=== PATIENT | female | born 1955 | race Caucasian/White ===

== ENCOUNTER 2016-10-27 16:02 | Outpatient (CLI) | payer MEDICAID | END 2016-10-27 16:03 | disposition home or self-care (01) | DX: R71.8 Other abnormality of red blood cells (principal) ==

== ENCOUNTER 2016-12-20 15:17 | Outpatient (CLI) | payer MEDICAID ==
[2016-12-20 19:13] LABS: BILIRUBIN,TOTAL 0.2 mg/dL (0.2-1.0); BUN - BLOOD UREA NITROGEN 21 mg/dL (6-20); CALCIUM 9.9 mg/dL (8.5-10.3); CARBON DIOXIDE - CO2 29 mmol/L (21-32); CHLORIDE 104 mmol/L (101-111); CREATININE 0.5 mg/dL (0.4-1.0); GFR - MDRD 126 (>89); GLUCOSE 105 mg/dL (70-100); POTASSIUM 3.6 mmol/L (3.5-5.0); SODIUM 141 mmol/L (135-145); TOTAL PROTEIN 4.8 g/dL (6.7-8.2)
[2016-12-20 19:24] LABS: BASOPHILS % (AUTO) 0.6 %; EOSINOPHILS # (AUTO) 0.2 10^3/uL (0.0-0.7); EOSINOPHILS % (AUTO) 4.2 %; HCT - HEMATOCRIT 40.8 % (37.0-47.0); HGB - HEMOGLOBIN 13.2 g/dL (12.0-16.0); LYMPHOCYTES # (AUTO) 1.4 10^3/uL (1.5-3.5); LYMPHOCYTES % (AUTO) 24.4 %; MEAN CORPUSCULAR HEMOGLOBIN 34.9 pg (27.0-31.0); MEAN CORPUSCULAR HGB CONC 32.2 g/dL (32.0-36.0); MEAN CORPUSCULAR VOLUME 108.2 fL (81.0-99.0); MEAN PLATELET VOLUME 8.9 fL (7.9-10.8); MONOCYTES # (AUTO) 0.6 10^3/uL (0.0-1.0); MONOCYTES % (AUTO) 10.7 %; NEUTROPHILS # (AUTO) 3.4 10^3/uL (1.5-6.6); NEUTROPHILS % (AUTO) 60.1 %; RED BLOOD COUNT 3.77 10^6/uL (4.20-5.40); RED CELL DISTRIBUTION WIDTH 13.3 % (12.0-15.0); UNCORRECTED WHITE BLOOD COUNT 5.7 x10^3/uL; WHITE BLOOD COUNT 5.7 x10^3/uL (4.8-10.8)
== END 2016-12-20 15:18 | disposition home or self-care (01) ==
LOC: LAB.F 15:17
PROVIDERS: ATTEND Specialist/Technologist Athletic Trainer
DX: M12.9 Arthropathy, unspecified (principal); M79.1 Myalgia; M15.0 Primary generalized (osteo)arthritis; Z78.9 Other specified health status; M54.2 Cervicalgia
CPT/HCPCS: 36415; 80053; 85025; 85651; 86140

== ENCOUNTER 2017-04-12 15:15 | Outpatient (CLI) | payer MEDICAID | END 2017-04-12 15:16 | disposition home or self-care (01) | LOC: LAB.R 15:15 | PROVIDERS: ATTEND Nurse Practitioner Family | DX: L03.90 Cellulitis, unspecified (principal) | CPT/HCPCS: 87070; 87205 ==

== ENCOUNTER 2017-07-06 11:12 | Outpatient (CLI) | payer MEDICAID | END 2017-07-06 11:13 | disposition EMS.NT | LOC: EMS 11:12 | PROVIDERS: ATTEND Surgery | DX: R06.00 Dyspnea, unspecified (principal) ==

== ENCOUNTER 2017-07-08 14:25 | Outpatient (CLI) | payer MEDICAID ==
--- NOTE | 2017-07-08 15:59 | XRAY Report ---
DATE OF SERVICE: 07/08/2017 THREE VIEW LEFT FOOT: 07/08/2017 CLINICAL INDICATION: Painful bunion. FINDINGS: AP, lateral, oblique views of the left foot demonstrate osteoarthritic changes in the first and second metatarsophalangeal joints, with hallux valgus. There is no evidence of fracture. No radiopaque foreign body was seen in the soft tissues. IMPRESSION: MODERATE OSTEOARTHRITIS, WITH HALLUX VALGUS. TD: 07/08/2017 16:58
== END 2017-07-08 14:26 | disposition home or self-care (01) ==
LOC: DI 14:25
PROVIDERS: ATTEND Podiatrist
DX: M19.072 Primary osteoarthritis, left ankle and foot (principal); M20.12 Hallux valgus (acquired), left foot; M21.612 Bunion of left foot

== ENCOUNTER 2017-08-24 08:00 | Outpatient (CLI) | payer MEDICAID ==
[2017-08-24 17:46] LABS: BASOPHILS % (AUTO) 0.6 %; EOSINOPHILS # (AUTO) 0.3 10^3/uL (0.0-0.7); EOSINOPHILS % (AUTO) 3.8 %; HGB - HEMOGLOBIN 12.4 g/dL (12.0-16.0); LYMPHOCYTES # (AUTO) 1.6 10^3/uL (1.5-3.5); MEAN CORPUSCULAR HEMOGLOBIN 35.5 pg (27.0-31.0); MEAN CORPUSCULAR HGB CONC 32.4 g/dL (32.0-36.0); MEAN CORPUSCULAR VOLUME 109.6 fL (81.0-99.0); MEAN PLATELET VOLUME 7.7 fL (7.9-10.8); MONOCYTES # (AUTO) 0.4 10^3/uL (0.0-1.0); MONOCYTES % (AUTO) 5.3 %; NEUTROPHILS % (AUTO) 71.3 %; PLT - PLATELET COUNT 348 10^3/uL (130-450); RED BLOOD COUNT 3.47 10^6/uL (4.20-5.40); RED CELL DISTRIBUTION WIDTH 15.3 % (12.0-15.0); WHITE BLOOD COUNT 8.4 x10^3/uL (4.8-10.8)
[2017-08-24 18:18] LABS: ALBUMIN 3.9 g/dL (3.2-5.5); ALBUMIN/GLOBULIN RATIO 1.6 (1.0-2.2); ALKALINE PHOSPHATASE 61 IU/L (42-121); ALT ALANINE AMINOTRANSFERASE 36 IU/L (10-60); AST ASPARTATE AMINOTRANSFERASE 32 IU/L (10-42); BILIRUBIN,TOTAL 0.4 mg/dL (0.2-1.0); BUN - BLOOD UREA NITROGEN 31 mg/dL (6-20); CALCIUM 9.3 mg/dL (8.5-10.3); CARBON DIOXIDE - CO2 29 mmol/L (21-32); CHLORIDE 103 mmol/L (101-111); CREATININE 0.9 mg/dL (0.4-1.0); GFR - MDRD 64 (>89); GLUCOSE 98 mg/dL (70-100); SODIUM 139 mmol/L (135-145); TOTAL PROTEIN 6.4 g/dL (6.7-8.2)
[2017-08-24 18:19] LABS: CRP - C-REACTIVE PROTEIN < 1.0 mg/dL (0-1.0)
== END 2017-08-24 08:01 | disposition home or self-care (01) ==
LOC: LAB.F 08:00
PROVIDERS: ATTEND Specialist/Technologist Athletic Trainer
DX: M12.9 Arthropathy, unspecified (principal); M79.1 Myalgia; Z78.9 Other specified health status
CPT/HCPCS: 36415; 80053; 85025; 85651; 86140

== ENCOUNTER 2017-08-30 11:20 | Outpatient (CLI) | payer MEDICAID | END 2017-08-30 11:21 | disposition home or self-care (01) | LOC: LAB.R 11:20 | PROVIDERS: ATTEND Nurse Practitioner Family | DX: L02.93 Carbuncle, unspecified (principal); Z86.14 Personal history of Methicillin resistant Staphylococcus aureus infection | CPT/HCPCS: 87070; 87205 ==

== ENCOUNTER 2017-09-29 13:02 | Emergency (ER) | payer MEDICAID ==
[2017-09-29] MEDS ORDERED: IOPAMIDOL-300 100 ML VIAL IVP ONE ×2 (13:03→18:04)
[2017-09-29 14:09] LABS: BASOPHILS % (AUTO) 0.3 %; EOSINOPHILS # (AUTO) 0.3 10^3/uL (0.0-0.7); EOSINOPHILS % (AUTO) 2.5 %; HGB - HEMOGLOBIN 13.3 g/dL (12.0-16.0); LYMPHOCYTES # (AUTO) 1.4 10^3/uL (1.5-3.5); LYMPHOCYTES % (AUTO) 12.4 %; MEAN CORPUSCULAR HEMOGLOBIN 35.8 pg (27.0-31.0); MEAN CORPUSCULAR VOLUME 108.2 fL (81.0-99.0); MONOCYTES # (AUTO) 0.7 10^3/uL (0.0-1.0); MONOCYTES % (AUTO) 5.7 %; NEUTROPHILS # (AUTO) 9.2 10^3/uL (1.5-6.6); NEUTROPHILS % (AUTO) 79.1 %; PLT - PLATELET COUNT 351 10^3/uL (130-450); RED BLOOD COUNT 3.73 10^6/uL (4.20-5.40); RED CELL DISTRIBUTION WIDTH 13.5 % (12.0-15.0); WHITE BLOOD COUNT 11.6 x10^3/uL (4.8-10.8)
[2017-09-29 14:24] LABS: ALBUMIN 4.3 g/dL (3.2-5.5); ALBUMIN/GLOBULIN RATIO 1.5 (1.0-2.2); BILIRUBIN,TOTAL 0.4 mg/dL (0.2-1.0); CALCIUM 10.3 mg/dL (8.5-10.3); CREATININE 1.2 mg/dL (0.4-1.0); TOTAL PROTEIN 7.1 g/dL (6.7-8.2)
[2017-09-29 15:32] LABS: BILIRUBIN,URINE NEGATIVE (NEGATIVE); GLUCOSE, URINE (UA) NEGATIVE (NEGATIVE); KETONES,URINE (UA) NEGATIVE (NEGATIVE); LEUKOCYTE ESTERASE, URINE NEGATIVE (NEGATIVE); NITRITE,URINE NEGATIVE (NEGATIVE); OCCULT BLOOD,URINE NEGATIVE (NEGATIVE); PH,URINE 5.5 PH (5.0-7.5); PROTEIN,URINE NEGATIVE (NEGATIVE); UROBILINOGEN,URINE 0.2 (NORMAL) E.U./dL (NORMAL)
[2017-09-29 15:33] LABS: CLARITY,URINE CLEAR (CLEAR)
[2017-09-29] MEDS ORDERED: SODIUM CHLORIDE 0.9% 1,000 ML IV ONE (15:46)
[2017-09-29] MEDS ORDERED: ONDANSETRON 4 MG/2 ML VIAL IVP STA (15:47)
[2017-09-29] MEDS ORDERED: HYDROmorphone 1 MG/ML CARPUJECT IVP STA (15:47)
--- NOTE | 2017-09-29 15:48 | ED Physician Documentation ---
PD HPI ABD PAIN - Stated complaint Stated Complaint: ABD PX/BLOATING - Chief complaint Chief Complaint: Abd Pain - History obtained from History obtained from: Patient - History of Present Illness Timing - onset: Other (She had what sounds like ruptured diverticulitis about 7 years ago with an ex lap and an ostomy that was later reversed. She has been having on and off increasing abdominal pains with bloating for the last few days and several episodes of vomiting. She has had some loose small stools that smell bad but are not dark or tarry. No fever.) Review of Systems Constitutional: denies: Fever, Chills Cardiac: denies: Chest pain / pressure, Palpitations Respiratory: denies: Dyspnea, Cough GI: reports: Abdominal Pain, Nausea, Vomiting, Diarrhea. denies: Constipation, Hematemesis, Bloody / black stool Musculoskeletal: reports: Back pain PD PAST MEDICAL HISTORY - Past Medical History Past Medical History: Yes Cardiovascular: None Respiratory: COPD Neuro: Peripheral neuropathy Endocrine/Autoimmune: None GI: Colon polyps, Diverticulitis HEENT: None Psych: None Musculoskeletal: Osteoarthritis, Fibromyalgia, Rheumatoid arthritis - Past Surgical History Past Surgical History: Yes General: Bowel surgery, Colonoscopy - Present Medications Home Medications: Ambulatory Orders Medication Instructions Recorded Confirmed Albuterol 2.5 mg INH Q4H PRN #30 neb 04/12/16 11/19/16 Sulfasalazine [Sulfazine] 2 tab PO BID 04/12/16 11/19/16 Cyclobenzaprine [Flexeril] 10 mg PO TID PRN 11/19/16 11/19/16 Flunisolide [Aerospan] 2 puffs INH BID 11/19/16 11/19/16 Gabapentin 300 mg PO Q8H PRN 11/19/16 11/19/16 Methotrexate 8 tab PO ONCE 11/19/16 11/19/16 Metoclopramide [Reglan] 10 mg PO Q6H PRN #20 tablet 09/29/17 Omeprazole [PriLOSEC] 20 mg PO DAILY #14 capsule 09/29/17 - Allergies Allergies/Adverse Reactions: Allergies Allergy/AdvReac Type Severity Reaction Status Date / Time piperacillin Allergy Unknown Verified 09/29/17 13:40 - Social History Does the pt smoke?: Yes Smoking Status: Current every day smoker PD ED PE NORMAL - Vitals Vital signs reviewed: Yes - General General: Alert and oriented X 3, No acute distress - HEENT HEENT: PERRL, EOMI - Neck Neck: Supple, no meningeal sign, No bony TTP - Cardiac Cardiac: RRR, No murmur - Respiratory Respiratory: No respiratory distress, Clear bilaterally - Abdomen Abdomen: Other (Abdomen is soft with multiple surgical scars, somewhat bloated and tympanitic with absent bowel tones. No focal tenderness but she does have mild diffuse tenderness without surgical signs.) - Back Back: No CVA TTP, No spinal TTP - Derm Derm: Normal color, Warm and dry - Extremities Extremities: No edema, No calf tenderness / cord - Neuro Neuro: Alert and oriented X 3, Normal speech - Psych Psych: Normal mood, Normal affect Results - Vitals Vitals: Vital Signs - 24 hr 09/29/17 09/29/17 13:35 18:27 Temperature 36.7 C 37.4 C Heart Rate 107 H 103 H Respiratory 18 16 Rate Blood Pressure 122/61 140/74 H O2 Saturation 99 94 Oxygen O2 Source Room air - Labs Labs: Laboratory Tests 09/29/17 09/29/17 09/29/17 14:00 14:04 14:04 WBC 11.6 H RBC 3.73 L Hgb 13.3 Hct 40.3 MCV 108.2 H MCH 35.8 H MCHC 33.0 RDW 13.5 Plt Count 351 MPV 7.0 L Neut # 9.2 H Lymph # 1.4 L [place] # 0.7 Eos # 0.3 Baso # 0.0 Absolute Nucleated RBC 0.00 Nucleated RBC % 0.0 Sodium 134 L Potassium 4.4 Chloride 95 L Carbon Dioxide 30 Anion Gap 9.0 BUN 36 H Creatinine 1.2 H Estimated GFR (MDRD) 46 L Glucose 101 H Calcium 10.3 Total Bilirubin 0.4 AST 28 ALT 25 Alkaline Phosphatase 115 Total Protein 7.1 Albumin 4.3 Globulin 2.8 Albumin/Globulin Ratio 1.5 Lipase 18 L Urine Color YELLOW Urine Clarity CLEAR Urine pH 5.5 Ur Specific [place] 1.025 Urine Protein NEGATIVE Urine Glucose (UA) NEGATIVE Urine Ketones NEGATIVE Urine Occult Blood NEGATIVE Urine Nitrite NEGATIVE Urine Bilirubin NEGATIVE Urine Urobilinogen 0.2 (NORMAL) Ur Leukocyte Esterase NEGATIVE Ur Microscopic Review NOT INDICATED Urine Culture Comments NOT INDICATED - Rads (name of study) CT A/P Radiology: EMP read contemporaneously (Stomach with pyloric wall thickening, I also note a significant stool load.) PD MEDICAL DECISION MAKING - ED course ED course: 61-year-old woman with abdominal pain and vomiting, exam concerning for small bowel obstruction which is not evident on CT but she does have a significant stool load and pyloric wall thickening. Follow-up for upper endoscopy was encouraged but in the meantime we will give her antiemetics and laxative as well as a PPI. Departure - Departure Disposition: 01 Home, Self Care Clinical Impression: Abdominal pain Qualifiers: Abdominal location: generalized Qualified Code(s): R10.84 - Generalized abdominal pain Constipation Qualifiers: Constipation type: other constipation type Qualified Code(s): K59.09 - Other constipation Condition: Good Record reviewed to determine appropriate education?: Yes Instructions: ED Constipation, Abdominal Pain Prescriptions: Metoclopramide [Reglan] 10 mg PO Q6H PRN #20 tablet PRN Reason: Nausea / Vomiting Omeprazole [PriLOSEC] 20 mg PO DAILY #14 capsule Comments: If you do not have a good stool output with the magnesium citrate, buy an over- the-counter laxative and take that as well. Return if worsening or if new symptoms develop. Follow-up with your doctor and discuss referral for upper and lower endoscopy given CT findings and the fact that you are overdue for colonoscopy anyway.
[2017-09-29] MEDS ORDERED: IOPAMIDOL-300 50 ML VIAL ONE (16:02)
[2017-09-29] MEDS ORDERED: IOPAMIDOL-300 100 ML VIAL ONE (16:02)
[2017-09-29] MEDS ORDERED: diphenhydrAMINE INJ 50 MG/ML VIAL IVP STA (16:36)
[2017-09-29] MEDS ORDERED: IOPAMIDOL-300 50 ML VIAL PO ONE (18:04)
[2017-09-29 18:28] VITALS: BP 140/74
--- NOTE | 2017-09-29 18:36 | CT Report ---
EXAM: CT ABDOMEN AND PELVIS EXAM DATE: 09/29/2017 06:02 PM. CLINICAL HISTORY: Diffuse abdomen pain and bloating. Nausea and vomiting. COMPARISONS: None. TECHNIQUE: Routine helical CT imaging was performed through the abdomen and pelvis. IV contrast: 50 M L ISOVUE 300. Enteric contrast: Yes. Reconstructions: Coronal and sagittal. In accordance with CT protocol optimization, one or more of the following dose reduction techniques w ere utilized for this exam: automated exposure control, adjustment of mA and/or KV based on patient s ize, or use of iterative reconstructive technique. FINDINGS: Lung Bases: Unremarkable. Liver: Normal. No masses. Gallbladder/Bile Ducts: Unremarkable. Spleen: Normal. Pancreas: Normal. Adrenal Glands: Normal. Kidneys: Normal. No masses or hydronephrosis. Peritoneal Cavity/Bowel: Distended stomach with pyloric thickening 3.6 cm long and 3.4 cm in diameter . Oral contrast reaches the mid small bowel. Rectosigmoid anastomosis noted. No free fluid, free air or adenopathy. No masses or acute inflammatory process. Appendectomy clips. Pelvic Organs: Normal. The bladder and visualized pelvic organs are within normal limits. Vasculature: No aortic aneurysm. Advanced lower aortic atherosclerotic calcification. Bones: Advanced multilevel degenerative lumbar disk disease. Other: None. IMPRESSION: 1. Distended stomach with pyloric wall thickening. 2. Appendectomy clips and rectosigmoid anastomosis noted. 3. Multilevel degenerative lumbar disk disease. [facility] Referring Provider Line: [phone] SITE ID: [id number]
[2017-09-29] MEDS ORDERED: PANTOPRAZOLE 40 MG TABLET PO STA (18:50)
[2017-09-29] MEDS ORDERED: MAGNESIUM CITRATE 296 ML BOTTLE PO STA (18:50)
== END 2017-09-29 19:17 | disposition home or self-care (01) ==
LOC: ED 13:02
DX: R10.84 Generalized abdominal pain (principal); K59.09 Other constipation; G62.9 Polyneuropathy, unspecified; F17.200 Nicotine dependence, unspecified, uncomplicated
CPT/HCPCS: 36415; 74177; 80053; 81003; 83690; 85025; 96361; 96374; 96375; 99283; 99284; A9270; J1170; J1200; Q9967; 81001; 87086

== ENCOUNTER 2017-10-19 14:59 | Outpatient (CLI) | payer MEDICAID ==
[2017-10-19 17:35] LABS: BASOPHILS % (AUTO) 0.5 %; EOSINOPHILS # (AUTO) 0.2 10^3/uL (0.0-0.7); EOSINOPHILS % (AUTO) 2.7 %; HGB - HEMOGLOBIN 11.8 g/dL (12.0-16.0); LYMPHOCYTES # (AUTO) 1.4 10^3/uL (1.5-3.5); LYMPHOCYTES % (AUTO) 19.7 %; MEAN CORPUSCULAR HEMOGLOBIN 35.7 pg (27.0-31.0); MEAN CORPUSCULAR HGB CONC 32.6 g/dL (32.0-36.0); MEAN CORPUSCULAR VOLUME 109.4 fL (81.0-99.0); MEAN PLATELET VOLUME 7.8 fL (7.9-10.8); MONOCYTES # (AUTO) 0.5 10^3/uL (0.0-1.0); MONOCYTES % (AUTO) 7.4 %; NEUTROPHILS % (AUTO) 69.7 %; PLT - PLATELET COUNT 403 10^3/uL (130-450); RED BLOOD COUNT 3.32 10^6/uL (4.20-5.40); RED CELL DISTRIBUTION WIDTH 13.7 % (12.0-15.0); WHITE BLOOD COUNT 7.1 x10^3/uL (4.8-10.8)
== END 2017-10-19 15:00 | disposition home or self-care (01) ==
LOC: LAB.F 14:59
PROVIDERS: ATTEND Nurse Practitioner Family
DX: G25.81 Restless legs syndrome (principal)
CPT/HCPCS: 36415; 82607; 85025

== ENCOUNTER 2018-04-04 14:16 | Outpatient (CLI) | payer MEDICAID ==
[2018-04-04 17:50] LABS: ALBUMIN 4.2 g/dL (3.2-5.5); ALBUMIN/GLOBULIN RATIO 1.5 (1.0-2.2); BILIRUBIN,TOTAL 0.6 mg/dL (0.2-1.0); CALCIUM 9.8 mg/dL (8.5-10.3); CREATININE 0.9 mg/dL (0.4-1.0)
== END 2018-04-04 14:17 | disposition home or self-care (01) ==
LOC: LAB.F 14:16
PROVIDERS: ATTEND Specialist/Technologist Athletic Trainer
DX: M12.9 Arthropathy, unspecified (principal); E83.52 Hypercalcemia
CPT/HCPCS: 36415; 80053; 81599

== ENCOUNTER 2018-04-19 14:45 | Outpatient (CLI) | payer MEDICAID | END 2018-04-19 14:46 | disposition home or self-care (01) | LOC: LAB.R 14:45 | PROVIDERS: ATTEND Nurse Practitioner Family | DX: L98.492 Non-pressure chronic ulcer of skin of other sites with fat layer exposed (principal) | CPT/HCPCS: 87070; 87077; 87181; 87205 ==

== ENCOUNTER 2018-06-01 09:21 | Outpatient (CLI) | payer MEDICAID | END 2018-06-01 09:22 | disposition home or self-care (01) | LOC: RT 09:21 | PROVIDERS: ATTEND Nurse Practitioner Family | DX: R06.02 Shortness of breath (principal) | CPT/HCPCS: 94060 ==

== ENCOUNTER 2018-06-14 14:16 | Emergency (ER) | payer MEDICAID ==
--- NOTE | 2018-06-14 16:32 | ED Physician Documentation ---
PD HPI BACK INJURY - Stated complaint Stated Complaint: GLF - History obtained from History obtained from: Patient - History of Present Illness Location: Left, Lower Type of injury: Fall (slipped, fell and landed onto her back, with pain in lumbar area, and left arm. Still having pain in lumbar area, and also having couple days of abd distension, and a feeling of mass left lower abd.) Where injury occurred: Home Timing - onset: How many days ago (5) Timing - duration: Days (5) Review of Systems Constitutional: reports: Myalgias. denies: Fever, Chills Nose: denies: Rhinorrhea / runny nose, Congestion Throat: denies: Sore throat Cardiac: denies: Chest pain / pressure, Palpitations Respiratory: denies: Cough GI: reports: Nausea, Constipation. denies: Abdominal Pain, Vomiting : denies: Dysuria, Frequency Skin: denies: Abrasion (s), Laceration (s) Neurologic: reports: Generalized weakness. denies: Focal weakness, Numbness, Altered mental status, Headache PD PAST MEDICAL HISTORY - Past Medical History Cardiovascular: None Respiratory: COPD Endocrine/Autoimmune: None GI: Colon polyps, Diverticulitis HEENT: None Psych: None Musculoskeletal: Osteoarthritis, Fibromyalgia, Rheumatoid arthritis - Past Surgical History Past Surgical History: Yes General: Bowel surgery, Colonoscopy - Present Medications Home Medications: Ambulatory Orders Medication Instructions Recorded Confirmed Cyclobenzaprine [Flexeril] 10 mg PO TID PRN 11/19/16 05/11/18 Methotrexate 12.5 tab PO BID 11/19/16 05/11/18 Acetaminophen [8Hr Arthritis Pain 1 tab PO PRN PRN 05/11/18 05/11/18 Relief] Folic Acid 1 mg PO DAILY 05/11/18 05/11/18 Multivitamin [Multiple Vitamins] 1 tab PO DAILY 05/11/18 05/11/18 Nortriptyline HCl 1 cap PO DAILY 05/11/18 05/11/18 Turmeric Root Extract [Turmeric] 1 cap PO DAILY 05/11/18 05/11/18 Calcitonin [Fortical] 1 sprays ELAINE DAILY #1 bottle 06/14/18 Cephalexin [Keflex] 500 mg PO TID #20 capsule 06/14/18 Docusate Sodium 100 mg PO DAILY #30 capsule 06/14/18 Losartan Potassium 06/14/18 Naproxen 375 mg PO BID #20 tablet 06/14/18 Oxycodone HCl/Acetaminophen 1 - 2 each PO Q6H PRN #20 tablet 06/14/18 [Percocet 5-325 mg Tablet] Tiotropium [place] [Spiriva] 06/14/18 - Allergies Allergies/Adverse Reactions: Allergies Allergy/AdvReac Type Severity Reaction Status Date / Time piperacillin Allergy Rash Verified 06/14/18 14:31 - Social History Does the pt smoke?: Yes Smoking Status: Current every day smoker PD ED PE NORMAL - Vitals Vital signs reviewed: Yes - General General: Alert and oriented X 3, No acute distress, Well developed/nourished - HEENT HEENT: Atraumatic, Pharynx benign - Neck Neck: Supple, no meningeal sign, No bony TTP, No adenopathy - Cardiac Cardiac: RRR, No murmur - Respiratory Respiratory: Clear bilaterally - Abdomen Abdomen: Soft, Non tender - Back Back: No CVA TTP, Other (has some spinal and adjacent muscle tenderness at TL junction. ) - Derm Derm: Normal color, Warm and dry - Extremities Extremities: No deformity, No tenderness to palpate, Normal ROM s pain - Neuro Neuro: Alert and oriented X 3, No motor deficit, Normal speech Results - Vitals Vitals: Vital Signs - 24 hr 06/14/18 06/14/18 14:24 19:45 Temperature 37.2 C 37.0 C Heart Rate 105 H 98 Respiratory 16 16 Rate Blood Pressure 146/73 H 138/78 H O2 Saturation 100 97 Oxygen O2 Source Room air - Labs Labs: Laboratory Tests 06/14/18 06/14/18 06/14/18 17:25 17:29 17:29 WBC 7.0 RBC 3.57 L Hgb 13.5 Hct 40.7 MCV 114.1 H MCH 37.7 H MCHC 33.0 RDW 14.5 Plt Count 351 MPV 6.6 L Neut # (Auto) 4.6 Lymph # (Auto) 1.6 [place] # (Auto) 0.6 Eos # (Auto) 0.1 Baso # (Auto) 0.0 Absolute Nucleated RBC 0.00 Nucleated RBC % 0.1 Manual Slide Review Indicated WBC Morphology NORMAL APPEARANCE Platelet Estimate NORMAL (130-450,000) Platelet Morphology NORMAL APPEARANCE RBC Morph Micro Appear 2+ STOMATOCYTES Sodium 140 Potassium 3.9 Chloride 103 Carbon Dioxide 31 Anion Gap 6.0 BUN 16 Creatinine 0.6 Estimated GFR (MDRD) 102 Glucose 114 H Calcium 9.9 Total Bilirubin 0.4 AST 26 ALT 31 Alkaline Phosphatase 89 Total Protein 7.6 Albumin 4.3 Globulin 3.3 Albumin/Globulin Ratio 1.3 Lipase 27 Urine Color YELLOW Urine Clarity CLOUDY Urine pH 7.0 Ur Specific [place] 1.015 Urine Protein NEGATIVE Urine Glucose (UA) NEGATIVE Urine Ketones NEGATIVE Urine Occult Blood NEGATIVE Urine Nitrite NEGATIVE Urine Bilirubin NEGATIVE Urine Urobilinogen 0.2 (NORMAL) Ur Leukocyte Esterase NEGATIVE Urine RBC 0-5 Urine WBC 0-3 Ur Squamous Epith Cells RARE Squamous Amorphous Sediment Moderate Urine Bacteria Few Ur Microscopic Review INDICATED Urine Culture Comments NOT INDICATED - Rads (name of study) abd CT Radiology: Prelim report reviewed, Discussed with rads (L1 endplate compression fracture, mild. stranding and uneven contrast in kidneys, suggesting kidney infection. no abd mass seen. ), EMP read contemporaneously PD MEDICAL DECISION MAKING - ED course Complexity details: reviewed old records, reviewed results, re-evaluated patient, considered differential, d/w patient ED course: She has L1 compression fracture. There is CT showing some findings consistent with kidney infection. We will treated with some antibiotics for this. There are no abdominal masses to account for the firmness. She may have a slight ileus related to the compression fracture and injury and therefore having some distention which is translating more locally given her prior abdominal surgeries. Departure - Departure Disposition: 01 Home, Self Care Clinical Impression: Lumbar compression fracture Qualifiers: Encounter type: initial encounter Lumbar vertebra fracture level: L1 Fracture type: closed Qualified Code(s): S32.010A - Wedge compression fracture of first lumbar vertebra, initial encounter for closed fracture UTI (urinary tract infection) Qualifiers: Urinary tract infection type: site unspecified Hematuria presence: without hematuria Qualified Code(s): N39.0 - Urinary tract infection, site not specified Abdominal pain Qualifiers: Abdominal location: left lower quadrant Qualified Code(s): R10.32 - Left lower quadrant pain Condition: Stable Record reviewed to determine appropriate education?: Yes Instructions: ED Fx Comp Vertebral Follow-Up: Kimberly Adam ARNP [Primary Care Provider] - Prescriptions: Calcitonin [Fortical] 1 sprays ELAINE DAILY #1 bottle Cephalexin [Keflex] 500 mg PO TID #20 capsule Docusate Sodium 100 mg PO DAILY #30 capsule Naproxen 375 mg PO BID #20 tablet Oxycodone HCl/Acetaminophen [Percocet 5-325 mg Tablet] 1 - 2 each PO Q6H PRN #20 tablet PRN Reason: pain Comments: Activity as feel able. You have a mild compression fracture at the first lumbar vertebrae. This will take about a month to heal up but should be the worst over the first week to week and a half. To improve on it we can use some anti- inflammatories such as naproxen twice daily for several days or so. Can also improve the healing of it faster with the calcitonin hormone nasal spray that given 1 spray daily in alternating nostrils for 4 weeks. Add Tylenol or Percocet if needed for pain. Use a stool softener docusate to ensure easy bowel movements. Some sludging of movement of your intestines may be accounting for the distention feeling you have right now. Follow-up with your primary care if not improving well over the next 5-7 days, call for an appointment. Discharge Date/Time: 06/14/18 19:47
[2018-06-14] MEDS ORDERED: KETOROLAC 15 MG/ML VIAL IVP STA (16:47)
[2018-06-14] MEDS ORDERED: SODIUM CHLORIDE 0.9% 1,000 ML IV ONE (16:47)
[2018-06-14] MEDS ORDERED: IOVERSOL 320 100 ML VIAL IVP ONE ×2 (17:30→18:25)
[2018-06-14 17:36] LABS: BASOPHILS % (AUTO) 0.4 %; EOSINOPHILS # (AUTO) 0.1 10^3/uL (0.0-0.7); EOSINOPHILS % (AUTO) 2.1 %; HGB - HEMOGLOBIN 13.5 g/dL (12.0-16.0); LYMPHOCYTES # (AUTO) 1.6 10^3/uL (1.5-3.5); LYMPHOCYTES % (AUTO) 22.4 %; MEAN CORPUSCULAR HEMOGLOBIN 37.7 pg (27.0-31.0); MEAN CORPUSCULAR VOLUME 114.1 fL (81.0-99.0); MEAN PLATELET VOLUME 6.6 fL (7.9-10.8); MONOCYTES # (AUTO) 0.6 10^3/uL (0.0-1.0); MONOCYTES % (AUTO) 9.2 %; NEUTROPHILS # (AUTO) 4.6 10^3/uL (1.5-6.6); NEUTROPHILS % (AUTO) 65.9 %; PLT - PLATELET COUNT 351 10^3/uL (130-450); RED BLOOD COUNT 3.57 10^6/uL (4.20-5.40); RED CELL DISTRIBUTION WIDTH 14.5 % (12.0-15.0)
[2018-06-14 17:37] LABS: BILIRUBIN,URINE NEGATIVE (NEGATIVE); GLUCOSE, URINE (UA) NEGATIVE (NEGATIVE); KETONES,URINE (UA) NEGATIVE (NEGATIVE); LEUKOCYTE ESTERASE, URINE NEGATIVE (NEGATIVE); NITRITE,URINE NEGATIVE (NEGATIVE); OCCULT BLOOD,URINE NEGATIVE (NEGATIVE); PROTEIN,URINE NEGATIVE (NEGATIVE); UROBILINOGEN,URINE 0.2 (NORMAL) E.U./dL (NORMAL)
[2018-06-14 17:38] LABS: CLARITY,URINE CLOUDY (CLEAR)
[2018-06-14 17:45] LABS: ALBUMIN 4.3 g/dL (3.2-5.5); ALBUMIN/GLOBULIN RATIO 1.3 (1.0-2.2); BILIRUBIN,TOTAL 0.4 mg/dL (0.2-1.0); CALCIUM 9.9 mg/dL (8.5-10.3); CREATININE 0.6 mg/dL (0.4-1.0); TOTAL PROTEIN 7.6 g/dL (6.7-8.2)
[2018-06-14 17:55] LABS: AMORPHOUS SEDIMENT,UR Moderate /LPF; BACTERIA,URINE Few /HPF (None Seen); RBC,URINE 0-5 /HPF (0-5); SQUAMOUS EPITHELIAL CELL,UR RARE Squamous (<= Few)
[2018-06-14 17:58] LABS: PLATELET ESTIMATE, MANUAL NORMAL (130-450,000) (NORMAL); PLATELET MORPHOLOGY NORMAL APPEARANCE (NORMAL)
[2018-06-14] MEDS ORDERED: ACETAMINOPHEN 1,000 MG/100 ML 100 ML IV STA (18:45)
--- NOTE | 2018-06-14 18:47 | CT Report ---
Reason: fall 5 days ago; persistent lumbar and left abd pa Procedure Date: 06/14/2018 Accession Number: [id number] / [id number] Procedure: CT - Abdomen/Pelvis W/ CPT Code: FULL RESULT: EXAM: CT ABDOMEN AND PELVIS EXAM DATE: 06/14/2018 05:56 PM. CLINICAL HISTORY: Fall 5 days ago; persistent lumbar and left abdominal pain. COMPARISONS: Abdomen/pelvis with contrast 09/29/2017 5:42 PM. TECHNIQUE: Routine helical CT imaging was performed through the abdomen and pelvis. IV contrast: 100 ML OPTIRAY 320. Enteric contrast: No. Reconstructions: Coronal and sagittal. In accordance with CT protocol optimization, one or more of the following dose reduction techniques were utilized for this exam: automated exposure control, adjustment of mA and/or KV based on patient size, or use of iterative reconstructive technique. FINDINGS: Lung Bases: Unremarkable. Liver: Normal. No masses. Gallbladder/Bile Ducts: Unremarkable. Spleen: Normal. Pancreas: Normal. Adrenal Glands: Normal. Kidneys: No hydronephrosis. However, new multiple areas of loss of corticomedullary differentiation with decreased enhancement, involving the parenchyma of both kidneys, some of which have slight edema, and minimal perinephric linear stranding. No abscess, focal solid mass lesions. Peritoneal Cavity/Bowel: Normal. No free fluid, free air or adenopathy. No masses or acute inflammatory process. Appendectomy. Pelvic Organs: 2.5 cm calcified fibroid off the uterine fundus. No free fluid nor adnexal mass lesions. No stones in the small caliber urinary bladder. Sutures at the sigmoid rectal anastomosis. Vasculature: No aneurysms or other significant abnormality. Bones: Acute mild wedging involving superior endplate of L1 with 2 mm retropulsed bone fragment. Note significant compromise of the adjacent spinal canal at this level. Mild edema adjacent to the vertebral body without epidural component. Other: None. IMPRESSION: 1. Acute mild wedging L1 with 2 mm retropulsed bone fragment without significant compromise of the central spinal canal. 2. Abnormal appearance to the renal parenchyma bilaterally. Appearance favors pyelonephritis although bilateral renal infarcts also included in the differential. Very rarely, malignant infiltration such as with leukemic or lymphoma can present similarly. [facility] The above findings were discussed with Howard Chapa by Dr. Margie Alexis at 18:46 hrs on 06/14/18.
[2018-06-14] MEDS ORDERED: oxyCODONE/ACET 5/325 Prepack 4 PO STA (19:12)
[2018-06-14] MEDS ORDERED: cephALEXin 250 MG CAPSULE PO STA (19:18)
[2018-06-14 19:46] VITALS: BP 138/78
== END 2018-06-14 19:47 | disposition home or self-care (01) ==
LOC: ED 14:16
DX: S32.010A Wedge compression fracture of first lumbar vertebra, initial encounter for closed fracture (principal); W01.0XXA Fall on same level from slipping, tripping and stumbling without subsequent striking against object, initial encounter; Y92.000 Kitchen of unspecified non-institutional (private) residence as the place of occurrence of the external cause; N39.0 Urinary tract infection, site not specified; R10.32 Left lower quadrant pain; F17.200 Nicotine dependence, unspecified, uncomplicated
CPT/HCPCS: 36415; 74177; 80053; 81001; 81003; 83690; 85025; 87086; 96361; 96365; 96375; 99283

== ENCOUNTER 2018-07-17 12:11 | Outpatient (CLI) | payer MEDICAID ==
[2018-07-17 18:19] LABS: BASOPHILS % (AUTO) 0.3 %; EOSINOPHILS % (AUTO) 0.8 %; HGB - HEMOGLOBIN 14.6 g/dL (12.0-16.0); LYMPHOCYTES # (AUTO) 1.1 10^3/uL (1.5-3.5); LYMPHOCYTES % (AUTO) 17.2 %; MEAN CORPUSCULAR HEMOGLOBIN 37.1 pg (27.0-31.0); MEAN CORPUSCULAR HGB CONC 32.2 g/dL (32.0-36.0); MEAN PLATELET VOLUME 7.9 fL (7.9-10.8); MONOCYTES # (AUTO) 0.6 10^3/uL (0.0-1.0); MONOCYTES % (AUTO) 9.1 %; NEUTROPHILS # (AUTO) 4.5 10^3/uL (1.5-6.6); NEUTROPHILS % (AUTO) 72.6 %; PLT - PLATELET COUNT 421 10^3/uL (130-450); RED BLOOD COUNT 3.95 10^6/uL (4.20-5.40); RED CELL DISTRIBUTION WIDTH 13.8 % (12.0-15.0); WHITE BLOOD COUNT 6.2 x10^3/uL (4.8-10.8)
[2018-07-17 18:30] LABS: THYROID STIMULATING HORMONE 1.11 uIU/mL (0.34-5.60)
[2018-07-17 18:37] LABS: FERRITIN 147.8 ng/mL (11.0-306.8)
[2018-07-17 19:20] LABS: FOLATE > 49.60 ng/mL (5.90 - >24.8)
[2018-07-17 20:58] LABS: % IRON SATURATION 61 % (20-50); IRON 209 ug/dL (28-170); TOTAL IRON BINDING CAPACITY 344 ug/dL (250-450); TRANSFERRIN 246 mg/dL (192-382)
== END 2018-07-17 12:12 | disposition home or self-care (01) ==
LOC: LAB.F 12:11
PROVIDERS: ATTEND Nurse Practitioner Family
DX: R20.0 Anesthesia of skin (principal); D64.9 Anemia, unspecified
CPT/HCPCS: 36415; 82607; 82728; 82746; 83540; 84443; 84466; 85025

== ENCOUNTER 2019-02-05 10:19 | Outpatient (CLI) | payer MEDICAID | END 2019-02-05 10:20 | disposition critical access hospital (66) | LOC: EMS 10:19 | PROVIDERS: ATTEND Surgery | DX: M79.632 Pain in left forearm (principal) | CPT/HCPCS: A0425; A0429 ==

== ENCOUNTER 2019-02-05 10:45 | Emergency (ER) | payer MEDICAID ==
--- NOTE | 2019-02-05 12:13 | ED Physician Documentation ---
History of Present Illness - Stated complaint Stated Complaint: WOUND - Chief complaint Chief Complaint: Wound - History obtained from History obtained from: Patient - Additonal information Additional information: Patient is a 63-year-old female with history of COPD, rheumatoid arthritis, multiple comorbidities presenting with multiple areas of abscess with surrounding cellulitis, most pronounced over her left forearm and lower extremities that have been occurring over the past several weeks without particular inciting incident, trauma, or fall. Patient reports that she has had insurance issues that have precluded her from receiving rheumatoid arthritis medications and she states she is suffering significantly from discomfort and pain at her joints, particularly in her hands. Patient has not been able to see her primary care physician, but has scheduled appointment for next week. Patient reports purulent drainage from the abscess in the left forearm. She denies fever, chills, abdominal pain, productive cough, breathing changes from baseline, urinary changes, stool changes, or vomiting. No other improving or worsening factors noted. Review of Systems Constitutional: denies: Fever, Chills Cardiac: denies: Chest pain / pressure Respiratory: reports: Dyspnea GI: denies: Abdominal Pain, Nausea, Vomiting, Diarrhea : denies: Dysuria Skin: reports: Other (Skin infection and abscess) Musculoskeletal: reports: Extremity pain PD PAST MEDICAL HISTORY - Past Medical History Cardiovascular: None Respiratory: COPD Endocrine/Autoimmune: None GI: Colon polyps, Diverticulitis HEENT: None Psych: None Musculoskeletal: Osteoarthritis, Fibromyalgia, Rheumatoid arthritis Derm: None - Past Surgical History Past Surgical History: Yes General: Bowel surgery, Colonoscopy - Present Medications Home Medications: Ambulatory Orders Medication Instructions Recorded Confirmed Cyclobenzaprine [Flexeril] 10 mg PO TID PRN 11/19/16 07/25/18 Methotrexate 12.5 tab PO BID 11/19/16 07/25/18 Acetaminophen [8Hr Arthritis Pain 1 tab PO PRN PRN 05/11/18 07/25/18 Relief] Folic Acid 1 mg PO DAILY 05/11/18 07/25/18 Multivitamin [Multiple Vitamins] 1 tab PO DAILY 05/11/18 07/25/18 Nortriptyline HCl 1 cap PO DAILY 05/11/18 07/25/18 Turmeric Root Extract [Turmeric] 1 cap PO DAILY 05/11/18 07/25/18 Losartan Potassium 1 tab PO DAILY 06/14/18 07/25/18 Tiotropium [place] [Spiriva] 1 puffs PO DAILY 06/14/18 07/25/18 Clindamycin [Cleocin] 600 mg PO TID 7 Days capsule 02/05/19 - Allergies Allergies/Adverse Reactions: Allergies Allergy/AdvReac Type Severity Reaction Status Date / Time piperacillin Allergy Rash Verified 02/05/19 10:54 - Social History Does the pt smoke?: Yes Smoking Status: Current every day smoker Does the pt drink ETOH?: No Does the pt have substance abuse?: No - Immunizations Immunizations are current?: Yes - POLST Patient has POLST: No PD ED PE NORMAL - Vitals Vital signs reviewed: Yes - General General: Alert and oriented X 3, No acute distress, Well developed/nourished - HEENT HEENT: Atraumatic, Moist mucous membranes - Neck Neck: Supple, no meningeal sign - Cardiac Cardiac: Strong equal pulses - Respiratory Respiratory: No respiratory distress - Abdomen Abdomen: Soft, Non distended - Derm Derm: Other (Scattered areas of intact purulent abscesses, as well as scattered areas of open abscesses that are no longer draining overt anterior lower extremities bilaterally. Appreciable erythema, swelling, purulent drainage d iffusely to left forearm.) - Extremities Extremities: No deformity. No: No tenderness to palpate (Tenderness over areas of infection and throughout hands due to arthritis) - Neuro Neuro: Alert and oriented X 3, No motor deficit, No sensory deficit - Psych Psych: Normal mood, Normal affect Results - Vitals Vitals: Vital Signs - 24 hr 02/05/19 10:49 Temperature 36.3 C L Heart Rate 88 Respiratory 20 Rate Blood Pressure 126/86 H O2 Saturation 98 Oxygen O2 Source Room air - Labs Labs: Laboratory Tests 02/05/19 02/05/19 02/05/19 12:35 12:35 12:49 WBC 8.1 RBC 4.13 L Hgb 14.3 Hct 43.0 MCV 104.1 H MCH 34.6 H MCHC 33.3 RDW 12.9 Plt Count 438 MPV 9.8 Neut # (Auto) 5.8 Lymph # (Auto) 1.4 L [place] # (Auto) 0.8 Eos # (Auto) 0.1 Baso # (Auto) 0.0 Absolute Nucleated RBC 0.00 Nucleated RBC % 0.0 Sodium 130 L Potassium 3.9 Chloride 86 L Carbon Dioxide 31 Anion Gap 13.0 BUN 11 Creatinine 0.3 L Estimated GFR (MDRD) 225 Glucose 129 H Lactic Acid 1.2 Calcium 10.2 Total Bilirubin 0.5 AST 30 ALT 35 Alkaline Phosphatase 87 Total Protein 7.6 Albumin 4.0 Globulin 3.6 Albumin/Globulin Ratio 1.1 Lipase 25 Urine Color Urine Clarity Urine pH Ur Specific [place] Urine Protein Urine Glucose (UA) Urine Ketones Urine Occult Blood Urine Nitrite Urine Bilirubin Urine Urobilinogen Ur Leukocyte Esterase Ur Microscopic Review Urine Culture Comments 02/05/19 14:10 WBC RBC Hgb Hct MCV MCH MCHC RDW Plt Count MPV Neut # (Auto) Lymph # (Auto) [place] # (Auto) Eos # (Auto) Baso # (Auto) Absolute Nucleated RBC Nucleated RBC % Sodium Potassium Chloride Carbon Dioxide Anion Gap BUN Creatinine Estimated GFR (MDRD) Glucose Lactic Acid Calcium Total Bilirubin AST ALT Alkaline Phosphatase Total Protein Albumin Globulin Albumin/Globulin Ratio Lipase Urine Color YELLOW Urine Clarity CLEAR Urine pH 7.0 Ur Specific [place] 1.020 Urine Protein NEGATIVE Urine Glucose (UA) NEGATIVE Urine Ketones NEGATIVE Urine Occult Blood NEGATIVE Urine Nitrite NEGATIVE Urine Bilirubin NEGATIVE Urine Urobilinogen 0.2 (NORMAL) Ur Leukocyte Esterase NEGATIVE Ur Microscopic Review NOT INDICATED Urine Culture Comments NOT INDICATED PD MEDICAL DECISION MAKING - ED course Complexity details: reviewed results, re-evaluated patient, considered differential, d/w patient ED course: Patient is unfortunately suffering from rheumatoid arthritic changes and did provide her pain and nausea medications for such. Do not feel this is related to today's complaint, however, as she is suffering additionally from multiple abscesses worse in the left upper extremity. Abscess is spontaneously draining in this area and wound culture obtained. Patient denies symptoms I would raise high concern for systemic illness or sepsis, but obtain further work-up including wound culture, blood culture, urine culture. No evidence of leukocytosis, elevation of lactic acid or other significant abnormality at this time. Patient received first dose of clindamycin by IV, particularly given her history of MRSA. Feel that she is appropriate to discharge home with close follow-up and oral clindamycin. Also discussed other wound care and strict return precautions. Patient voiced understanding and is comfortable with discharge plan. Departure - Departure Disposition: 01 Home, Self Care Clinical Impression: Abscess Condition: Good Instructions: ED Abscess IandD Follow-Up: Tori Chong ARNP [Primary Care Provider] - Within 3 Days Prescriptions: Clindamycin [Cleocin] 600 mg PO TID 7 Days capsule Comments: Please keep all wounds clean and dry using running water and soap only to clean. Do not submerge or soak. Please take antibiotics as prescribed with second dose this evening and then continuing on as scheduled. Recommend taking antibiotics with small amount of food to avoid upset stomach. Please follow-up closely with your primary care physician in the next 1 to 2 days for reevaluation. Return to ED sooner if experience worsening symptoms, as well as any fever, vomiting, urinary changes or stool changes, or other concerns.
[2019-02-05] MEDS ORDERED: ONDANSETRON 4 MG/2 ML VIAL IVP STA (12:23)
[2019-02-05] MEDS ORDERED: SODIUM CHLORIDE 0.9% 1,000 ML IV ONE (12:23)
[2019-02-05] MEDS ORDERED: HYDROmorphone 1 MG/ML CARPUJECT IVP STA (12:23)
[2019-02-05] MEDS ORDERED: CLINDAMYCIN 600 MG/50 ML 50 ML IV ONE (12:25)
[2019-02-05 12:56] LABS: BASOPHILS % (AUTO) 0.2 %; EOSINOPHILS # (AUTO) 0.1 10^3/uL (0.0-0.7); EOSINOPHILS % (AUTO) 1.5 %; HGB - HEMOGLOBIN 14.3 g/dL (12.0-16.0); LYMPHOCYTES # (AUTO) 1.4 10^3/uL (1.5-3.5); MEAN CORPUSCULAR HEMOGLOBIN 34.6 pg (27.0-31.0); MEAN CORPUSCULAR HGB CONC 33.3 g/dL (32.0-36.0); MEAN CORPUSCULAR VOLUME 104.1 fL (81.0-99.0); MEAN PLATELET VOLUME 9.8 fL (7.9-10.8); MONOCYTES # (AUTO) 0.8 10^3/uL (0.0-1.0); MONOCYTES % (AUTO) 9.6 %; NEUTROPHILS # (AUTO) 5.8 10^3/uL (1.5-6.6); NEUTROPHILS % (AUTO) 71.5 %; PLT - PLATELET COUNT 438 10^3/uL (130-450); RED BLOOD COUNT 4.13 10^6/uL (4.20-5.40); RED CELL DISTRIBUTION WIDTH 12.9 % (12.0-15.0); WHITE BLOOD COUNT 8.1 x10^3/uL (4.8-10.8)
[2019-02-05 13:09] LABS: ALBUMIN/GLOBULIN RATIO 1.1 (1.0-2.2); BILIRUBIN,TOTAL 0.5 mg/dL (0.2-1.0); CALCIUM 10.2 mg/dL (8.5-10.3); CREATININE 0.3 mg/dL (0.4-1.0); TOTAL PROTEIN 7.6 g/dL (6.7-8.2)
[2019-02-05 14:18] LABS: BILIRUBIN,URINE NEGATIVE (NEGATIVE); GLUCOSE, URINE (UA) NEGATIVE (NEGATIVE); KETONES,URINE (UA) NEGATIVE (NEGATIVE); LEUKOCYTE ESTERASE, URINE NEGATIVE (NEGATIVE); NITRITE,URINE NEGATIVE (NEGATIVE); OCCULT BLOOD,URINE NEGATIVE (NEGATIVE); PROTEIN,URINE NEGATIVE (NEGATIVE); UROBILINOGEN,URINE 0.2 (NORMAL) E.U./dL (NORMAL)
[2019-02-05 14:19] LABS: CLARITY,URINE CLEAR (CLEAR)
[2019-02-05 14:55] VITALS: BP 158/88
== END 2019-02-05 15:33 | disposition home or self-care (01) ==
LOC: EDUNIT# → ED 10:45
DX: L02.414 Cutaneous abscess of left upper limb (principal); L02.416 Cutaneous abscess of left lower limb; L02.415 Cutaneous abscess of right lower limb; M06.9 Rheumatoid arthritis, unspecified; F17.200 Nicotine dependence, unspecified, uncomplicated; Z86.14 Personal history of Methicillin resistant Staphylococcus aureus infection
CPT/HCPCS: 36415; 80053; 81003; 83605; 83690; 85025; 87040; 87070; 87075; 87147; 87186; 87205; 96365; 96375; 99284; J1170; 81001; 87086

== ENCOUNTER 2019-05-30 11:36 | Outpatient (CLI) | payer MEDICAID ==
[2019-05-30 17:10] LABS: BASOPHILS % (AUTO) 0.4 %; EOSINOPHILS # (AUTO) 0.2 10^3/uL (0.0-0.7); EOSINOPHILS % (AUTO) 2.5 %; HGB - HEMOGLOBIN 13.6 g/dL (12.0-16.0); LYMPHOCYTES # (AUTO) 1.7 10^3/uL (1.5-3.5); MEAN CORPUSCULAR HEMOGLOBIN 31.4 pg (27.0-31.0); MEAN CORPUSCULAR HGB CONC 29.4 g/dL (32.0-36.0); MEAN CORPUSCULAR VOLUME 106.7 fL (81.0-99.0); MEAN PLATELET VOLUME 10.6 fL (7.9-10.8); MONOCYTES # (AUTO) 0.5 10^3/uL (0.0-1.0); MONOCYTES % (AUTO) 7.3 %; NEUTROPHILS # (AUTO) 4.3 10^3/uL (1.5-6.6); NEUTROPHILS % (AUTO) 64.5 %; PLT - PLATELET COUNT 339 10^3/uL (130-450); RED BLOOD COUNT 4.33 10^6/uL (4.20-5.40); WHITE BLOOD COUNT 6.7 x10^3/uL (4.8-10.8)
[2019-05-30 17:56] LABS: ALBUMIN 4.4 g/dL (3.2-5.5); ALBUMIN/GLOBULIN RATIO 1.5 (1.0-2.2); BILIRUBIN,TOTAL 0.2 mg/dL (0.2-1.0); CREATININE 0.5 mg/dL (0.4-1.0); TOTAL PROTEIN 7.3 g/dL (6.7-8.2)
== END 2019-05-30 11:37 | disposition home or self-care (01) ==
LOC: LAB.S 11:36
PROVIDERS: ATTEND Family Medicine
DX: D64.9 Anemia, unspecified (principal)
CPT/HCPCS: 36415; 80053; 85025

== ENCOUNTER 2019-06-22 22:57 | Outpatient (CLI) | payer MEDICAID | END 2019-06-22 22:58 | disposition EMS.NT | LOC: EMS 22:57 | PROVIDERS: ATTEND Surgery | DX: R53.1 Weakness (principal) ==

== ENCOUNTER 2019-07-12 13:35 | Outpatient (CLI) | payer MEDICAID ==
[2019-07-12 17:11] LABS: BASOPHILS % (AUTO) 0.4 %; EOSINOPHILS # (AUTO) 0.1 10^3/uL (0.0-0.7); HGB - HEMOGLOBIN 14.3 g/dL (12.0-16.0); LYMPHOCYTES # (AUTO) 1.5 10^3/uL (1.5-3.5); LYMPHOCYTES % (AUTO) 20.5 %; MEAN CORPUSCULAR HEMOGLOBIN 31.6 pg (27.0-31.0); MEAN CORPUSCULAR HGB CONC 30.4 g/dL (32.0-36.0); MEAN PLATELET VOLUME 10.3 fL (7.9-10.8); MONOCYTES # (AUTO) 0.7 10^3/uL (0.0-1.0); MONOCYTES % (AUTO) 10.1 %; NEUTROPHILS # (AUTO) 4.8 10^3/uL (1.5-6.6); NEUTROPHILS % (AUTO) 67.7 %; PLT - PLATELET COUNT 367 10^3/uL (130-450); RED BLOOD COUNT 4.52 10^6/uL (4.20-5.40); RED CELL DISTRIBUTION WIDTH 14.2 % (12.0-15.0); WHITE BLOOD COUNT 7.1 x10^3/uL (4.8-10.8)
[2019-07-12 17:33] LABS: ALBUMIN 4.3 g/dL (3.2-5.5); ALBUMIN/GLOBULIN RATIO 1.4 (1.0-2.2); BILIRUBIN,TOTAL 0.7 mg/dL (0.2-1.0); CALCIUM 10.5 mg/dL (8.5-10.3); CREATININE 0.6 mg/dL (0.4-1.0); TOTAL PROTEIN 7.4 g/dL (6.7-8.2)
[2019-07-12 19:19] LABS: FOLATE > 49.60 ng/mL (5.90 - >24.8)
== END 2019-07-12 13:36 | disposition home or self-care (01) ==
LOC: LAB.S 13:35
PROVIDERS: ATTEND Family Medicine
DX: D64.9 Anemia, unspecified (principal)
CPT/HCPCS: 36415; 80053; 82607; 82746; 85025

== ENCOUNTER 2019-07-17 20:59 | Outpatient (CLI) | payer MEDICAID | END 2019-07-17 21:00 | disposition EMS.NT | LOC: EMS 20:59 | PROVIDERS: ATTEND Surgery | DX: Z03.89 Encounter for observation for other suspected diseases and conditions ruled out (principal) ==

== ENCOUNTER 2019-07-20 10:47 | Outpatient (CLI) | payer MEDICAID ==
--- NOTE | 2019-07-20 15:39 | CONSULTATION NOTE ---
Referring Provider Name of Referring Provider:: Dr. Chapa Consult Date: 07/20/19 Chief Complaint - Chief Complaint Chief Complaint: abd pain, N/V History of Present Illness - Admitted From Admitted From:: ER - History Obtained From Records Reviewed: yes History obtained from: friends Exam Limitations: pt is lethargic, somnolent and poor historian - History of Present Illness HPI Comment/Other: 63 yo female with hx alcoholism, COPD, malnutrition, with poor self care, with 3 day hx of generalized abd pain, nausea and vomiting, prompting ER evaluation today. Hx diverticular disease, s/p Aaron procedure and subsequent colostomy closure in [id number], hx chronic use of alcohol and NSAIDs including aspirin and Aleve. No known hx PUD. Recent hospitalization 3 months ago for pyelonephritis and failure to thrive and pt refused NH care at that time. No recent wt loss per friends. Recently started on methotrexate for presumed inflammatory arthritis. Unable to give a hx due to lethargy and severe abd pain. Evaluation in the ER includes RA 02 sat of 88, WBC 3.5 with left shift, elevated H/H, elevated lactate, and CT abd/pelvis showing free air and free fluid c/w perforated hollow viscus of unclear etiology. 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 She smokes about half ppd for 30+ years. She drinks alcohol but did not specify how much and uses marijuana. Has daily caregivers - Substance History Use: Uses substance without health or social issues: Tobacco Abuse: Recurrent use of substance despite neg consequences: Alcohol Tobacco Details: Cigarettes - POLST Patient has POLST: No POLST Status: Full Code Meds/Allgy - Home Medications Home Medications: Ambulatory Orders Medication Instructions Recorded Confirmed Cyclobenzaprine [Flexeril] 10 mg PO TID PRN 11/19/16 03/13/19 Acetaminophen [8Hr Arthritis Pain 650 mg PO Q4H PRN 05/11/18 03/13/19 Relief] Multivitamin [Multiple Vitamins] 1 tab PO DAILY 05/11/18 03/13/19 Turmeric Root Extract [Turmeric] 1 cap PO DAILY 05/11/18 03/13/19 Albuterol Sulf [Ventolin Hfa 1 - 2 puffs INH Q4HR PRN 03/13/19 03/13/19 Inhaler] Meclizine HCl [Motion Sickness 25 mg PO TID PRN 03/13/19 03/13/19 Relief] Pramipexole [Mirapex] 0.25 mg PO QPM 03/13/19 03/13/19 Sertraline [Zoloft] 50 mg PO DAILY 03/13/19 03/13/19 traZODone [Desyrel] 25 mg PO HS 03/13/19 03/13/19 Vitamin [Trinatal Rx 1] 1 tab PO DAILYWM tablet 03/14/19 Sulfamethoxazole/Trimethoprim 1 each PO BID #12 tablet 03/14/19 [Bactrim 400-80 mg Tablet] Thiamine [Vitamin B-1] 100 mg PO DAILY tablet 03/14/19 - Allergies Allergies/Adverse Reactions: Allergies Allergy/AdvReac Type Severity Reaction Status Date / Time piperacillin Allergy Rash Verified 03/12/19 14:25 Review of Systems - Gastrointestinal Gastrointestinal: reports: Abdominal pain, Nausea, Vomiting, Bloating - All Other Systems All Other Systems: reports: Other (unable to obtain due to altered mental status) Exam - Vital Signs Reviewed Vital Signs: Yes - Physical Exam General Appearance: positive: Severe distress, Lethargic Eyes Bilateral: positive: No scleral icterus ENT: positive: Dry mucous membranes Neck: positive: No JVD. negative: Lymphadenopathy (R), Lymphadenopathy (L) Respiratory: positive: Chest non-tender, Breath sounds nml Cardiovascular: positive: Regular rate & rhythm, Tachycardia Peripheral Pulses: positive: 0 Abdomen: positive: Tenderness (diffuse abd tenderness, guarding and rebound), Guarding, Rebound, Abnml bowel sounds (hypoactive), Other (midline surgical scar and colostomy scar in L mid abd). negative: Hepatomegaly, Splenomegaly, Mass Skin: positive: Color nml, No rash, Warm, Dry. negative: Cyanosis Extremities: positive: No pedal edema, Other (dressing on left lower leg). negative: Calf tenderness Neurologic/Psychiatric: positive: Disoriented to person, Disoriented to place, Disoriented to time Conclusion and Plan - Diagnostic Imaging Results Diagnostic Imaging Results: positive: Final report reviewed, Read independently Diagnostic Imaging Results Comments: see HPI - Diagnosis Diagnosis: Acute surgical abdomen in a malnourished woman with evidence of seps is and hx alcoholism and moderately severe COPD. DDX includes perforated ulcer, perforated recurrent diverticulitis, infarcted small bowel. She is at very high risk for septic shock and multiple organ system failure, prolonged ventilatory support and prolonged hospital stay and mortality - Plan Plan: Discussed plan of care with Dr. Serrano and pt's friends. Recommend transfer to higher level of care for definitive treatment. In interim recommend continued resuscitation with IVF and broad spectrum parenteral antibiotics. Thanks,
== END 2019-07-20 10:48 | disposition critical access hospital (66) ==
LOC: EMS 10:47
PROVIDERS: ATTEND Surgery
DX: R10.9 Unspecified abdominal pain (principal); R11.2 Nausea with vomiting, unspecified; R53.1 Weakness
CPT/HCPCS: A0425; A0429; A0999

== ENCOUNTER 2019-07-20 11:11 | Inpatient (IN) | payer MEDICAID ==
[2019-07-20 12:27] LABS: BASOPHILS % (AUTO) 0.6 %; HGB - HEMOGLOBIN 16.8 g/dL (12.0-16.0); MEAN CORPUSCULAR HEMOGLOBIN 32.4 pg (27.0-31.0); MEAN CORPUSCULAR HGB CONC 30.2 g/dL (32.0-36.0); MEAN CORPUSCULAR VOLUME 107.3 fL (81.0-99.0); MEAN PLATELET VOLUME 9.4 fL (7.9-10.8); MONOCYTES % (AUTO) 19.1 %; NEUTROPHILS % (AUTO) 68.7 %; PLT - PLATELET COUNT 352 10^3/uL (130-450); RED BLOOD COUNT 5.19 10^6/uL (4.20-5.40); RED CELL DISTRIBUTION WIDTH 14.3 % (12.0-15.0); WHITE BLOOD COUNT 3.5 x10^3/uL (4.8-10.8)
--- NOTE | 2019-07-20 12:27 | ED Physician Documentation ---
PD HPI NVD - Stated complaint Stated Complaint: WEAKNESS/ ABD PAIN - Chief complaint Chief Complaint: Abd Pain - History obtained from History obtained from: Patient - History of Present Illness Timing - onset: How many weeks ago (1) Timing - duration: Weeks (1) Timing - details: Gradual onset, Still present Associated symptoms: Abdominal pain (with distention), Loss of appetite. No: Dysuria Contributing factors: No: Sick contact, Bad food, Recent antibiotics, Anticoagulated Worsened by: Eating Similar symptoms before: Diagnosis (She had a perforated diverticulitis in 2012. Prior chart [facility] showed an OR case in 2011 for perforated viscus. The patient and her family states she had had a perforation with colostomy around that time and subsequently had a reversed.) Recently seen: Not recently seen Review of Systems Constitutional: reports: Myalgias, Fatigue. denies: Fever, Chills Nose: denies: Rhinorrhea / runny nose, Congestion Throat: denies: Sore throat Cardiac: denies: Chest pain / pressure, Palpitations, Pedal edema Respiratory: reports: Dyspnea, Wheezing. denies: Cough GI: reports: Abdominal Pain, Abdominal Swelling, Nausea, Vomiting. denies: Diarrhea, Hematemesis, Bloody / black stool : denies: Dysuria Neurologic: reports: Generalized weakness. 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 : None HEENT: None Psych: None Musculoskeletal: Osteoarthritis, Fibromyalgia, Rheumatoid arthritis Derm: None - Past Surgical History Past Surgical History: Yes General: Bowel surgery, Colonoscopy - Present Medications Home Medications: Ambulatory Orders Medication Instructions Recorded Confirmed Cyclobenzaprine [Flexeril] 10 mg PO TID PRN 11/19/16 03/13/19 Acetaminophen [8Hr Arthritis Pain 650 mg PO Q4H PRN 05/11/18 03/13/19 Relief] Multivitamin [Multiple Vitamins] 1 tab PO DAILY 05/11/18 03/13/19 Turmeric Root Extract [Turmeric] 1 cap PO DAILY 05/11/18 03/13/19 Albuterol Sulf [Ventolin Hfa 1 - 2 puffs INH Q4HR PRN 03/13/19 03/13/19 Inhaler] Meclizine HCl [Motion Sickness 25 mg PO TID PRN 03/13/19 03/13/19 Relief] Pramipexole [Mirapex] 0.25 mg PO QPM 03/13/19 03/13/19 Sertraline [Zoloft] 50 mg PO DAILY 03/13/19 03/13/19 traZODone [Desyrel] 25 mg PO HS 03/13/19 03/13/19 Vitamin [Trinatal Rx 1] 1 tab PO DAILYWM tablet 03/14/19 Sulfamethoxazole/Trimethoprim 1 each PO BID #12 tablet 03/14/19 [Bactrim 400-80 mg Tablet] Thiamine [Vitamin B-1] 100 mg PO DAILY tablet 03/14/19 - Allergies Allergies/Adverse Reactions: Allergies Allergy/AdvReac Type Severity Reaction Status Date / Time piperacillin Allergy Rash Verified 03/12/19 14:25 - Living Situation Living Situation: reports: With family Living Arrangement: reports: At home - Social History Does the pt smoke?: Yes Smoking Status: Current every day smoker Does the pt drink ETOH?: No Does the pt have substance abuse?: No - Family History Family history: reports: Non contributory - Immunizations Immunizations are current?: Yes - POLST Patient has POLST: No POLST Status: Full Code PD ED PE NORMAL - Vitals Vital signs reviewed: Yes - General General: Alert and oriented X 3, Well developed/nourished, Other (She appears in discomfort. She has pale. Abdomen is distended with diminished bowel sounds and tenderness mostly in the mid to upper abdomen. She is able to answer questions appropriately.) - HEENT HEENT: Pharynx benign. No: Moist mucous membranes - Neck Neck: Supple, no meningeal sign, No adenopathy, No JVD - Cardiac Cardiac: No: RRR (regular but tachycardic, no murmur.) - Respiratory Respiratory: No respiratory distress. No: Clear bilaterally (No coarse sounds. She does have diffuse mild wheezing. No fine crackles are heard. There is no accessory muscle use.) - Abdomen Abdomen: Other (Her abdomen is distended with diminished bowel sounds. She has general tenderness but mostly in the mid to upper abdomen. Prior old scars are noted midline. There is a incisional hernia palpable to the left of midline periumbilical which is soft and reducible. No inguinal hernias are felt.). No: Normal bowel sounds - Female Female : Deferred - Rectal Rectal: Deferred - Back Back: No CVA TTP - Derm Derm: Warm and dry. No: Normal color (pale) - Extremities Extremities: No tenderness to palpate, Normal ROM s pain, No edema, No calf tenderness / cord - Neuro Neuro: Alert and oriented X 3 (Slightly sleepy but had taking a Xanax given to her by her friend about an hour prior to arrival.), No motor deficit, Normal speech Results - Vitals Vitals: Vital Signs - 24 hr 07/20/19 07/20/19 07/20/19 11:14 12:49 13:23 Temperature 36.5 C Heart Rate 114 H 111 H 106 H Respiratory 18 29 H 20 Rate Blood Pressure 175/101 H 157/96 H O2 Saturation 91 L 94 07/20/19 07/20/19 07/20/19 14:00 15:59 16:00 Temperature 36.5 C Heart Rate 108 H 106 H 108 H Respiratory 18 16 23 Rate Blood Pressure 151/103 H 157/73 H O2 Saturation 27 L 96 Oxygen O2 Source Nasal cannula Oxygen Flow Rate 4 - Labs Labs: Laboratory Tests 07/20/19 07/20/19 07/20/19 12:20 12:20 12:20 WBC 3.5 L RBC 5.19 Hgb 16.8 H Hct 55.7 H MCV 107.3 H MCH 32.4 H MCHC 30.2 L RDW 14.3 Plt Count 352 MPV 9.4 Neut # (Auto) Not Reportable Lymph # (Auto) Not Reportable [place] # (Auto) Not Reportable Eos # (Auto) Not Reportable Baso # (Auto) Not Reportable Absolute Nucleated RBC Not Reportable Total Counted 100 Band Neuts % (Manual) 28 H Abnorm Lymph % (Manual) 0 Nucleated RBC % Not Reportable Neutrophils # (Manual) 2.3 Lymphocytes # (Manual) 0.7 L Monocytes # (Manual) 0.4 Eosinophils # (Manual) 0.0 Basophils # (Manual) 0.0 Differential Comment MANUAL DIFFERENTIAL WBC Morphology 1+ TOXIC GRANULATION RBC Morph Micro Appear 2+ MACROCYTOSIS PT 12.4 INR 1.1 Sodium 142 Potassium 3.8 Chloride 92 L Carbon Dioxide 37 H Anion Gap 13.0 BUN 39 H Creatinine 1.0 Estimated GFR (MDRD) 56 L Glucose 122 H Lactic Acid Calcium 10.0 Magnesium Total Bilirubin 0.7 AST 27 ALT 24 Alkaline Phosphatase 99 Total Protein 7.7 Albumin 4.3 Globulin 3.4 Albumin/Globulin Ratio 1.3 Lipase 25 07/20/19 07/20/19 12:20 13:20 WBC RBC Hgb Hct MCV MCH MCHC RDW Plt Count MPV Neut # (Auto) Lymph # (Auto) [place] # (Auto) Eos # (Auto) Baso # (Auto) Absolute Nucleated RBC Total Counted Band Neuts % (Manual) Abnorm Lymph % (Manual) Nucleated RBC % Neutrophils # (Manual) Lymphocytes # (Manual) Monocytes # (Manual) Eosinophils # (Manual) Basophils # (Manual) Differential Comment WBC Morphology RBC Morph Micro Appear PT INR Sodium Potassium Chloride Carbon Dioxide Anion Gap BUN Creatinine Estimated GFR (MDRD) Glucose Lactic Acid 2.5 H Calcium Magnesium 2.3 Total Bilirubin AST ALT Alkaline Phosphatase Total Protein Albumin Globulin Albumin/Globulin Ratio Lipase - Rads (name of study) abd and chest CT Radiology: Prelim report reviewed, Discussed with rads (Perforated viscus with free air and free fluid.), See rad report PD MEDICAL DECISION MAKING - ED course Complexity details: considered differential, d/w patient, d/w diet consultant (Discussed with Dr. Spencer Diggs as well as Dr. Mazariegos (surgery and hospitalist). They came and saw the patient and talked with the patient and the family. The feeling is that she is sicker than appropriate for critical [facility] and needs transferring. Reasoning being she would be not able to be treated within the 96-hour timeframe.) ED course: There was a time delay going to the OR in that the initial impression from the hospitalist and surgeon was the patient would be much longer stay and level of care than appropriate for her critical access hospital. Out of the ER we looked for other facilities to which to transfer the patient. Calls were made to all the hospitals in the [facility] area and none of them had beds available to fit the patient's needs. Most of the facilities had no beds at all and 1 of them did not have ICU beds. Then contacted Dr. Diggs back again to tell him of the findings. He states he will take to the patient to the OR here. There was a case going on in the OR currently and this patient will follow as soon as they are available. The process of this is taken about 3 hours at this point. The patient remains tachycardic but stable blood pressure. She is able to converse and follow commands. Her oxygenation level remains 92 to 95% on 4 L nasal cannula. She is maintained on IV fluids, kept n.p.o., has repeated nebulizer treatments for her COPD. She is subsequently transferred to the ICU pending the OR availability in critical condition but stable vitals. Departure - Departure Disposition: 66 [facility] DC/Xfer Clinical Impression: Perforated abdominal viscus, Moderate COPD (chronic obstructive pulmonary disease) Nausea & vomiting Qualifiers: Vomiting type: unspecified Vomiting Intractability: intractable Qualified Code(s): R11.2 - Nausea with vomiting, unspecified Abdominal pain Qualifiers: Abdominal location: upper abdomen, unspecified Qualified Code(s): R10.10 - Upper abdominal pain, unspecified Condition: Stable Record reviewed to determine appropriate education?: Yes Discharge Date/Time: 07/20/19 17:34
[2019-07-20 12:30] LABS: INR 1.1 (0.8-1.2); PT - PROTHROMBIN TIME 12.4 secs (9.9-12.6)
[2019-07-20 12:35] LABS: ABNORMAL LYMPHS % (MANUAL) 0 %
[2019-07-20 12:41] LABS: ALBUMIN 4.3 g/dL (3.2-5.5); ALBUMIN/GLOBULIN RATIO 1.3 (1.0-2.2); BILIRUBIN,TOTAL 0.7 mg/dL (0.2-1.0); TOTAL PROTEIN 7.7 g/dL (6.7-8.2)
[2019-07-20] MEDS ORDERED: ONDANSETRON 4 MG/2 ML VIAL IVP STA ×2 (12:51→16:54)
[2019-07-20] MEDS ORDERED: SODIUM CHLORIDE 0.9% 1,000 ML IV ONE (12:51)
[2019-07-20] MEDS ORDERED: ACETAMINOPHEN 1,000 MG/100 ML 100 ML IV STA (12:52)
[2019-07-20] MEDS ORDERED: FAMOTIDINE 20 MG/2 ML VIAL IVP STA (12:52)
[2019-07-20] MEDS ORDERED: IPRATROPIUM/ALBUTEROL 3 ML NEB INH STA (12:54)
[2019-07-20 13:00] LABS: BAND NEUTROPHILS % (MANUAL) 28 %; LYMPHOCYTES # (MANUAL) 0.7 10^3/uL (1.5-3.5); LYMPHOCYTES % (MANUAL) 21 %; MONOCYTES # (MANUAL) 0.4 10^3/uL (0.0-1.0)
[2019-07-20 13:07] LABS: DIFFERENTIAL COMMENT MANUAL DIFFERENTIAL; RBC MORPHOLOGY (MULTIPLE) 2+ MACROCYTOSIS (NORMAL)
[2019-07-20] MEDS ORDERED: IOVERSOL 320 100 ML VIAL IVP ONE ×2 (13:08→14:00)
--- NOTE | 2019-07-20 13:17 | XRAY Report ---
Reason: fall with elbow injury Procedure Date: 07/20/2019 Accession Number: [id number] / [id number] Procedure: XR - Elbow 3 View LT CPT Code: Final Report FULL RESULT: EXAM: LEFT ELBOW RADIOGRAPHY EXAM DATE: 07/20/2019 01:07 PM. CLINICAL HISTORY: Left elbow pain. COMPARISON: HAND 3 VIEW BILAT 12/18/2015 3:10 PM. TECHNIQUE: 3 views. FINDINGS: Bones: Bones are osteopenic. No fractures or bone lesions. Joints: Normal. No effusion. No subluxation. Soft Tissues: Soft tissue swelling is seen over the olecranon process. IMPRESSION: 1. No acute osseous abnormality identified. 2. Soft tissue swelling over the olecranon process, suspect hematoma. Bursitis is a secondary consideration. RADIA
--- NOTE | 2019-07-20 14:25 | CT Report ---
Reason: abd pain, distension, and vomiting Procedure Date: 07/20/2019 Accession Number: [id number] / [id number] Procedure: CT - Abdomen/Pelvis W CPT Code: Final Report FULL RESULT: EXAM: CT ABDOMEN AND PELVIS EXAM DATE: 07/20/2019 01:48 PM. CLINICAL HISTORY: Abdominal pain, distention, and vomiting. COMPARISONS: ABDOMEN/PELVIS W/ 03/12/2019 6:33 PM. TECHNIQUE: Routine helical CT imaging was performed through the abdomen and pelvis. IV contrast: OPTI 320 80 mL. Enteric contrast: No. Reconstructions: Coronal and sagittal. In accordance with CT protocol optimization, one or more of the following dose reduction techniques were utilized for this exam: automated exposure control, adjustment of mA and/or KV based on patient size, or use of iterative reconstructive technique. FINDINGS: Lung bases: Distal esophageal wall appears thickened, could represent esophagitis. Mild right base atelectasis suspected. Areas of mild liver surface irregularity noted. Gallbladder: Unremarkable. Bile ducts: Unremarkable. Pancreas: Unremarkable. Spleen: Unremarkable Adrenals: Unremarkable. Irregular contours of both kidneys, could represent small scars, similar to the prior. No hydronephrosis. New moderate amount of free air is seen in the abdomen with the largest amount seen at the anterior lower abdomen and pelvis. New overall moderate amount of ascites in the abdomen and pelvis. Anastomosis at the sigmoid colon and rectum. The sigmoid colon is decompressed. A few sigmoid colon diverticula are noted and sigmoid colonic wall thickening could be present at image #54. Acute sigmoid diverticulitis is possible and there could be perforation from the diverticulitis, but the cause of the free air is not certain. Prominent air fluid level in the stomach. No dilated bowel loops are seen to suggest obstruction. Status post appendectomy suspected. Pylorus appears prominent but not definitely thickened. Free air is seen adjacent to a small bowel loop in the left side of the lower abdomen/upper pelvis, see image #50 and lateral and superior to this, there appears to be an air-fluid level, see image 47. Small bowel perforation is possible. Pelvis: Right-sided calcified uterine fibroid measures 2.8 cm. The bladder is unremarkable. Vasculature: Severe atherosclerotic calcification of the abdominal aorta. Celiac and superior mesenteric arteries appear patent. There continues to be a swirling pattern of the more distal superior mesenteric vein passing posterior to the superior mesenteric artery, similar to the prior. Bones: No acute bone findings. IMPRESSION: 1. Moderate amount of free air/pneumoperitoneum consistent with bowel perforation. Acute sigmoid diverticulitis is possible and there could be a perforation from the diverticulitis, but the cause of the free air is not certain. Small bowel perforation could be present. See findings as above. Correlate with lactic acid to evaluate for small bowel ischemia. 2. New moderate amount of ascites. 3. Distal esophageal wall appears thickened, could represent esophagitis. 4. Otherwise, see above. RADIA The critical result notification system was initiated by Dr. Lakeshia Lopez at 02:10 PM on 07/20/2019. The above critical result findings were discussed with Howard Chapa by Dr. Lakeshia Lopez at 02:12 PM on 07/20/2019.
--- NOTE | 2019-07-20 14:26 | CT Report ---
Reason: dyspnea, COPD, Procedure Date: 07/20/2019 Accession Number: [id number] / [id number] Procedure: CT - CHEST W CPT Code: Final Report FULL RESULT: EXAM: CT CHEST EXAM DATE: 07/20/2019 01:59 PM. CLINICAL HISTORY: Dyspnea, COPD. COMPARISONS: ABDOMEN/PELVIS W/ 07/20/2019 1:48 PM. TECHNIQUE: Routine helical CT imaging was performed through the chest. IV contrast: None. Reconstructions: Coronal and sagittal. In accordance with CT protocol optimization, one or more of the following dose reduction techniques were utilized for this exam: automated exposure control, adjustment of mA and/or KV based on patient size, or use of iterative reconstructive technique. FINDINGS: Lungs/Pleura: Mild apical centrilobular emphysema is noted. Bilateral central bronchial wall thickening is seen with associated mild cylindrical bronchiectasis that could reflect chronic central airways disease such as reactive airways or bronchitis. Subpleural linear basilar opacities likely reflect dependent atelectasis. No other focal airspace consolidation is seen. Indeterminate 5 mm right upper lobe pulmonary nodule is seen (3/89). No other nodules are evident. No pleural effusions, pleural thickening, pleural calcification. No pneumothorax. Mediastinum: Normal heart size. No pericardial effusion. No enlarged mediastinal or hilar lymph nodes. No pulmonary artery filling defects are seen to the level of the segmental pulmonary arteries. Normal caliber thoracic aorta without evidence for dissection. Moderate calcified plaque of the aortic arch.. Bones: Osteopenia. Degenerative changes in the spine. No focal suspicious osseous lesion. Visualized Abdomen: Ascites noted. Pneumoperitoneum seen of unclear etiology. Other: None. IMPRESSION: 1. Mild upper lung predominant centrilobular emphysema with bilateral central bronchial wall thickening likely reflecting chronic bronchitis noted. 2. No focal suspicious airspace consolidation or pleural effusion seen. 3. No mediastinal lymphadenopathy. 4. Indeterminate 5 mm right upper lobe pulmonary nodule. Consider follow-up with repeat noncontrast chest CT in 12 months per Fleischner Society RADS guidelines. 5. Incidental note of upper abdominal pneumoperitoneum. This would be better described and evaluated on accompanying abdominal CT from today. RADIA
[2019-07-20] MEDS ORDERED: cefTRIAXone 1 GM VIAL IVP STA (14:30)
[2019-07-20] MEDS ORDERED: metroNIDAZOLE 500 MG/100 ML 500 MG/100 ML BAG IV ONE (14:31)
[2019-07-20] MEDS ORDERED: LACTATED RINGERS 1,000 ML IV ONE ×2 (14:47→16:54)
[2019-07-20] MEDS ORDERED: ALBUTEROL NEB 2.5 MG/3 ML INH STA ×2 (15:38→16:54)
[2019-07-20] MEDS ORDERED: MORPHINE 2 MG/ML CARPUJECT IVP STA (15:39)
[2019-07-20] MEDS ORDERED: ONDANSETRON 4 MG/2 ML VIAL IVP PRN (16:31)
[2019-07-20] MEDS ORDERED: HYDROmorphone 1 MG/ML CARPUJECT IVP PRN (16:31)
--- NOTE | 2019-07-20 16:49 | HISTORY & PHYSICAL EXAMINATION ---
Chief Complaint - Chief Complaint Chief Complaint: Abdominal pain History of Present Illness - Admitted From Admitted From:: Home - History Obtained From Records Reviewed: Yes History obtained from: Patient, Friends, ER Physician, EMR Exam Limitations: Patient is lethargic and in significant discomfort - History of Present Illness HPI Comment/Other: This is a 63-year-old female with a past medical history significant for COPD, alcohol abuse, rheumatoid arthritis, prior Nehal procedure for perforated diverticulitis Who presents today complaining of worsening abdominal pain along with nausea and vomiting. Most of the history is obtained from the patient's friends as patient is lethargic and discomfort. Her friend stated they saw her this past Tuesday and she was complaining of some vague abdominal pain and abd ominal distention. She was able to eat but her appetite was poor. They did not see the patient yesterday but today she was cleaning complaining of worsening abdominal pain along with nausea and vomiting. Patient denies chest pain but does complain of shortness of breath. She states her breathing is most impaired when she has abdominal pain. She still smokes about 10 cigarettes a day and is in smoking for more than 30 years. She does not wear oxygen at baseline. Her friend state that she has not been drinking alcohol since January but she had prior history of heavy alcohol use. They report no weight loss that she is actually gained a few pounds. She has been taking Aleve on a daily basis for her rheumatoid arthritis. She is also on methotrexate for that. She does not take aspirin. In the emergency department, she is on be afebrile with temperature of 3 6.5 degrees. She was tachycardic with a heart rate of 114. Hypertensive systolic blood pressure of 175. She was tachypneic in the low 20s. She was hypoxic on room air saturating 81%. She was placed on 2 L of oxygen and is now saturating 98%. Labs revealed a white count of 3.5 with 28% bands. Her hemoglobin is also elevated at 16.8. Her BUN and creatinine were also elevated compared to her baseline at 39 and 1 respectively. Her lactic acid is also evaded at 2.5. Her LFTs were normal. A CT of the abdomen and pelvis was concerning for perforated viscus with free air. General surgery has been consulted and initially recommended transfer to higher level of care as she is at risk for septic shock and multiorgan failure as well as prolonged ventilatory support given her COPD. Unfortunately there are no facilities in the nearby area with available beds and therefore she would be taken to the OR here and transferred to the ICU postoperatively. I did discuss goals of care with the patient and she would like to be a full code. 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 She smokes about half ppd for 30+ years. She previously drank alcohol on a daily basis but has not been drinking since January 2019. - POLST Patient has POLST: No POLST Status: Full Code Meds/Allgy - Home Medications Home Medications: Ambulatory Orders Medication Instructions Recorded Confirmed Cyclobenzaprine [Flexeril] 10 mg PO TID PRN 11/19/16 03/13/19 Acetaminophen [8Hr Arthritis Pain 650 mg PO Q4H PRN 05/11/18 03/13/19 Relief] Multivitamin [Multiple Vitamins] 1 tab PO DAILY 05/11/18 03/13/19 Turmeric Root Extract [Turmeric] 1 cap PO DAILY 05/11/18 03/13/19 Albuterol Sulf [Ventolin Hfa 1 - 2 puffs INH Q4HR PRN 03/13/19 03/13/19 Inhaler] Meclizine HCl [Motion Sickness 25 mg PO TID PRN 03/13/19 03/13/19 Relief] Pramipexole [Mirapex] 0.25 mg PO QPM 03/13/19 03/13/19 Sertraline [Zoloft] 50 mg PO DAILY 03/13/19 03/13/19 traZODone [Desyrel] 25 mg PO HS 03/13/19 03/13/19 Vitamin [Trinatal Rx 1] 1 tab PO DAILYWM tablet 03/14/19 Sulfamethoxazole/Trimethoprim 1 each PO BID #12 tablet 03/14/19 [Bactrim 400-80 mg Tablet] Thiamine [Vitamin B-1] 100 mg PO DAILY tablet 03/14/19 - Allergies Allergies/Adverse Reactions: Allergies Allergy/AdvReac Type Severity Reaction Status Date / Time piperacillin Allergy Rash Verified 03/12/19 14:25 Review of Systems - Constitutional Constitutional: reports: Fatigue, Weakness, Poor appetite. denies: Fever, Chills, Weight loss - Cardiovascular Cariovascular: reports: Exertional dyspnea, Decr. exercise tolerance. denies: Chest pain - Respiratory Respiratory: reports: SOB at rest, SOB with exertion - Gastrointestinal Gastrointestinal: reports: Abdominal pain, Abdominal distention, Nausea, Vomiting - Neurological Neurological: reports: General weakness - All Other Systems All Other Systems: reports: Other (Review of systems is limited given her critical condition.) Prior Level of Functionality: She was ambulating on her own prior to this admission. Exam - Vital Signs Reviewed Vital Signs: Yes Vital Signs: Vital Signs x48h Temp Pulse Resp BP Pulse Ox 07/20/19 16:00 108 H 23 157/73 H 96 07/20/19 15:59 106 H 16 07/20/19 14:00 108 H 18 151/103 H 27 L 07/20/19 13:23 106 H 20 07/20/19 12:49 111 H 29 H 157/96 H 94 07/20/19 11:14 36.5 C 114 H 18 175/101 H 91 L - Physical Exam General Appearance: positive: Alert, Moderate distress, Lethargic Eyes Bilateral: positive: Normal inspection, Conjunctivae nml ENT: positive: ENT inspection nml Neck: positive: Nml inspection Respiratory: positive: Other (She is tachypneic with diminished breath sounds. No wheezing.) Cardiovascular: positive: No murmur, Tachycardia. negative: Bradycardia, Systolic murmur, Diastolic murmur Abdomen: positive: Tenderness (She is diffusely tender throughout her abdomen that is most pronounced in the epigastric region. She does have guarding and rebound tenderness. There is a prior midline incision scar noted.), Guarding, Rebound, Abnml bowel sounds (Hypoactive). negative: No distention Skin: positive: Warm, Dry Extremities: positive: No pedal edema, Other (She does have a dressing in place over the left tibia.) Neurologic/Psychiatric: positive: Other (No focal motor deficits.). negative: Disoriented to person, Disoriented to place Sepsis Event Note (H) - Evaluation Current Stage of Sepsis: Severe sepsis Possible source of Sepsis: positive: GI tract/intra-abdominal - Sepsis Criteria Sepsis Criteria: Recorded Heart Rate greater than 90 bpm, Recorded Respiratory Rate greater than 20, WBC count greater than 10% bands, Metabolic: lactate > 2 mmol/L Conclusion/Plan - Problem List (1) Perforated abdominal viscus Conclusion/Plan: She had a perforated viscus although the location is not obvious based off of imaging. Concern is for gastric perforation given her NSAID use although she has prior history of severe diverticulitis with perforation in the past. She is septic and has an elevated lactic acid. We will keep her n.p.o. and start her on cefepime and Flagyl IV. Continue with aggressive IV hydration. Dilaudid IV as needed for pain control. Zofran IV for nausea. Trend lactic acid. Should be going to the OR as soon as possible with general surgery. She will likely need to remain on the ventilator postoperatively. (2) Severe sepsis Conclusion/Plan: Se has severe sepsis secondary to the perforated viscus. She is tachycardic, leukopenic with elevated bands, and elevated lactic acid. Fortunately she is not hypotensive. We will start her on cefepime and Flagyl IV to cover for gram negatives and anaerobes. We will obtain blood cultures although she has already received a dose of IV antibiotics in the emergency department. Continue with aggressive IV hydration. (3) Acute kidney injury Conclusion/Plan: Likely has prerenal acute kidney injury as she appears dehydrated on exam. Her BUN is elevated and her creatinine is at 1. Her baseline creatinine is 0.6. We will continue with IV hydration and monitor her renal function. (4) COPD (chronic obstructive pulmonary disease) Conclusion/Plan: History of at least moderate to severe COPD based off of her prior pulmonary function testing back in 2011. She continues to smoke half a pack a day. She is only on albuterol as needed at home. Fortunately she is not on oxygen. She does not appear to be in acute exacerbation at this moment. Her ARISCAT score is 50 which puts her at high risk for postop pulmonary complications which may include respiratory failure, pneumonia, atelectasis and prolonged ventilator support. She will need to remain intubated postoperatively and we will start her on albuterol every 4 hours. (5) Severe protein-calorie malnutrition Conclusion/Plan: She is malnourished and has severe protein calorie malnutrition. She is currently n.p.o. and will need be n.p.o. postoperatively. She may potentially require TPN depending on the extent of surgery and her recovery. We will place nutrition consult. (6) Tobacco abuse Conclusion/Plan: She has a [id number] smoking history and continues to smoke a half a pack a day. This will unfortunately likely delay with her wound healing. (7) Rheumatoid arthritis Conclusion/Plan: She is a history of rheumatoid arthritis for which she takes methotrexate. We will put this on hold given her critical condition and n.p.o. status. (8) History of alcoholism Conclusion/Plan: She has a history of alcohol abuse but has not been consuming alcohol since January. We will start her on daily thiamine. She is unlikely to go through alcohol withdrawal but we will monitor her for this. - Lab Results Lab results reviewed: Yes Fish Bones: 07/20/19 12:20 07/20/19 12:20 - Diagnostic Imaging Results Diagnostic Imaging Results: positive: Final report reviewed - EKG Results EKG Interpreted Independently: Yes EKG Comparison: Changed from prior EKG EKG Findings: Her EKG reveals sinus tachycardia and LVH. No ST segment chnages to suggest ischemia. Core Measures - Anticipated LOS I expect patient to be DC'd or transferred within 96 hours.: Yes - Issues Hospital Issues and Management Plan: 83-year-old female with perforated viscus and acute surgical abdomen. She be going to the OR and transferred to the intensive care unit postoperatively. Will likely require ventilator support and IV antibiotics. - DVT/VTE - Prophylaxis VTE/DVT Device ordered at admit?: Yes VTE/DVT Prophylaxis med ordered at admit?: Yes
[2019-07-20] MEDS ORDERED: PANTOPRAZOLE 40 MG VIAL IVP SCH (17:00)
[2019-07-20] MEDS ORDERED: LACTATED RINGERS 1,000 ML IV SCH (17:00)
[2019-07-20] MEDS ORDERED: BUPIVACAINE 0.5% PF 30 ML VIAL ONE (17:35)
--- NOTE | 2019-07-20 17:37 | ANESTHESIA ---
Pre-Anesthesia VS, & Labs - Diagnosis Abdominal pain, suspected ruptured bowel - Procedure Exploratory laparotomy Vital Signs: Temp Pulse Resp BP Pulse Ox 36.5 C 108 H 23 157/73 H 96 07/20/19 16:00 07/20/19 16:00 07/20/19 16:00 07/20/19 16:00 07/20/19 16:00 Height 5 ft 4 in Weight (kg) 43.091 kg Body Mass Index 16.2 - NPO >8 hours - Is Patient ?: No - Lab Results Current Lab Results: Laboratory Tests 07/20/19 13:20: Lactic Acid 2.5 H 07/20/19 12:20: Magnesium 2.3 07/20/19 12:20: Sodium 142, Potassium 3.8, Chloride 92 L, Carbon Dioxide 37 H, Anion Gap 13.0, BUN 39 H, Creatinine 1.0, Estimated GFR (MDRD) 56 L, Glucose 122 H, Calcium 10.0, Total Bilirubin 0.7, AST 27, ALT 24, Alkaline Phosphatase 99, Total Protein 7.7, Albumin 4.3, Globulin 3.4, Albumin/Globulin Ratio 1.3, Lipase 25 07/20/19 12:20: PT 12.4, INR 1.1 07/20/19 12:20: WBC 3.5 L, RBC 5.19, Hgb 16.8 H, Hct 55.7 H, MCV 107.3 H, MCH 32.4 H, MCHC 30.2 L, RDW 14.3, Plt Count 352, MPV 9.4, Neut # (Auto) Not Rep ortable, Lymph # (Auto) Not Reportable, [place] # (Auto) Not Reportable, Eos # (Auto) Not Reportable, Baso # (Auto) Not Reportable, Absolute Nucleated RBC Not Reportable, Total Counted 100, Band Neuts % (Manual) 28 H, Abnorm Lymph % (Manual) 0, Nucleated RBC % Not Reportable, Neutrophils # (Manual) 2.3, Lymphocytes # (Manual) 0.7 L, Monocytes # (Manual) 0.4, Eosinophils # (Manual) 0.0, Basophils # (Manual) 0.0, Differential Comment MANUAL DIFFERENTIAL, WBC Morphology 1+ TOXIC GRANULATION, RBC Morph Micro Appear 2+ MACROCYTOSIS Lab results reviewed: Yes Fish Bones: 07/20/19 12:20 07/20/19 12:20 Home Medications and Allergies Active Medications Albuterol () 2.5 mg INH RTQ4H [facility] Heparin Sodium (Porcine) () 5,000 unit SUBQ BID [facility] Hydromorphone HCl (Dilaudid Inj Carp) 1 mg IVP Q2HR PRN PRN Reason: Pain 8 to 10 Lactated Ringer's (Lr) 1,000 mls @ 100 mls/hr IV .Q10H [facility] Metronidazole (Flagyl 500 Mg/100 Ml) 500 mg in 100 mls @ 100 mls/hr IV Q8H [facility] Cefepime HCl 2 gm/ Sodium (Chloride) 100 mls @ 200 mls/hr IV BID [facility] Lactated Ringer's (Lr) 1,000 mls @ 999 mls/hr IV ONCE ONE Stop: 07/20/19 17:54 Last Admin: 07/20/19 17:10 Dose: 999 mls/hr Ondansetron HCl (Zofran Inj) 4 mg IVP Q6HR PRN PRN Reason: Nausea / Vomiting Pantoprazole Sodium (Protonix) 40 mg IVP QDAC [facility] Sodium Chloride (Normal Saline Flush 0.9%) 10 ml IVP 0100,0900,1700 [facility] Sodium Chloride (Normal Saline Flush 0.9%) 10 ml IVP PRN PRN PRN Reason: NEEDED PER PROVIDER ORDERS Cyclobenzaprine [Flexeril] 10 mg PO TID PRN 11/19/16 Acetaminophen [8Hr Arthritis Pain Relief] 650 mg PO Q4H PRN 05/11/18 Multivitamin [Multiple Vitamins] 1 tab PO DAILY 05/11/18 Turmeric Root Extract [Turmeric] 1 cap PO DAILY 05/11/18 Albuterol Sulf [Ventolin Hfa Inhaler] 1 - 2 puffs INH Q4HR PRN 03/13/19 Meclizine HCl [Motion Sickness Relief] 25 mg PO TID PRN 03/13/19 Pramipexole [Mirapex] 0.25 mg PO QPM 03/13/19 Sertraline [Zoloft] 50 mg PO DAILY 03/13/19 traZODone [Desyrel] 25 mg PO HS 03/13/19 Allergies/Adverse Reactions: Allergies Allergy/AdvReac Type Severity Reaction Status Date / Time piperacillin Allergy Rash Verified 03/12/19 14:25 Anes History & Medical History - Anesthetic History Anesthesia Complications: reports: Other-see comment (unable to elicit any responses) - Medical History Cardiovascular: reports: None, Congestive heart failure Pulmonary: reports: COPD, Emphysema Gastrointestinal: reports: Colon polyps, Diverticulitis, Other (Multiple abdominal surgeries) Urinary: reports: None Neuro: reports: None Musculoskeletal: reports: Osteoarthritis, Fibromyalgia, Rheumatoid arthritis Endocrine/Autoimmune: reports: None Blood Disorders: reports: None Skin: reports: None Smoking Status: Current every day smoker - Surgical History General: Bowel surgery, Colonoscopy Exam General: Severe distress Dental: WNL Mouth Opening: Greater than 4 Fingerbreadths Neck Mobility: Normal Mallampati classification: II Thyromental Distance: greater than 6 cm Respiratory: Respiratory distress Cardiovascular: Other (tachycardia) Mental/Cognitive Status: Confused, Lethargic Cognitive Status: Other (describe below) (decreases loc) Plan Anesthesia Type: General Consent for Procedure(s) Verified and Reviewed: No Code Status: Attempt Resuscitation ASA classification: 4-Incapacitating disease Is this case an emergency?: Yes
[2019-07-20] MEDS ORDERED: diphenhydrAMINE INJ 50 MG/ML VIAL ONE (18:33)
[2019-07-20] MEDS ORDERED: ALBUTEROL NEB 2.5 MG/3 ML INH SCH (19:00)
[2019-07-20 19:15] LABS: BASOPHILS % (AUTO) 0.4 %; HGB - HEMOGLOBIN 13.1 g/dL (12.0-16.0); LYMPHOCYTES % (AUTO) 12.6 %; MEAN CORPUSCULAR HEMOGLOBIN 32.2 pg (27.0-31.0); MEAN CORPUSCULAR HGB CONC 29.4 g/dL (32.0-36.0); MEAN CORPUSCULAR VOLUME 109.3 fL (81.0-99.0); MEAN PLATELET VOLUME 9.5 fL (7.9-10.8); MONOCYTES % (AUTO) 11.7 %; PLT - PLATELET COUNT 278 10^3/uL (130-450); RED BLOOD COUNT 4.07 10^6/uL (4.20-5.40); RED CELL DISTRIBUTION WIDTH 14.3 % (12.0-15.0); WHITE BLOOD COUNT 2.3 x10^3/uL (4.8-10.8)
[2019-07-20] MEDS: PROPOFOL 1000 MG/100 ML 100 ML IV SCH (19:23)
[2019-07-20] MEDS: SODIUM CHLORIDE FLUSH 0.9% 10 ML SYRINGE IVP SCH (19:24)
--- NOTE | 2019-07-20 19:25 | PROCEDURE REPORT ---
Hospitalist Procedure Note - Procedure Note Procedure Note: CVP line Insertion: After pt had been placed under general anesthesia, pt was placed in trendelenburg position, her anterior neck and chest were prepped with Chloroprep and draped in the usual sterile fashion. A needle and syringe were used to access the left subclavian vein via an infraclavicular approach. A guidewire was then passed into the central venous circulation and the 8 [place] triple lumen CVP catheter was passed over the guidewire into the central venous circulation to a depth of 15 cm. The guidewire was removed, the locking device was secured to the catheter, which was sutured to the skin with 3-0 silk sutures. A biopatch and tegaderm dressing was applied. The catheter was seen to aspirate blood and flush easily. Pt was taken out of trendelenburg position. A f/u portable CXR confirmed catheter tip in the SVC and no apparent complication from line placement. Pt appeared to tolerate the procedure well.
[2019-07-20 19:26] LABS: CALCIUM 8.2 mg/dL (8.5-10.3); MAGNESIUM 1.7 mg/dL (1.7-2.8); PHOSPHORUS 4.7 mg/dL (2.5-4.6)
--- NOTE | 2019-07-20 19:34 | MISCELLANEOUS PROVIDER NOTE ---
Miscellaneous Provider Note - - Note: I was informed by Dr. Chapa in the ER that no hospital in our area was able to take Ms. Dos Santos in transfer, so it was decided to admit the patient and take her to the OR for exploratory laparotomy after informed consent had been obtained from the patient. Pt had received approx 2 liters of crystalloid, cefazolin and metronidazole preop. Pt developed severe hypotension and hypoxemia shortly after induction of general anesthesia in the OR. Evaluation confirmed appropriate ET t ube, NG tube and CVP line positions. Pt was resuscitated with IVF, phenylephrine drip and a brief period of CPR, less than 2 minutes, until ROSC was achieved. It was unclear what caused the event although aspiration, acute GA and anesthetic induced myocardial depression were considered. It was decided to cancel the surgery, transfer the patient to the ICU and continue her resuscitation and treat her underlying condition medically, with plans to reevaluate her in the morning regarding suitability for surgery and/or transfer to a higher level of care. Plan was discussed in detail with the patient's family (son and friend), who are in agreement with this plan. (This was a 90 minute critical care treatment session.)
[2019-07-20 19:46] LABS: PLATELET ESTIMATE, MANUAL NORMAL (130-450,000) (NORMAL); PLATELET MORPHOLOGY NORMAL APPEARANCE (NORMAL); RBC MORPHOLOGY (MULTIPLE) NORMAL APPEARANCE (NORMAL)
[2019-07-20 19:49] LABS: BAND NEUTROPHILS % (MANUAL) 16 %; DIFFERENTIAL COMMENT MANUAL DIFFERENTIAL; LYMPHOCYTES # (MANUAL) 0.5 10^3/uL (1.5-3.5); LYMPHOCYTES % (MANUAL) 21 %; METAMYELOCYTES % (MANUAL) 9 %; MONOCYTES # (MANUAL) 0.4 10^3/uL (0.0-1.0); MYELOCYTES % (MANUAL) 3 %
--- NOTE | 2019-07-20 19:52 | PROCEDURE REPORT ---
Hospitalist Procedure Note - Procedure Note Procedure Note: Patient taken to operating room. I reviewed her history and physical and knew she waas in critical condition and might not survive the surgery but Dr. Diggs couldn't get any other hospital to accept her. Monitors were placed and she was preoxygenated with 100% O2 for 4 minutes. she was given 40 mg propofol and 40 mg rocuronium. It was noticed that the IV had infiltrated on induction so I attempted to induce with 4% sevo. She was unconscious but when I attempted to intubate she started moving and I abandoned the attempt. She was then given 20 mg IV rofc in the hep lock and I attempted using sevo again to get her relaxed enough for intubation. the second attempt was successful, cords were visualized and she was intubated with a 7.0 ETT, 22 cm at the teeth. She immediately vomited coffee ground fluid and I suctioned copious amounts of vomit from her mouth. Her saturations began falling along with her BP. I started a gill drip and also gave vasopressin. She had no peripheral pulses and with the low sats and BP Dr. Diggs started chest c ompressions. After about 20 compressions her sats came up and her systolic BP was 90 so compressions were stopped. Dr. Diggs then emergently prepped her chest and placed a subclavian central line. The case was cancelled and we prepared her to go to ICU. A chest x-ray was done to rule out aspiration and to verify ETT placement and central line placement. Patient was transferred to ICU where she was placed on a ventilator and closely monitored. She was not on any pressors when she reached the ICU.
[2019-07-20] MEDS ORDERED: DEXTROSE 10% 250 ML IV ONE (20:11)
--- NOTE | 2019-07-20 20:11 | XRAY Report ---
Reason: s/p cvp line, NG and ET tube placement Procedure Date: 07/20/2019 Accession Number: [id number] / [id number] Procedure: XR - Chest 1 View X-Ray CPT Code: 42717 Final Report FULL RESULT: EXAM: CHEST RADIOGRAPHY EXAM DATE: 07/20/2019 07:22 PM. CLINICAL HISTORY: CVP line, NG and ET tube placement. COMPARISON: CHEST 1 VIEW 03/13/2019 6:36 AM. TECHNIQUE: 1 view. FINDINGS: Lines/Tubes: ET tube 3 cm from the desi. Left subclavian central line to the upper SVC. NG tube to the mid body of the stomach. Lungs/Pleura: No focal opacities evident. No pleural effusion. No pneumothorax. Mediastinum: Within exam limitations, the cardiomediastinal contour is normal. Other: None. IMPRESSION: Tubes and catheters placed as above. RADIA
--- NOTE | 2019-07-20 20:42 | PROVIDER PROGRESS NOTE ---
Subjective - Prog Note Date Prog Note Date: 07/20/19 - Subjective Subjective: 20:30 call from RN: her glucose is 13 . Started on D5NS instead of NS. 20:36 pressure dropped to 64 systolic. Given 1 liter bolus of D5 and started on levophed. 21:25 pressure is 125 systolic on levophed 11. Intubated. no bowel sounds. belly rigid. family in waiting room. 21:40 Blood gas reflects severe metabolic acidosis, respiratory acidosis, adequate oxygenation. I have increased her respiratory rate based on the blood gas with a pH of 7.24, PCO2 71, PO2 242. I have reduced her FiO2 from 60 to 40%. 07/21/19 02:13 Abdomen is increasingly distended. Rigid. No bowel sounds. Labile blood pressure requiring increasing Levophed. Then a reduction in Levophed depending on her pressures. Pulses intermittently tachycardic. Current Medications - Current Medications Current Medications: Active Medications Albuterol () 2.5 mg INH RTQ4H [facility] Last Admin: 07/20/19 23:24 Dose: 2.5 mg Heparin Sodium (Porcine) () 5,000 unit SUBQ BID SONG Metronidazole (Flagyl 500 Mg/100 Ml) 500 mg in 100 mls @ 100 mls/hr IV Q8H [facility] Last Infusion: 07/21/19 00:27 Dose: Infused Propofol (Diprivan) 100 mls @ 2.585 mls/hr IV .[id number] [facility]; Protocol Last Titration: 07/21/19 01:00 Dose: 25 mcg/kg/min, 6.464 mls/hr Fentanyl 2,500 mcg/ Sodium (Chloride) 250 mls @ 4.31 mls/hr IV .[id number] [facility]; Protocol Last Titration: 07/21/19 01:00 Dose: 1 mcg/kg/hr, 4.31 mls/hr Norepinephrine Bitartrate 8 mg (/ Dextrose) 250 mls @ 15 mls/hr IV .[id number] [facility]; Protocol Last Titration: 07/21/19 01:44 Dose: 11 mcg/min, 20.63 mls/hr Dextrose/Sodium Chloride (D5ns) 1,000 mls @ 125 mls/hr IV .Q8H [facility] Last Infusion: 07/21/19 01:00 Dose: 125 mls/hr Cefepime HCl 2 gm/ Sodium (Chloride) 100 mls @ 200 mls/hr IV BID [facility] Last Infusion: 07/20/19 21:45 Dose: Infused Thiamine HCl 100 mg/ Sodium (Chloride) 51 mls @ 100 mls/hr IV DAILY [facility] Ondansetron HCl (Zofran Inj) 4 mg IVP Q6HR PRN PRN Reason: Nausea / Vomiting Pantoprazole Sodium (Protonix) 40 mg IVP BID [facility] Last Admin: 07/20/19 21:16 Dose: 40 mg Sodium Chloride (Normal Saline Flush 0.9%) 10 ml IVP 0100,0900,1700 [facility] Last Admin: 07/21/19 01:06 Dose: 10 ml Sodium Chloride (Normal Saline Flush 0.9%) 10 ml IVP PRN PRN PRN Reason: NEEDED PER PROVIDER ORDERS Cyclobenzaprine [Flexeril] 10 mg PO TID PRN 11/19/16 Acetaminophen [8Hr Arthritis Pain Relief] 650 mg PO Q4H PRN 05/11/18 Multivitamin [Multiple Vitamins] 1 tab PO DAILY 05/11/18 Turmeric Root Extract [Turmeric] 1 cap PO DAILY 05/11/18 Albuterol Sulf [Ventolin Hfa Inhaler] 1 - 2 puffs INH Q4HR PRN 03/13/19 Meclizine HCl [Motion Sickness Relief] 25 mg PO TID PRN 03/13/19 Pramipexole [Mirapex] 0.25 mg PO QPM 03/13/19 Sertraline [Zoloft] 50 mg PO DAILY 03/13/19 traZODone [Desyrel] 25 mg PO HS 03/13/19 Objective - Vital Signs/Intake & Output Reviewed Vital Signs: Yes Vital Signs: Vital Signs x48h Temp Pulse Pulse Resp BP BP BP 07/20/19 20:00 36.3 C L 84 16 99/64 07/20/19 19:39 87 07/20/19 17:43 36.5 C 108 H 22 93/76 07/20/19 16:00 36.5 C 108 H 23 157/73 H 07/20/19 15:59 106 H 16 07/20/19 14:00 108 H 18 151/103 H 07/20/19 13:23 106 H 20 07/20/19 12:49 111 H 29 H 157/96 H Pulse Ox 07/20/19 20:00 93 07/20/19 19:39 07/20/19 17:43 100 07/20/19 16:00 96 07/20/19 15:59 07/20/19 14:00 27 L 07/20/19 13:23 07/20/19 12:49 94 Intake & Output: Intake & Output 07/17/19 07/18/19 07/19/19 07/20/19 23:59 23:59 23:59 23:59 Intake Total 1202.813 Output Total 300 Balance 902.813 - Objective General Appearance: positive: Other (Intubated, on propofol, fentanyl, Levophe d.) ENT: positive: Other (ET tube in place) Neck: positive: Trachea midline. negative: Carotid bruit Respiratory: positive: No respiratory distress. negative: Wheezes, Rales, Rhonchi Cardiovascular: positive: Regular rate & rhythm, Tachycardia (Intermittent), Systolic murmur. negative: Gallop/S4, Friction rub Abdomen: positive: Other (Distended, firm, no bowel sounds. Over the last 2 hours distention is increasingly apparent) Skin: positive: Dry, Pallor, Other (Cool to touch, mottling of limbs) Extremities: positive: No pedal edema - Lab Results Fish Bones: 07/20/19 19:10 07/20/19 19:10 Other Labs: Lab Results x24hrs 07/20/19 07/20/19 07/20/19 Range/Units 19:10 19:10 19:10 WBC 2.3 L (4.8-10.8) x10^3/uL RBC 4.07 L (4.20-5.40) 10^6/uL Hgb 13.1 (12.0-16.0) g/dL Hct 44.5 (37.0-47.0) % MCV 109.3 H (81.0-99.0) fL MCH 32.2 H (27.0-31.0) pg MCHC 29.4 L (32.0-36.0) g/dL RDW 14.3 (12.0-15.0) % Plt Count 278 (130-450) 10^3/uL MPV 9.5 (7.9-10.8) fL Neut # (Auto) Not Reportable Lymph # (Auto) Not Reportable Forrest # (Auto) Not Reportable Eos # (Auto) Not Reportable Baso # (Auto) Not Reportable Absolute Nucleated RBC Not Reportable Total Counted 100 Band Neuts % (Manual) 16 H (0 - 10) % Abnorm Lymph % (Manual) Not Reportable % Metamyelocytes % 9 H ( - 0) % Myelocytes % 3 H ( - 0) % Nucleated RBC % Not Reportable Neutrophils # (Manual) 1.1 L (1.5-6.6) 10^3/uL Lymphocytes # (Manual) 0.5 L (1.5-3.5) 10^3/uL Monocytes # (Manual) 0.4 (0.0-1.0) 10^3/uL Eosinophils # (Manual) 0.0 (0-0.7) 10^3/uL Basophils # (Manual) Not Reportable (0-0.1) 10^3/uL Differential Comment MANUAL DIFFERENTIAL Manual Slide Review Indicated WBC Morphology (NORMAL) Platelet Estimate NORMAL (130-450,000) (NORMAL) Platelet Morphology NORMAL APPEARANCE (NORMAL) RBC Morph Micro Appear NORMAL APPEARANCE (NORMAL) PT (9.9-12.6) secs INR (0.8-1.2) Sodium 139 (135-145) mmol/L Potassium 3.5 (3.5-5.0) mmol/L Chloride 100 L (101-111) mmol/L Carbon Dioxide 29 (21-32) mmol/L Anion Gap 10.0 (6-13) BUN 37 H (6-20) mg/dL Creatinine 1.0 (0.4-1.0) mg/dL Estimated GFR (MDRD) 56 L (>89) Glucose 99 (70-100) mg/dL Lactic Acid (0.5-2.2) mmol/L Calcium 8.2 L (8.5-10.3) mg/dL Phosphorus 4.7 H (2.5-4.6) mg/dL Magnesium 1.7 (1.7-2.8) mg/dL Total Bilirubin (0.2-1.0) mg/dL AST (10-42) IU/L ALT (10-60) IU/L Alkaline Phosphatase (42-121) IU/L Troponin I High Sens 231.0 H* (2.3-14.8) ng/L Total Protein (6.7-8.2) g/dL Albumin (3.2-5.5) g/dL Globulin (2.1-4.2) g/dL Albumin/Globulin Ratio (1.0-2.2) Lipase (22-51) U/L 07/20/19 07/20/19 07/20/19 Range/Units 19:00 13:20 12:20 WBC (4.8-10.8) x10^3/uL RBC (4.20-5.40) 10^6/uL Hgb (12.0-16.0) g/dL Hct (37.0-47.0) % MCV (81.0-99.0) fL MCH (27.0-31.0) pg MCHC (32.0-36.0) g/dL RDW (12.0-15.0) % Plt Count (130-450) 10^3/uL MPV (7.9-10.8) fL Neut # (Auto) Lymph # (Auto) Forrest # (Auto) Eos # (Auto) Baso # (Auto) Absolute Nucleated RBC Total Counted Band Neuts % (Manual) (0 - 10) % Abnorm Lymph % (Manual) % Metamyelocytes % ( - 0) % Myelocytes % ( - 0) % Nucleated RBC % Neutrophils # (Manual) (1.5-6.6) 10^3/uL Lymphocytes # (Manual) (1.5-3.5) 10^3/uL Monocytes # (Manual) (0.0-1.0) 10^3/uL Eosinophils # (Manual) (0-0.7) 10^3/uL Basophils # (Manual) (0-0.1) 10^3/uL Differential Comment Manual Slide Review WBC Morphology (NORMAL) Platelet Estimate (NORMAL) Platelet Morphology (NORMAL) RBC Morph Micro Appear (NORMAL) PT (9.9-12.6) secs INR (0.8-1.2) Sodium (135-145) mmol/L Potassium (3.5-5.0) mmol/L Chloride (101-111) mmol/L Carbon Dioxide (21-32) mmol/L Anion Gap (6-13) BUN (6-20) mg/dL Creatinine (0.4-1.0) mg/dL Estimated GFR (MDRD) (>89) Glucose (70-100) mg/dL Lactic Acid 4.5 H* 2.5 H (0.5-2.2) mmol/L Calcium (8.5-10.3) mg/dL Phosphorus (2.5-4.6) mg/dL Magnesium 2.3 (1.7-2.8) mg/dL Total Bilirubin (0.2-1.0) mg/dL AST (10-42) IU/L ALT (10-60) IU/L Alkaline Phosphatase (42-121) IU/L Troponin I High Sens (2.3-14.8) ng/L Total Protein (6.7-8.2) g/dL Albumin (3.2-5.5) g/dL Globulin (2.1-4.2) g/dL Albumin/Globulin Ratio (1.0-2.2) Lipase (22-51) U/L 07/20/19 07/20/19 07/20/19 Range/Units 12:20 12:20 12:20 WBC 3.5 L (4.8-10.8) x10^3/uL RBC 5.19 (4.20-5.40) 10^6/uL Hgb 16.8 H (12.0-16.0) g/dL Hct 55.7 H (37.0-47.0) % MCV 107.3 H (81.0-99.0) fL MCH 32.4 H (27.0-31.0) pg MCHC 30.2 L (32.0-36.0) g/dL RDW 14.3 (12.0-15.0) % Plt Count 352 (130-450) 10^3/uL MPV 9.4 (7.9-10.8) fL Neut # (Auto) Not Reportable Lymph # (Auto) Not Reportable Forrest # (Auto) Not Reportable Eos # (Auto) Not Reportable Baso # (Auto) Not Reportable Absolute Nucleated RBC Not Reportable Total Counted 100 Band Neuts % (Manual) 28 H (0 - 10) % Abnorm Lymph % (Manual) 0 % Metamyelocytes % ( - 0) % Myelocytes % ( - 0) % Nucleated RBC % Not Reportable Neutrophils # (Manual) 2.3 (1.5-6.6) 10^3/uL Lymphocytes # (Manual) 0.7 L (1.5-3.5) 10^3/uL Monocytes # (Manual) 0.4 (0.0-1.0) 10^3/uL Eosinophils # (Manual) 0.0 (0-0.7) 10^3/uL Basophils # (Manual) 0.0 (0-0.1) 10^3/uL Differential Comment MANUAL DIFFERENTIAL Manual Slide Review WBC Morphology 1+ TOXIC GRANULATION (NORMAL) Platelet Estimate (NORMAL) Platelet Morphology (NORMAL) RBC Morph Micro Appear 2+ MACROCYTOSIS (NORMAL) PT 12.4 (9.9-12.6) secs INR 1.1 (0.8-1.2) Sodium 142 (135-145) mmol/L Potassium 3.8 (3.5-5.0) mmol/L Chloride 92 L (101-111) mmol/L Carbon Dioxide 37 H (21-32) mmol/L Anion Gap 13.0 (6-13) BUN 39 H (6-20) mg/dL Creatinine 1.0 (0.4-1.0) mg/dL Estimated GFR (MDRD) 56 L (>89) Glucose 122 H (70-100) mg/dL Lactic Acid (0.5-2.2) mmol/L Calcium 10.0 (8.5-10.3) mg/dL Phosphorus (2.5-4.6) mg/dL Magnesium (1.7-2.8) mg/dL Total Bilirubin 0.7 (0.2-1.0) mg/dL AST 27 (10-42) IU/L ALT 24 (10-60) IU/L Alkaline Phosphatase 99 (42-121) IU/L Troponin I High Sens (2.3-14.8) ng/L Total Protein 7.7 (6.7-8.2) g/dL Albumin 4.3 (3.2-5.5) g/dL Globulin 3.4 (2.1-4.2) g/dL Albumin/Globulin Ratio 1.3 (1.0-2.2) Lipase 25 (22-51) U/L ABX Reporting Has patient been on IV antibiotics over the past 48 hours?: Yes Sepsis Event Note (H) - Evaluation Current Stage of Sepsis: Septic shock Possible source of Sepsis: positive: GI tract/intra-abdominal - Sepsis Criteria Sepsis Criteria: Recorded Heart Rate greater than 90 bpm, Recorded Respiratory Rate greater than 20, WBC count greater than 10% bands, SBP less than 90 mmHg, Metabolic: lactate > 2 mmol/L Assessment/Plan - Problem List (1) Septic shock Impression: Due to perforated bowel. Suspect sigmoid rupture. Free air under the diaphragm. Patient has already been resuscitated in the OR. Now in ICU intubated. Over the course of the evening I have provided more than 45 minutes of bedside care for patient who is been steadily and steadily worsening. She now requires pressors. On empiric antibiotic therapy. General surgery to reassess in the morning. It is unclear if they plan on transferring her or if they will take her to the operating room themselves. Family has been individual all night long. At this time we are just providing supportive care trying to keep her alive through the evening.
[2019-07-20] MEDS ORDERED: DEXTROSE 5% 1,000 ML IV SCH (21:00)
[2019-07-20] MEDS ORDERED: CEFEPIME 2 GM in SODIUM CHLORIDE 0.9% MINIBAG 100 ML IV SCH (21:00)
[2019-07-20] MEDS: DEXTROSE 5%-0.9% NACL 1,000 ML IV SCH (21:07)
[2019-07-20] MEDS: CEFEPIME 2 GM in SODIUM CHLORIDE 0.9% MINIBAG 100 ML IV SCH (21:11)
[2019-07-20] MEDS: PANTOPRAZOLE 40 MG VIAL IVP SCH (21:16)
[2019-07-20 21:35] LABS: ABG BASE EXCESS 0.7 mmol/L (-2.0-3.0); ABG HCO3 30.1 mmol/L (22.0-26.0); ABG OXYGEN SATURATION 99 % (94-98); ABG PH 7.24 (7.35-7.45); ABG TCO2 32.2 MMOL/L (21.0-29.0)
[2019-07-20 21:36] LABS: ALLEN TEST POSITIVE
[2019-07-20 21:38] LABS: ABG PCO2 71 mmHg (34-45); ABG PO2 242 mmHg (80-100)
[2019-07-20] MEDS: fentaNYL 2,500 MCG in SODIUM CHLORIDE 0.9% 200 ML IV SCH (21:59)
[2019-07-20] MEDS ORDERED: AZTREONAM 1 GM in SODIUM CHLORIDE 0.9% MINIBAG 100 ML IV SCH (22:00)
[2019-07-20] MEDS: metroNIDAZOLE 500 MG/100 ML 500 MG/100 ML BAG IV SCH (22:36)
[2019-07-21] MEDS: SODIUM CHLORIDE FLUSH 0.9% 10 ML SYRINGE IVP SCH ×3 (01:06→17:10)
[2019-07-21 05:20] LABS: BASOPHILS % (AUTO) 0.8 %; HGB - HEMOGLOBIN 14.1 g/dL (12.0-16.0); LYMPHOCYTES % (AUTO) 17.3 %; MEAN CORPUSCULAR HEMOGLOBIN 31.5 pg (27.0-31.0); MEAN CORPUSCULAR HGB CONC 29.8 g/dL (32.0-36.0); MEAN CORPUSCULAR VOLUME 105.8 fL (81.0-99.0); MEAN PLATELET VOLUME 10.1 fL (7.9-10.8); MONOCYTES % (AUTO) 10.1 %; NEUTROPHILS % (AUTO) 71.4 %; PLT - PLATELET COUNT 310 10^3/uL (130-450); RED BLOOD COUNT 4.47 10^6/uL (4.20-5.40); RED CELL DISTRIBUTION WIDTH 14.3 % (12.0-15.0); WHITE BLOOD COUNT 2.4 x10^3/uL (4.8-10.8)
[2019-07-21 05:31] LABS: ABNORMAL LYMPHS % (MANUAL) 0 %
[2019-07-21 05:34] LABS: ALBUMIN 2.5 g/dL (3.2-5.5); BILIRUBIN,DIRECT 0.2 mg/dL (0.1-0.5); BILIRUBIN,TOTAL 0.5 mg/dL (0.2-1.0); CALCIUM 7.9 mg/dL (8.5-10.3); CREATININE 1.4 mg/dL (0.4-1.0); MAGNESIUM 1.7 mg/dL (1.7-2.8); PHOSPHORUS 3.3 mg/dL (2.5-4.6); TOTAL PROTEIN 4.9 g/dL (6.7-8.2)
[2019-07-21 05:57] LABS: BAND NEUTROPHILS % (MANUAL) 24 %; LYMPHOCYTES # (MANUAL) 0.7 10^3/uL (1.5-3.5); LYMPHOCYTES % (MANUAL) 31 %; METAMYELOCYTES % (MANUAL) 9 %; MONOCYTES # (MANUAL) 0.2 10^3/uL (0.0-1.0); MYELOCYTES % (MANUAL) 9 %; PLATELET ESTIMATE, MANUAL NORMAL (130-450,000) (NORMAL); RBC MORPHOLOGY (MULTIPLE) NORMAL APPEARANCE (NORMAL)
[2019-07-21 05:59] LABS: DIFFERENTIAL COMMENT MANUAL DIFFERENTIAL
[2019-07-21] MEDS: metroNIDAZOLE 500 MG/100 ML 500 MG/100 ML BAG IV SCH ×3 (06:05→22:21)
[2019-07-21] MEDS: DEXTROSE 5%-0.9% NACL 1,000 ML IV SCH ×2 (06:07→16:20)
[2019-07-21] MEDS: PROPOFOL 1000 MG/100 ML 100 ML IV SCH ×3 (06:16→22:33)
[2019-07-21 06:22] LABS: ABG BASE EXCESS -1.5 mmol/L (-2.0-3.0); ABG HCO3 26.2 mmol/L (22.0-26.0); ABG OXYGEN SATURATION 99 % (94-98); ABG PCO2 56 mmHg (34-45); ABG PH 7.29 (7.35-7.45); ABG PO2 129 mmHg (80-100); ABG TCO2 27.9 MMOL/L (21.0-29.0); ALLEN TEST POSITIVE
[2019-07-21] MEDS ORDERED: MAGNESIUM SULFATE 2 GRAM 2 GM/50 ML BAG IV ONE (08:00)
--- NOTE | 2019-07-21 08:58 | PROVIDER PROGRESS NOTE ---
Subjective - Prog Note Date Prog Note Date: 07/21/19 Prog Note Time: 08:55 - Subjective Subjective: Intubated and sedated Objective - Vital Signs/Intake & Output Reviewed Vital Signs: Yes Vital Signs: Vital Signs Temp Pulse Pulse Resp BP BP Pulse Ox 07/21/19 08:00 36.8 C 101 H 18 95/67 100 07/21/19 07:35 106 H 07/21/19 07:00 104 H 18 81/59 L 98 07/21/19 06:00 106 H 18 88/64 L 100 07/21/19 05:52 106 H 07/21/19 05:41 36.5 C 106 H 18 100 07/21/19 05:01 106 H 18 108/66 07/21/19 05:00 107 H 105 H 18 108/66 100 Intake & Output: Intake & Output 07/18/19 07/19/19 07/20/19 07/21/19 23:59 23:59 23:59 23:59 Intake Total 4596.734 1535.852 Output Total 515 226 Balance 4081.734 1309.852 - Objective General Appearance: positive: Other (sedated, appears comfortable) Eyes Bilateral: positive: No scleral icterus ENT: positive: Dry mucous membranes, Other (intubated; mucus membranes dry) Neck: positive: No JVD Respiratory: positive: Chest non-tender, No respiratory distress, Breath sounds nml (anteriorly) Cardiovascular: positive: Regular rate & rhythm, No murmur, No gallop, Tachycardia (HR 100) Abdomen: positive: Tenderness (diffuse, appears to continue to show guarding but eval difficult due to sedation), Guarding, Abnml bowel sounds (hypoactive), Other (moderate distention, unchanged from yesterday) Skin: positive: Cyanosis (acrocyanosis with cool, clammy hands,feet on norepi drip) Extremities: positive: No pedal edema. negative: Calf tenderness Neurologic/Psychiatric: positive: Other (sedated but appears to respond to painful stimuli) - Lab Results Fish Bones: 07/21/19 04:45 07/21/19 04:45 Other Labs: Lab Results x24hrs 07/21/19 07/21/19 07/21/19 Range/Units 07:30 06:15 04:45 WBC (4.8-10.8) x10^3/uL RBC (4.20-5.40) 10^6/uL Hgb (12.0-16.0) g/dL Hct (37.0-47.0) % MCV (81.0-99.0) fL MCH (27.0-31.0) pg MCHC (32.0-36.0) g/dL RDW (12.0-15.0) % Plt Count (130-450) 10^3/uL MPV (7.9-10.8) fL Neut # (Auto) Lymph # (Auto) Stevens # (Auto) Eos # (Auto) Baso # (Auto) Absolute Nucleated RBC Total Counted Band Neuts % (Manual) (0 - 10) % Abnorm Lymph % (Manual) % Metamyelocytes % ( - 0) % Myelocytes % ( - 0) % Nucleated RBC % Neutrophils # (Manual) (1.5-6.6) 10^3/uL Lymphocytes # (Manual) (1.5-3.5) 10^3/uL Monocytes # (Manual) (0.0-1.0) 10^3/uL Eosinophils # (Manual) (0-0.7) 10^3/uL Basophils # (Manual) (0-0.1) 10^3/uL Differential Comment Manual Slide Review WBC Morphology (NORMAL) Platelet Estimate (NORMAL) Platelet Morphology (NORMAL) RBC Morph Micro Appear (NORMAL) PT (9.9-12.6) secs INR (0.8-1.2) Bld Gas Analysis Time 0615 Sample Site LEFT RADIAL ABG pH 7.29 L (7.35-7.45) ABG pCO2 56 H (34-45) mmHg ABG pO2 129 H (80-100) mmHg ABG HCO3 26.2 H (22.0-26.0) mmol/L ABG Total CO2 27.9 (21.0-29.0) MMOL/L ABG O2 Saturation 99 H (94-98) % ABG Base Excess -1.5 (-2.0-3.0) mmol/L William Test POSITIVE Respiration Rate 18 b/min O2 Delivery Device VENTILATOR Vent Mode SIMV FiO2 40.00 Tidal Volume 385 mL PEEP cmH2O Pressure Support Vent 10 cmH2O Sodium (135-145) mmol/L Potassium (3.5-5.0) mmol/L Chloride (101-111) mmol/L Carbon Dioxide (21-32) mmol/L Anion Gap (6-13) BUN (6-20) mg/dL Creatinine (0.4-1.0) mg/dL Estimated GFR (MDRD) (>89) Glucose (70-100) mg/dL Lactic Acid 1.9 (0.5-2.2) mmol/L Calcium (8.5-10.3) mg/dL Phosphorus (2.5-4.6) mg/dL Magnesium (1.7-2.8) mg/dL Total Bilirubin (0.2-1.0) mg/dL Direct Bilirubin (0.1-0.5) mg/dL AST (10-42) IU/L ALT (10-60) IU/L Alkaline Phosphatase (42-121) IU/L Troponin I High Sens 245.9 H* (2.3-14.8) ng/L Total Protein (6.7-8.2) g/dL Albumin (3.2-5.5) g/dL Globulin (2.1-4.2) g/dL Albumin/Globulin Ratio (1.0-2.2) Lipase (22-51) U/L Nasal Screen MRSA (PCR) (NEGATIVE) 07/21/19 07/21/19 07/20/19 Range/Units 04:45 04:45 21:54 WBC 2.4 L (4.8-10.8) x10^3/uL RBC 4.47 (4.20-5.40) 10^6/uL Hgb 14.1 (12.0-16.0) g/dL Hct 47.3 H (37.0-47.0) % MCV 105.8 H (81.0-99.0) fL MCH 31.5 H (27.0-31.0) pg MCHC 29.8 L (32.0-36.0) g/dL RDW 14.3 (12.0-15.0) % Plt Count 310 (130-450) 10^3/uL MPV 10.1 (7.9-10.8) fL Neut # (Auto) Not Reportable Lymph # (Auto) Not Reportable Stevens # (Auto) Not Reportable Eos # (Auto) Not Reportable Baso # (Auto) Not Reportable Absolute Nucleated RBC Not Reportable Total Counted 100 Band Neuts % (Manual) 24 H (0 - 10) % Abnorm Lymph % (Manual) 0 % Metamyelocytes % 9 H ( - 0) % Myelocytes % 9 H ( - 0) % Nucleated RBC % Not Reportable Neutrophils # (Manual) 1.0 L (1.5-6.6) 10^3/uL Lymphocytes # (Manual) 0.7 L (1.5-3.5) 10^3/uL Monocytes # (Manual) 0.2 (0.0-1.0) 10^3/uL Eosinophils # (Manual) 0.0 (0-0.7) 10^3/uL Basophils # (Manual) 0.0 (0-0.1) 10^3/uL Differential Comment MANUAL DIFFERENTIAL Manual Slide Review WBC Morphology (NORMAL) Platelet Estimate NORMAL (130-450,000) (NORMAL) Platelet Morphology (NORMAL) RBC Morph Micro Appear NORMAL APPEARANCE (NORMAL) PT (9.9-12.6) secs INR (0.8-1.2) Bld Gas Analysis Time Sample Site ABG pH (7.35-7.45) ABG pCO2 (34-45) mmHg ABG pO2 (80-100) mmHg ABG HCO3 (22.0-26.0) mmol/L ABG Total CO2 (21.0-29.0) MMOL/L ABG O2 Saturation (94-98) % ABG Base Excess (-2.0-3.0) mmol/L William Test Respiration Rate b/min O2 Delivery Device Vent Mode FiO2 Tidal Volume mL PEEP cmH2O Pressure Support Vent cmH2O Sodium 136 (135-145) mmol/L Potassium 4.2 (3.5-5.0) mmol/L Chloride 100 L (101-111) mmol/L Carbon Dioxide 29 (21-32) mmol/L Anion Gap 7.0 (6-13) BUN 41 H (6-20) mg/dL Creatinine 1.4 H (0.4-1.0) mg/dL Estimated GFR (MDRD) 38 L (>89) Glucose 141 H (70-100) mg/dL Lactic Acid 3.7 H* (0.5-2.2) mmol/L Calcium 7.9 L (8.5-10.3) mg/dL Phosphorus 3.3 (2.5-4.6) mg/dL Magnesium 1.7 (1.7-2.8) mg/dL Total Bilirubin 0.5 (0.2-1.0) mg/dL Direct Bilirubin 0.2 (0.1-0.5) mg/dL AST 19 (10-42) IU/L ALT 17 (10-60) IU/L Alkaline Phosphatase 45 (42-121) IU/L Troponin I High Sens (2.3-14.8) ng/L Total Protein 4.9 L (6.7-8.2) g/dL Albumin 2.5 L (3.2-5.5) g/dL Globulin 2.4 (2.1-4.2) g/dL Albumin/Globulin Ratio (1.0-2.2) Lipase (22-51) U/L Nasal Screen MRSA (PCR) (NEGATIVE) 07/20/19 07/20/19 07/20/19 Range/Units 21:30 19:10 19:10 WBC 2.3 L (4.8-10.8) x10^3/uL RBC 4.07 L (4.20-5.40) 10^6/uL Hgb 13.1 (12.0-16.0) g/dL Hct 44.5 (37.0-47.0) % MCV 109.3 H (81.0-99.0) fL MCH 32.2 H (27.0-31.0) pg MCHC 29.4 L (32.0-36.0) g/dL RDW 14.3 (12.0-15.0) % Plt Count 278 (130-450) 10^3/uL MPV 9.5 (7.9-10.8) fL Neut # (Auto) Not Reportable Lymph # (Auto) Not Reportable Stevens # (Auto) Not Reportable Eos # (Auto) Not Reportable Baso # (Auto) Not Reportable Absolute Nucleated RBC Not Reportable Total Counted 100 Band Neuts % (Manual) 16 H (0 - 10) % Abnorm Lymph % (Manual) Not Reportable % Metamyelocytes % 9 H ( - 0) % Myelocytes % 3 H ( - 0) % Nucleated RBC % Not Reportable Neutrophils # (Manual) 1.1 L (1.5-6.6) 10^3/uL Lymphocytes # (Manual) 0.5 L (1.5-3.5) 10^3/uL Monocytes # (Manual) 0.4 (0.0-1.0) 10^3/uL Eosinophils # (Manual) 0.0 (0-0.7) 10^3/uL Basophils # (Manual) Not Reportable (0-0.1) 10^3/uL Differential Comment MANUAL DIFFERENTIAL Manual Slide Review Indicated WBC Morphology (NORMAL) Platelet Estimate NORMAL (130-450,000) (NORMAL) Platelet Morphology NORMAL APPEARANCE (NORMAL) RBC Morph Micro Appear NORMAL APPEARANCE (NORMAL) PT (9.9-12.6) secs INR (0.8-1.2) Bld Gas Analysis Time 2130 Sample Site RIGHT RADIAL ABG pH 7.24 L (7.35-7.45) ABG pCO2 71 H* (34-45) mmHg ABG pO2 242 H* (80-100) mmHg ABG HCO3 30.1 H (22.0-26.0) mmol/L ABG Total CO2 32.2 H (21.0-29.0) MMOL/L ABG O2 Saturation 99 H (94-98) % ABG Base Excess 0.7 (-2.0-3.0) mmol/L William Test POSITIVE Respiration Rate 16 b/min O2 Delivery Device VENTILATOR Vent Mode SIMV FiO2 60.00 Tidal Volume 385 mL PEEP 5 cmH2O Pressure Support Vent 10 cmH2O Sodium 139 (135-145) mmol/L Potassium 3.5 (3.5-5.0) mmol/L Chloride 100 L (101-111) mmol/L Carbon Dioxide 29 (21-32) mmol/L Anion Gap 10.0 (6-13) BUN 37 H (6-20) mg/dL Creatinine 1.0 (0.4-1.0) mg/dL Estimated GFR (MDRD) 56 L (>89) Glucose 99 (70-100) mg/dL Lactic Acid (0.5-2.2) mmol/L Calcium 8.2 L (8.5-10.3) mg/dL Phosphorus 4.7 H (2.5-4.6) mg/dL Magnesium 1.7 (1.7-2.8) mg/dL Total Bilirubin (0.2-1.0) mg/dL Direct Bilirubin (0.1-0.5) mg/dL AST (10-42) IU/L ALT (10-60) IU/L Alkaline Phosphatase (42-121) IU/L Troponin I High Sens (2.3-14.8) ng/L Total Protein (6.7-8.2) g/dL Albumin (3.2-5.5) g/dL Globulin (2.1-4.2) g/dL Albumin/Globulin Ratio (1.0-2.2) Lipase (22-51) U/L Nasal Screen MRSA (PCR) (NEGATIVE) 07/20/19 07/20/19 07/20/19 Range/Units 19:10 19:00 17:34 WBC (4.8-10.8) x10^3/uL RBC (4.20-5.40) 10^6/uL Hgb (12.0-16.0) g/dL Hct (37.0-47.0) % MCV (81.0-99.0) fL MCH (27.0-31.0) pg MCHC (32.0-36.0) g/dL RDW (12.0-15.0) % Plt Count (130-450) 10^3/uL MPV (7.9-10.8) fL Neut # (Auto) Lymph # (Auto) Stevens # (Auto) Eos # (Auto) Baso # (Auto) Absolute Nucleated RBC Total Counted Band Neuts % (Manual) (0 - 10) % Abnorm Lymph % (Manual) % Metamyelocytes % ( - 0) % Myelocytes % ( - 0) % Nucleated RBC % Neutrophils # (Manual) (1.5-6.6) 10^3/uL Lymphocytes # (Manual) (1.5-3.5) 10^3/uL Monocytes # (Manual) (0.0-1.0) 10^3/uL Eosinophils # (Manual) (0-0.7) 10^3/uL Basophils # (Manual) (0-0.1) 10^3/uL Differential Comment Manual Slide Review WBC Morphology (NORMAL) Platelet Estimate (NORMAL) Platelet Morphology (NORMAL) RBC Morph Micro Appear (NORMAL) PT (9.9-12.6) secs INR (0.8-1.2) Bld Gas Analysis Time Sample Site ABG pH (7.35-7.45) ABG pCO2 (34-45) mmHg ABG pO2 (80-100) mmHg ABG HCO3 (22.0-26.0) mmol/L ABG Total CO2 (21.0-29.0) MMOL/L ABG O2 Saturation (94-98) % ABG Base Excess (-2.0-3.0) mmol/L William Test Respiration Rate b/min O2 Delivery Device Vent Mode FiO2 Tidal Volume mL PEEP cmH2O Pressure Support Vent cmH2O Sodium (135-145) mmol/L Potassium (3.5-5.0) mmol/L Chloride (101-111) mmol/L Carbon Dioxide (21-32) mmol/L Anion Gap (6-13) BUN (6-20) mg/dL Creatinine (0.4-1.0) mg/dL Estimated GFR (MDRD) (>89) Glucose (70-100) mg/dL Lactic Acid 4.5 H* (0.5-2.2) mmol/L Calcium (8.5-10.3) mg/dL Phosphorus (2.5-4.6) mg/dL Magnesium (1.7-2.8) mg/dL Total Bilirubin (0.2-1.0) mg/dL Direct Bilirubin (0.1-0.5) mg/dL AST (10-42) IU/L ALT (10-60) IU/L Alkaline Phosphatase (42-121) IU/L Troponin I High Sens 231.0 H* (2.3-14.8) ng/L Total Protein (6.7-8.2) g/dL Albumin (3.2-5.5) g/dL Globulin (2.1-4.2) g/dL Albumin/Globulin Ratio (1.0-2.2) Lipase (22-51) U/L Nasal Screen MRSA (PCR) NEGATIVE (NEGATIVE) 07/20/19 07/20/19 07/20/19 Range/Units 13:20 12:20 12:20 WBC (4.8-10.8) x10^3/uL RBC (4.20-5.40) 10^6/uL Hgb (12.0-16.0) g/dL Hct (37.0-47.0) % MCV (81.0-99.0) fL MCH (27.0-31.0) pg MCHC (32.0-36.0) g/dL RDW (12.0-15.0) % Plt Count (130-450) 10^3/uL MPV (7.9-10.8) fL Neut # (Auto) Lymph # (Auto) Stevens # (Auto) Eos # (Auto) Baso # (Auto) Absolute Nucleated RBC Total Counted Band Neuts % (Manual) (0 - 10) % Abnorm Lymph % (Manual) % Metamyelocytes % ( - 0) % Myelocytes % ( - 0) % Nucleated RBC % Neutrophils # (Manual) (1.5-6.6) 10^3/uL Lymphocytes # (Manual) (1.5-3.5) 10^3/uL Monocytes # (Manual) (0.0-1.0) 10^3/uL Eosinophils # (Manual) (0-0.7) 10^3/uL Basophils # (Manual) (0-0.1) 10^3/uL Differential Comment Manual Slide Review WBC Morphology (NORMAL) Platelet Estimate (NORMAL) Platelet Morphology (NORMAL) RBC Morph Micro Appear (NORMAL) PT (9.9-12.6) secs INR (0.8-1.2) Bld Gas Analysis Time Sample Site ABG pH (7.35-7.45) ABG pCO2 (34-45) mmHg ABG pO2 (80-100) mmHg ABG HCO3 (22.0-26.0) mmol/L ABG Total CO2 (21.0-29.0) MMOL/L ABG O2 Saturation (94-98) % ABG Base Excess (-2.0-3.0) mmol/L William Test Respiration Rate b/min O2 Delivery Device Vent Mode FiO2 Tidal Volume mL PEEP cmH2O Pressure Support Vent cmH2O Sodium 142 (135-145) mmol/L Potassium 3.8 (3.5-5.0) mmol/L Chloride 92 L (101-111) mmol/L Carbon Dioxide 37 H (21-32) mmol/L Anion Gap 13.0 (6-13) BUN 39 H (6-20) mg/dL Creatinine 1.0 (0.4-1.0) mg/dL Estimated GFR (MDRD) 56 L (>89) Glucose 122 H (70-100) mg/dL Lactic Acid 2.5 H (0.5-2.2) mmol/L Calcium 10.0 (8.5-10.3) mg/dL Phosphorus (2.5-4.6) mg/dL Magnesium 2.3 (1.7-2.8) mg/dL Total Bilirubin 0.7 (0.2-1.0) mg/dL Direct Bilirubin (0.1-0.5) mg/dL AST 27 (10-42) IU/L ALT 24 (10-60) IU/L Alkaline Phosphatase 99 (42-121) IU/L Troponin I High Sens (2.3-14.8) ng/L Total Protein 7.7 (6.7-8.2) g/dL Albumin 4.3 (3.2-5.5) g/dL Globulin 3.4 (2.1-4.2) g/dL Albumin/Globulin Ratio 1.3 (1.0-2.2) Lipase 25 (22-51) U/L Nasal Screen MRSA (PCR) (NEGATIVE) 07/20/19 07/20/19 Range/Units 12:20 12:20 WBC 3.5 L (4.8-10.8) x10^3/uL RBC 5.19 (4.20-5.40) 10^6/uL Hgb 16.8 H (12.0-16.0) g/dL Hct 55.7 H (37.0-47.0) % MCV 107.3 H (81.0-99.0) fL MCH 32.4 H (27.0-31.0) pg MCHC 30.2 L (32.0-36.0) g/dL RDW 14.3 (12.0-15.0) % Plt Count 352 (130-450) 10^3/uL MPV 9.4 (7.9-10.8) fL Neut # (Auto) Not Reportable Lymph # (Auto) Not Reportable Stevens # (Auto) Not Reportable Eos # (Auto) Not Reportable Baso # (Auto) Not Reportable Absolute Nucleated RBC Not Reportable Total Counted 100 Band Neuts % (Manual) 28 H (0 - 10) % Abnorm Lymph % (Manual) 0 % Metamyelocytes % ( - 0) % Myelocytes % ( - 0) % Nucleated RBC % Not Reportable Neutrophils # (Manual) 2.3 (1.5-6.6) 10^3/uL Lymphocytes # (Manual) 0.7 L (1.5-3.5) 10^3/uL Monocytes # (Manual) 0.4 (0.0-1.0) 10^3/uL Eosinophils # (Manual) 0.0 (0-0.7) 10^3/uL Basophils # (Manual) 0.0 (0-0.1) 10^3/uL Differential Comment MANUAL DIFFERENTIAL Manual Slide Review WBC Morphology 1+ TOXIC GRANULATION (NORMAL) Platelet Estimate (NORMAL) Platelet Morphology (NORMAL) RBC Morph Micro Appear 2+ MACROCYTOSIS (NORMAL) PT 12.4 (9.9-12.6) secs INR 1.1 (0.8-1.2) Bld Gas Analysis Time Sample Site ABG pH (7.35-7.45) ABG pCO2 (34-45) mmHg ABG pO2 (80-100) mmHg ABG HCO3 (22.0-26.0) mmol/L ABG Total CO2 (21.0-29.0) MMOL/L ABG O2 Saturation (94-98) % ABG Base Excess (-2.0-3.0) mmol/L William Test Respiration Rate b/min O2 Delivery Device Vent Mode FiO2 Tidal Volume mL PEEP cmH2O Pressure Support Vent cmH2O Sodium (135-145) mmol/L Potassium (3.5-5.0) mmol/L Chloride (101-111) mmol/L Carbon Dioxide (21-32) mmol/L Anion Gap (6-13) BUN (6-20) mg/dL Creatinine (0.4-1.0) mg/dL Estimated GFR (MDRD) (>89) Glucose (70-100) mg/dL Lactic Acid (0.5-2.2) mmol/L Calcium (8.5-10.3) mg/dL Phosphorus (2.5-4.6) mg/dL Magnesium (1.7-2.8) mg/dL Total Bilirubin (0.2-1.0) mg/dL Direct Bilirubin (0.1-0.5) mg/dL AST (10-42) IU/L ALT (10-60) IU/L Alkaline Phosphatase (42-121) IU/L Troponin I High Sens (2.3-14.8) ng/L Total Protein (6.7-8.2) g/dL Albumin (3.2-5.5) g/dL Globulin (2.1-4.2) g/dL Albumin/Globulin Ratio (1.0-2.2) Lipase (22-51) U/L Nasal Screen MRSA (PCR) (NEGATIVE) Sepsis Event Note (H) - Evaluation Current Stage of Sepsis: Septic shock Possible source of Sepsis: positive: GI tract/intra-abdominal - Sepsis Criteria Sepsis Criteria: Recorded Heart Rate greater than 90 bpm, Recorded Respiratory Rate greater than 20, WBC count greater than 10% bands, SBP less than 90 mmHg, Renal: urine output less than 0.5ml/kg/hr for 2 hours or creatinine gr, Metabolic: lactate > 2 mmol/L Assessment/Plan - Problem List (1) Septic shock Impression: due to perforated hollow viscus and peritonitis of unclear etiology; ddx includes perforated ulcer, diverticutis, infarcted bowel, etc. Appears "stable" on NE drip; oliguric but satisfactory pulmonary function at present and lactate improved and now nl. May be developing GERMAINE. Rec: continue present medical management; possible, but unlikely to survive without surgical intervention. If cardiopulmonary reevaluation indicates reasonable likelihood of surviving a laparotomy, and family agrees, then proceed with same. There are still no beds available for transfer to higher level of care at this time. Discussed with Dr. Serrano who agrees with this plan. (2) Perforated abdominal viscus Impression: See septic shock above. etiology unclear. Possible, but unlikely to improve without surgical intervention. Plan: echocardiogram, EKG, CXR this am; if no obvious contraindications, then return to OR for another attempt at laparotomy. Will discuss with family again and obtain consent if they wish to proceed.
[2019-07-21] MEDS ORDERED: THIAMINE INJ 100 MG in SODIUM CHLORIDE 0.9% 50 ML IV SCH (09:00)
[2019-07-21] MEDS: CEFEPIME 2 GM in SODIUM CHLORIDE 0.9% MINIBAG 100 ML IV SCH ×2 (09:06→20:30)
--- NOTE | 2019-07-21 09:07 | XRAY Report ---
Reason: Concern for aspiration. Procedure Date: 07/21/2019 Accession Number: [id number] / [id number] Procedure: XR - Chest 1 View X-Ray CPT Code: 30125 Final Report FULL RESULT: EXAM: CHEST RADIOGRAPHY EXAM DATE: 07/21/2019 08:53 AM. CLINICAL HISTORY: Concern for aspiration. COMPARISON: CHEST 1 VIEW 07/20/2019 6:31 PM ABDOMEN/PELVIS W/ 07/20/2019 1:48 PM. TECHNIQUE: 1 view. FINDINGS: Lungs/Pleura: Unchanged linear basilar pulmonary opacities compared to prior. No new focal consolidation. No evidence of pneumothorax. Mediastinum: Stable heart size and mediastinum. Other: Stable position of endotracheal tube, enteric tube, and left-sided central catheter. Lucency beneath the diaphragm could reflect pneumoperitoneum seen on CT from yesterday. IMPRESSION: 1. Unchanged mild linear basilar pulmonary opacities compared to prior. No new consolidation. 2. Persistent pneumoperitoneum evident. RADIA
[2019-07-21 09:25] LABS: ABG BASE EXCESS 0.6 mmol/L (-2.0-3.0); ABG HCO3 27.6 mmol/L (22.0-26.0); ABG PCO2 54 mmHg (34-45); ABG PH 7.33 (7.35-7.45); ABG PO2 81 mmHg (80-100); ABG TCO2 29.2 MMOL/L (21.0-29.0)
[2019-07-21 09:26] LABS: ABG OXYGEN SATURATION 96 % (94-98)
[2019-07-21] MEDS: THIAMINE INJ 100 MG in SODIUM CHLORIDE 0.9% 50 ML IV SCH (09:33)
[2019-07-21] MEDS: SODIUM CHLORIDE FLUSH 0.9% 10 ML SYRINGE IVP PRN ×2 (09:41→10:05)
[2019-07-21] MEDS: PANTOPRAZOLE 40 MG VIAL IVP SCH ×2 (09:41→20:32)
[2019-07-21] MEDS: HEPARIN 5,000 UNIT/ML VIAL SUBQ SCH ×2 (09:47→20:35)
[2019-07-21] MEDS: CHLORHEXIDINE GLUCONATE 15 ML UDC PO SCH ×2 (09:52→20:33)
[2019-07-21] MEDS ORDERED: LACTATED RINGERS 1,000 ML IV ONE ×3 (10:01→11:07)
--- NOTE | 2019-07-21 10:14 | PROVIDER PROGRESS NOTE ---
Subjective - Prog Note Date Prog Note Date: 07/21/19 - Subjective Subjective: Yesterday she was to go to the OR for exploratory laparotomy but after induction of anesthesia, She became hypotensive and there was concern for aspiration. Froment was felt that she did not have a pulse and CPR was initiated. She had return of spontaneous regulation after less than 2 minutes. She was given phenylephrine with improvement in her blood pressure. The surgery was then canceled and she was transferred to the intensive care unit. Overnight she remained hypotensive and was started on levophed. She remains on cefepime and Flagyl IV. Her urine output remains quite low and her creatinine has increased. Her lactic acid is less than 2 this morning. Current Medications - Current Medications Current Medications: Active Medications Albuterol () 2.5 mg INH RTQ4H [facility] Last Admin: 07/20/19 23:24 Dose: 2.5 mg Chlorhexidine Gluconate (Peridex) 15 ml PO BID [facility] Last Admin: 07/21/19 09:52 Dose: 15 ml Heparin Sodium (Porcine) () 5,000 unit SUBQ BID [facility] Last Admin: 07/21/19 09:47 Dose: 5,000 unit Metronidazole (Flagyl 500 Mg/100 Ml) 500 mg in 100 mls @ 100 mls/hr IV Q8H [facility] Last Infusion: 07/21/19 07:05 Dose: Infused Propofol (Diprivan) 100 mls @ 2.585 mls/hr IV .[id number] [facility]; Protocol Last Titration: 07/21/19 07:51 Dose: 25 mcg/kg/min, 6.464 mls/hr Fentanyl 2,500 mcg/ Sodium (Chloride) 250 mls @ 4.31 mls/hr IV .[id number] [facility]; Protocol Last Titration: 07/21/19 07:52 Dose: 1 mcg/kg/hr, 4.31 mls/hr Norepinephrine Bitartrate 8 mg (/ Dextrose) 250 mls @ 15 mls/hr IV .[id number] [facility]; Protocol Last Admin: 07/21/19 09:19 Dose: 11 mcg/min, 20.63 mls/hr Dextrose/Sodium Chloride (D5ns) 1,000 mls @ 125 mls/hr IV .Q8H [facility] Last Infusion: 07/21/19 07:49 Dose: 125 mls/hr Cefepime HCl 2 gm/ Sodium (Chloride) 100 mls @ 200 mls/hr IV BID [facility] Last Infusion: 07/21/19 09:36 Dose: Infused Thiamine HCl 100 mg/ Sodium (Chloride) 51 mls @ 100 mls/hr IV DAILY [facility] Last Infusion: 07/21/19 10:05 Dose: Infused Lactated Ringer's (Lr) 1,000 mls @ 999 mls/hr IV ONCE ONE Stop: 07/21/19 11:01 Ondansetron HCl (Zofran Inj) 4 mg IVP Q6HR PRN PRN Reason: Nausea / Vomiting Pantoprazole Sodium (Protonix) 40 mg IVP BID [facility] Last Admin: 07/21/19 09:41 Dose: 40 mg Sodium Chloride (Normal Saline Flush 0.9%) 10 ml IVP 0100,0900,1700 [facility] Last Admin: 07/21/19 09:33 Dose: 10 ml Sodium Chloride (Normal Saline Flush 0.9%) 10 ml IVP PRN PRN PRN Reason: NEEDED PER PROVIDER ORDERS Last Admin: 07/21/19 10:05 Dose: 10 ml Cyclobenzaprine [Flexeril] 10 mg PO TID PRN 11/19/16 Acetaminophen [8Hr Arthritis Pain Relief] 650 mg PO Q4H PRN 05/11/18 Multivitamin [Multiple Vitamins] 1 tab PO DAILY 05/11/18 Turmeric Root Extract [Turmeric] 1 cap PO DAILY 05/11/18 Albuterol Sulf [Ventolin Hfa Inhaler] 1 - 2 puffs INH Q4HR PRN 03/13/19 Meclizine HCl [Motion Sickness Relief] 25 mg PO TID PRN 03/13/19 Pramipexole [Mirapex] 0.25 mg PO QPM 03/13/19 Sertraline [Zoloft] 50 mg PO DAILY 03/13/19 traZODone [Desyrel] 25 mg PO HS 03/13/19 Objective - Vital Signs/Intake & Output Reviewed Vital Signs: Yes Vital Signs: Vital Signs x48h Temp Pulse Pulse Resp BP BP Pulse Ox 07/21/19 10:00 36.7 C 95 20 85/66 L 100 07/21/19 09:50 96 07/21/19 09:00 89 20 75/59 L 100 07/21/19 08:00 36.8 C 101 H 18 95/67 100 07/21/19 07:35 106 H 07/21/19 07:00 104 H 18 81/59 L 98 07/21/19 06:00 106 H 18 88/64 L 100 07/21/19 05:52 106 H 07/21/19 05:41 36.5 C 106 H 18 100 07/21/19 05:01 106 H 18 108/66 07/21/19 05:00 107 H 105 H 18 108/66 100 07/21/19 04:55 106 H 18 07/21/19 04:51 106 H 18 135/84 H 07/21/19 04:50 106 H 18 07/21/19 04:45 106 H 18 07/21/19 04:41 107 H 18 90/61 07/21/19 04:40 108 H 18 07/21/19 04:35 107 H 18 07/21/19 04:31 107 H 18 07/21/19 04:30 108 H 18 92/63 07/21/19 04:29 106 H 18 07/21/19 04:25 107 H 18 07/21/19 04:21 106 H 18 07/21/19 04:20 106 H 18 87/63 L 07/21/19 04:19 106 H 18 07/21/19 04:15 105 H 18 07/21/19 04:11 106 H 18 07/21/19 04:10 106 H 18 91/62 07/21/19 04:09 105 H 18 07/21/19 04:05 106 H 18 07/21/19 04:01 106 H 18 07/21/19 04:00 37.4 C 106 H 104 H 18 97/64 97/64 100 07/21/19 03:59 106 H 18 07/21/19 03:55 106 H 18 07/21/19 03:51 106 H 18 07/21/19 03:50 105 H 18 120/71 07/21/19 03:49 106 H 18 07/21/19 03:45 107 H 18 07/21/19 03:41 109 H 18 07/21/19 03:40 106 H 18 120/76 07/21/19 03:39 105 H 18 07/21/19 03:36 106 H 18 07/21/19 03:35 106 H 18 138/76 H 07/21/19 03:34 107 H 18 07/21/19 03:31 108 H 18 07/21/19 03:30 108 H 16 128/73 07/21/19 03:29 104 H 18 07/21/19 03:26 104 H 18 07/21/19 03:25 103 H 18 103/69 07/21/19 03:24 103 H 18 07/21/19 03:21 101 H 18 07/21/19 03:20 101 H 18 96/66 07/21/19 03:19 101 H 18 07/21/19 03:16 99 18 07/21/19 03:15 101 H 18 84/64 L 07/21/19 03:14 101 H 18 07/21/19 03:11 99 18 07/21/19 03:10 100 18 85/64 L 07/21/19 03:09 101 H 18 07/21/19 03:00 100 18 87/63 L 100 Intake & Output: Intake & Output 07/18/19 07/19/19 07/20/19 07/21/19 23:59 23:59 23:59 23:59 Intake Total 4596.734 1717.109 Output Total 515 232 Balance 4081.734 1485.109 - Objective General Appearance: positive: Other (She is sedated. She does grimace when palpating her abdomen.) Eyes Bilateral: positive: Conjunctivae nml, Other (Pupils constricted.) ENT: positive: Other (ET tube in place. There is also an NG tube in place to suction.) Respiratory: positive: Breath sounds nml, Other (Her breath sounds are clear to auscultation bilaterally.). negative: Wheezes, Rales Cardiovascular: positive: Regular rate & rhythm, No murmur. negative: Tachycardia, Bradycardia, Systolic murmur, Diastolic murmur Abdomen: positive: Tenderness (She does grimace when palpated.), Guarding, Abnml bowel sounds (Hypoactive bowel sounds.). negative: Non-tender, No distention (Her abdomen is distended.) Skin: positive: No rash, Other (Her extremities are cool to touch. There is decreased capillary refill.) Extremities: positive: No pedal edema Neurologic/Psychiatric: positive: Other (She is sedated.) - Lab Results Fish Bones: 07/21/19 04:45 07/21/19 04:45 Other Labs: Lab Results x24hrs 07/21/19 07/21/19 07/21/19 Range/Units 08:30 07:30 06:15 WBC (4.8-10.8) x10^3/uL RBC (4.20-5.40) 10^6/uL Hgb (12.0-16.0) g/dL Hct (37.0-47.0) % MCV (81.0-99.0) fL MCH (27.0-31.0) pg MCHC (32.0-36.0) g/dL RDW (12.0-15.0) % Plt Count (130-450) 10^3/uL MPV (7.9-10.8) fL Neut # (Auto) Lymph # (Auto) Pike # (Auto) Eos # (Auto) Baso # (Auto) Absolute Nucleated RBC Total Counted Band Neuts % (Manual) (0 - 10) % Abnorm Lymph % (Manual) % Metamyelocytes % ( - 0) % Myelocytes % ( - 0) % Nucleated RBC % Neutrophils # (Manual) (1.5-6.6) 10^3/uL Lymphocytes # (Manual) (1.5-3.5) 10^3/uL Monocytes # (Manual) (0.0-1.0) 10^3/uL Eosinophils # (Manual) (0-0.7) 10^3/uL Basophils # (Manual) (0-0.1) 10^3/uL Differential Comment Manual Slide Review WBC Morphology (NORMAL) Platelet Estimate (NORMAL) Platelet Morphology (NORMAL) RBC Morph Micro Appear (NORMAL) PT (9.9-12.6) secs INR (0.8-1.2) Bld Gas Analysis Time 0830 0615 Sample Site RIGHT FEMORAL LEFT RADIAL ABG pH 7.33 L 7.29 L (7.35-7.45) ABG pCO2 54 H 56 H (34-45) mmHg ABG pO2 81 129 H (80-100) mmHg ABG HCO3 27.6 H 26.2 H (22.0-26.0) mmol/L ABG Total CO2 29.2 H 27.9 (21.0-29.0) MMOL/L ABG O2 Saturation 96 99 H (94-98) % ABG Base Excess 0.6 -1.5 (-2.0-3.0) mmol/L William Test POSITIVE POSITIVE Respiration Rate 18 18 b/min O2 Delivery Device VENTILATOR VENTILATOR Vent Mode SIMV SIMV FiO2 28.00 40.00 Tidal Volume 450 385 mL PEEP 5 cmH2O Pressure Support Vent 14 10 cmH2O Sodium (135-145) mmol/L Potassium (3.5-5.0) mmol/L Chloride (101-111) mmol/L Carbon Dioxide (21-32) mmol/L Anion Gap (6-13) BUN (6-20) mg/dL Creatinine (0.4-1.0) mg/dL Estimated GFR (MDRD) (>89) Glucose (70-100) mg/dL Lactic Acid 1.9 (0.5-2.2) mmol/L Calcium (8.5-10.3) mg/dL Phosphorus (2.5-4.6) mg/dL Magnesium (1.7-2.8) mg/dL Total Bilirubin (0.2-1.0) mg/dL Direct Bilirubin (0.1-0.5) mg/dL AST (10-42) IU/L ALT (10-60) IU/L Alkaline Phosphatase (42-121) IU/L Troponin I High Sens (2.3-14.8) ng/L Total Protein (6.7-8.2) g/dL Albumin (3.2-5.5) g/dL Globulin (2.1-4.2) g/dL Albumin/Globulin Ratio (1.0-2.2) Lipase (22-51) U/L Nasal Screen MRSA (PCR) (NEGATIVE) 07/21/19 07/21/19 07/21/19 Range/Units 04:45 04:45 04:45 WBC 2.4 L (4.8-10.8) x10^3/uL RBC 4.47 (4.20-5.40) 10^6/uL Hgb 14.1 (12.0-16.0) g/dL Hct 47.3 H (37.0-47.0) % MCV 105.8 H (81.0-99.0) fL MCH 31.5 H (27.0-31.0) pg MCHC 29.8 L (32.0-36.0) g/dL RDW 14.3 (12.0-15.0) % Plt Count 310 (130-450) 10^3/uL MPV 10.1 (7.9-10.8) fL Neut # (Auto) Not Reportable Lymph # (Auto) Not Reportable Pike # (Auto) Not Reportable Eos # (Auto) Not Reportable Baso # (Auto) Not Reportable Absolute Nucleated RBC Not Reportable Total Counted 100 Band Neuts % (Manual) 24 H (0 - 10) % Abnorm Lymph % (Manual) 0 % Metamyelocytes % 9 H ( - 0) % Myelocytes % 9 H ( - 0) % Nucleated RBC % Not Reportable Neutrophils # (Manual) 1.0 L (1.5-6.6) 10^3/uL Lymphocytes # (Manual) 0.7 L (1.5-3.5) 10^3/uL Monocytes # (Manual) 0.2 (0.0-1.0) 10^3/uL Eosinophils # (Manual) 0.0 (0-0.7) 10^3/uL Basophils # (Manual) 0.0 (0-0.1) 10^3/uL Differential Comment MANUAL DIFFERENTIAL Manual Slide Review WBC Morphology (NORMAL) Platelet Estimate NORMAL (130-450,000) (NORMAL) Platelet Morphology (NORMAL) RBC Morph Micro Appear NORMAL APPEARANCE (NORMAL) PT (9.9-12.6) secs INR (0.8-1.2) Bld Gas Analysis Time Sample Site ABG pH (7.35-7.45) ABG pCO2 (34-45) mmHg ABG pO2 (80-100) mmHg ABG HCO3 (22.0-26.0) mmol/L ABG Total CO2 (21.0-29.0) MMOL/L ABG O2 Saturation (94-98) % ABG Base Excess (-2.0-3.0) mmol/L William Test Respiration Rate b/min O2 Delivery Device Vent Mode FiO2 Tidal Volume mL PEEP cmH2O Pressure Support Vent cmH2O Sodium 136 (135-145) mmol/L Potassium 4.2 (3.5-5.0) mmol/L Chloride 100 L (101-111) mmol/L Carbon Dioxide 29 (21-32) mmol/L Anion Gap 7.0 (6-13) BUN 41 H (6-20) mg/dL Creatinine 1.4 H (0.4-1.0) mg/dL Estimated GFR (MDRD) 38 L (>89) Glucose 141 H (70-100) mg/dL Lactic Acid (0.5-2.2) mmol/L Calcium 7.9 L (8.5-10.3) mg/dL Phosphorus 3.3 (2.5-4.6) mg/dL Magnesium 1.7 (1.7-2.8) mg/dL Total Bilirubin 0.5 (0.2-1.0) mg/dL Direct Bilirubin 0.2 (0.1-0.5) mg/dL AST 19 (10-42) IU/L ALT 17 (10-60) IU/L Alkaline Phosphatase 45 (42-121) IU/L Troponin I High Sens 245.9 H* (2.3-14.8) ng/L Total Protein 4.9 L (6.7-8.2) g/dL Albumin 2.5 L (3.2-5.5) g/dL Globulin 2.4 (2.1-4.2) g/dL Albumin/Globulin Ratio (1.0-2.2) Lipase (22-51) U/L Nasal Screen MRSA (PCR) (NEGATIVE) 07/20/19 07/20/19 07/20/19 Range/Units 21:54 21:30 19:10 WBC (4.8-10.8) x10^3/uL RBC (4.20-5.40) 10^6/uL Hgb (12.0-16.0) g/dL Hct (37.0-47.0) % MCV (81.0-99.0) fL MCH (27.0-31.0) pg MCHC (32.0-36.0) g/dL RDW (12.0-15.0) % Plt Count (130-450) 10^3/uL MPV (7.9-10.8) fL Neut # (Auto) Lymph # (Auto) Pike # (Auto) Eos # (Auto) Baso # (Auto) Absolute Nucleated RBC Total Counted Band Neuts % (Manual) (0 - 10) % Abnorm Lymph % (Manual) % Metamyelocytes % ( - 0) % Myelocytes % ( - 0) % Nucleated RBC % Neutrophils # (Manual) (1.5-6.6) 10^3/uL Lymphocytes # (Manual) (1.5-3.5) 10^3/uL Monocytes # (Manual) (0.0-1.0) 10^3/uL Eosinophils # (Manual) (0-0.7) 10^3/uL Basophils # (Manual) (0-0.1) 10^3/uL Differential Comment Manual Slide Review WBC Morphology (NORMAL) Platelet Estimate (NORMAL) Platelet Morphology (NORMAL) RBC Morph Micro Appear (NORMAL) PT (9.9-12.6) secs INR (0.8-1.2) Bld Gas Analysis Time 2130 Sample Site RIGHT RADIAL ABG pH 7.24 L (7.35-7.45) ABG pCO2 71 H* (34-45) mmHg ABG pO2 242 H* (80-100) mmHg ABG HCO3 30.1 H (22.0-26.0) mmol/L ABG Total CO2 32.2 H (21.0-29.0) MMOL/L ABG O2 Saturation 99 H (94-98) % ABG Base Excess 0.7 (-2.0-3.0) mmol/L William Test POSITIVE Respiration Rate 16 b/min O2 Delivery Device VENTILATOR Vent Mode SIMV FiO2 60.00 Tidal Volume 385 mL PEEP 5 cmH2O Pressure Support Vent 10 cmH2O Sodium 139 (135-145) mmol/L Potassium 3.5 (3.5-5.0) mmol/L Chloride 100 L (101-111) mmol/L Carbon Dioxide 29 (21-32) mmol/L Anion Gap 10.0 (6-13) BUN 37 H (6-20) mg/dL Creatinine 1.0 (0.4-1.0) mg/dL Estimated GFR (MDRD) 56 L (>89) Glucose 99 (70-100) mg/dL Lactic Acid 3.7 H* (0.5-2.2) mmol/L Calcium 8.2 L (8.5-10.3) mg/dL Phosphorus 4.7 H (2.5-4.6) mg/dL Magnesium 1.7 (1.7-2.8) mg/dL Total Bilirubin (0.2-1.0) mg/dL Direct Bilirubin (0.1-0.5) mg/dL AST (10-42) IU/L ALT (10-60) IU/L Alkaline Phosphatase (42-121) IU/L Troponin I High Sens (2.3-14.8) ng/L Total Protein (6.7-8.2) g/dL Albumin (3.2-5.5) g/dL Globulin (2.1-4.2) g/dL Albumin/Globulin Ratio (1.0-2.2) Lipase (22-51) U/L Nasal Screen MRSA (PCR) (NEGATIVE) 07/20/19 07/20/19 07/20/19 Range/Units 19:10 19:10 19:00 WBC 2.3 L (4.8-10.8) x10^3/uL RBC 4.07 L (4.20-5.40) 10^6/uL Hgb 13.1 (12.0-16.0) g/dL Hct 44.5 (37.0-47.0) % MCV 109.3 H (81.0-99.0) fL MCH 32.2 H (27.0-31.0) pg MCHC 29.4 L (32.0-36.0) g/dL RDW 14.3 (12.0-15.0) % Plt Count 278 (130-450) 10^3/uL MPV 9.5 (7.9-10.8) fL Neut # (Auto) Not Reportable Lymph # (Auto) Not Reportable Pike # (Auto) Not Reportable Eos # (Auto) Not Reportable Baso # (Auto) Not Reportable Absolute Nucleated RBC Not Reportable Total Counted 100 Band Neuts % (Manual) 16 H (0 - 10) % Abnorm Lymph % (Manual) Not Reportable % Metamyelocytes % 9 H ( - 0) % Myelocytes % 3 H ( - 0) % Nucleated RBC % Not Reportable Neutrophils # (Manual) 1.1 L (1.5-6.6) 10^3/uL Lymphocytes # (Manual) 0.5 L (1.5-3.5) 10^3/uL Monocytes # (Manual) 0.4 (0.0-1.0) 10^3/uL Eosinophils # (Manual) 0.0 (0-0.7) 10^3/uL Basophils # (Manual) Not Reportable (0-0.1) 10^3/uL Differential Comment MANUAL DIFFERENTIAL Manual Slide Review Indicated WBC Morphology (NORMAL) Platelet Estimate NORMAL (130-450,000) (NORMAL) Platelet Morphology NORMAL APPEARANCE (NORMAL) RBC Morph Micro Appear NORMAL APPEARANCE (NORMAL) PT (9.9-12.6) secs INR (0.8-1.2) Bld Gas Analysis Time Sample Site ABG pH (7.35-7.45) ABG pCO2 (34-45) mmHg ABG pO2 (80-100) mmHg ABG HCO3 (22.0-26.0) mmol/L ABG Total CO2 (21.0-29.0) MMOL/L ABG O2 Saturation (94-98) % ABG Base Excess (-2.0-3.0) mmol/L William Test Respiration Rate b/min O2 Delivery Device Vent Mode FiO2 Tidal Volume mL PEEP cmH2O Pressure Support Vent cmH2O Sodium (135-145) mmol/L Potassium (3.5-5.0) mmol/L Chloride (101-111) mmol/L Carbon Dioxide (21-32) mmol/L Anion Gap (6-13) BUN (6-20) mg/dL Creatinine (0.4-1.0) mg/dL Estimated GFR (MDRD) (>89) Glucose (70-100) mg/dL Lactic Acid 4.5 H* (0.5-2.2) mmol/L Calcium (8.5-10.3) mg/dL Phosphorus (2.5-4.6) mg/dL Magnesium (1.7-2.8) mg/dL Total Bilirubin (0.2-1.0) mg/dL Direct Bilirubin (0.1-0.5) mg/dL AST (10-42) IU/L ALT (10-60) IU/L Alkaline Phosphatase (42-121) IU/L Troponin I High Sens 231.0 H* (2.3-14.8) ng/L Total Protein (6.7-8.2) g/dL Albumin (3.2-5.5) g/dL Globulin (2.1-4.2) g/dL Albumin/Globulin Ratio (1.0-2.2) Lipase (22-51) U/L Nasal Screen MRSA (PCR) (NEGATIVE) 07/20/19 07/20/19 07/20/19 Range/Units 17:34 13:20 12:20 WBC (4.8-10.8) x10^3/uL RBC (4.20-5.40) 10^6/uL Hgb (12.0-16.0) g/dL Hct (37.0-47.0) % MCV (81.0-99.0) fL MCH (27.0-31.0) pg MCHC (32.0-36.0) g/dL RDW (12.0-15.0) % Plt Count (130-450) 10^3/uL MPV (7.9-10.8) fL Neut # (Auto) Lymph # (Auto) Pike # (Auto) Eos # (Auto) Baso # (Auto) Absolute Nucleated RBC Total Counted Band Neuts % (Manual) (0 - 10) % Abnorm Lymph % (Manual) % Metamyelocytes % ( - 0) % Myelocytes % ( - 0) % Nucleated RBC % Neutrophils # (Manual) (1.5-6.6) 10^3/uL Lymphocytes # (Manual) (1.5-3.5) 10^3/uL Monocytes # (Manual) (0.0-1.0) 10^3/uL Eosinophils # (Manual) (0-0.7) 10^3/uL Basophils # (Manual) (0-0.1) 10^3/uL Differential Comment Manual Slide Review WBC Morphology (NORMAL) Platelet Estimate (NORMAL) Platelet Morphology (NORMAL) RBC Morph Micro Appear (NORMAL) PT (9.9-12.6) secs INR (0.8-1.2) Bld Gas Analysis Time Sample Site ABG pH (7.35-7.45) ABG pCO2 (34-45) mmHg ABG pO2 (80-100) mmHg ABG HCO3 (22.0-26.0) mmol/L ABG Total CO2 (21.0-29.0) MMOL/L ABG O2 Saturation (94-98) % ABG Base Excess (-2.0-3.0) mmol/L William Test Respiration Rate b/min O2 Delivery Device Vent Mode FiO2 Tidal Volume mL PEEP cmH2O Pressure Support Vent cmH2O Sodium (135-145) mmol/L Potassium (3.5-5.0) mmol/L Chloride (101-111) mmol/L Carbon Dioxide (21-32) mmol/L Anion Gap (6-13) BUN (6-20) mg/dL Creatinine (0.4-1.0) mg/dL Estimated GFR (MDRD) (>89) Glucose (70-100) mg/dL Lactic Acid 2.5 H (0.5-2.2) mmol/L Calcium (8.5-10.3) mg/dL Phosphorus (2.5-4.6) mg/dL Magnesium 2.3 (1.7-2.8) mg/dL Total Bilirubin (0.2-1.0) mg/dL Direct Bilirubin (0.1-0.5) mg/dL AST (10-42) IU/L ALT (10-60) IU/L Alkaline Phosphatase (42-121) IU/L Troponin I High Sens (2.3-14.8) ng/L Total Protein (6.7-8.2) g/dL Albumin (3.2-5.5) g/dL Globulin (2.1-4.2) g/dL Albumin/Globulin Ratio (1.0-2.2) Lipase (22-51) U/L Nasal Screen MRSA (PCR) NEGATIVE (NEGATIVE) 07/20/19 07/20/19 07/20/19 Range/Units 12:20 12:20 12:20 WBC 3.5 L (4.8-10.8) x10^3/uL RBC 5.19 (4.20-5.40) 10^6/uL Hgb 16.8 H (12.0-16.0) g/dL Hct 55.7 H (37.0-47.0) % MCV 107.3 H (81.0-99.0) fL MCH 32.4 H (27.0-31.0) pg MCHC 30.2 L (32.0-36.0) g/dL RDW 14.3 (12.0-15.0) % Plt Count 352 (130-450) 10^3/uL MPV 9.4 (7.9-10.8) fL Neut # (Auto) Not Reportable Lymph # (Auto) Not Reportable Pike # (Auto) Not Reportable Eos # (Auto) Not Reportable Baso # (Auto) Not Reportable Absolute Nucleated RBC Not Reportable Total Counted 100 Band Neuts % (Manual) 28 H (0 - 10) % Abnorm Lymph % (Manual) 0 % Metamyelocytes % ( - 0) % Myelocytes % ( - 0) % Nucleated RBC % Not Reportable Neutrophils # (Manual) 2.3 (1.5-6.6) 10^3/uL Lymphocytes # (Manual) 0.7 L (1.5-3.5) 10^3/uL Monocytes # (Manual) 0.4 (0.0-1.0) 10^3/uL Eosinophils # (Manual) 0.0 (0-0.7) 10^3/uL Basophils # (Manual) 0.0 (0-0.1) 10^3/uL Differential Comment MANUAL DIFFERENTIAL Manual Slide Review WBC Morphology 1+ TOXIC GRANULATION (NORMAL) Platelet Estimate (NORMAL) Platelet Morphology (NORMAL) RBC Morph Micro Appear 2+ MACROCYTOSIS (NORMAL) PT 12.4 (9.9-12.6) secs INR 1.1 (0.8-1.2) Bld Gas Analysis Time Sample Site ABG pH (7.35-7.45) ABG pCO2 (34-45) mmHg ABG pO2 (80-100) mmHg ABG HCO3 (22.0-26.0) mmol/L ABG Total CO2 (21.0-29.0) MMOL/L ABG O2 Saturation (94-98) % ABG Base Excess (-2.0-3.0) mmol/L William Test Respiration Rate b/min O2 Delivery Device Vent Mode FiO2 Tidal Volume mL PEEP cmH2O Pressure Support Vent cmH2O Sodium 142 (135-145) mmol/L Potassium 3.8 (3.5-5.0) mmol/L Chloride 92 L (101-111) mmol/L Carbon Dioxide 37 H (21-32) mmol/L Anion Gap 13.0 (6-13) BUN 39 H (6-20) mg/dL Creatinine 1.0 (0.4-1.0) mg/dL Estimated GFR (MDRD) 56 L (>89) Glucose 122 H (70-100) mg/dL Lactic Acid (0.5-2.2) mmol/L Calcium 10.0 (8.5-10.3) mg/dL Phosphorus (2.5-4.6) mg/dL Magnesium (1.7-2.8) mg/dL Total Bilirubin 0.7 (0.2-1.0) mg/dL Direct Bilirubin (0.1-0.5) mg/dL AST 27 (10-42) IU/L ALT 24 (10-60) IU/L Alkaline Phosphatase 99 (42-121) IU/L Troponin I High Sens (2.3-14.8) ng/L Total Protein 7.7 (6.7-8.2) g/dL Albumin 4.3 (3.2-5.5) g/dL Globulin 3.4 (2.1-4.2) g/dL Albumin/Globulin Ratio 1.3 (1.0-2.2) Lipase 25 (22-51) U/L Nasal Screen MRSA (PCR) (NEGATIVE) ABX Reporting Has patient been on IV antibiotics over the past 48 hours?: Yes Sepsis Event Note (H) - Evaluation Current Stage of Sepsis: Septic shock Possible source of Sepsis: positive: GI tract/intra-abdominal - Sepsis Criteria Sepsis Criteria: Recorded Heart Rate greater than 90 bpm, Recorded Respiratory Rate greater than 20, WBC count greater than 10% bands, WBC count greater than 12,000 or less than 4000, SBP drop more than 40mHg, SBP less than 90 mmHg, Renal: urine output less than 0.5ml/kg/hr for 2 hours or creatinine gr, Metabolic: lactate > 2 mmol/L Assessment/Plan - Problem List (1) Septic shock Impression: She has septic shock secondary to perforated viscus. She is hypotensive requiring pressor support with norepinephrine. She is leukopenic with elevated bands. Her lactic acid was elevated. We will continue with cefepime and Flagyl IV. Continue with aggressive IV hydration. We will follow-up her blood cultures and trend her white count. (2) Perforated abdominal viscus Impression: Etiology of the perforated viscus is not clear but suspect may be gastric in nature given her NSAID use although this could also be a perforated diverticula given her prior history of a perforated diverticula. She was unfortunately both to undergo an expiratory laparotomy yesterday given her brief cardiac arrest. I called a few hospitals again this morning to try and transfer the patient but unfortunately there are no beds available at any facility. I did speak with Dr. Diggs of general surgery who is aware. Although she is relatively stable at the moment, she is likely to deteriorate without surgical intervention. We will obtain an echocardiogram this morning to assess her fluid status and LV function. We will also check an EKG and chest x-ray given her concern for aspiration yesterday. Based off of these findings, surgery will discuss with the family if they would wish to continue to proceed with intervention. If family is agreeable to intervention, I feel it is reasonable to take her to the OR given she will likely deteriorate without intervention. In the meantime, we will continue supportive care including IV antibiotics and IV hydration. Maintain NPO status. (3) Acute kidney injury Impression: She has an anuric acute kidney injury secondary to the sepsis and hypotension. She likely has ATN. We will continue with IV hydration and monitor her renal function and urine output. If her renal function continues to decline and she has indications for renal replacement therapy, she will need to be transferred to a higher level of care. (4) Demand ischemia Impression: Her troponins are elevated in the 200s but are relatively flat. This is likely demand ischemia given the sepsis and hypotension. Her EKG does not reveal any acute ischemia. Will obtain echocardiogram to evaluate her LV function. Continue to monitor on telemetry and trend troponins until they decline. (5) Metabolic acidosis Impression: This is secondary to her sepsis and acute kidney injury. Her lactic acid was initially elevated but it is now within normal limits. We will continue with IV hydration. We will continue to check frequent ABGs. If her metabolic acidosis continues to decline, she may need a bicarbonate infusion although at the moment, this is not warranted. (6) COPD (chronic obstructive pulmonary disease) Impression: She has history of moderate to severe COPD and is at risk for postop complications including pneumonia, atelectasis, and prolonged ventilatory support. She is currently not in exacerbation. We will keep her on the ventilator with her current ventilator settings. Continue albuterol every 4 hours. (7) Severe protein-calorie malnutrition Impression: She remains n.p.o. given her perforated viscus. She will likely require TPN postoperatively. Nutrition has been consulted. (8) Tobacco abuse Impression: She is been smoking half pack a day for over 30 years. Will delay with wound healing if she undergoes intervention. (9) Rheumatoid arthritis Impression: Continue to hold methotrexate given her critical condition. (10) History of alcoholism Impression: Reportedly has not been working since January. We will continue her on daily thiamine.
--- NOTE | 2019-07-21 10:36 | PROVIDER PROGRESS NOTE ---
Subjective - Prog Note Date Prog Note Date: 07/21/19 - Subjective Subjective: Yesterday she was to go to the OR for exploratory laparotomy but after induction of anesthesia, She became hypotensive and there was concern for aspiration. Froment was felt that she did not have a pulse and CPR was initiated. She had return of spontaneous regulation after less than 2 minutes. She was given phenylephrine with improvement in her blood pressure. The surgery was then canceled and she was transferred to the intensive care unit. Overnight she remained hypotensive and was started on levophed. She remains on cefepime and Flagyl IV. Her urine output remains quite low and her creatinine has increased. Her lactic acid is less than 2 this morning. Current Medications - Current Medications Current Medications: Active Medications Albuterol () 2.5 mg INH RTQ4H [facility] Last Admin: 07/20/19 23:24 Dose: 2.5 mg Chlorhexidine Gluconate (Peridex) 15 ml PO BID SONG Last Admin: 07/21/19 09:52 Dose: 15 ml Heparin Sodium (Porcine) () 5,000 unit SUBQ BID SONG Last Admin: 07/21/19 09:47 Dose: 5,000 unit Metronidazole (Flagyl 500 Mg/100 Ml) 500 mg in 100 mls @ 100 mls/hr IV Q8H [facility] Last Infusion: 07/21/19 07:05 Dose: Infused Propofol (Diprivan) 100 mls @ 2.585 mls/hr IV .[id number] [facility]; Protocol Last Titration: 07/21/19 07:51 Dose: 25 mcg/kg/min, 6.464 mls/hr Fentanyl 2,500 mcg/ Sodium (Chloride) 250 mls @ 4.31 mls/hr IV .[id number] [facility]; Protocol Last Titration: 07/21/19 07:52 Dose: 1 mcg/kg/hr, 4.31 mls/hr Norepinephrine Bitartrate 8 mg (/ Dextrose) 250 mls @ 15 mls/hr IV .[id number] [facility]; Protocol Last Admin: 07/21/19 09:19 Dose: 11 mcg/min, 20.63 mls/hr Dextrose/Sodium Chloride (D5ns) 1,000 mls @ 125 mls/hr IV .Q8H [facility] Last Infusion: 07/21/19 07:49 Dose: 125 mls/hr Cefepime HCl 2 gm/ Sodium (Chloride) 100 mls @ 200 mls/hr IV BID [facility] Last Infusion: 07/21/19 09:36 Dose: Infused Thiamine HCl 100 mg/ Sodium (Chloride) 51 mls @ 100 mls/hr IV DAILY [facility] Last Infusion: 07/21/19 10:05 Dose: Infused Lactated Ringer's (Lr) 1,000 mls @ 999 mls/hr IV ONCE ONE Stop: 07/21/19 11:01 Ondansetron HCl (Zofran Inj) 4 mg IVP Q6HR PRN PRN Reason: Nausea / Vomiting Pantoprazole Sodium (Protonix) 40 mg IVP BID [facility] Last Admin: 07/21/19 09:41 Dose: 40 mg Sodium Chloride (Normal Saline Flush 0.9%) 10 ml IVP 0100,0900,1700 [facility] Last Admin: 07/21/19 09:33 Dose: 10 ml Sodium Chloride (Normal Saline Flush 0.9%) 10 ml IVP PRN PRN PRN Reason: NEEDED PER PROVIDER ORDERS Last Admin: 07/21/19 10:05 Dose: 10 ml Cyclobenzaprine [Flexeril] 10 mg PO TID PRN 11/19/16 Acetaminophen [8Hr Arthritis Pain Relief] 650 mg PO Q4H PRN 05/11/18 Multivitamin [Multiple Vitamins] 1 tab PO DAILY 05/11/18 Turmeric Root Extract [Turmeric] 1 cap PO DAILY 05/11/18 Albuterol Sulf [Ventolin Hfa Inhaler] 1 - 2 puffs INH Q4HR PRN 03/13/19 Meclizine HCl [Motion Sickness Relief] 25 mg PO TID PRN 03/13/19 Pramipexole [Mirapex] 0.25 mg PO QPM 03/13/19 Sertraline [Zoloft] 50 mg PO DAILY 03/13/19 traZODone [Desyrel] 25 mg PO HS 03/13/19 Objective - Vital Signs/Intake & Output Reviewed Vital Signs: Yes Vital Signs: Vital Signs Temp Pulse Pulse Resp BP Pulse Ox 07/21/19 10:00 36.7 C 95 20 85/66 L 100 07/21/19 09:50 96 07/21/19 09:00 89 20 75/59 L 100 07/21/19 08:00 36.8 C 101 H 18 95/67 100 07/21/19 07:35 106 H 07/21/19 07:00 104 H 18 81/59 L 98 Intake & Output: Intake & Output 07/18/19 07/19/19 07/20/19 07/21/19 23:59 23:59 23:59 23:59 Intake Total 4596.734 1717.109 Output Total 515 232 Balance 4081.734 1485.109 - Objective General Appearance: positive: Other (She is sedated. She does grimace when palpating her abdomen.) Eyes Bilateral: positive: Conjunctivae nml, Other (Pupils constricted.) ENT: positive: Other (ET tube in place. There is also an NG tube in place to suction.) Respiratory: positive: Breath sounds nml, Other (Lungs are clear to auscultation bilaterally.). negative: Wheezes, Rales Cardiovascular: positive: Regular rate & rhythm, No murmur. negative: Tachycardia, Bradycardia, Systolic murmur, Diastolic murmur Abdomen: positive: Tenderness (She does grimace when palpated.), Guarding, Abnml bowel sounds (Hypoactive bowel sounds.). negative: Non-tender, No distention (Her abdomen is distended.) Skin: positive: No rash, Dry, Other (Extremities are cool to touch with decreased capillary refill.) Neurologic/Psychiatric: positive: Other (She is sedated.) - Lab Results Fish Bones: 07/21/19 04:45 07/21/19 13:40 Other Labs: Lab Results x24hrs 07/21/19 07/21/19 07/21/19 Range/Units 08:30 07:30 06:15 WBC (4.8-10.8) x10^3/uL RBC (4.20-5.40) 10^6/uL Hgb (12.0-16.0) g/dL Hct (37.0-47.0) % MCV (81.0-99.0) fL MCH (27.0-31.0) pg MCHC (32.0-36.0) g/dL RDW (12.0-15.0) % Plt Count (130-450) 10^3/uL MPV (7.9-10.8) fL Neut # (Auto) Lymph # (Auto) [place] # (Auto) Eos # (Auto) Baso # (Auto) Absolute Nucleated RBC Total Counted Band Neuts % (Manual) (0 - 10) % Abnorm Lymph % (Manual) % Metamyelocytes % ( - 0) % Myelocytes % ( - 0) % Nucleated RBC % Neutrophils # (Manual) (1.5-6.6) 10^3/uL Lymphocytes # (Manual) (1.5-3.5) 10^3/uL Monocytes # (Manual) (0.0-1.0) 10^3/uL Eosinophils # (Manual) (0-0.7) 10^3/uL Basophils # (Manual) (0-0.1) 10^3/uL Differential Comment Manual Slide Review WBC Morphology (NORMAL) Platelet Estimate (NORMAL) Platelet Morphology (NORMAL) RBC Morph Micro Appear (NORMAL) PT (9.9-12.6) secs INR (0.8-1.2) Bld Gas Analysis Time 0830 0615 Sample Site RIGHT FEMORAL LEFT RADIAL ABG pH 7.33 L 7.29 L (7.35-7.45) ABG pCO2 54 H 56 H (34-45) mmHg ABG pO2 81 129 H (80-100) mmHg ABG HCO3 27.6 H 26.2 H (22.0-26.0) mmol/L ABG Total CO2 29.2 H 27.9 (21.0-29.0) MMOL/L ABG O2 Saturation 96 99 H (94-98) % ABG Base Excess 0.6 -1.5 (-2.0-3.0) mmol/L William Test POSITIVE POSITIVE Respiration Rate 18 18 b/min O2 Delivery Device VENTILATOR VENTILATOR Vent Mode SIMV SIMV FiO2 28.00 40.00 Tidal Volume 450 385 mL PEEP 5 cmH2O Pressure Support Vent 14 10 cmH2O Sodium (135-145) mmol/L Potassium (3.5-5.0) mmol/L Chloride (101-111) mmol/L Carbon Dioxide (21-32) mmol/L Anion Gap (6-13) BUN (6-20) mg/dL Creatinine (0.4-1.0) mg/dL Estimated GFR (MDRD) (>89) Glucose (70-100) mg/dL Lactic Acid 1.9 (0.5-2.2) mmol/L Calcium (8.5-10.3) mg/dL Phosphorus (2.5-4.6) mg/dL Magnesium (1.7-2.8) mg/dL Total Bilirubin (0.2-1.0) mg/dL Direct Bilirubin (0.1-0.5) mg/dL AST (10-42) IU/L ALT (10-60) IU/L Alkaline Phosphatase (42-121) IU/L Troponin I High Sens (2.3-14.8) ng/L Total Protein (6.7-8.2) g/dL Albumin (3.2-5.5) g/dL Globulin (2.1-4.2) g/dL Albumin/Globulin Ratio (1.0-2.2) Lipase (22-51) U/L Nasal Screen MRSA (PCR) (NEGATIVE) 07/21/19 07/21/19 07/21/19 Range/Units 04:45 04:45 04:45 WBC 2.4 L (4.8-10.8) x10^3/uL RBC 4.47 (4.20-5.40) 10^6/uL Hgb 14.1 (12.0-16.0) g/dL Hct 47.3 H (37.0-47.0) % MCV 105.8 H (81.0-99.0) fL MCH 31.5 H (27.0-31.0) pg MCHC 29.8 L (32.0-36.0) g/dL RDW 14.3 (12.0-15.0) % Plt Count 310 (130-450) 10^3/uL MPV 10.1 (7.9-10.8) fL Neut # (Auto) Not Reportable Lymph # (Auto) Not Reportable [place] # (Auto) Not Reportable Eos # (Auto) Not Reportable Baso # (Auto) Not Reportable Absolute Nucleated RBC Not Reportable Total Counted 100 Band Neuts % (Manual) 24 H (0 - 10) % Abnorm Lymph % (Manual) 0 % Metamyelocytes % 9 H ( - 0) % Myelocytes % 9 H ( - 0) % Nucleated RBC % Not Reportable Neutrophils # (Manual) 1.0 L (1.5-6.6) 10^3/uL Lymphocytes # (Manual) 0.7 L (1.5-3.5) 10^3/uL Monocytes # (Manual) 0.2 (0.0-1.0) 10^3/uL Eosinophils # (Manual) 0.0 (0-0.7) 10^3/uL Basophils # (Manual) 0.0 (0-0.1) 10^3/uL Differential Comment MANUAL DIFFERENTIAL Manual Slide Review WBC Morphology (NORMAL) Platelet Estimate NORMAL (130-450,000) (NORMAL) Platelet Morphology (NORMAL) RBC Morph Micro Appear NORMAL APPEARANCE (NORMAL) PT (9.9-12.6) secs INR (0.8-1.2) Bld Gas Analysis Time Sample Site ABG pH (7.35-7.45) ABG pCO2 (34-45) mmHg ABG pO2 (80-100) mmHg ABG HCO3 (22.0-26.0) mmol/L ABG Total CO2 (21.0-29.0) MMOL/L ABG O2 Saturation (94-98) % ABG Base Excess (-2.0-3.0) mmol/L William Test Respiration Rate b/min O2 Delivery Device Vent Mode FiO2 Tidal Volume mL PEEP cmH2O Pressure Support Vent cmH2O Sodium 136 (135-145) mmol/L Potassium 4.2 (3.5-5.0) mmol/L Chloride 100 L (101-111) mmol/L Carbon Dioxide 29 (21-32) mmol/L Anion Gap 7.0 (6-13) BUN 41 H (6-20) mg/dL Creatinine 1.4 H (0.4-1.0) mg/dL Estimated GFR (MDRD) 38 L (>89) Glucose 141 H (70-100) mg/dL Lactic Acid (0.5-2.2) mmol/L Calcium 7.9 L (8.5-10.3) mg/dL Phosphorus 3.3 (2.5-4.6) mg/dL Magnesium 1.7 (1.7-2.8) mg/dL Total Bilirubin 0.5 (0.2-1.0) mg/dL Direct Bilirubin 0.2 (0.1-0.5) mg/dL AST 19 (10-42) IU/L ALT 17 (10-60) IU/L Alkaline Phosphatase 45 (42-121) IU/L Troponin I High Sens 245.9 H* (2.3-14.8) ng/L Total Protein 4.9 L (6.7-8.2) g/dL Albumin 2.5 L (3.2-5.5) g/dL Globulin 2.4 (2.1-4.2) g/dL Albumin/Globulin Ratio (1.0-2.2) Lipase (22-51) U/L Nasal Screen MRSA (PCR) (NEGATIVE) 07/20/19 07/20/19 07/20/19 Range/Units 21:54 21:30 19:10 WBC (4.8-10.8) x10^3/uL RBC (4.20-5.40) 10^6/uL Hgb (12.0-16.0) g/dL Hct (37.0-47.0) % MCV (81.0-99.0) fL MCH (27.0-31.0) pg MCHC (32.0-36.0) g/dL RDW (12.0-15.0) % Plt Count (130-450) 10^3/uL MPV (7.9-10.8) fL Neut # (Auto) Lymph # (Auto) [place] # (Auto) Eos # (Auto) Baso # (Auto) Absolute Nucleated RBC Total Counted Band Neuts % (Manual) (0 - 10) % Abnorm Lymph % (Manual) % Metamyelocytes % ( - 0) % Myelocytes % ( - 0) % Nucleated RBC % Neutrophils # (Manual) (1.5-6.6) 10^3/uL Lymphocytes # (Manual) (1.5-3.5) 10^3/uL Monocytes # (Manual) (0.0-1.0) 10^3/uL Eosinophils # (Manual) (0-0.7) 10^3/uL Basophils # (Manual) (0-0.1) 10^3/uL Differential Comment Manual Slide Review WBC Morphology (NORMAL) Platelet Estimate (NORMAL) Platelet Morphology (NORMAL) RBC Morph Micro Appear (NORMAL) PT (9.9-12.6) secs INR (0.8-1.2) Bld Gas Analysis Time 2130 Sample Site RIGHT RADIAL ABG pH 7.24 L (7.35-7.45) ABG pCO2 71 H* (34-45) mmHg ABG pO2 242 H* (80-100) mmHg ABG HCO3 30.1 H (22.0-26.0) mmol/L ABG Total CO2 32.2 H (21.0-29.0) MMOL/L ABG O2 Saturation 99 H (94-98) % ABG Base Excess 0.7 (-2.0-3.0) mmol/L William Test POSITIVE Respiration Rate 16 b/min O2 Delivery Device VENTILATOR Vent Mode SIMV FiO2 60.00 Tidal Volume 385 mL PEEP 5 cmH2O Pressure Support Vent 10 cmH2O Sodium 139 (135-145) mmol/L Potassium 3.5 (3.5-5.0) mmol/L Chloride 100 L (101-111) mmol/L Carbon Dioxide 29 (21-32) mmol/L Anion Gap 10.0 (6-13) BUN 37 H (6-20) mg/dL Creatinine 1.0 (0.4-1.0) mg/dL Estimated GFR (MDRD) 56 L (>89) Glucose 99 (70-100) mg/dL Lactic Acid 3.7 H* (0.5-2.2) mmol/L Calcium 8.2 L (8.5-10.3) mg/dL Phosphorus 4.7 H (2.5-4.6) mg/dL Magnesium 1.7 (1.7-2.8) mg/dL Total Bilirubin (0.2-1.0) mg/dL Direct Bilirubin (0.1-0.5) mg/dL AST (10-42) IU/L ALT (10-60) IU/L Alkaline Phosphatase (42-121) IU/L Troponin I High Sens (2.3-14.8) ng/L Total Protein (6.7-8.2) g/dL Albumin (3.2-5.5) g/dL Globulin (2.1-4.2) g/dL Albumin/Globulin Ratio (1.0-2.2) Lipase (22-51) U/L Nasal Screen MRSA (PCR) (NEGATIVE) 07/20/19 07/20/19 07/20/19 Range/Units 19:10 19:10 19:00 WBC 2.3 L (4.8-10.8) x10^3/uL RBC 4.07 L (4.20-5.40) 10^6/uL Hgb 13.1 (12.0-16.0) g/dL Hct 44.5 (37.0-47.0) % MCV 109.3 H (81.0-99.0) fL MCH 32.2 H (27.0-31.0) pg MCHC 29.4 L (32.0-36.0) g/dL RDW 14.3 (12.0-15.0) % Plt Count 278 (130-450) 10^3/uL MPV 9.5 (7.9-10.8) fL Neut # (Auto) Not Reportable Lymph # (Auto) Not Reportable [place] # (Auto) Not Reportable Eos # (Auto) Not Reportable Baso # (Auto) Not Reportable Absolute Nucleated RBC Not Reportable Total Counted 100 Band Neuts % (Manual) 16 H (0 - 10) % Abnorm Lymph % (Manual) Not Reportable % Metamyelocytes % 9 H ( - 0) % Myelocytes % 3 H ( - 0) % Nucleated RBC % Not Reportable Neutrophils # (Manual) 1.1 L (1.5-6.6) 10^3/uL Lymphocytes # (Manual) 0.5 L (1.5-3.5) 10^3/uL Monocytes # (Manual) 0.4 (0.0-1.0) 10^3/uL Eosinophils # (Manual) 0.0 (0-0.7) 10^3/uL Basophils # (Manual) Not Reportable (0-0.1) 10^3/uL Differential Comment MANUAL DIFFERENTIAL Manual Slide Review Indicated WBC Morphology (NORMAL) Platelet Estimate NORMAL (130-450,000) (NORMAL) Platelet Morphology NORMAL APPEARANCE (NORMAL) RBC Morph Micro Appear NORMAL APPEARANCE (NORMAL) PT (9.9-12.6) secs INR (0.8-1.2) Bld Gas Analysis Time Sample Site ABG pH (7.35-7.45) ABG pCO2 (34-45) mmHg ABG pO2 (80-100) mmHg ABG HCO3 (22.0-26.0) mmol/L ABG Total CO2 (21.0-29.0) MMOL/L ABG O2 Saturation (94-98) % ABG Base Excess (-2.0-3.0) mmol/L William Test Respiration Rate b/min O2 Delivery Device Vent Mode FiO2 Tidal Volume mL PEEP cmH2O Pressure Support Vent cmH2O Sodium (135-145) mmol/L Potassium (3.5-5.0) mmol/L Chloride (101-111) mmol/L Carbon Dioxide (21-32) mmol/L Anion Gap (6-13) BUN (6-20) mg/dL Creatinine (0.4-1.0) mg/dL Estimated GFR (MDRD) (>89) Glucose (70-100) mg/dL Lactic Acid 4.5 H* (0.5-2.2) mmol/L Calcium (8.5-10.3) mg/dL Phosphorus (2.5-4.6) mg/dL Magnesium (1.7-2.8) mg/dL Total Bilirubin (0.2-1.0) mg/dL Direct Bilirubin (0.1-0.5) mg/dL AST (10-42) IU/L ALT (10-60) IU/L Alkaline Phosphatase (42-121) IU/L Troponin I High Sens 231.0 H* (2.3-14.8) ng/L Total Protein (6.7-8.2) g/dL Albumin (3.2-5.5) g/dL Globulin (2.1-4.2) g/dL Albumin/Globulin Ratio (1.0-2.2) Lipase (22-51) U/L Nasal Screen MRSA (PCR) (NEGATIVE) 07/20/19 07/20/19 07/20/19 Range/Units 17:34 13:20 12:20 WBC (4.8-10.8) x10^3/uL RBC (4.20-5.40) 10^6/uL Hgb (12.0-16.0) g/dL Hct (37.0-47.0) % MCV (81.0-99.0) fL MCH (27.0-31.0) pg MCHC (32.0-36.0) g/dL RDW (12.0-15.0) % Plt Count (130-450) 10^3/uL MPV (7.9-10.8) fL Neut # (Auto) Lymph # (Auto) [place] # (Auto) Eos # (Auto) Baso # (Auto) Absolute Nucleated RBC Total Counted Band Neuts % (Manual) (0 - 10) % Abnorm Lymph % (Manual) % Metamyelocytes % ( - 0) % Myelocytes % ( - 0) % Nucleated RBC % Neutrophils # (Manual) (1.5-6.6) 10^3/uL Lymphocytes # (Manual) (1.5-3.5) 10^3/uL Monocytes # (Manual) (0.0-1.0) 10^3/uL Eosinophils # (Manual) (0-0.7) 10^3/uL Basophils # (Manual) (0-0.1) 10^3/uL Differential Comment Manual Slide Review WBC Morphology (NORMAL) Platelet Estimate (NORMAL) Platelet Morphology (NORMAL) RBC Morph Micro Appear (NORMAL) PT (9.9-12.6) secs INR (0.8-1.2) Bld Gas Analysis Time Sample Site ABG pH (7.35-7.45) ABG pCO2 (34-45) mmHg ABG pO2 (80-100) mmHg ABG HCO3 (22.0-26.0) mmol/L ABG Total CO2 (21.0-29.0) MMOL/L ABG O2 Saturation (94-98) % ABG Base Excess (-2.0-3.0) mmol/L William Test Respiration Rate b/min O2 Delivery Device Vent Mode FiO2 Tidal Volume mL PEEP cmH2O Pressure Support Vent cmH2O Sodium (135-145) mmol/L Potassium (3.5-5.0) mmol/L Chloride (101-111) mmol/L Carbon Dioxide (21-32) mmol/L Anion Gap (6-13) BUN (6-20) mg/dL Creatinine (0.4-1.0) mg/dL Estimated GFR (MDRD) (>89) Glucose (70-100) mg/dL Lactic Acid 2.5 H (0.5-2.2) mmol/L Calcium (8.5-10.3) mg/dL Phosphorus (2.5-4.6) mg/dL Magnesium 2.3 (1.7-2.8) mg/dL Total Bilirubin (0.2-1.0) mg/dL Direct Bilirubin (0.1-0.5) mg/dL AST (10-42) IU/L ALT (10-60) IU/L Alkaline Phosphatase (42-121) IU/L Troponin I High Sens (2.3-14.8) ng/L Total Protein (6.7-8.2) g/dL Albumin (3.2-5.5) g/dL Globulin (2.1-4.2) g/dL Albumin/Globulin Ratio (1.0-2.2) Lipase (22-51) U/L Nasal Screen MRSA (PCR) NEGATIVE (NEGATIVE) 07/20/19 07/20/19 07/20/19 Range/Units 12:20 12:20 12:20 WBC 3.5 L (4.8-10.8) x10^3/uL RBC 5.19 (4.20-5.40) 10^6/uL Hgb 16.8 H (12.0-16.0) g/dL Hct 55.7 H (37.0-47.0) % MCV 107.3 H (81.0-99.0) fL MCH 32.4 H (27.0-31.0) pg MCHC 30.2 L (32.0-36.0) g/dL RDW 14.3 (12.0-15.0) % Plt Count 352 (130-450) 10^3/uL MPV 9.4 (7.9-10.8) fL Neut # (Auto) Not Reportable Lymph # (Auto) Not Reportable [place] # (Auto) Not Reportable Eos # (Auto) Not Reportable Baso # (Auto) Not Reportable Absolute Nucleated RBC Not Reportable Total Counted 100 Band Neuts % (Manual) 28 H (0 - 10) % Abnorm Lymph % (Manual) 0 % Metamyelocytes % ( - 0) % Myelocytes % ( - 0) % Nucleated RBC % Not Reportable Neutrophils # (Manual) 2.3 (1.5-6.6) 10^3/uL Lymphocytes # (Manual) 0.7 L (1.5-3.5) 10^3/uL Monocytes # (Manual) 0.4 (0.0-1.0) 10^3/uL Eosinophils # (Manual) 0.0 (0-0.7) 10^3/uL Basophils # (Manual) 0.0 (0-0.1) 10^3/uL Differential Comment MANUAL DIFFERENTIAL Manual Slide Review WBC Morphology 1+ TOXIC GRANULATION (NORMAL) Platelet Estimate (NORMAL) Platelet Morphology (NORMAL) RBC Morph Micro Appear 2+ MACROCYTOSIS (NORMAL) PT 12.4 (9.9-12.6) secs INR 1.1 (0.8-1.2) Bld Gas Analysis Time Sample Site ABG pH (7.35-7.45) ABG pCO2 (34-45) mmHg ABG pO2 (80-100) mmHg ABG HCO3 (22.0-26.0) mmol/L ABG Total CO2 (21.0-29.0) MMOL/L ABG O2 Saturation (94-98) % ABG Base Excess (-2.0-3.0) mmol/L William Test Respiration Rate b/min O2 Delivery Device Vent Mode FiO2 Tidal Volume mL PEEP cmH2O Pressure Support Vent cmH2O Sodium 142 (135-145) mmol/L Potassium 3.8 (3.5-5.0) mmol/L Chloride 92 L (101-111) mmol/L Carbon Dioxide 37 H (21-32) mmol/L Anion Gap 13.0 (6-13) BUN 39 H (6-20) mg/dL Creatinine 1.0 (0.4-1.0) mg/dL Estimated GFR (MDRD) 56 L (>89) Glucose 122 H (70-100) mg/dL Lactic Acid (0.5-2.2) mmol/L Calcium 10.0 (8.5-10.3) mg/dL Phosphorus (2.5-4.6) mg/dL Magnesium (1.7-2.8) mg/dL Total Bilirubin 0.7 (0.2-1.0) mg/dL Direct Bilirubin (0.1-0.5) mg/dL AST 27 (10-42) IU/L ALT 24 (10-60) IU/L Alkaline Phosphatase 99 (42-121) IU/L Troponin I High Sens (2.3-14.8) ng/L Total Protein 7.7 (6.7-8.2) g/dL Albumin 4.3 (3.2-5.5) g/dL Globulin 3.4 (2.1-4.2) g/dL Albumin/Globulin Ratio 1.3 (1.0-2.2) Lipase 25 (22-51) U/L Nasal Screen MRSA (PCR) (NEGATIVE) Sepsis Event Note (H) - Evaluation Current Stage of Sepsis: Septic shock Possible source of Sepsis: positive: GI tract/intra-abdominal - Sepsis Criteria Sepsis Criteria: Recorded Heart Rate greater than 90 bpm, Recorded Respiratory Rate greater than 20, WBC count greater than 10% bands, WBC count greater than 12,000 or less than 4000, SBP drop more than 40mHg, SBP less than 90 mmHg, R enal: urine output less than 0.5ml/kg/hr for 2 hours or creatinine gr, Metabolic: lactate > 2 mmol/L Assessment/Plan - Problem List (1) Septic shock Impression: She has septic shock secondary to perforated viscus. She is hypotensive requiring pressor support with norepinephrine. She is leukopenic with elevated bands. Her lactic acid was elevated. We will continue with cefepime and Flagyl IV. Continue with aggressive IV hydration. We will follow-up her blood cultures and trend her white count. (2) Perforated abdominal viscus Impression: Etiology of the perforated viscus is not clear but suspect may be gastric in nature given her NSAID use although this could also be a perforated diverticula given her prior history of a perforated diverticula. She was unfortunately both to undergo an expiratory laparotomy yesterday given her brief cardiac arrest. I called a few hospitals again this morning to try and transfer the patient but unfortunately there are no beds available at any facility. I did speak with Dr. Diggs of general surgery who is aware. Although she is relatively stable at the moment, she is likely to deteriorate without surgical intervention. We will obtain an echocardiogram this morning to assess her fluid status and LV function. We will also check an EKG and chest x-ray given her concern for aspiration yesterday. Based off of these findings, surgery will discuss with the family if they would wish to continue to proceed with intervention. If family is agreeable to intervention, I feel it is reasonable to take her to the OR given she will likely deteriorate without intervention. In the meantime, we will continue supportive care including IV antibiotics and IV hydration. Maintain NPO status. (3) Acute kidney injury Impression: She has an anuric acute kidney injury secondary to the sepsis and hypotension. She likely has ATN. We will continue with IV hydration and monitor her renal function and urine output. If her renal function continues to decline and she has indications for renal replacement therapy, she will need to be transferred to a higher level of care. (4) Demand ischemia Impression: Her troponins are elevated in the 200s but are relatively flat. This is likely demand ischemia given the sepsis and hypotension. Her EKG does not reveal any acute ischemia. Will obtain echocardiogram to evaluate her LV function. Continue to monitor on telemetry and trend troponins until they decline. (5) Metabolic acidosis Impression: This is secondary to her sepsis and acute kidney injury. Her lactic acid was initially elevated but it is now within normal limits. We will continue with IV hydration. We will continue to check frequent ABGs. If her metabolic acidosis continues to decline, she may need a bicarbonate infusion although at the moment, this is not warranted. (6) COPD (chronic obstructive pulmonary disease) Impression: She has history of moderate to severe COPD and is at risk for postop complications including pneumonia, atelectasis, and prolonged ventilatory support. She is currently not in exacerbation. We will keep her on the v entilator with her current ventilator settings. Continue albuterol every 4 hours. (7) Severe protein-calorie malnutrition Impression: She remains n.p.o. given her perforated viscus. She will likely require TPN postoperatively. Nutrition has been consulted. (8) Tobacco abuse Impression: She is been smoking half pack a day for over 30 years. Will delay with wound healing if she undergoes intervention. (9) Rheumatoid arthritis Impression: Continue to hold methotrexate given her critical condition. (10) History of alcoholism Impression: Reportedly has not been drinking since January of 2019. We will continue her on daily thiamine.
[2019-07-21] MEDS: VASOPRESSIN 20 UNIT in DEXTROSE 5% 99 ML IV ONE ×2 (11:21→14:12)
[2019-07-21] MEDS: HYDROCORTISONE SUCCINATE 100 MG/2 ML VIAL IVP SCH ×2 (11:34→21:24)
[2019-07-21] MEDS ORDERED: EPINEPHrine 4 MG in DEXTROSE 5% 246 ML IV ONE (12:00)
[2019-07-21] MEDS: DEXTROSE 5% 1,000 ML IV SCH ×2 (13:36→20:57)
--- NOTE | 2019-07-21 13:42 | PHARMACY PROGRESS NOTE ---
- Best Possible Medication History Admit Date and Time: 07/20/19 1631 Processed by: Pharmacy Medication History completed: Yes Patient Interview: Pt unable to participate Secondary Source(s): Physician records, Pharmacy records, Insurance records As the person ultimately responsible for medication therapy, providers are able to order a medication from an existing home medication list in [facility] via the "Reconcile Routine" prior to Confirmation of that medication by support worker. Such practice is discouraged except when the physician, in their clinical judgment, deems that a medical need exists for a medication without regard to previous use.
[2019-07-21 13:55] LABS: CALCIUM 7.9 mg/dL (8.5-10.3); CREATININE 1.8 mg/dL (0.4-1.0)
[2019-07-21 14:08] LABS: MAGNESIUM 2.1 mg/dL (1.7-2.8)
[2019-07-21] MEDS: SODIUM CHLORIDE 0.9% 500 ML IV PRN (18:34)
--- NOTE | 2019-07-21 18:52 | ADVANCE CARE PLANNING NOTE ---
Advance Care Planning - Planning Encounter Date: 07/21/19 Time: 11:30 Purpose: To clarify goals of care. Parties in Attendance: The patient's son, Mark was in attendance. The patient is intubated and unable to participate in the conversation. Decisional Capacity of the Patient: She is unable to make her own medical decision at this moment. - Diagnosis for Encounter (1) Septic shock Summary: She has septic shock secondary to perforated viscus and is requiring pressor support with norepinephrine. (2) Perforated abdominal viscus Summary: She had a possible cardiac arrest prior to surgical intervention yesterday. Surgical intervention was aborted given her high risk. Currently medically managing with IV antibiotics. (3) Acute kidney injury Summary: She has an anuric acute kidney injury with minimal urine output. - Encounter Subjective/Patient's Story: Rhianna has 3 children including Mark who is present at bedside today. She has one other son and one other daughter. She currently lives at home alone. 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 They check on her on a frequent basis and are currently visiting her here in the hospital. Rhianna unfortunately has been a smoker for most of her life and smokes 10 cigarettes a day. This has caused her to have COPD for she takes albuterol as needed. She also has a history of very heavy alcohol use which has caused her to be malnourished. She has not been drinking since January per her friends and family. They state that she has really declined from a physical standpoint over the last few years. She has become p rogressively weaker and requires a caregiver on a daily basis. Friends and family states she did relatively well after a partial colectomy back in 2011 for perforated diverticulitis. She ultimately had the colostomy reversed. They report she is not nearly in the same condition at this moment as she was back then due to her continued smoking and malnourishment. Objective/Medical Story: Rhianna is admitted for septic shock secondary to perforated viscus. The initial plan was to transfer the patient to a higher level of care given she would be high risk to undergo a procedure at this facility. Unfortunately there were no facilities nearby with available beds. The plan was to take her to the OR yesterday for an expiratory laparotomy but after induction with anesthesia, she became hypotensive and may have had a brief cardiac arrest. CPR was initiated although it was for less than 2 minutes and she had return of spontaneous circulation. The surgery was aborted as she is felt to be too high of a risk to undergo intervention and the plan is to continue with medical management including IV antibiotics and pressor support as needed. Today, Rhianna remains on mechanical ventilation and is requiring pressor support with norepinephrine. She appears pale and mottled with cool extremities to touch. Her abdomen remains distended. She is also oliguric with worsening renal function. Goals of Care: Prior to intubation for the planned intervention yesterday, Rhianna had stated she wanted to be a full code and to be resuscitated. I discussed with her friends at bedside and her son, Mark, regarding her current condition. She is critically ill and is requiring ventilator support and norepinephrine. There was a period time her blood pressure dropped to the 30s systolic and her heart rate dipped into the 50s and 60s. Her norepinephrine was increased from 10 mcg to 20 mcg. Fortunately her blood pressure responded well to this. I had spoken earlier with general surgery regarding potential intervention. General surgery felt they could take her to the operating room today if she was relatively stable for an exploratory laparotomy. I did discuss this with her son, Mark, and informed him that she has a higher mortality given her septic shock whether we proceed with surgery or not. Mark was concerned she may not be able to tolerate the surgery given her current condition at home that this was a valid concern to have. Mark was concerned that he might make a decision that might not give his mother the best chance to survive. He did speak with his sister who is in [place] and planning to fly in tomorrow along with her other brother. Mark told me that his sister was leaning more towards not proceeding with surgery but he was not as certain. I did tell Mark that my concern for his mother is that if she were to have a cardiac arrest, she would be quite difficult to resuscitate as she is already on vasopressors and on medical options would be quite limited. The concern is also for anoxic brain injury depending on how long we do CPR for. Mark stated that he does care for the quality of life for his mother he does not want her to suffer but at the same time he wants us to do what we can to make sure his siblings can visit. Plan: After extended discussion with Mark at bedside and after he spoke with his sister, he decided to keep his mother as a FULL CODE at this moment. He would like to keep her alive until at least tomorrow so that his sister and brother can see her. He has discussed with the sister and they like to hold off on surgery at the moment. We did agree that if she were to have a cardiac arrest, we would attempt CPR for 20 minutes and discuss with him further if we should continue if we are not able to have return of spontaneous circulation. He is aware that prolonged CPR would give his mother a very poor prognosis even if he were to have return of spontaneous circulation and he is also understanding that we may not even be able to resuscitate her if she were to code. Code Status: Attempt Resuscitation Time spent on advance care plannin
[2019-07-22] MEDS: DEXTROSE 5%-0.9% NACL 1,000 ML IV SCH ×2 (01:27→10:54)
[2019-07-22] MEDS: SODIUM CHLORIDE FLUSH 0.9% 10 ML SYRINGE IVP SCH ×3 (01:29→15:08)
[2019-07-22 05:06] LABS: BASOPHILS % (AUTO) 1.1 %; EOSINOPHILS % (AUTO) 3.1 %; HGB - HEMOGLOBIN 11.5 g/dL (12.0-16.0); LYMPHOCYTES % (AUTO) 8.5 %; MEAN CORPUSCULAR HEMOGLOBIN 31.9 pg (27.0-31.0); MEAN CORPUSCULAR HGB CONC 31.7 g/dL (32.0-36.0); MEAN CORPUSCULAR VOLUME 100.8 fL (81.0-99.0); MEAN PLATELET VOLUME 10.1 fL (7.9-10.8); MONOCYTES % (AUTO) 4.9 %; NEUTROPHILS % (AUTO) 81.6 %; PLT - PLATELET COUNT 243 10^3/uL (130-450); RED CELL DISTRIBUTION WIDTH 14.6 % (12.0-15.0); WHITE BLOOD COUNT 6.4 x10^3/uL (4.8-10.8)
[2019-07-22 05:10] LABS: ABNORMAL LYMPHS % (MANUAL) 0 %
[2019-07-22] MEDS: fentaNYL 2,500 MCG in SODIUM CHLORIDE 0.9% 200 ML IV SCH (05:19)
[2019-07-22 05:21] LABS: ALBUMIN 1.9 g/dL (3.2-5.5); BILIRUBIN,DIRECT 0.1 mg/dL (0.1-0.5); BILIRUBIN,TOTAL 0.6 mg/dL (0.2-1.0); CREATININE 2.1 mg/dL (0.4-1.0); PHOSPHORUS 2.9 mg/dL (2.5-4.6); TOTAL PROTEIN 4.6 g/dL (6.7-8.2)
[2019-07-22] MEDS: PROPOFOL 1000 MG/100 ML 100 ML IV SCH ×4 (05:25→22:58)
[2019-07-22] MEDS: metroNIDAZOLE 500 MG/100 ML 500 MG/100 ML BAG IV SCH ×3 (05:33→22:42)
[2019-07-22] MEDS: HYDROCORTISONE SUCCINATE 100 MG/2 ML VIAL IVP SCH (05:48)
[2019-07-22 05:53] LABS: BAND NEUTROPHILS % (MANUAL) 23 %; DIFFERENTIAL COMMENT MANUAL DIFFERENTIAL; LYMPHOCYTES # (MANUAL) 0.6 10^3/uL (1.5-3.5); LYMPHOCYTES % (MANUAL) 9 %; METAMYELOCYTES % (MANUAL) 1 %; MONOCYTES # (MANUAL) 0.1 10^3/uL (0.0-1.0); MYELOCYTES % (MANUAL) 1 %; PLATELET ESTIMATE, MANUAL NORMAL (130-450,000) (NORMAL); RBC MORPHOLOGY (MULTIPLE) NORMAL APPEARANCE (NORMAL)
[2019-07-22] MEDS: ALBUTEROL NEB 2.5 MG/3 ML INH PRN ×2 (07:17→18:12)
--- NOTE | 2019-07-22 08:51 | PROVIDER PROGRESS NOTE ---
Subjective - Prog Note Date Prog Note Date: 07/22/19 Prog Note Time: 08:48 - Subjective Subjective: pt sedated on ventilator Objective - Vital Signs/Intake & Output Reviewed Vital Signs: Yes Vital Signs: Vital Signs Pulse Pulse Resp BP BP Pulse Ox 07/22/19 08:00 92 16 101/72 98 07/22/19 07:17 85 07/22/19 07:00 85 20 100/61 99 07/22/19 06:14 86 07/22/19 06:00 89 20 99/73 98 07/22/19 05:35 90 20 07/22/19 05:31 87 20 07/22/19 05:30 87 20 102/71 07/22/19 05:29 87 20 07/22/19 05:25 89 20 07/22/19 05:20 88 20 07/22/19 05:15 87 20 07/22/19 05:10 89 20 07/22/19 05:05 88 20 07/22/19 05:01 88 20 07/22/19 05:00 88 88 20 93/68 102/72 98 07/22/19 04:59 90 20 07/22/19 04:55 89 20 07/22/19 04:50 88 20 Intake & Output: Intake & Output 07/19/19 07/20/19 07/21/19 07/22/19 23:59 23:59 23:59 23:59 Intake Total 4596.734 6112.856 1631.754 Output Total 515 558 275 Balance 4081.734 5554.856 1356.754 u.o. a little over 0.5 ml/kg/hr NG out 250/24 hours - Objective General Appearance: positive: No acute distress, Other (color improved, appears comfortable) Eyes Bilateral: positive: No scleral icterus ENT: positive: Other (intubated) Neck: positive: Nml inspection, No JVD Respiratory: positive: Rhonchi (scattered bilat anteriorly) Cardiovascular: positive: Regular rate & rhythm, No murmur, No gallop Abdomen: positive: Abnml bowel sounds (hypoactive), Other (moderatedly distended(unchanged), soft, doughy abdomen; unable to assess for peritoneal signs due to sedation but no involuntary guarding or rigidity) Skin: positive: Cyanosis (feet cool, slightly cyanotic (appears to be chronic due to PVD) but no evidence of skin necrosis; hands warmer) Extremities: positive: No pedal edema Neurologic/Psychiatric: positive: Other (non communicative at present on ventilator and sedated) - Lab Results Fish Bones: 07/22/19 05:00 07/22/19 05:00 Other Labs: Lab Results x24hrs 07/22/19 07/22/19 07/21/19 Range/Units 05:00 05:00 19:57 WBC 6.4 (4.8-10.8) x10^3/uL RBC 3.60 L (4.20-5.40) 10^6/uL Hgb 11.5 L (12.0-16.0) g/dL Hct 36.3 L (37.0-47.0) % MCV 100.8 H (81.0-99.0) fL MCH 31.9 H (27.0-31.0) pg MCHC 31.7 L (32.0-36.0) g/dL RDW 14.6 (12.0-15.0) % Plt Count 243 (130-450) 10^3/uL MPV 10.1 (7.9-10.8) fL Neut # (Auto) Not Reportable Lymph # (Auto) Not Reportable [place] # (Auto) Not Reportable Eos # (Auto) Not Reportable Baso # (Auto) Not Reportable Absolute Nucleated RBC Not Reportable Total Counted 100 Band Neuts % (Manual) 23 H (0 - 10) % Abnorm Lymph % (Manual) 0 % Metamyelocytes % 1 H ( - 0) % Myelocytes % 1 H ( - 0) % Nucleated RBC % Not Reportable Neutrophils # (Manual) 5.6 (1.5-6.6) 10^3/uL Lymphocytes # (Manual) 0.6 L (1.5-3.5) 10^3/uL Monocytes # (Manual) 0.1 (0.0-1.0) 10^3/uL Eosinophils # (Manual) 0.0 (0-0.7) 10^3/uL Basophils # (Manual) 0.0 (0-0.1) 10^3/uL Differential Comment MANUAL DIFFERENTIAL Platelet Estimate NORMAL (130-450,000) (NORMAL) RBC Morph Micro Appear NORMAL APPEARANCE (NORMAL) Bld Gas Analysis Time Sample Site ABG pH (7.35-7.45) ABG pCO2 (34-45) mmHg ABG pO2 (80-100) mmHg ABG HCO3 (22.0-26.0) mmol/L ABG Total CO2 (21.0-29.0) MMOL/L ABG O2 Saturation (94-98) % ABG Base Excess (-2.0-3.0) mmol/L William Test Respiration Rate b/min O2 Delivery Device Vent Mode FiO2 Tidal Volume mL PEEP cmH2O Pressure Support Vent cmH2O Sodium 135 (135-145) mmol/L Potassium 4.0 (3.5-5.0) mmol/L Chloride 104 (101-111) mmol/L Carbon Dioxide 22 (21-32) mmol/L Anion Gap 9.0 (6-13) BUN 52 H (6-20) mg/dL Creatinine 2.1 H (0.4-1.0) mg/dL Estimated GFR (MDRD) 24 L (>89) Glucose 119 H (70-100) mg/dL Lactic Acid 1.5 (0.5-2.2) mmol/L Calcium 8.0 L (8.5-10.3) mg/dL Phosphorus 2.9 (2.5-4.6) mg/dL Magnesium 2.0 (1.7-2.8) mg/dL Total Bilirubin 0.6 (0.2-1.0) mg/dL Direct Bilirubin 0.1 (0.1-0.5) mg/dL AST 20 (10-42) IU/L ALT 20 (10-60) IU/L Alkaline Phosphatase 36 L (42-121) IU/L Troponin I High Sens (2.3-14.8) ng/L Total Protein 4.6 L (6.7-8.2) g/dL Albumin 1.9 L (3.2-5.5) g/dL Globulin 2.7 (2.1-4.2) g/dL 07/21/19 07/21/19 07/21/19 Range/Units 13:40 13:40 13:40 WBC (4.8-10.8) x10^3/uL RBC (4.20-5.40) 10^6/uL Hgb (12.0-16.0) g/dL Hct (37.0-47.0) % MCV (81.0-99.0) fL MCH (27.0-31.0) pg MCHC (32.0-36.0) g/dL RDW (12.0-15.0) % Plt Count (130-450) 10^3/uL MPV (7.9-10.8) fL Neut # (Auto) Lymph # (Auto) [place] # (Auto) Eos # (Auto) Baso # (Auto) Absolute Nucleated RBC Total Counted Band Neuts % (Manual) (0 - 10) % Abnorm Lymph % (Manual) % Metamyelocytes % ( - 0) % Myelocytes % ( - 0) % Nucleated RBC % Neutrophils # (Manual) (1.5-6.6) 10^3/uL Lymphocytes # (Manual) (1.5-3.5) 10^3/uL Monocytes # (Manual) (0.0-1.0) 10^3/uL Eosinophils # (Manual) (0-0.7) 10^3/uL Basophils # (Manual) (0-0.1) 10^3/uL Differential Comment Platelet Estimate (NORMAL) RBC Morph Micro Appear (NORMAL) Bld Gas Analysis Time Sample Site ABG pH (7.35-7.45) ABG pCO2 (34-45) mmHg ABG pO2 (80-100) mmHg ABG HCO3 (22.0-26.0) mmol/L ABG Total CO2 (21.0-29.0) MMOL/L ABG O2 Saturation (94-98) % ABG Base Excess (-2.0-3.0) mmol/L William Test Respiration Rate b/min O2 Delivery Device Vent Mode FiO2 Tidal Volume mL PEEP cmH2O Pressure Support Vent cmH2O Sodium 137 (135-145) mmol/L Potassium 4.4 (3.5-5.0) mmol/L Chloride 101 (101-111) mmol/L Carbon Dioxide 25 (21-32) mmol/L Anion Gap 11.0 (6-13) BUN 45 H (6-20) mg/dL Creatinine 1.8 H (0.4-1.0) mg/dL Estimated GFR (MDRD) 29 L (>89) Glucose 152 H (70-100) mg/dL Lactic Acid 3.5 H* (0.5-2.2) mmol/L Calcium 7.9 L (8.5-10.3) mg/dL Phosphorus 3.0 (2.5-4.6) mg/dL Magnesium 2.1 (1.7-2.8) mg/dL Total Bilirubin (0.2-1.0) mg/dL Direct Bilirubin (0.1-0.5) mg/dL AST (10-42) IU/L ALT (10-60) IU/L Alkaline Phosphatase (42-121) IU/L Troponin I High Sens (2.3-14.8) ng/L Total Protein (6.7-8.2) g/dL Albumin (3.2-5.5) g/dL Globulin (2.1-4.2) g/dL 07/21/19 07/21/19 07/21/19 Range/Units 10:50 10:50 08:30 WBC (4.8-10.8) x10^3/uL RBC (4.20-5.40) 10^6/uL Hgb (12.0-16.0) g/dL Hct (37.0-47.0) % MCV (81.0-99.0) fL MCH (27.0-31.0) pg MCHC (32.0-36.0) g/dL RDW (12.0-15.0) % Plt Count (130-450) 10^3/uL MPV (7.9-10.8) fL Neut # (Auto) Lymph # (Auto) [place] # (Auto) Eos # (Auto) Baso # (Auto) Absolute Nucleated RBC Total Counted Band Neuts % (Manual) (0 - 10) % Abnorm Lymph % (Manual) % Metamyelocytes % ( - 0) % Myelocytes % ( - 0) % Nucleated RBC % Neutrophils # (Manual) (1.5-6.6) 10^3/uL Lymphocytes # (Manual) (1.5-3.5) 10^3/uL Monocytes # (Manual) (0.0-1.0) 10^3/uL Eosinophils # (Manual) (0-0.7) 10^3/uL Basophils # (Manual) (0-0.1) 10^3/uL Differential Comment Platelet Estimate (NORMAL) RBC Morph Micro Appear (NORMAL) Bld Gas Analysis Time 0830 Sample Site RIGHT FEMORAL ABG pH 7.33 L (7.35-7.45) ABG pCO2 54 H (34-45) mmHg ABG pO2 81 (80-100) mmHg ABG HCO3 27.6 H (22.0-26.0) mmol/L ABG Total CO2 29.2 H (21.0-29.0) MMOL/L ABG O2 Saturation 96 (94-98) % ABG Base Excess 0.6 (-2.0-3.0) mmol/L William Test NOT APPLICABLE Respiration Rate 18 b/min O2 Delivery Device VENTILATOR Vent Mode SIMV FiO2 28.00 Tidal Volume 450 mL PEEP 5 cmH2O Pressure Support Vent 14 cmH2O Sodium (135-145) mmol/L Potassium (3.5-5.0) mmol/L Chloride (101-111) mmol/L Carbon Dioxide (21-32) mmol/L Anion Gap (6-13) BUN (6-20) mg/dL Creatinine (0.4-1.0) mg/dL Estimated GFR (MDRD) (>89) Glucose (70-100) mg/dL Lactic Acid 3.3 H* (0.5-2.2) mmol/L Calcium (8.5-10.3) mg/dL Phosphorus (2.5-4.6) mg/dL Magnesium (1.7-2.8) mg/dL Total Bilirubin (0.2-1.0) mg/dL Direct Bilirubin (0.1-0.5) mg/dL AST (10-42) IU/L ALT (10-60) IU/L Alkaline Phosphatase (42-121) IU/L Troponin I High Sens 232.6 H* (2.3-14.8) ng/L Total Protein (6.7-8.2) g/dL Albumin (3.2-5.5) g/dL Globulin (2.1-4.2) g/dL - Diagnostic Imaging Diagnostic Imaging Results: positive: Final report reviewed Diagnostic Imaging Comments: ECHO yest: LVEF 50%; no sig valvular dysfunction; nl IVC filling ECG: sinus tach; no acute changes CXR: no change; mild linear basilar pulmonary atelectasis/infiltrates; pneumoperitoneum - Other Results/Comments Other Results/Comments: ACS Surgical risk calculator estimates 50% mortality, 50% serious complication, length of stay 24 days, 87.5% risk of discharge to Nursing or Rehab facility. Sepsis Event Note (H) - Evaluation Current Stage of Sepsis: Septic shock Possible source of Sepsis: positive: GI tract/intra-abdominal - Sepsis Criteria Sepsis Criteria: Recorded Heart Rate greater than 90 bpm, Recorded Respiratory Rate greater than 20, WBC count greater than 10% bands, WBC count greater than 12,000 or less than 4000, SBP drop more than 40mHg, SBP less than 90 mmHg, Renal: urine output less than 0.5ml/kg/hr for 2 hours or creatinine gr, Metabolic: lactate > 2 mmol/L Assessment/Plan - Problem List (1) Septic shock Impression: Stable, with decreased need for pressor support and otherwise satisfactory cardiopulmonary function . Rising BUN/CR in face of adequate u.o. suggests non oliguric renal failure, possibly ATN related to sepsis and/or hypotension. Rec: further discussion with family regarding next steps: comfort care vs exploratory surgery either here or at a higher level of care if a bed becomes available. Discussed plan with Dr. Serrano, who agrees and plans on discussing further with family later today when relatives from out of state arrive. (2) Perforated abdominal viscus Impression: Etiology unclear; remains stable at present with medical management. REc: as above for septic shock. Pt appears to be stable enough at present to attempt surgery if that is the family's wishes, although mortality remains very high.
[2019-07-22 08:55] LABS: ABG HCO3 22.1 mmol/L (22.0-26.0); ABG PCO2 35 mmHg (34-45); ABG PH 7.42 (7.35-7.45); ABG PO2 67 mmHg (80-100)
[2019-07-22 08:56] LABS: ABG BASE EXCESS -1.9 mmol/L (-2.0-3.0); ABG OXYGEN SATURATION 93 % (94-98); ABG TCO2 23.2 MMOL/L (21.0-29.0); ALLEN TEST POSITIVE
--- NOTE | 2019-07-22 09:00 | PROVIDER PROGRESS NOTE ---
Subjective - Prog Note Date Prog Note Date: 07/22/19 Objective - Vital Signs/Intake & Output Vital Signs: Vital Signs x48h Temp Pulse Pulse Resp BP BP Pulse Ox 07/22/19 08:00 92 16 101/72 98 07/22/19 07:17 85 07/22/19 07:00 85 20 100/61 99 07/22/19 06:14 86 07/22/19 06:00 89 20 99/73 98 07/22/19 05:35 90 20 07/22/19 05:31 87 20 07/22/19 05:30 87 20 102/71 07/22/19 05:29 87 20 07/22/19 05:25 89 20 07/22/19 05:20 88 20 07/22/19 05:15 87 20 07/22/19 05:10 89 20 07/22/19 05:05 88 20 07/22/19 05:01 88 20 07/22/19 05:00 88 88 20 93/68 102/72 98 07/22/19 04:59 90 20 07/22/19 04:55 89 20 07/22/19 04:50 88 20 07/22/19 04:45 87 20 07/22/19 04:40 89 20 07/22/19 04:35 88 20 07/22/19 04:31 87 20 07/22/19 04:30 87 20 111/72 07/22/19 04:29 87 20 07/22/19 04:25 88 20 07/22/19 04:20 88 20 07/22/19 04:15 88 20 07/22/19 04:10 88 20 07/22/19 04:05 88 20 07/22/19 04:01 86 20 07/22/19 04:00 36.4 C L 87 88 20 102/72 111/72 98 07/22/19 03:59 87 20 07/22/19 03:55 88 20 07/22/19 03:50 89 20 07/22/19 03:45 87 20 07/22/19 03:40 86 20 07/22/19 03:35 87 20 07/22/19 03:33 87 07/22/19 03:31 88 20 100/71 07/22/19 03:30 87 20 07/22/19 03:25 88 20 07/22/19 03:20 86 20 07/22/19 03:15 86 20 07/22/19 03:10 85 20 07/22/19 03:05 79 20 07/22/19 03:01 85 20 103/70 07/22/19 03:00 86 86 20 103/70 97 07/22/19 02:55 87 20 07/22/19 02:50 87 20 07/22/19 02:45 88 20 07/22/19 02:40 87 20 07/22/19 02:35 88 20 07/22/19 02:31 87 20 95/64 07/22/19 02:30 87 20 07/22/19 02:25 86 20 07/22/19 02:00 85 20 90/61 99 07/22/19 01:01 83 07/22/19 01:00 86 20 98/59 L 97 Intake & Output: Intake & Output 07/19/19 07/20/19 07/21/19 07/22/19 23:59 23:59 23:59 23:59 Intake Total 4596.734 6112.856 1631.754 Output Total 515 558 275 Balance 4081.734 5554.856 1356.754 - Lab Results Fish Bones: 07/22/19 05:00 07/22/19 05:00 Other Labs: Lab Results x24hrs 07/22/19 07/22/19 07/22/19 Range/Units 08:45 05:00 05:00 WBC 6.4 (4.8-10.8) x10^3/uL RBC 3.60 L (4.20-5.40) 10^6/uL Hgb 11.5 L (12.0-16.0) g/dL Hct 36.3 L (37.0-47.0) % MCV 100.8 H (81.0-99.0) fL MCH 31.9 H (27.0-31.0) pg MCHC 31.7 L (32.0-36.0) g/dL RDW 14.6 (12.0-15.0) % Plt Count 243 (130-450) 10^3/uL MPV 10.1 (7.9-10.8) fL Neut # (Auto) Not Reportable Lymph # (Auto) Not Reportable [place] # (Auto) Not Reportable Eos # (Auto) Not Reportable Baso # (Auto) Not Reportable Absolute Nucleated RBC Not Reportable Total Counted 100 Band Neuts % (Manual) 23 H (0 - 10) % Abnorm Lymph % (Manual) 0 % Metamyelocytes % 1 H ( - 0) % Myelocytes % 1 H ( - 0) % Nucleated RBC % Not Reportable Neutrophils # (Manual) 5.6 (1.5-6.6) 10^3/uL Lymphocytes # (Manual) 0.6 L (1.5-3.5) 10^3/uL Monocytes # (Manual) 0.1 (0.0-1.0) 10^3/uL Eosinophils # (Manual) 0.0 (0-0.7) 10^3/uL Basophils # (Manual) 0.0 (0-0.1) 10^3/uL Differential Comment MANUAL DIFFERENTIAL Platelet Estimate NORMAL (130-450,000) (NORMAL) RBC Morph Micro Appear NORMAL APPEARANCE (NORMAL) Bld Gas Analysis Time 0845 Sample Site RIGHT RADIAL ABG pH 7.42 (7.35-7.45) ABG pCO2 35 (34-45) mmHg ABG pO2 67 L (80-100) mmHg ABG HCO3 22.1 (22.0-26.0) mmol/L ABG Total CO2 23.2 (21.0-29.0) MMOL/L ABG O2 Saturation 93 L (94-98) % ABG Base Excess -1.9 (-2.0-3.0) mmol/L William Test POSITIVE Respiration Rate 16 b/min O2 Delivery Device VENTILATOR Vent Mode SIMV FiO2 28.00 Tidal Volume 450 mL PEEP 5 cmH2O Pressure Support Vent 14 cmH2O Sodium 135 (135-145) mmol/L Potassium 4.0 (3.5-5.0) mmol/L Chloride 104 (101-111) mmol/L Carbon Dioxide 22 (21-32) mmol/L Anion Gap 9.0 (6-13) BUN 52 H (6-20) mg/dL Creatinine 2.1 H (0.4-1.0) mg/dL Estimated GFR (MDRD) 24 L (>89) Glucose 119 H (70-100) mg/dL Lactic Acid (0.5-2.2) mmol/L Calcium 8.0 L (8.5-10.3) mg/dL Phosphorus 2.9 (2.5-4.6) mg/dL Magnesium 2.0 (1.7-2.8) mg/dL Total Bilirubin 0.6 (0.2-1.0) mg/dL Direct Bilirubin 0.1 (0.1-0.5) mg/dL AST 20 (10-42) IU/L ALT 20 (10-60) IU/L Alkaline Phosphatase 36 L (42-121) IU/L Troponin I High Sens (2.3-14.8) ng/L Total Protein 4.6 L (6.7-8.2) g/dL Albumin 1.9 L (3.2-5.5) g/dL Globulin 2.7 (2.1-4.2) g/dL 07/21/19 07/21/19 07/21/19 Range/Units 19:57 13:40 13:40 WBC (4.8-10.8) x10^3/uL RBC (4.20-5.40) 10^6/uL Hgb (12.0-16.0) g/dL Hct (37.0-47.0) % MCV (81.0-99.0) fL MCH (27.0-31.0) pg MCHC (32.0-36.0) g/dL RDW (12.0-15.0) % Plt Count (130-450) 10^3/uL MPV (7.9-10.8) fL Neut # (Auto) Lymph # (Auto) [place] # (Auto) Eos # (Auto) Baso # (Auto) Absolute Nucleated RBC Total Counted Band Neuts % (Manual) (0 - 10) % Abnorm Lymph % (Manual) % Metamyelocytes % ( - 0) % Myelocytes % ( - 0) % Nucleated RBC % Neutrophils # (Manual) (1.5-6.6) 10^3/uL Lymphocytes # (Manual) (1.5-3.5) 10^3/uL Monocytes # (Manual) (0.0-1.0) 10^3/uL Eosinophils # (Manual) (0-0.7) 10^3/uL Basophils # (Manual) (0-0.1) 10^3/uL Differential Comment Platelet Estimate (NORMAL) RBC Morph Micro Appear (NORMAL) Bld Gas Analysis Time Sample Site ABG pH (7.35-7.45) ABG pCO2 (34-45) mmHg ABG pO2 (80-100) mmHg ABG HCO3 (22.0-26.0) mmol/L ABG Total CO2 (21.0-29.0) MMOL/L ABG O2 Saturation (94-98) % ABG Base Excess (-2.0-3.0) mmol/L William Test Respiration Rate b/min O2 Delivery Device Vent Mode FiO2 Tidal Volume mL PEEP cmH2O Pressure Support Vent cmH2O Sodium 137 (135-145) mmol/L Potassium 4.4 (3.5-5.0) mmol/L Chloride 101 (101-111) mmol/L Carbon Dioxide 25 (21-32) mmol/L Anion Gap 11.0 (6-13) BUN 45 H (6-20) mg/dL Creatinine 1.8 H (0.4-1.0) mg/dL Estimated GFR (MDRD) 29 L (>89) Glucose 152 H (70-100) mg/dL Lactic Acid 1.5 3.5 H* (0.5-2.2) mmol/L Calcium 7.9 L (8.5-10.3) mg/dL Phosphorus (2.5-4.6) mg/dL Magnesium (1.7-2.8) mg/dL Total Bilirubin (0.2-1.0) mg/dL Direct Bilirubin (0.1-0.5) mg/dL AST (10-42) IU/L ALT (10-60) IU/L Alkaline Phosphatase (42-121) IU/L Troponin I High Sens (2.3-14.8) ng/L Total Protein (6.7-8.2) g/dL Albumin (3.2-5.5) g/dL Globulin (2.1-4.2) g/dL 07/21/19 07/21/19 07/21/19 Range/Units 13:40 10:50 10:50 WBC (4.8-10.8) x10^3/uL RBC (4.20-5.40) 10^6/uL Hgb (12.0-16.0) g/dL Hct (37.0-47.0) % MCV (81.0-99.0) fL MCH (27.0-31.0) pg MCHC (32.0-36.0) g/dL RDW (12.0-15.0) % Plt Count (130-450) 10^3/uL MPV (7.9-10.8) fL Neut # (Auto) Lymph # (Auto) [place] # (Auto) Eos # (Auto) Baso # (Auto) Absolute Nucleated RBC Total Counted Band Neuts % (Manual) (0 - 10) % Abnorm Lymph % (Manual) % Metamyelocytes % ( - 0) % Myelocytes % ( - 0) % Nucleated RBC % Neutrophils # (Manual) (1.5-6.6) 10^3/uL Lymphocytes # (Manual) (1.5-3.5) 10^3/uL Monocytes # (Manual) (0.0-1.0) 10^3/uL Eosinophils # (Manual) (0-0.7) 10^3/uL Basophils # (Manual) (0-0.1) 10^3/uL Differential Comment Platelet Estimate (NORMAL) RBC Morph Micro Appear (NORMAL) Bld Gas Analysis Time Sample Site ABG pH (7.35-7.45) ABG pCO2 (34-45) mmHg ABG pO2 (80-100) mmHg ABG HCO3 (22.0-26.0) mmol/L ABG Total CO2 (21.0-29.0) MMOL/L ABG O2 Saturation (94-98) % ABG Base Excess (-2.0-3.0) mmol/L William Test Respiration Rate b/min O2 Delivery Device Vent Mode FiO2 Tidal Volume mL PEEP cmH2O Pressure Support Vent cmH2O Sodium (135-145) mmol/L Potassium (3.5-5.0) mmol/L Chloride (101-111) mmol/L Carbon Dioxide (21-32) mmol/L Anion Gap (6-13) BUN (6-20) mg/dL Creatinine (0.4-1.0) mg/dL Estimated GFR (MDRD) (>89) Glucose (70-100) mg/dL Lactic Acid 3.3 H* (0.5-2.2) mmol/L Calcium (8.5-10.3) mg/dL Phosphorus 3.0 (2.5-4.6) mg/dL Magnesium 2.1 (1.7-2.8) mg/dL Total Bilirubin (0.2-1.0) mg/dL Direct Bilirubin (0.1-0.5) mg/dL AST (10-42) IU/L ALT (10-60) IU/L Alkaline Phosphatase (42-121) IU/L Troponin I High Sens 232.6 H* (2.3-14.8) ng/L Total Protein (6.7-8.2) g/dL Albumin (3.2-5.5) g/dL Globulin (2.1-4.2) g/dL 07/21/19 Range/Units 08:30 WBC (4.8-10.8) x10^3/uL RBC (4.20-5.40) 10^6/uL Hgb (12.0-16.0) g/dL Hct (37.0-47.0) % MCV (81.0-99.0) fL MCH (27.0-31.0) pg MCHC (32.0-36.0) g/dL RDW (12.0-15.0) % Plt Count (130-450) 10^3/uL MPV (7.9-10.8) fL Neut # (Auto) Lymph # (Auto) [place] # (Auto) Eos # (Auto) Baso # (Auto) Absolute Nucleated RBC Total Counted Band Neuts % (Manual) (0 - 10) % Abnorm Lymph % (Manual) % Metamyelocytes % ( - 0) % Myelocytes % ( - 0) % Nucleated RBC % Neutrophils # (Manual) (1.5-6.6) 10^3/uL Lymphocytes # (Manual) (1.5-3.5) 10^3/uL Monocytes # (Manual) (0.0-1.0) 10^3/uL Eosinophils # (Manual) (0-0.7) 10^3/uL Basophils # (Manual) (0-0.1) 10^3/uL Differential Comment Platelet Estimate (NORMAL) RBC Morph Micro Appear (NORMAL) Bld Gas Analysis Time 0830 Sample Site RIGHT FEMORAL ABG pH 7.33 L (7.35-7.45) ABG pCO2 54 H (34-45) mmHg ABG pO2 81 (80-100) mmHg ABG HCO3 27.6 H (22.0-26.0) mmol/L ABG Total CO2 29.2 H (21.0-29.0) MMOL/L ABG O2 Saturation 96 (94-98) % ABG Base Excess 0.6 (-2.0-3.0) mmol/L William Test NOT APPLICABLE Respiration Rate 18 b/min O2 Delivery Device VENTILATOR Vent Mode SIMV FiO2 28.00 Tidal Volume 450 mL PEEP 5 cmH2O Pressure Support Vent 14 cmH2O Sodium (135-145) mmol/L Potassium (3.5-5.0) mmol/L Chloride (101-111) mmol/L Carbon Dioxide (21-32) mmol/L Anion Gap (6-13) BUN (6-20) mg/dL Creatinine (0.4-1.0) mg/dL Estimated GFR (MDRD) (>89) Glucose (70-100) mg/dL Lactic Acid (0.5-2.2) mmol/L Calcium (8.5-10.3) mg/dL Phosphorus (2.5-4.6) mg/dL Magnesium (1.7-2.8) mg/dL Total Bilirubin (0.2-1.0) mg/dL Direct Bilirubin (0.1-0.5) mg/dL AST (10-42) IU/L ALT (10-60) IU/L Alkaline Phosphatase (42-121) IU/L Troponin I High Sens (2.3-14.8) ng/L Total Protein (6.7-8.2) g/dL Albumin (3.2-5.5) g/dL Globulin (2.1-4.2) g/dL Sepsis Event Note (H) - Evaluation Current Stage of Sepsis: Septic shock Possible source of Sepsis: positive: GI tract/intra-abdominal - Sepsis Criteria Sepsis Criteria: Recorded Heart Rate greater than 90 bpm, Recorded Respiratory Rate greater than 20, WBC count greater than 10% bands, WBC count greater than 12,000 or less than 4000, SBP drop more than 40mHg, SBP less than 90 mmHg, Renal: urine output less than 0.5ml/kg/hr for 2 hours or creatinine gr, Metabolic: lactate > 2 mmol/L
--- NOTE | 2019-07-22 09:05 | PROVIDER PROGRESS NOTE ---
Subjective - Prog Note Date Prog Note Date: 07/22/19 - Subjective Subjective: She remains intubated and sedated on propofol and fentanyl. Her pressor requirements are decreasing but she remains on norepinephrine. Urine output remains low and her creatinine is rising. Current Medications - Current Medications Current Medications: Active Medications Albuterol () 2.5 mg INH RTQ4H PRN PRN Reason: Wheezing Last Admin: 07/22/19 07:17 Dose: 2.5 mg Chlorhexidine Gluconate (Peridex) 15 ml PO BID SONG Last Admin: 07/21/19 20:33 Dose: 15 ml Heparin Sodium (Porcine) () 5,000 unit SUBQ BID SONG Last Admin: 07/21/19 20:35 Dose: 5,000 unit Metronidazole (Flagyl 500 Mg/100 Ml) 500 mg in 100 mls @ 100 mls/hr IV Q8H SONG Last Infusion: 07/22/19 06:34 Dose: Infused Propofol (Diprivan) 100 mls @ 3.33 mls/hr IV .Q30H2M SONG; Protocol Last Titration: 07/22/19 07:09 Dose: 45 mcg/kg/min, 14.985 mls/hr Fentanyl 2,500 mcg/ Sodium (Chloride) 250 mls @ 5.55 mls/hr IV .Q45H3M SONG; Protocol Last Titration: 07/22/19 07:09 Dose: 2 mcg/kg/hr, 11.1 mls/hr Norepinephrine Bitartrate 8 mg (/ Dextrose) 250 mls @ 15 mls/hr IV .[id number] SONG; Protocol Last Titration: 07/22/19 06:59 Dose: 6 mcg/min, 11.25 mls/hr Cefepime HCl 2 gm/ Sodium (Chloride) 100 mls @ 200 mls/hr IV BID SONG Last Infusion: 07/21/19 21:01 Dose: Infused Thiamine HCl 100 mg/ Sodium (Chloride) 51 mls @ 100 mls/hr IV DAILY SONG Last Infusion: 07/21/19 10:05 Dose: Infused Sodium Chloride (Normal Saline 0.9%) 500 mls @ 20 mls/hr IV Q24H PRN PRN Reason: TKO RATE Last Infusion: 07/22/19 06:01 Dose: 20 mls/hr Dextrose/Sodium Chloride (D5ns) 1,000 mls @ 75 mls/hr IV .[id number] [facility] Ondansetron HCl (Zofran Inj) 4 mg IVP Q6HR PRN PRN Reason: Nausea / Vomiting Pantoprazole Sodium (Protonix) 40 mg IVP BID [facility] Last Admin: 07/21/19 20:32 Dose: 40 mg Sodium Chloride (Normal Saline Flush 0.9%) 10 ml IVP 0100,0900,1700 [facility] Last Admin: 07/22/19 01:29 Dose: 10 ml Sodium Chloride (Normal Saline Flush 0.9%) 10 ml IVP PRN PRN PRN Reason: NEEDED PER PROVIDER ORDERS Last Admin: 07/21/19 10:05 Dose: 10 ml Cyclobenzaprine [Flexeril] 10 mg PO TID PRN 11/19/16 Albuterol Sulf [Ventolin Hfa Inhaler] 1 - 2 puffs INH Q4HR PRN 03/13/19 Meclizine HCl [Motion Sickness Relief] 25 mg PO TID PRN 03/13/19 Pramipexole [Mirapex] 0.25 mg PO QPM 03/13/19 Sertraline [Zoloft] 50 mg PO DAILY 03/13/19 traZODone [Desyrel] 25 mg PO HS 03/13/19 Folic Acid 1 mg PO DAILY 07/21/19 Losartan Potassium 25 mg PO DAILY 07/21/19 Methotrexate 7.5 mg PO Q7D 07/21/19 Objective - Vital Signs/Intake & Output Reviewed Vital Signs: Yes Vital Signs: Vital Signs Pulse Pulse Resp BP BP Pulse Ox 07/22/19 08:00 92 16 101/72 98 07/22/19 07:17 85 07/22/19 07:00 85 20 100/61 99 07/22/19 06:14 86 07/22/19 06:00 89 20 99/73 98 07/22/19 05:35 90 20 07/22/19 05:31 87 20 07/22/19 05:30 87 20 102/71 07/22/19 05:29 87 20 07/22/19 05:25 89 20 07/22/19 05:20 88 20 07/22/19 05:15 87 20 07/22/19 05:10 89 20 07/22/19 05:05 88 20 Intake & Output: Intake & Output 01/23/20 01/24/20 01/25/20 01/26/20 23:59 23:59 23:59 23:59 Intake Total 4596.734 6112.856 1631.754 Output Total 515 558 275 Balance 4081.734 5554.856 1356.754 - Objective General Appearance: positive: Other (She is sedated.) Eyes Bilateral: positive: Normal inspection, Conjunctivae nml, Other (Pupils are constricted.) ENT: positive: Other Neck: positive: Nml inspection Respiratory: positive: No respiratory distress, Other (Lungs are clear to auscultation bilaterally.). negative: Wheezes, Rales Cardiovascular: positive: Regular rate & rhythm, No murmur. negative: Tachycardia, Bradycardia, Systolic murmur, Diastolic murmur Abdomen: positive: Abnml bowel sounds (Hypoactive bowel sounds.), Other (Unable assess for tenderness as she is sedated but she does not grimace when abdomen is palpated.). negative: Non-tender, No distention (Abdomen is distended.) Skin: positive: Other (Still appears pale but her color is improved.) Extremities: positive: Pedal edema (She does have about +1 pitting edema in her bilateral hands. No edema in her lower extremities), Other (Her upper extremities are no longer cool to touch but her lower extremities are cool to touch at her feet.) Neurologic/Psychiatric: positive: Other (She is sedated.) - Lab Results Fish Bones: 07/22/19 05:00 07/22/19 05:00 Other Labs: Lab Results x24hrs 07/22/19 07/22/19 07/22/19 Range/Units 08:45 05:00 05:00 WBC 6.4 (4.8-10.8) x10^3/uL RBC 3.60 L (4.20-5.40) 10^6/uL Hgb 11.5 L (12.0-16.0) g/dL Hct 36.3 L (37.0-47.0) % MCV 100.8 H (81.0-99.0) fL MCH 31.9 H (27.0-31.0) pg MCHC 31.7 L (32.0-36.0) g/dL RDW 14.6 (12.0-15.0) % Plt Count 243 (130-450) 10^3/uL MPV 10.1 (7.9-10.8) fL Neut # (Auto) Not Reportable Lymph # (Auto) Not Reportable [place] # (Auto) Not Reportable Eos # (Auto) Not Reportable Baso # (Auto) Not Reportable Absolute Nucleated RBC Not Reportable Total Counted 100 Band Neuts % (Manual) 23 H (0 - 10) % Abnorm Lymph % (Manual) 0 % Metamyelocytes % 1 H ( - 0) % Myelocytes % 1 H ( - 0) % Nucleated RBC % Not Reportable Neutrophils # (Manual) 5.6 (1.5-6.6) 10^3/uL Lymphocytes # (Manual) 0.6 L (1.5-3.5) 10^3/uL Monocytes # (Manual) 0.1 (0.0-1.0) 10^3/uL Eosinophils # (Manual) 0.0 (0-0.7) 10^3/uL Basophils # (Manual) 0.0 (0-0.1) 10^3/uL Differential Comment MANUAL DIFFERENTIAL Platelet Estimate NORMAL (130-450,000) (NORMAL) RBC Morph Micro Appear NORMAL APPEARANCE (NORMAL) Bld Gas Analysis Time 0845 Sample Site RIGHT RADIAL ABG pH 7.42 (7.35-7.45) ABG pCO2 35 (34-45) mmHg ABG pO2 67 L (80-100) mmHg ABG HCO3 22.1 (22.0-26.0) mmol/L ABG Total CO2 23.2 (21.0-29.0) MMOL/L ABG O2 Saturation 93 L (94-98) % ABG Base Excess -1.9 (-2.0-3.0) mmol/L William Test POSITIVE Respiration Rate 16 b/min O2 Delivery Device VENTILATOR Vent Mode SIMV FiO2 28.00 Tidal Volume 450 mL PEEP 5 cmH2O Pressure Support Vent 14 cmH2O Sodium 135 (135-145) mmol/L Potassium 4.0 (3.5-5.0) mmol/L Chloride 104 (101-111) mmol/L Carbon Dioxide 22 (21-32) mmol/L Anion Gap 9.0 (6-13) BUN 52 H (6-20) mg/dL Creatinine 2.1 H (0.4-1.0) mg/dL Estimated GFR (MDRD) 24 L (>89) Glucose 119 H (70-100) mg/dL Lactic Acid (0.5-2.2) mmol/L Calcium 8.0 L (8.5-10.3) mg/dL Phosphorus 2.9 (2.5-4.6) mg/dL Magnesium 2.0 (1.7-2.8) mg/dL Total Bilirubin 0.6 (0.2-1.0) mg/dL Direct Bilirubin 0.1 (0.1-0.5) mg/dL AST 20 (10-42) IU/L ALT 20 (10-60) IU/L Alkaline Phosphatase 36 L (42-121) IU/L Troponin I High Sens (2.3-14.8) ng/L Total Protein 4.6 L (6.7-8.2) g/dL Albumin 1.9 L (3.2-5.5) g/dL Globulin 2.7 (2.1-4.2) g/dL 07/21/19 07/21/19 07/21/19 Range/Units 19:57 13:40 13:40 WBC (4.8-10.8) x10^3/uL RBC (4.20-5.40) 10^6/uL Hgb (12.0-16.0) g/dL Hct (37.0-47.0) % MCV (81.0-99.0) fL MCH (27.0-31.0) pg MCHC (32.0-36.0) g/dL RDW (12.0-15.0) % Plt Count (130-450) 10^3/uL MPV (7.9-10.8) fL Neut # (Auto) Lymph # (Auto) [place] # (Auto) Eos # (Auto) Baso # (Auto) Absolute Nucleated RBC Total Counted Band Neuts % (Manual) (0 - 10) % Abnorm Lymph % (Manual) % Metamyelocytes % ( - 0) % Myelocytes % ( - 0) % Nucleated RBC % Neutrophils # (Manual) (1.5-6.6) 10^3/uL Lymphocytes # (Manual) (1.5-3.5) 10^3/uL Monocytes # (Manual) (0.0-1.0) 10^3/uL Eosinophils # (Manual) (0-0.7) 10^3/uL Basophils # (Manual) (0-0.1) 10^3/uL Differential Comment Platelet Estimate (NORMAL) RBC Morph Micro Appear (NORMAL) Bld Gas Analysis Time Sample Site ABG pH (7.35-7.45) ABG pCO2 (34-45) mmHg ABG pO2 (80-100) mmHg ABG HCO3 (22.0-26.0) mmol/L ABG Total CO2 (21.0-29.0) MMOL/L ABG O2 Saturation (94-98) % ABG Base Excess (-2.0-3.0) mmol/L William Test Respiration Rate b/min O2 Delivery Device Vent Mode FiO2 Tidal Volume mL PEEP cmH2O Pressure Support Vent cmH2O Sodium 137 (135-145) mmol/L Potassium 4.4 (3.5-5.0) mmol/L Chloride 101 (101-111) mmol/L Carbon Dioxide 25 (21-32) mmol/L Anion Gap 11.0 (6-13) BUN 45 H (6-20) mg/dL Creatinine 1.8 H (0.4-1.0) mg/dL Estimated GFR (MDRD) 29 L (>89) Glucose 152 H (70-100) mg/dL Lactic Acid 1.5 3.5 H* (0.5-2.2) mmol/L Calcium 7.9 L (8.5-10.3) mg/dL Phosphorus (2.5-4.6) mg/dL Magnesium (1.7-2.8) mg/dL Total Bilirubin (0.2-1.0) mg/dL Direct Bilirubin (0.1-0.5) mg/dL AST (10-42) IU/L ALT (10-60) IU/L Alkaline Phosphatase (42-121) IU/L Troponin I High Sens (2.3-14.8) ng/L Total Protein (6.7-8.2) g/dL Albumin (3.2-5.5) g/dL Globulin (2.1-4.2) g/dL 07/21/19 07/21/19 07/21/19 Range/Units 13:40 10:50 10:50 WBC (4.8-10.8) x10^3/uL RBC (4.20-5.40) 10^6/uL Hgb (12.0-16.0) g/dL Hct (37.0-47.0) % MCV (81.0-99.0) fL MCH (27.0-31.0) pg MCHC (32.0-36.0) g/dL RDW (12.0-15.0) % Plt Count (130-450) 10^3/uL MPV (7.9-10.8) fL Neut # (Auto) Lymph # (Auto) [place] # (Auto) Eos # (Auto) Baso # (Auto) Absolute Nucleated RBC Total Counted Band Neuts % (Manual) (0 - 10) % Abnorm Lymph % (Manual) % Metamyelocytes % ( - 0) % Myelocytes % ( - 0) % Nucleated RBC % Neutrophils # (Manual) (1.5-6.6) 10^3/uL Lymphocytes # (Manual) (1.5-3.5) 10^3/uL Monocytes # (Manual) (0.0-1.0) 10^3/uL Eosinophils # (Manual) (0-0.7) 10^3/uL Basophils # (Manual) (0-0.1) 10^3/uL Differential Comment Platelet Estimate (NORMAL) RBC Morph Micro Appear (NORMAL) Bld Gas Analysis Time Sample Site ABG pH (7.35-7.45) ABG pCO2 (34-45) mmHg ABG pO2 (80-100) mmHg ABG HCO3 (22.0-26.0) mmol/L ABG Total CO2 (21.0-29.0) MMOL/L ABG O2 Saturation (94-98) % ABG Base Excess (-2.0-3.0) mmol/L William Test Respiration Rate b/min O2 Delivery Device Vent Mode FiO2 Tidal Volume mL PEEP cmH2O Pressure Support Vent cmH2O Sodium (135-145) mmol/L Potassium (3.5-5.0) mmol/L Chloride (101-111) mmol/L Carbon Dioxide (21-32) mmol/L Anion Gap (6-13) BUN (6-20) mg/dL Creatinine (0.4-1.0) mg/dL Estimated GFR (MDRD) (>89) Glucose (70-100) mg/dL Lactic Acid 3.3 H* (0.5-2.2) mmol/L Calcium (8.5-10.3) mg/dL Phosphorus 3.0 (2.5-4.6) mg/dL Magnesium 2.1 (1.7-2.8) mg/dL Total Bilirubin (0.2-1.0) mg/dL Direct Bilirubin (0.1-0.5) mg/dL AST (10-42) IU/L ALT (10-60) IU/L Alkaline Phosphatase (42-121) IU/L Troponin I High Sens 232.6 H* (2.3-14.8) ng/L Total Protein (6.7-8.2) g/dL Albumin (3.2-5.5) g/dL Globulin (2.1-4.2) g/dL 07/21/19 Range/Units 08:30 WBC (4.8-10.8) x10^3/uL RBC (4.20-5.40) 10^6/uL Hgb (12.0-16.0) g/dL Hct (37.0-47.0) % MCV (81.0-99.0) fL MCH (27.0-31.0) pg MCHC (32.0-36.0) g/dL RDW (12.0-15.0) % Plt Count (130-450) 10^3/uL MPV (7.9-10.8) fL Neut # (Auto) Lymph # (Auto) [place] # (Auto) Eos # (Auto) Baso # (Auto) Absolute Nucleated RBC Total Counted Band Neuts % (Manual) (0 - 10) % Abnorm Lymph % (Manual) % Metamyelocytes % ( - 0) % Myelocytes % ( - 0) % Nucleated RBC % Neutrophils # (Manual) (1.5-6.6) 10^3/uL Lymphocytes # (Manual) (1.5-3.5) 10^3/uL Monocytes # (Manual) (0.0-1.0) 10^3/uL Eosinophils # (Manual) (0-0.7) 10^3/uL Basophils # (Manual) (0-0.1) 10^3/uL Differential Comment Platelet Estimate (NORMAL) RBC Morph Micro Appear (NORMAL) Bld Gas Analysis Time 0830 Sample Site RIGHT FEMORAL ABG pH 7.33 L (7.35-7.45) ABG pCO2 54 H (34-45) mmHg ABG pO2 81 (80-100) mmHg ABG HCO3 27.6 H (22.0-26.0) mmol/L ABG Total CO2 29.2 H (21.0-29.0) MMOL/L ABG O2 Saturation 96 (94-98) % ABG Base Excess 0.6 (-2.0-3.0) mmol/L William Test NOT APPLICABLE Respiration Rate 18 b/min O2 Delivery Device VENTILATOR Vent Mode SIMV FiO2 28.00 Tidal Volume 450 mL PEEP 5 cmH2O Pressure Support Vent 14 cmH2O Sodium (135-145) mmol/L Potassium (3.5-5.0) mmol/L Chloride (101-111) mmol/L Carbon Dioxide (21-32) mmol/L Anion Gap (6-13) BUN (6-20) mg/dL Creatinine (0.4-1.0) mg/dL Estimated GFR (MDRD) (>89) Glucose (70-100) mg/dL Lactic Acid (0.5-2.2) mmol/L Calcium (8.5-10.3) mg/dL Phosphorus (2.5-4.6) mg/dL Magnesium (1.7-2.8) mg/dL Total Bilirubin (0.2-1.0) mg/dL Direct Bilirubin (0.1-0.5) mg/dL AST (10-42) IU/L ALT (10-60) IU/L Alkaline Phosphatase (42-121) IU/L Troponin I High Sens (2.3-14.8) ng/L Total Protein (6.7-8.2) g/dL Albumin (3.2-5.5) g/dL Globulin (2.1-4.2) g/dL Sepsis Event Note (H) - Evaluation Current Stage of Sepsis: Septic shock Possible source of Sepsis: positive: GI tract/intra-abdominal - Sepsis Criteria Sepsis Criteria: Recorded Heart Rate greater than 90 bpm, Recorded Respiratory Rate greater than 20, WBC count greater than 10% bands, WBC count greater than 12,000 or less than 4000, SBP drop more than 40mHg, SBP less than 90 mmHg, Renal: urine output less than 0.5ml/kg/hr for 2 hours or creatinine gr, Metabolic: lactate > 2 mmol/L Assessment/Plan - Problem List (1) Septic shock Impression: She appears to be improving from a sepsis perspective. She remains on norepinephrine but her requirements are decreasing. Her white count is within normal limits but she continues to have elevated bands. At this moment, we will continue with cefepime and Flagyl IV and today will be day 3 of antibiotics. Blood cultures have been negative to date fortunately. Continue pressors as needed to maintain a mean arterial pressure greater than 65 mm Hg. Continue to trend her white count. (2) Perforated abdominal viscus Impression: Family has decided to hold off on surgical intervention at the moment until further family arrives from [place] this afternoon. At that point, they will discuss with her to proceed with medical management versus surgical management versus possibly comfort measures. She does remain a full code at the moment. We will continue with IV antibiotics and maintain her n.p.o. status. Continue Protonix IV twice daily. If family ultimately does decide to pursue with surgery, she will be a high risk for mortality. I did meet with the patient's family this afternoon which included her 3 children. They ultimately decided to pursue surgical intervention but they would like to make the patient a DNR. They understand she is critically ill and there is a high mortality risk even with surgical intervention but they would like to proceed. (3) Acute kidney injury Impression: He has oliguric acute kidney injury secondary to sepsis and the hypotension. There is likely a component of ATN given the hypotension. Her urine output remains low and her creatinine continues to rise but I am hopeful it will begin to plateau as her blood pressure has stabilized. At this point in time, there is no indication for renal replacement therapy. He will continue with IV hydration but decrease the rate as her upper extremities are becoming a little edematous. We will continue to monitor her urine output and renal function. (4) Demand ischemia Impression: Troponins were elevated in the 200s. Her echocardiogram revealed a preserved ejection fraction. This is likely demand ischemia given the sepsis. Her EKG was not suggestive of ischemia. (5) Metabolic acidosis Impression: This is improving and her lactic acidosis has resolved. We will continue with IV hydration as tolerated. (6) Severe protein-calorie malnutrition Impression: He does have severe protein calorie malnutrition and she will likely require TPN postoperatively if family decides to pursue with surgical intervention. Nutrition has been consulted. (7) COPD (chronic obstructive pulmonary disease) Impression: Stable and not in exacerbation at the moment. We will continue albuterol as needed. Family does decide to proceed with surgical intervention, she is at high risk for postop pulmonary complications including pneumonia, atelectasis, prolonged mechanical ventilatory support.
[2019-07-22] MEDS: CEFEPIME 2 GM in SODIUM CHLORIDE 0.9% MINIBAG 100 ML IV SCH ×2 (09:24→20:16)
[2019-07-22] MEDS: HEPARIN 5,000 UNIT/ML VIAL SUBQ SCH ×2 (09:31→20:53)
[2019-07-22] MEDS: PANTOPRAZOLE 40 MG VIAL IVP SCH ×2 (09:33→20:17)
[2019-07-22] MEDS: CHLORHEXIDINE GLUCONATE 15 ML UDC PO SCH ×2 (09:33→20:17)
[2019-07-22] MEDS: THIAMINE INJ 100 MG in SODIUM CHLORIDE 0.9% 50 ML IV SCH (10:20)
[2019-07-22] MEDS: SODIUM CHLORIDE 0.9% 500 ML IV PRN (19:39)
[2019-07-23] MEDS: DEXTROSE 5%-0.9% NACL 1,000 ML IV SCH (01:52)
[2019-07-23] MEDS: fentaNYL 2,500 MCG in SODIUM CHLORIDE 0.9% 200 ML IV SCH ×2 (03:07→17:47)
[2019-07-23 04:49] LABS: EOSINOPHILS % (AUTO) 0.1 %; LYMPHOCYTES % (AUTO) 4.5 %; MEAN CORPUSCULAR HEMOGLOBIN 32.1 pg (27.0-31.0); MEAN CORPUSCULAR HGB CONC 31.2 g/dL (32.0-36.0); MEAN CORPUSCULAR VOLUME 102.9 fL (81.0-99.0); MONOCYTES % (AUTO) 5.6 %; NEUTROPHILS % (AUTO) 88.9 %; PLT - PLATELET COUNT 235 10^3/uL (130-450); RED BLOOD COUNT 3.43 10^6/uL (4.20-5.40); RED CELL DISTRIBUTION WIDTH 15.3 % (12.0-15.0)
[2019-07-23 04:55] LABS: ABNORMAL LYMPHS % (MANUAL) 0 %
[2019-07-23] MEDS: SODIUM CHLORIDE FLUSH 0.9% 10 ML SYRINGE IVP SCH ×3 (04:56→17:40)
[2019-07-23 05:04] LABS: CALCIUM 8.3 mg/dL (8.5-10.3); CREATININE 1.6 mg/dL (0.4-1.0); MAGNESIUM 2.4 mg/dL (1.7-2.8); PHOSPHORUS 4.5 mg/dL (2.5-4.6)
[2019-07-23 05:13] LABS: BAND NEUTROPHILS % (MANUAL) 7 %; LYMPHOCYTES # (MANUAL) 0.3 10^3/uL (1.5-3.5); LYMPHOCYTES % (MANUAL) 4 %; MONOCYTES # (MANUAL) 0.4 10^3/uL (0.0-1.0)
[2019-07-23 05:16] LABS: PLATELET ESTIMATE, MANUAL NORMAL (130-450,000) (NORMAL); PLATELET MORPHOLOGY NORMAL APPEARANCE (NORMAL)
[2019-07-23 05:17] LABS: DIFFERENTIAL COMMENT MANUAL DIFFERENTIAL
[2019-07-23] MEDS: SODIUM CHLORIDE FLUSH 0.9% 10 ML SYRINGE IVP PRN (05:32)
[2019-07-23] MEDS: metroNIDAZOLE 500 MG/100 ML 500 MG/100 ML BAG IV SCH ×3 (05:44→23:35)
[2019-07-23] MEDS: PROPOFOL 1000 MG/100 ML 100 ML IV SCH ×3 (05:48→22:46)
--- NOTE | 2019-07-23 07:16 | PROVIDER PROGRESS NOTE ---
Subjective - Prog Note Date Prog Note Date: 07/23/19 Prog Note Time: 07:14 - Subjective Subjective: pt sedated on ventilator Objective - Vital Signs/Intake & Output Reviewed Vital Signs: Yes Vital Signs: Vital Signs Pulse Pulse Resp BP BP Pulse Ox 07/23/19 06:20 84 16 07/23/19 06:15 79 16 07/23/19 06:10 76 16 07/23/19 06:05 80 16 07/23/19 06:01 85 16 07/23/19 06:00 82 84 16 102/59 L 102/59 L 97 07/23/19 05:59 85 16 07/23/19 05:55 81 16 07/23/19 05:50 81 16 07/23/19 05:45 84 16 07/23/19 05:44 82 07/23/19 05:40 84 17 07/23/19 05:35 84 17 07/23/19 05:31 85 16 07/23/19 05:30 82 16 105/64 07/23/19 05:29 83 16 07/23/19 05:25 84 16 07/23/19 05:20 87 16 07/23/19 05:15 85 16 07/23/19 05:10 81 16 07/23/19 05:05 82 16 07/23/19 05:01 81 16 07/23/19 05:00 76 84 16 104/65 104/65 96 07/23/19 04:59 80 16 07/23/19 04:55 86 16 07/23/19 04:50 82 16 07/23/19 04:45 83 16 07/23/19 04:41 82 16 07/23/19 04:40 83 16 108/66 07/23/19 04:39 78 16 07/23/19 04:35 82 16 07/23/19 04:31 83 16 07/23/19 04:30 83 16 100/60 07/23/19 04:29 83 16 07/23/19 04:26 84 16 07/23/19 04:25 86 16 103/59 L 07/23/19 04:24 80 16 07/23/19 04:21 83 16 07/23/19 04:20 84 16 101/57 L 07/23/19 04:19 83 16 07/23/19 04:16 85 16 07/23/19 04:15 85 16 98/59 L 07/23/19 04:14 82 16 07/23/19 04:11 81 16 07/23/19 04:10 82 16 96/58 L 07/23/19 04:09 80 16 07/23/19 04:06 82 16 07/23/19 04:05 81 16 92/58 L 07/23/19 04:04 82 16 07/23/19 04:01 83 16 07/23/19 04:00 79 83 16 98/58 L 98/58 L 96 07/23/19 03:59 79 16 07/23/19 03:56 81 16 07/23/19 03:55 83 16 95/57 L 07/23/19 03:54 81 16 07/23/19 03:51 82 16 07/23/19 03:50 83 16 94/58 L 07/23/19 03:49 84 16 07/23/19 03:46 84 16 07/23/19 03:45 78 16 96/58 L 07/23/19 03:44 77 16 07/23/19 03:41 84 16 07/23/19 03:40 80 16 90/59 L 07/23/19 03:39 83 16 07/23/19 03:36 81 16 07/23/19 03:35 85 16 88/57 L 07/23/19 03:34 79 16 07/23/19 03:31 84 16 07/23/19 03:30 85 16 89/53 L 07/23/19 03:29 86 16 07/23/19 03:25 87 16 07/23/19 03:20 85 16 07/23/19 03:19 86 07/23/19 03:15 87 16 Intake & Output: Intake & Output 07/20/19 07/21/19 07/22/19 07/23/19 23:59 23:59 23:59 23:59 Intake Total 4596.734 6112.856 3964.971 904.116 Output Total 191 993 7221 505 Balance 4081.734 5554.856 2499.971 399.116 - Objective General Appearance: positive: No acute distress, Other (sedated on ventilator but appears comfortable) Eyes Bilateral: positive: Normal inspection, No scleral icterus ENT: positive: Other (intubated, difficult to inspect) Neck: positive: Nml inspection, No JVD, Trachea midline Respiratory: positive: No respiratory distress, Rhonchi (faint rhonchi bilat anteriorly). negative: Wheezes, Rales Cardiovascular: positive: Regular rate & rhythm, No murmur, No gallop Abdomen: positive: No distention (no longer appears distended), Tenderness (unable to assess due to sedation but appears soft without rigidity or involuntary guarding), Abnml bowel sounds (absent). negative: Hepatomegaly, Splenomegaly, Mass Skin: positive: Warm (feet are now warm and less cyanotic; no skin necrosis evident on toes) Extremities: positive: Pedal edema (mild). negative: Calf tenderness Neurologic/Psychiatric: positive: Other (sedated on ventilator) - Lab Results Fish Bones: 07/23/19 04:40 07/23/19 04:40 Other Labs: Lab Results x24hrs 07/23/19 07/23/19 07/22/19 Range/Units 04:40 04:40 08:45 WBC 8.0 (4.8-10.8) x10^3/uL RBC 3.43 L (4.20-5.40) 10^6/uL Hgb 11.0 L (12.0-16.0) g/dL Hct 35.3 L (37.0-47.0) % MCV 102.9 H (81.0-99.0) fL MCH 32.1 H (27.0-31.0) pg MCHC 31.2 L (32.0-36.0) g/dL RDW 15.3 H (12.0-15.0) % Plt Count 235 (130-450) 10^3/uL MPV 10.0 (7.9-10.8) fL Neut # (Auto) Not Reportable Lymph # (Auto) Not Reportable [place] # (Auto) Not Reportable Eos # (Auto) Not Reportable Baso # (Auto) Not Reportable Absolute Nucleated RBC Not Reportable Total Counted 100 Band Neuts % (Manual) 7 (0 - 10) % Abnorm Lymph % (Manual) 0 % Nucleated RBC % Not Reportable Neutrophils # (Manual) 7.3 H (1.5-6.6) 10^3/uL Lymphocytes # (Manual) 0.3 L (1.5-3.5) 10^3/uL Monocytes # (Manual) 0.4 (0.0-1.0) 10^3/uL Eosinophils # (Manual) 0.0 (0-0.7) 10^3/uL Basophils # (Manual) 0.0 (0-0.1) 10^3/uL Differential Comment MANUAL DIFFERENTIAL WBC Morphology NORMAL APPEARANCE (NORMAL) Platelet Estimate NORMAL (130-450,000) (NORMAL) Platelet Morphology NORMAL APPEARANCE (NORMAL) RBC Morph Micro Appear 2+ MACROCYTOSIS (NORMAL) Bld Gas Analysis Time 0845 Sample Site RIGHT RADIAL ABG pH 7.42 (7.35-7.45) ABG pCO2 35 (34-45) mmHg ABG pO2 67 L (80-100) mmHg ABG HCO3 22.1 (22.0-26.0) mmol/L ABG Total CO2 23.2 (21.0-29.0) MMOL/L ABG O2 Saturation 93 L (94-98) % ABG Base Excess -1.9 (-2.0-3.0) mmol/L William Test POSITIVE Respiration Rate 16 b/min O2 Delivery Device VENTILATOR Vent Mode SIMV FiO2 28.00 Tidal Volume 450 mL PEEP 5 cmH2O Pressure Support Vent 14 cmH2O Sodium 141 (135-145) mmol/L Potassium 4.1 (3.5-5.0) mmol/L Chloride 111 (101-111) mmol/L Carbon Dioxide 23 (21-32) mmol/L Anion Gap 7.0 (6-13) BUN 48 H (6-20) mg/dL Creatinine 1.6 H (0.4-1.0) mg/dL Estimated GFR (MDRD) 33 L (>89) Glucose 114 H (70-100) mg/dL Calcium 8.3 L (8.5-10.3) mg/dL Phosphorus 4.5 (2.5-4.6) mg/dL Magnesium 2.4 (1.7-2.8) mg/dL - Other Results/Comments Other Results/Comments: on NE drip at 8 mcg/kg/min Sepsis Event Note (H) - Evaluation Current Stage of Sepsis: Septic shock Possible source of Sepsis: positive: GI tract/intra-abdominal - Sepsis Criteria Sepsis Criteria: Recorded Heart Rate greater than 90 bpm, Recorded Respiratory Rate greater than 20, WBC count greater than 10% bands, WBC count greater than 12,000 or less than 4000, SBP drop more than 40mHg, SBP less than 90 mmHg, Renal: urine output less than 0.5ml/kg/hr for 2 hours or creatinine gr, Metabolic: lactate > 2 mmol/L Assessment/Plan - Problem List (1) Septic shock Impression: Improved overall. Renal function, cardiopulmonary function improved or stable. Appears euvolemic. Plan: to OR for ex lap this am. Discussed again with family significant risk involved and they wish to proceed. (2) Perforated abdominal viscus Impression: clinically stable/improving with agressive medical management. Plan: to OR this am for ex lap and definitive surgical treatment including poss ostomy. Family aware of high risk and wish her to proceed.
[2019-07-23] MEDS ORDERED: LACTATED RINGERS 1,000 ML IV ONE ×2 (08:18)
--- NOTE | 2019-07-23 08:32 | PROVIDER PROGRESS NOTE ---
Subjective - Prog Note Date Prog Note Date: 07/23/19 - Subjective Subjective: She remains intubated and sedated on fentanyl. She remains on norepinephrine which has been relatively stable over the past 24 hours. Her urine output has slowly increased and her creatinine is decreasing. Discussed extensively with the family yesterday regarding goals of care and family has decided to proceed with surgical intervention but would like to make her a DNR. Current Medications - Current Medications Current Medications: Active Medications Albuterol () 2.5 mg INH RTQ4H PRN PRN Reason: Wheezing Last Admin: 07/22/19 18:12 Dose: 2.5 mg Chlorhexidine Gluconate (Peridex) 15 ml PO BID SONG Last Admin: 07/22/19 20:17 Dose: 15 ml Heparin Sodium (Porcine) () 5,000 unit SUBQ BID SONG Last Admin: 07/22/19 20:53 Dose: 5,000 unit Metronidazole (Flagyl 500 Mg/100 Ml) 500 mg in 100 mls @ 100 mls/hr IV Q8H SONG Last Admin: 07/23/19 05:44 Dose: 100 mls/hr Propofol (Diprivan) 100 mls @ 3.33 mls/hr IV .Q30H2M SONG; Protocol Last Titration: 07/23/19 06:04 Dose: 35 mcg/kg/min, 11.655 mls/hr Fentanyl 2,500 mcg/ Sodium (Chloride) 250 mls @ 5.55 mls/hr IV .Q45H3M SONG; Protocol Last Titration: 07/23/19 06:04 Dose: 2 mcg/kg/hr, 11.1 mls/hr Norepinephrine Bitartrate 8 mg (/ Dextrose) 250 mls @ 15 mls/hr IV .[id number] SONG; Protocol Last Titration: 07/23/19 06:04 Dose: 8 mcg/min, 15 mls/hr Cefepime HCl 2 gm/ Sodium (Chloride) 100 mls @ 200 mls/hr IV BID SONG Last Infusion: 07/22/19 20:53 Dose: Infused Thiamine HCl 100 mg/ Sodium (Chloride) 51 mls @ 100 mls/hr IV DAILY [facility] Last Infusion: 07/22/19 10:51 Dose: Infused Sodium Chloride (Normal Saline 0.9%) 500 mls @ 20 mls/hr IV Q24H PRN PRN Reason: TKO RATE Last Infusion: 07/23/19 06:04 Dose: 20 mls/hr Dextrose/Sodium Chloride (D5ns) 1,000 mls @ 75 mls/hr IV .[id number] [facility] Last Infusion: 07/23/19 06:04 Dose: 75 mls/hr Ondansetron HCl (Zofran Inj) 4 mg IVP Q6HR PRN PRN Reason: Nausea / Vomiting Pantoprazole Sodium (Protonix) 40 mg IVP BID [facility] Last Admin: 07/22/19 20:17 Dose: 40 mg Sodium Chloride (Normal Saline Flush 0.9%) 10 ml IVP 0100,0900,1700 [facility] Last Admin: 07/23/19 04:56 Dose: 10 ml Sodium Chloride (Normal Saline Flush 0.9%) 10 ml IVP PRN PRN PRN Reason: NEEDED PER PROVIDER ORDERS Last Admin: 07/23/19 05:32 Dose: 10 ml Cyclobenzaprine [Flexeril] 10 mg PO TID PRN 11/19/16 Albuterol Sulf [Ventolin Hfa Inhaler] 1 - 2 puffs INH Q4HR PRN 03/13/19 Meclizine HCl [Motion Sickness Relief] 25 mg PO TID PRN 03/13/19 Pramipexole [Mirapex] 0.25 mg PO QPM 03/13/19 Sertraline [Zoloft] 50 mg PO DAILY 03/13/19 traZODone [Desyrel] 25 mg PO HS 03/13/19 Folic Acid 1 mg PO DAILY 07/21/19 Losartan Potassium 25 mg PO DAILY 07/21/19 Methotrexate 7.5 mg PO Q7D 07/21/19 Objective - Vital Signs/Intake & Output Reviewed Vital Signs: Yes Vital Signs: Vital Signs x48h Temp Pulse Pulse Resp BP BP Pulse Ox 07/23/19 07:00 37.6 C H 78 16 105/62 98 07/23/19 06:20 84 16 07/23/19 06:15 79 16 07/23/19 06:10 76 16 07/23/19 06:05 80 16 07/23/19 06:01 85 16 07/23/19 06:00 82 84 16 102/59 L 102/59 L 97 07/23/19 05:59 85 16 07/23/19 05:55 81 16 07/23/19 05:50 81 16 07/23/19 05:45 84 16 07/23/19 05:44 82 07/23/19 05:40 84 17 07/23/19 05:35 84 17 07/23/19 05:31 85 16 07/23/19 05:30 82 16 105/64 07/23/19 05:29 83 16 07/23/19 05:25 84 16 07/23/19 05:20 87 16 07/23/19 05:15 85 16 07/23/19 05:10 81 16 07/23/19 05:05 82 16 07/23/19 05:01 81 16 07/23/19 05:00 76 84 16 104/65 104/65 96 07/23/19 04:59 80 16 07/23/19 04:55 86 16 07/23/19 04:50 82 16 07/23/19 04:45 83 16 07/23/19 04:41 82 16 07/23/19 04:40 83 16 108/66 07/23/19 04:39 78 16 07/23/19 04:35 82 16 07/23/19 04:31 83 16 07/23/19 04:30 83 16 100/60 07/23/19 04:29 83 16 07/23/19 04:26 84 16 07/23/19 04:25 86 16 103/59 L 07/23/19 04:24 80 16 07/23/19 04:21 83 16 07/23/19 04:20 84 16 101/57 L 07/23/19 04:19 83 16 07/23/19 04:16 85 16 07/23/19 04:15 85 16 98/59 L 07/23/19 04:14 82 16 07/23/19 04:11 81 16 07/23/19 04:10 82 16 96/58 L 07/23/19 04:09 80 16 07/23/19 04:06 82 16 07/23/19 04:05 81 16 92/58 L 07/23/19 04:04 82 16 07/23/19 04:01 83 16 07/23/19 04:00 79 83 16 98/58 L 98/58 L 96 07/23/19 03:59 79 16 07/23/19 03:56 81 16 07/23/19 03:55 83 16 95/57 L 07/23/19 03:54 81 16 07/23/19 03:51 82 16 07/23/19 03:50 83 16 94/58 L 07/23/19 03:49 84 16 07/23/19 03:46 84 16 07/23/19 03:45 78 16 96/58 L 07/23/19 03:44 77 16 07/23/19 03:41 84 16 07/23/19 03:40 80 16 90/59 L 07/23/19 03:39 83 16 07/23/19 03:36 81 16 07/23/19 03:35 85 16 88/57 L 07/23/19 03:34 79 16 07/23/19 03:31 84 16 07/23/19 03:30 85 16 89/53 L 07/23/19 03:29 86 16 07/23/19 03:25 87 16 07/23/19 03:20 85 16 07/23/19 03:19 86 07/23/19 03:15 87 16 07/23/19 03:10 85 16 07/23/19 03:05 85 16 07/23/19 03:01 90 16 07/23/19 03:00 36.3 C L 88 88 16 94/60 94/60 95 07/23/19 02:00 89 16 102/59 L 93 07/23/19 01:07 94 07/23/19 01:00 91 16 101/57 L 92 Intake & Output: Intake & Output 07/20/19 07/21/19 07/22/19 07/23/19 23:59 23:59 23:59 23:59 Intake Total 4596.734 6112.856 3964.971 934.116 Output Total 054 816 7883 530 Balance 4081.734 5554.856 2499.971 404.116 - Objective General Appearance: positive: No acute distress, Other (She is sedated and appears comfortable on the ventilator.) Eyes Bilateral: positive: Normal inspection, Conjunctivae nml, Other (Pupils are constricted.) ENT: positive: ENT inspection nml, Other (ET tube in place.) Neck: positive: Nml inspection Respiratory: positive: No respiratory distress. negative: Wheezes, Rales, Rhonchi Cardiovascular: positive: Regular rate & rhythm, No murmur. negative: Tachycardia, Bradycardia, Systolic murmur, Diastolic murmur Abdomen: positive: Other (Her abdomen is distended with hypoactive bowel sounds. She does not grimace to palpation.). negative: No distention, Guarding, Rebound Skin: positive: No rash, Warm, Dry Extremities: positive: No pedal edema, Other (Her extremities are warm to touch even her feet which is new compared to yesterday. Her overall color appears much improved and there is less pallor.) Neurologic/Psychiatric: positive: Other (Sedated on the ventilator.) - Lab Results Fish Bones: 07/23/19 04:40 07/23/19 04:40 Other Labs: Lab Results x24hrs 07/23/19 07/23/19 07/22/19 Range/Units 04:40 04:40 08:45 WBC 8.0 (4.8-10.8) x10^3/uL RBC 3.43 L (4.20-5.40) 10^6/uL Hgb 11.0 L (12.0-16.0) g/dL Hct 35.3 L (37.0-47.0) % MCV 102.9 H (81.0-99.0) fL MCH 32.1 H (27.0-31.0) pg MCHC 31.2 L (32.0-36.0) g/dL RDW 15.3 H (12.0-15.0) % Plt Count 235 (130-450) 10^3/uL MPV 10.0 (7.9-10.8) fL Neut # (Auto) Not Reportable Lymph # (Auto) Not Reportable [place] # (Auto) Not Reportable Eos # (Auto) Not Reportable Baso # (Auto) Not Reportable Absolute Nucleated RBC Not Reportable Total Counted 100 Band Neuts % (Manual) 7 (0 - 10) % Abnorm Lymph % (Manual) 0 % Nucleated RBC % Not Reportable Neutrophils # (Manual) 7.3 H (1.5-6.6) 10^3/uL Lymphocytes # (Manual) 0.3 L (1.5-3.5) 10^3/uL Monocytes # (Manual) 0.4 (0.0-1.0) 10^3/uL Eosinophils # (Manual) 0.0 (0-0.7) 10^3/uL Basophils # (Manual) 0.0 (0-0.1) 10^3/uL Differential Comment MANUAL DIFFERENTIAL WBC Morphology NORMAL APPEARANCE (NORMAL) Platelet Estimate NORMAL (130-450,000) (NORMAL) Platelet Morphology NORMAL APPEARANCE (NORMAL) RBC Morph Micro Appear 2+ MACROCYTOSIS (NORMAL) Bld Gas Analysis Time 0845 Sample Site RIGHT RADIAL ABG pH 7.42 (7.35-7.45) ABG pCO2 35 (34-45) mmHg ABG pO2 67 L (80-100) mmHg ABG HCO3 22.1 (22.0-26.0) mmol/L ABG Total CO2 23.2 (21.0-29.0) MMOL/L ABG O2 Saturation 93 L (94-98) % ABG Base Excess -1.9 (-2.0-3.0) mmol/L William Test POSITIVE Respiration Rate 16 b/min O2 Delivery Device VENTILATOR Vent Mode SIMV FiO2 28.00 Tidal Volume 450 mL PEEP 5 cmH2O Pressure Support Vent 14 cmH2O Sodium 141 (135-145) mmol/L Potassium 4.1 (3.5-5.0) mmol/L Chloride 111 (101-111) mmol/L Carbon Dioxide 23 (21-32) mmol/L Anion Gap 7.0 (6-13) BUN 48 H (6-20) mg/dL Creatinine 1.6 H (0.4-1.0) mg/dL Estimated GFR (MDRD) 33 L (>89) Glucose 114 H (70-100) mg/dL Calcium 8.3 L (8.5-10.3) mg/dL Phosphorus 4.5 (2.5-4.6) mg/dL Magnesium 2.4 (1.7-2.8) mg/dL ABX Reporting Has patient been on IV antibiotics over the past 48 hours?: Yes Sepsis Event Note (H) - Evaluation Current Stage of Sepsis: Septic shock Possible source of Sepsis: positive: GI tract/intra-abdominal - Sepsis Criteria Sepsis Criteria: Recorded Heart Rate greater than 90 bpm, Recorded Respiratory Rate greater than 20, WBC count greater than 10% bands, WBC count greater than 12,000 or less than 4000, SBP drop more than 40mHg, SBP less than 90 mmHg, Renal: urine output less than 0.5ml/kg/hr for 2 hours or creatinine gr, Metabolic: lactate > 2 mmol/L Assessment/Plan - Problem List (1) Septic shock Impression: Secondary to perforated viscus. She has been relatively stable over the past 24 hours and remains on norepinephrine although we have been unable to titrate it off her requirements are not increasing. Remains on cefepime and Flagyl IV with today being day 4. Cultures have been negative to date. We will continue pressors to maintain a goal mean arterial pressure greater than 65 mmHg. (2) Perforated abdominal viscus Impression: Suspected this is likely a perforated gastric ulcer secondary to her NSAID use or perforated diverticula. She will be going to the OR today for intervention after discussion with the family. They understand she is a high mortality risk. She will likely be more ill immediately postoperatively and may have an increase in her pressor requirements. We will continue IV antibiotics and Protonix IV. She will remain n.p.o. postoperatively and we will likely need to initiate TPN. (3) Acute kidney injury Impression: Urine output is increasing and her creatinine has decreased. Her acute kidney injury is likely a combination of prerenal and ATN given the hypotension. We will continue with gentle IV hydration and monitor her renal function and urine output. She is still at risk for acute kidney injury postoperatively. (4) Demand ischemia Impression: Opponents peaked at 200s and her EKG without ischemic changes. Her echocardiogram did not reveal any motion wall motion abnormalities. (5) Metabolic acidosis Impression: This has resolved. Her acidosis is stable lactic acid is now within normal limits. We will need to monitor her acid-base status postoperatively closely as she will be at risk for metabolic derangements. (6) Severe protein-calorie malnutrition Impression: Nutrition has been consulted and we will likely initiate TPN postoperatively. (7) COPD (chronic obstructive pulmonary disease) Impression: Stable at the moment but she is at risk for postoperative complications given the abdominal surgery and her moderate to severe COPD.
--- NOTE | 2019-07-23 09:56 | OPERATIVE REPORT ---
Operative Report - General Admit Date: 07/20/19 Procedure Date: 07/23/19 Planned Procedure: Exploratory laparotomy Pre-Op Diagnosis: Peritonitis due to perforated hollow viscus Procedure Performed: Exploratory laparotomy, excision and closure of perforated gastric ulcer, lysis of adhesions, irrigation and debridement of abdominal cavity; drainage of intraabdominal lesser sac abscess Post Op Diagnosis: Perforated gastric ulcer with retrogastric abscess and generalized peritoni - Procedure Note Primary Surgeon: Spencer Diggs MD Anesthesia Provider: Almas Khan CRNA Anesthesia Technique: General ET tube Pathology: gastric ulcer IV Fluids (mL): 1,000 Estimated Blood Loss (mL): 25 Urine Output (mL): 300 Drain/Tube Type: Mati drain (lesser sac) Findings: perforated gastric ulcer on greater curve with lesser sac abscess and generalized peritonitis. Complications: none
[2019-07-23] MEDS: CHLORHEXIDINE GLUCONATE 15 ML UDC PO SCH ×2 (10:35→21:08)
[2019-07-23] MEDS: CEFEPIME 2 GM in SODIUM CHLORIDE 0.9% MINIBAG 100 ML IV SCH ×2 (10:37→21:08)
[2019-07-23] MEDS: PANTOPRAZOLE 40 MG VIAL IVP SCH ×2 (10:42→21:08)
[2019-07-23] MEDS: HEPARIN 5,000 UNIT/ML VIAL SUBQ SCH ×2 (10:49→21:14)
[2019-07-23] MEDS ORDERED: NEOSTIGMINE 1 MG/1 ML 10 ML MDV IVP ONE (11:49)
[2019-07-23] MEDS ORDERED: fentaNYL 100 MCG/2 ML VIAL IVP ONE ×2 (11:49→18:20)
[2019-07-23] MEDS ORDERED: MIDAZOLAM 2 MG/2 ML VIAL IVP ONE (11:49)
[2019-07-23] MEDS ORDERED: PROPOFOL 200 MG/20 ML VIAL IVP ONE ×2 (11:49→18:20)
[2019-07-23] MEDS ORDERED: DEXAMETHASONE 4 MG/ML VIAL IVP ONE ×2 (11:49→18:20)
[2019-07-23] MEDS ORDERED: ROCURONIUM 50 MG/5 ML VIAL IVP ONE ×2 (11:49→18:20)
[2019-07-23] MEDS ORDERED: GLYCOPYRROLATE 1 MG/5 ML VIAL IVP ONE (11:49)
[2019-07-23] MEDS ORDERED: KETOROLAC 30 MG/ML VIAL IVP ONE (11:49)
[2019-07-23] MEDS ORDERED: LIDOCAINE-MPF 2% 5 ML VIAL IM ONE (11:49)
[2019-07-23] MEDS ORDERED: ONDANSETRON 4 MG/2 ML VIAL IVP ONE (11:49)
[2019-07-23] MEDS: THIAMINE INJ 100 MG in SODIUM CHLORIDE 0.9% 50 ML IV SCH (11:59)
[2019-07-23] MEDS: ALBUTEROL NEB 2.5 MG/3 ML INH PRN (16:15)
[2019-07-23] MEDS: DEXTROSE 5%-LACTATED RINGERS 1,000 ML IV SCH (17:39)
--- NOTE | 2019-07-23 19:30 | OPERATIVE REPORT ---
DATE OF SERVICE: 07/23/2019 Physician: Spencer Diggs MD PREOPERATIVE DIAGNOSIS: Generalized peritonitis due to perforated hollow viscus. POSTOPERATIVE DIAGNOSIS: Perforated gastric ulcer with lesser sac abscess and generalized peritonitis. PROCEDURE PERFORMED 1. Exploratory laparotomy. 2. Excision and closure of perforated gastric ulcer. 3. Lysis of adhesions. 4. Irrigation and debridement of the abdominal cavity. 5. Drainage of lesser sac abscess. ANESTHESIA: General endotracheal by Almas Khan CRNA. SURGEON: Spencer Diggs MD ESTIMATED BLOOD LOSS: 25 mL COMPLICATIONS: None. FINDINGS: Extensive intra-abdominal adhesions are present for multiple prior abdominal surgeries. Fibrinopurulent peritonitis was present with approximately 500 mL of green, watery and odorless peritoneal fluid. Gram stain of which revealed white cells, but no bacteria. Exploration revealed a 5 mm perforation of the stomach along the mid greater curvature that appeared punched out in nature. This was associated with an abscess in the lesser sac and with necrotic gastrocolic ligament adjacent to the perforation. The small and large bowel appeared edematous, but otherwise viable, as was the liver and spleen and pancreas to inspection and palpation. Extensive intraabdominal adhesions limited the extent of the exploration, particularly in the lower abdominal cavity. INDICATIONS: Patient is a 63-year-old woman who presented approximately 72 hours ago with an acute surgical abdomen in the setting of severe chronic alcoholism, tobacco abuse, COPD, malnutrition and failure to thrive. Attempts were made to transfer her to a higher level of care, but no beds were available. After resuscitating her with fluids and antibiotics, she was taken to the operating room where following induction of anesthesia, a cardiac arrest occurred requiring aborting the procedure and transferring her to the ICU where she was further resuscitated and stabilized. Family members spent the next 48 hours deciding whether patient should be placed on comfort care or another attempt at surgery should be carried out. During that period of time, she was maintained on pressor support, ventilator support and appeared to show some overall improvement and last night, patient's family made a decision to have us attempt once again to perform an exploratory procedure. This morning, patient's condition was felt to be stable enough to permit same. TECHNIQUE: After informed consent from patient's family, patient was taken to the operating room where she was placed under general anesthesia. Her abdomen was prepared with ChloraPrep solution and draped in the usual sterile fashion. Nasogastric and Fiore catheter, sequential calf compression boots were already in place. The patient's prior midline incision was reopened. A midline incision was made beginning in the subxiphoid region and extending just below the umbilicus. Hemostasis achieved with electrocautery 2-0 3-0 silk suture ligatures. The incision was carried down through the layers of the abdominal wall until the peritoneum was identified and entered sharply. Extensive adhesions were encountered to the anterior abdominal wall included from the small bowel to the anterior abdominal wall and from the lateral segment of the left lobe of the liver, which was densely adherent as well. In the course of entering the peritoneal cavity and lysing the adhesions, a deserosalization occurred in a loop of small bowel that was densely adherent. This was freed up completely and then repaired with several 3-0 silk seromuscular Lembert sutures. Similarly, the lateral segment of the liver was densely adherent to the anterior abdominal wall and the capsule of which was partially incised over a 1 cm length during the course of the exploration. Bleeding from this was mild and was treated with electrocautery and Surgicel which provided hemostasis. Abdominal exploration was then carried out with findings noted above. Peritoneal fluid was evacuated. The ulcer was identified and margins of the ulcer were completely excised with a 15 blade and the tissue sent for pathologic evaluation. Hemostasis using electrocautery. A 2 layer closure was then performed using a full-thickness inner layer of 3-0 Vicryl, followed by interrupted 3-0 silk seromuscular Lembert sutures for the outer layer, followed by a patch of omentum that was secured to the suture line with 3-0 silk sutures. The retrogastric space along with the remaining abdominal cavity was copiously irrigated with 4 liters of saline solution, and gross fibrinopurulent exudates were removed. After hemostasis was assured, a 19-Japanese Mati drain was placed in the lesser sac and made to exit a stab wound in the left upper quadrant. It was secured in place with a 3-0 nylon suture and connected to bulb suction. The incision was then closed in layers using continuous 0 Vicryl to reapproximate the midline fascia, care being taken to avoid injury to underlying organs. The skin was left open, but loosely approximated in several places with skin claire. Wet to dry dressings were applied. Anesthesia was terminated and patient was transferred to the ICU in critical, but stable condition. Sponge, needle and instrument counts were correct x 2. TD: 07/23/2019 17:08 ANA
[2019-07-24 05:11] LABS: BASOPHILS # (AUTO) 0.1 10^3/uL (0.0-0.1); BASOPHILS % (AUTO) 0.6 %; HGB - HEMOGLOBIN 9.8 g/dL (12.0-16.0); LYMPHOCYTES # (AUTO) 0.4 10^3/uL (1.5-3.5); LYMPHOCYTES % (AUTO) 4.6 %; MEAN CORPUSCULAR HEMOGLOBIN 32.7 pg (27.0-31.0); MEAN CORPUSCULAR HGB CONC 32.2 g/dL (32.0-36.0); MEAN CORPUSCULAR VOLUME 101.3 fL (81.0-99.0); MEAN PLATELET VOLUME 10.1 fL (7.9-10.8); MONOCYTES # (AUTO) 0.8 10^3/uL (0.0-1.0); MONOCYTES % (AUTO) 9.2 %; NEUTROPHILS # (AUTO) 7.4 10^3/uL (1.5-6.6); NEUTROPHILS % (AUTO) 83.6 %; PLT - PLATELET COUNT 202 10^3/uL (130-450); RED CELL DISTRIBUTION WIDTH 15.5 % (12.0-15.0); WHITE BLOOD COUNT 8.8 x10^3/uL (4.8-10.8)
[2019-07-24 05:22] LABS: CALCIUM 8.3 mg/dL (8.5-10.3); CREATININE 1.1 mg/dL (0.4-1.0); MAGNESIUM 2.1 mg/dL (1.7-2.8); PHOSPHORUS 2.7 mg/dL (2.5-4.6)
[2019-07-24 05:43] LABS: PLATELET ESTIMATE, MANUAL NORMAL (130-450,000) (NORMAL); RBC MORPHOLOGY (MULTIPLE) NORMAL APPEARANCE (NORMAL)
[2019-07-24 05:44] LABS: DIFFERENTIAL COMMENT MANUAL=AUTO DIFF
[2019-07-24 06:38] LABS: ABG BASE EXCESS -2.8 mmol/L (-2.0-3.0); ABG HCO3 23.1 mmol/L (22.0-26.0); ABG PCO2 45 mmHg (34-45); ABG PH 7.33 (7.35-7.45); ABG PO2 83 mmHg (80-100); ABG TCO2 24.5 MMOL/L (21.0-29.0)
[2019-07-24 06:39] LABS: ABG FRACTION OF INSPIRED O2 0.28; ABG OXYGEN SATURATION 96 % (94-98)
[2019-07-24] MEDS: metroNIDAZOLE 500 MG/100 ML 500 MG/100 ML BAG IV SCH ×3 (06:48→22:55)
[2019-07-24] MEDS: DEXTROSE 5%-LACTATED RINGERS 1,000 ML IV SCH ×2 (06:50→20:36)
[2019-07-24] MEDS: PROPOFOL 1000 MG/100 ML 100 ML IV SCH ×3 (06:52→18:42)
[2019-07-24] MEDS ORDERED: DEXTROSE 5%-LACTATED RINGERS 1,000 ML IV SCH (07:37)
[2019-07-24] MEDS ORDERED: MIDAZOLAM 2 MG/2 ML VIAL IVP ONE (08:23)
[2019-07-24] MEDS ORDERED: ROCURONIUM 50 MG/5 ML VIAL IVP ONE (08:23)
[2019-07-24] MEDS: CEFEPIME 2 GM in SODIUM CHLORIDE 0.9% MINIBAG 100 ML IV SCH ×2 (08:23→21:10)
[2019-07-24] MEDS: SODIUM CHLORIDE FLUSH 0.9% 10 ML SYRINGE IVP SCH ×3 (08:23→16:11)
[2019-07-24] MEDS ORDERED: DEXAMETHASONE 4 MG/ML VIAL IVP ONE (08:23)
[2019-07-24] MEDS: CHLORHEXIDINE GLUCONATE 15 ML UDC PO SCH ×2 (08:23→21:07)
[2019-07-24] MEDS ORDERED: fentaNYL 100 MCG/2 ML VIAL IVP ONE (08:23)
[2019-07-24] MEDS: PANTOPRAZOLE 40 MG VIAL IVP SCH ×2 (08:24→21:07)
[2019-07-24] MEDS: HEPARIN 5,000 UNIT/ML VIAL SUBQ SCH ×2 (08:26→21:10)
[2019-07-24] MEDS: THIAMINE INJ 100 MG in SODIUM CHLORIDE 0.9% 50 ML IV SCH (08:57)
--- NOTE | 2019-07-24 09:22 | PROVIDER PROGRESS NOTE ---
Subjective - General Admit Date: 07/20/19 Procedure Date: 07/23/19 Post Op Days: 1 Procedure Performed: Excision and closure of perforated gastric ulcer, et. al. - Review of Systems Wound/Incisions: positive: Dressing dry and intact Drain Type: Mati Drain Output Description: serosanguinous Approximate mls Output: 170 total since surgery General: positive: No symptoms (intubated and sedated; appears comfortable) Objective - Patient Data Reviewed Vital Signs: Yes Vital Signs: Vital Signs x48h Temp Pulse Pulse Resp BP BP Pulse Ox 07/24/19 09:00 85 16 130/60 96 07/24/19 08:30 86 16 145/67 H 99 07/24/19 08:15 84 16 126/60 98 07/24/19 08:00 36.8 C 80 16 127/66 140/70 H 97 07/24/19 07:55 86 16 07/24/19 07:00 77 78 16 126/64 97 07/24/19 06:55 77 16 07/24/19 06:50 77 16 07/24/19 06:45 83 16 07/24/19 06:40 83 16 07/24/19 06:35 83 16 07/24/19 06:30 78 16 07/24/19 06:25 79 16 07/24/19 06:20 78 16 07/24/19 06:15 82 16 07/24/19 06:10 84 16 07/24/19 06:05 95 16 07/24/19 06:00 78 75 16 97/69 97 07/24/19 05:55 74 16 07/24/19 05:50 75 16 07/24/19 05:45 74 16 07/24/19 05:40 74 16 07/24/19 05:35 73 16 07/24/19 05:30 76 16 07/24/19 05:25 76 16 07/24/19 05:20 78 16 07/24/19 05:15 76 16 07/24/19 05:10 76 16 07/24/19 05:05 79 16 07/24/19 05:00 118 H 75 22 91/60 99 07/24/19 04:55 79 16 07/24/19 04:50 71 16 07/24/19 04:45 67 16 07/24/19 04:40 67 16 07/24/19 04:35 67 16 07/24/19 04:30 70 16 07/24/19 04:25 70 16 07/24/19 04:20 68 16 07/24/19 04:15 67 13 07/24/19 04:10 72 16 07/24/19 04:05 68 16 07/24/19 04:00 36.7 C 68 16 106/66 99 07/24/19 03:55 69 16 07/24/19 03:50 74 16 07/24/19 03:45 74 16 07/24/19 03:40 68 16 07/24/19 03:35 74 16 07/24/19 03:30 68 16 07/24/19 03:25 74 16 07/24/19 03:20 69 16 07/24/19 03:15 68 16 07/24/19 03:10 69 16 07/24/19 03:05 70 16 07/24/19 03:00 74 16 07/24/19 02:58 73 16 108/56 L 99 07/24/19 02:55 71 13 07/24/19 02:00 70 16 110/58 L 99 07/24/19 01:45 28 L Weight: Weight 07/22/19 07/23/19 07/24/19 23:59 23:59 23:59 Weight (kg) 55.5 kg 56.5 kg 65 kg Intake & Output: Intake and Output Totals x24h 07/22/19 07/23/19 07/24/19 23:59 23:59 23:59 Intake Total 3964.971 3052.115 2786.566 Output Total 1465 1290 1120 Balance 2499.971 5002.123 5870.566 U.O. greater than 1 ml/kg/min at present; NG output minimal. - Lab Results Lab Results: 07/24/19 04:55 07/24/19 04:55 Other Lab Results: Lab Results x24hrs 07/24/19 07/24/19 07/24/19 Range/Units 07:07 06:25 04:55 WBC (4.8-10.8) x10^3/uL RBC (4.20-5.40) 10^6/uL Hgb (12.0-16.0) g/dL Hct (37.0-47.0) % MCV (81.0-99.0) fL MCH (27.0-31.0) pg MCHC (32.0-36.0) g/dL RDW (12.0-15.0) % Plt Count (130-450) 10^3/uL MPV (7.9-10.8) fL Neut # (Auto) (1.5-6.6) 10^3/uL Lymph # (Auto) (1.5-3.5) 10^3/uL [place] # (Auto) (0.0-1.0) 10^3/uL Eos # (Auto) (0.0-0.7) 10^3/uL Baso # (Auto) (0.0-0.1) 10^3/uL Absolute Nucleated RBC x10^3/uL Band Neuts % (Manual) Abnorm Lymph % (Manual) Nucleated RBC % /100WBC Neutrophils # (Manual) Lymphocytes # (Manual) Monocytes # (Manual) Eosinophils # (Manual) Basophils # (Manual) Differential Comment Platelet Estimate (NORMAL) RBC Morph Micro Appear (NORMAL) Bld Gas Analysis Time 0638 Sample Site A-LINE ABG pH 7.33 L (7.35-7.45) ABG pCO2 45 (34-45) mmHg ABG pO2 83 (80-100) mmHg ABG HCO3 23.1 (22.0-26.0) mmol/L ABG Total CO2 24.5 (21.0-29.0) MMOL/L ABG O2 Saturation 96 (94-98) % ABG Base Excess -2.8 L (-2.0-3.0) mmol/L William Test NOT APPLICABLE Respiration Rate 16 b/min O2 Delivery Device VENTILATOR Vent Mode SIMV FiO2 0.28 Tidal Volume 400 mL PEEP 5 cmH2O Pressure Support Vent 14 cmH2O Sodium (135-145) mmol/L Potassium (3.5-5.0) mmol/L Chloride (101-111) mmol/L Carbon Dioxide (21-32) mmol/L Anion Gap (6-13) BUN (6-20) mg/dL Creatinine (0.4-1.0) mg/dL Estimated GFR (MDRD) (>89) Glucose (70-100) mg/dL POC Whole Bld Glucose 100 (70 - 100) mg/dL Calcium (8.5-10.3) mg/dL Phosphorus (2.5-4.6) mg/dL Magnesium (1.7-2.8) mg/dL Albumin 1.6 L (3.2-5.5) g/dL Triglycerides ( - 149) mg/dL 07/24/19 07/24/19 07/24/19 Range/Units 04:55 04:55 04:55 WBC 8.8 (4.8-10.8) x10^3/uL RBC 3.00 L (4.20-5.40) 10^6/uL Hgb 9.8 L (12.0-16.0) g/dL Hct 30.4 L (37.0-47.0) % MCV 101.3 H (81.0-99.0) fL MCH 32.7 H (27.0-31.0) pg MCHC 32.2 (32.0-36.0) g/dL RDW 15.5 H (12.0-15.0) % Plt Count 202 (130-450) 10^3/uL MPV 10.1 (7.9-10.8) fL Neut # (Auto) 7.4 H (1.5-6.6) 10^3/uL Lymph # (Auto) 0.4 L (1.5-3.5) 10^3/uL [place] # (Auto) 0.8 (0.0-1.0) 10^3/uL Eos # (Auto) 0.0 (0.0-0.7) 10^3/uL Baso # (Auto) 0.1 (0.0-0.1) 10^3/uL Absolute Nucleated RBC 0.12 x10^3/uL Band Neuts % (Manual) Not Reportable Abnorm Lymph % (Manual) Not Reportable Nucleated RBC % 1.4 /100WBC Neutrophils # (Manual) Not Reportable Lymphocytes # (Manual) Not Reportable Monocytes # (Manual) Not Reportable Eosinophils # (Manual) Not Reportable Basophils # (Manual) Not Reportable Differential Comment MANUAL=AUTO DIFF Platelet Estimate NORMAL (130-450,000) (NORMAL) RBC Morph Micro Appear NORMAL APPEARANCE (NORMAL) Bld Gas Analysis Time Sample Site ABG pH (7.35-7.45) ABG pCO2 (34-45) mmHg ABG pO2 (80-100) mmHg ABG HCO3 (22.0-26.0) mmol/L ABG Total CO2 (21.0-29.0) MMOL/L ABG O2 Saturation (94-98) % ABG Base Excess (-2.0-3.0) mmol/L William Test Respiration Rate b/min O2 Delivery Device Vent Mode FiO2 Tidal Volume mL PEEP cmH2O Pressure Support Vent cmH2O Sodium 141 (135-145) mmol/L Potassium 3.8 (3.5-5.0) mmol/L Chloride 112 H (101-111) mmol/L Carbon Dioxide 23 (21-32) mmol/L Anion Gap 6.0 (6-13) BUN 40 H (6-20) mg/dL Creatinine 1.1 H (0.4-1.0) mg/dL Estimated GFR (MDRD) 50 L (>89) Glucose 121 H (70-100) mg/dL POC Whole Bld Glucose (70 - 100) mg/dL Calcium 8.3 L (8.5-10.3) mg/dL Phosphorus 2.7 (2.5-4.6) mg/dL Magnesium 2.1 (1.7-2.8) mg/dL Albumin (3.2-5.5) g/dL Triglycerides 261 H ( - 149) mg/dL 07/24/19 07/23/19 07/23/19 Range/Units 00:25 17:59 12:05 WBC (4.8-10.8) x10^3/uL RBC (4.20-5.40) 10^6/uL Hgb (12.0-16.0) g/dL Hct (37.0-47.0) % MCV (81.0-99.0) fL MCH (27.0-31.0) pg MCHC (32.0-36.0) g/dL RDW (12.0-15.0) % Plt Count (130-450) 10^3/uL MPV (7.9-10.8) fL Neut # (Auto) (1.5-6.6) 10^3/uL Lymph # (Auto) (1.5-3.5) 10^3/uL [place] # (Auto) (0.0-1.0) 10^3/uL Eos # (Auto) (0.0-0.7) 10^3/uL Baso # (Auto) (0.0-0.1) 10^3/uL Absolute Nucleated RBC x10^3/uL Band Neuts % (Manual) Abnorm Lymph % (Manual) Nucleated RBC % /100WBC Neutrophils # (Manual) Lymphocytes # (Manual) Monocytes # (Manual) Eosinophils # (Manual) Basophils # (Manual) Differential Comment Platelet Estimate (NORMAL) RBC Morph Micro Appear (NORMAL) Bld Gas Analysis Time Sample Site ABG pH (7.35-7.45) ABG pCO2 (34-45) mmHg ABG pO2 (80-100) mmHg ABG HCO3 (22.0-26.0) mmol/L ABG Total CO2 (21.0-29.0) MMOL/L ABG O2 Saturation (94-98) % ABG Base Excess (-2.0-3.0) mmol/L William Test Respiration Rate b/min O2 Delivery Device Vent Mode FiO2 Tidal Volume mL PEEP cmH2O Pressure Support Vent cmH2O Sodium (135-145) mmol/L Potassium (3.5-5.0) mmol/L Chloride (101-111) mmol/L Carbon Dioxide (21-32) mmol/L Anion Gap (6-13) BUN (6-20) mg/dL Creatinine (0.4-1.0) mg/dL Estimated GFR (MDRD) (>89) Glucose (70-100) mg/dL POC Whole Bld Glucose 116 H 98 82 (70 - 100) mg/dL Calcium (8.5-10.3) mg/dL Phosphorus (2.5-4.6) mg/dL Magnesium (1.7-2.8) mg/dL Albumin (3.2-5.5) g/dL Triglycerides ( - 149) mg/dL 07/22/19 07/22/19 07/22/19 Range/Units 23:12 17:13 12:00 WBC (4.8-10.8) x10^3/uL RBC (4.20-5.40) 10^6/uL Hgb (12.0-16.0) g/dL Hct (37.0-47.0) % MCV (81.0-99.0) fL MCH (27.0-31.0) pg MCHC (32.0-36.0) g/dL RDW (12.0-15.0) % Plt Count (130-450) 10^3/uL MPV (7.9-10.8) fL Neut # (Auto) (1.5-6.6) 10^3/uL Lymph # (Auto) (1.5-3.5) 10^3/uL [place] # (Auto) (0.0-1.0) 10^3/uL Eos # (Auto) (0.0-0.7) 10^3/uL Baso # (Auto) (0.0-0.1) 10^3/uL Absolute Nucleated RBC x10^3/uL Band Neuts % (Manual) Abnorm Lymph % (Manual) Nucleated RBC % /100WBC Neutrophils # (Manual) Lymphocytes # (Manual) Monocytes # (Manual) Eosinophils # (Manual) Basophils # (Manual) Differential Comment Platelet Estimate (NORMAL) RBC Morph Micro Appear (NORMAL) Bld Gas Analysis Time Sample Site ABG pH (7.35-7.45) ABG pCO2 (34-45) mmHg ABG pO2 (80-100) mmHg ABG HCO3 (22.0-26.0) mmol/L ABG Total CO2 (21.0-29.0) MMOL/L ABG O2 Saturation (94-98) % ABG Base Excess (-2.0-3.0) mmol/L William Test Respiration Rate b/min O2 Delivery Device Vent Mode FiO2 Tidal Volume mL PEEP cmH2O Pressure Support Vent cmH2O Sodium (135-145) mmol/L Potassium (3.5-5.0) mmol/L Chloride (101-111) mmol/L Carbon Dioxide (21-32) mmol/L Anion Gap (6-13) BUN (6-20) mg/dL Creatinine (0.4-1.0) mg/dL Estimated GFR (MDRD) (>89) Glucose (70-100) mg/dL POC Whole Bld Glucose 93 107 H 110 H (70 - 100) mg/dL Calcium (8.5-10.3) mg/dL Phosphorus (2.5-4.6) mg/dL Magnesium (1.7-2.8) mg/dL Albumin (3.2-5.5) g/dL Triglycerides ( - 149) mg/dL 01/07/21/19 07/21/19 Range/Units 23:01 18:18 12:08 WBC (4.8-10.8) x10^3/uL RBC (4.20-5.40) 10^6/uL Hgb (12.0-16.0) g/dL Hct (37.0-47.0) % MCV (81.0-99.0) fL MCH (27.0-31.0) pg MCHC (32.0-36.0) g/dL RDW (12.0-15.0) % Plt Count (130-450) 10^3/uL MPV (7.9-10.8) fL Neut # (Auto) (1.5-6.6) 10^3/uL Lymph # (Auto) (1.5-3.5) 10^3/uL [place] # (Auto) (0.0-1.0) 10^3/uL Eos # (Auto) (0.0-0.7) 10^3/uL Baso # (Auto) (0.0-0.1) 10^3/uL Absolute Nucleated RBC x10^3/uL Band Neuts % (Manual) Abnorm Lymph % (Manual) Nucleated RBC % /100WBC Neutrophils # (Manual) Lymphocytes # (Manual) Monocytes # (Manual) Eosinophils # (Manual) Basophils # (Manual) Differential Comment Platelet Estimate (NORMAL) RBC Morph Micro Appear (NORMAL) Bld Gas Analysis Time Sample Site ABG pH (7.35-7.45) ABG pCO2 (34-45) mmHg ABG pO2 (80-100) mmHg ABG HCO3 (22.0-26.0) mmol/L ABG Total CO2 (21.0-29.0) MMOL/L ABG O2 Saturation (94-98) % ABG Base Excess (-2.0-3.0) mmol/L William Test Respiration Rate b/min O2 Delivery Device Vent Mode FiO2 Tidal Volume mL PEEP cmH2O Pressure Support Vent cmH2O Sodium (135-145) mmol/L Potassium (3.5-5.0) mmol/L Chloride (101-111) mmol/L Carbon Dioxide (21-32) mmol/L Anion Gap (6-13) BUN (6-20) mg/dL Creatinine (0.4-1.0) mg/dL Estimated GFR (MDRD) (>89) Glucose (70-100) mg/dL POC Whole Bld Glucose 96 123 H 59 L* (70 - 100) mg/dL Calcium (8.5-10.3) mg/dL Phosphorus (2.5-4.6) mg/dL Magnesium (1.7-2.8) mg/dL Albumin (3.2-5.5) g/dL Triglycerides ( - 149) mg/dL 07/21/19 07/20/19 07/20/19 Range/Units 00:06 20:32 20:08 WBC (4.8-10.8) x10^3/uL RBC (4.20-5.40) 10^6/uL Hgb (12.0-16.0) g/dL Hct (37.0-47.0) % MCV (81.0-99.0) fL MCH (27.0-31.0) pg MCHC (32.0-36.0) g/dL RDW (12.0-15.0) % Plt Count (130-450) 10^3/uL MPV (7.9-10.8) fL Neut # (Auto) (1.5-6.6) 10^3/uL Lymph # (Auto) (1.5-3.5) 10^3/uL [place] # (Auto) (0.0-1.0) 10^3/uL Eos # (Auto) (0.0-0.7) 10^3/uL Baso # (Auto) (0.0-0.1) 10^3/uL Absolute Nucleated RBC x10^3/uL Band Neuts % (Manual) Abnorm Lymph % (Manual) Nucleated RBC % /100WBC Neutrophils # (Manual) Lymphocytes # (Manual) Monocytes # (Manual) Eosinophils # (Manual) Basophils # (Manual) Differential Comment Platelet Estimate (NORMAL) RBC Morph Micro Appear (NORMAL) Bld Gas Analysis Time Sample Site ABG pH (7.35-7.45) ABG pCO2 (34-45) mmHg ABG pO2 (80-100) mmHg ABG HCO3 (22.0-26.0) mmol/L ABG Total CO2 (21.0-29.0) MMOL/L ABG O2 Saturation (94-98) % ABG Base Excess (-2.0-3.0) mmol/L William Test Respiration Rate b/min O2 Delivery Device Vent Mode FiO2 Tidal Volume mL PEEP cmH2O Pressure Support Vent cmH2O Sodium (135-145) mmol/L Potassium (3.5-5.0) mmol/L Chloride (101-111) mmol/L Carbon Dioxide (21-32) mmol/L Anion Gap (6-13) BUN (6-20) mg/dL Creatinine (0.4-1.0) mg/dL Estimated GFR (MDRD) (>89) Glucose (70-100) mg/dL POC Whole Bld Glucose 121 H 91 13 L* (70 - 100) mg/dL Calcium (8.5-10.3) mg/dL Phosphorus (2.5-4.6) mg/dL Magnesium (1.7-2.8) mg/dL Albumin (3.2-5.5) g/dL Triglycerides ( - 149) mg/dL 07/20/19 Range/Units 20:06 WBC (4.8-10.8) x10^3/uL RBC (4.20-5.40) 10^6/uL Hgb (12.0-16.0) g/dL Hct (37.0-47.0) % MCV (81.0-99.0) fL MCH (27.0-31.0) pg MCHC (32.0-36.0) g/dL RDW (12.0-15.0) % Plt Count (130-450) 10^3/uL MPV (7.9-10.8) fL Neut # (Auto) (1.5-6.6) 10^3/uL Lymph # (Auto) (1.5-3.5) 10^3/uL [place] # (Auto) (0.0-1.0) 10^3/uL Eos # (Auto) (0.0-0.7) 10^3/uL Baso # (Auto) (0.0-0.1) 10^3/uL Absolute Nucleated RBC x10^3/uL Band Neuts % (Manual) Abnorm Lymph % (Manual) Nucleated RBC % /100WBC Neutrophils # (Manual) Lymphocytes # (Manual) Monocytes # (Manual) Eosinophils # (Manual) Basophils # (Manual) Differential Comment Platelet Estimate (NORMAL) RBC Morph Micro Appear (NORMAL) Bld Gas Analysis Time Sample Site ABG pH (7.35-7.45) ABG pCO2 (34-45) mmHg ABG pO2 (80-100) mmHg ABG HCO3 (22.0-26.0) mmol/L ABG Total CO2 (21.0-29.0) MMOL/L ABG O2 Saturation (94-98) % ABG Base Excess (-2.0-3.0) mmol/L William Test Respiration Rate b/min O2 Delivery Device Vent Mode FiO2 Tidal Volume mL PEEP cmH2O Pressure Support Vent cmH2O Sodium (135-145) mmol/L Potassium (3.5-5.0) mmol/L Chloride (101-111) mmol/L Carbon Dioxide (21-32) mmol/L Anion Gap (6-13) BUN (6-20) mg/dL Creatinine (0.4-1.0) mg/dL Estimated GFR (MDRD) (>89) Glucose (70-100) mg/dL POC Whole Bld Glucose 45 L* (70 - 100) mg/dL Calcium (8.5-10.3) mg/dL Phosphorus (2.5-4.6) mg/dL Magnesium (1.7-2.8) mg/dL Albumin (3.2-5.5) g/dL Triglycerides ( - 149) mg/dL - Current Medications Current Medications: Current Medications Generic Name Dose Route Start Last Admin Trade Name Freq PRN Reason Stop Dose Admin Albuterol 2.5 mg 07/21/19 14:20 07/23/19 16:15 INH 2.5 mg RTQ4H PRN Administration Wheezing Chlorhexidine Gluconate 15 ml 07/21/19 09:00 07/24/19 08:23 Peridex PO 15 ml BID SONG Administration Heparin Sodium (Porcine) 5,000 unit 07/21/19 09:00 07/24/19 08:26 SUBQ 5,000 unit BID SONG Administration Metronidazole 500 mg in 100 mls @ 100 mls/hr 07/20/19 22:30 07/24/19 07:59 Flagyl 500 Mg/100 Ml IV Infused Q8H SONG Infusion Propofol 100 mls @ 3.33 mls/hr 07/20/19 19:00 07/24/19 09:01 Diprivan IV 20 mcg/kg/min .Q30H2M SONG 6.66 mls/hr Titration Protocol 10 MCG/KG/MIN Fentanyl 2,500 mcg/ Sodium 250 mls @ 5.55 mls/hr 07/20/19 19:00 07/24/19 09:02 Chloride IV 1.5 mcg/kg/hr .Q45H3M SONG 8.33 mls/hr Titration Protocol 1 MCG/KG/HR Norepinephrine Bitartrate 8 mg 250 mls @ 15 mls/hr 07/20/19 21:00 07/24/19 08:29 / Dextrose IV 0 mcg/min .[id number] SONG 0 mls/hr Titration Protocol 8 MCG/MIN Cefepime HCl 2 gm/ Sodium 100 mls @ 200 mls/hr 07/20/19 21:00 07/24/19 08:57 Chloride IV Infused BID SONG Infusion Thiamine HCl 100 mg/ Sodium 51 mls @ 100 mls/hr 07/21/19 09:00 07/24/19 08:57 Chloride IV 100 mls/hr DAILY SONG Administration Sodium Chloride 500 mls @ 20 mls/hr 07/21/19 18:13 07/23/19 07:00 Normal Saline 0.9% IV Infused Q24H PRN Infusion TKO RATE Dextrose/Lactated Ringer's 1,000 mls @ 50 mls/hr 07/24/19 07:37 07/24/19 08:29 D5lr IV 50 mls/hr .Q20H SONG Administration Pantoprazole Sodium 40 mg 07/20/19 21:00 07/24/19 08:24 Protonix IVP 40 mg BID SONG Administration Sodium Chloride 10 ml 07/20/19 17:00 07/24/19 08:24 Normal Saline Flush 0.9% IVP 10 ml 0100,0900,1700 SONG Administration Sodium Chloride 10 ml 07/20/19 16:31 07/23/19 05:32 Normal Saline Flush 0.9% IVP 10 ml PRN PRN Administration NEEDED PER PROVIDER ORDERS - Physical Exam Wound/Incisions: positive: Dressing dry and intact General Appearance: positive: No acute distress Eyes Bilateral: positive: No scleral icterus ENT: positive: No signs of dehydration Neck: positive: Nml inspection, No JVD Respiratory: positive: Chest non-tender, Breath sounds nml (anteriorly; on ventilator) Cardiovascular: positive: Regular rate & rhythm, No murmur, No gallop Abdomen: positive: Abnml bowel sounds (hypoactive;), Other (dressing dry/intact; abd appears soft but pt sedated). negative: No distention (mild distention), Hepatomegaly, Splenomegaly, Mass Skin: positive: Color nml, No rash, Warm (feet cool but skin appears viable) Extremities: positive: Pedal edema (trace bilat). negative: Calf tenderness ABX Reporting Has patient been on IV antibiotics over the past 48 hours?: Yes Impression/Plan - Problem List Problem List: PO Day 1 s/p ex lap, exc and closure of perforated gastric ulcer; doing well overall with decreased need for pressor support, improving renal function and urine output, satisfactory pulmonary function. Rec: wean off pressors today as virgilio; begin weaning trials in anticipation of extubation tomorrow perhaps, as per hospitalists. consider starting TPN.
[2019-07-24] MEDS ORDERED: DEXTROSE 10% 250 ML IV ONE (13:00)
--- NOTE | 2019-07-24 16:49 | PROVIDER PROGRESS NOTE ---
Assessment/Plan - Problem List (1) Septic shock Assessment/Plan: Today her norepinephrine was weaned to off. Continue with empiric IV antibiotics. Follow CBC daily (2) Perforated abdominal viscus Assessment/Plan: She was found to have a perforated, bleeding gastric ulcer, related to nonsteroidal anti-inflammatory use for her rheumatoid arthritis. Continue with IV antibiotics to cover anaerobes, gram negatives, bowel organisms. Follow CBC daily. General Surgery following along. Hgb has been stable (3) Hypoglycemia after GI (gastrointestinal) surgery Assessment/Plan: Will increase her D5 by peripheral IV. TPN is also being added today. Continue to follow before meals and at bedtime Accu-Cheks. Follow BMP daily (4) Ventilator dependent Assessment/Plan: She has been sedated while on the ventilator while on pressors for her septic shock. The pressors have now been discontinued today. We will allow a decrease of her sedatives in order to allow ventilator holidays, and trials of CPAP today. Because extubation is not imminent, will start TPN today. (5) Acute kidney injury Assessment/Plan: Improving Meds have all been renally adjusted. Follow BMP daily (6) Demand ischemia Assessment/Plan: Elevated troponins but in a flat pattern, these are not consistent with acute coronary syndrome. Echo was done that showed EF of 50%. (7) Severe protein-calorie malnutrition Assessment/Plan: She is now day 4 of hospitalization. We will start TPN for nutrition and calories (8) History of COPD Assessment/Plan: She was a tobacco smoker up until this hospitalization daily She remains on the vent. Inhalers as needed (9) Rheumatoid arthritis Assessment/Plan: Was the reason for the high NSAID use. (10) History of alcoholism Assessment/Plan: Per report, her alcohol abuse stopped in January 2019 Thiamine daily is planned (11) Metabolic acidosis Assessment/Plan: Resolved - Current Meds Current Meds: Current Medications Generic Name Dose Route Start Last Admin Trade Name Freq PRN Reason Stop Dose Admin Albuterol 2.5 mg 07/21/19 14:20 07/23/19 16:15 INH 2.5 mg RTQ4H PRN Administration Wheezing Chlorhexidine Gluconate 15 ml 07/21/19 09:00 07/24/19 08:23 Peridex PO 15 ml BID SONG Administration Heparin Sodium (Porcine) 5,000 unit 07/21/19 09:00 07/24/19 08:26 SUBQ 5,000 unit BID SONG Administration Metronidazole 500 mg in 100 mls @ 100 mls/hr 07/20/19 22:30 07/24/19 15:30 Flagyl 500 Mg/100 Ml IV Infused Q8H SONG Infusion Propofol 100 mls @ 3.33 mls/hr 07/20/19 19:00 07/24/19 13:57 Diprivan IV 50 mcg/kg/min .Q30H2M SONG 16.65 mls/hr Administration Protocol 10 MCG/KG/MIN Fentanyl 2,500 mcg/ Sodium 250 mls @ 5.55 mls/hr 07/20/19 19:00 07/24/19 14:22 Chloride IV 1 mcg/kg/hr .Q45H3M SONG 5.55 mls/hr Titration Protocol 1 MCG/KG/HR Norepinephrine Bitartrate 8 mg 250 mls @ 15 mls/hr 07/20/19 21:00 07/24/19 08:29 / Dextrose IV 0 mcg/min .[id number] SONG 0 mls/hr Titration Protocol 8 MCG/MIN Cefepime HCl 2 gm/ Sodium 100 mls @ 200 mls/hr 07/20/19 21:00 07/24/19 08:57 Chloride IV Infused BID SONG Infusion Thiamine HCl 100 mg/ Sodium 51 mls @ 100 mls/hr 07/21/19 09:00 07/24/19 09:30 Chloride IV Infused DAILY SONG Infusion Sodium Chloride 500 mls @ 20 mls/hr 07/21/19 18:13 07/23/19 07:00 Normal Saline 0.9% IV Infused Q24H PRN Infusion TKO RATE Pantoprazole Sodium 40 mg 07/20/19 21:00 07/24/19 08:24 Protonix IVP 40 mg BID SONG Administration Sodium Chloride 10 ml 07/20/19 17:00 07/24/19 16:11 Normal Saline Flush 0.9% IVP 10 ml 0100,0900,1700 SONG Administration Sodium Chloride 10 ml 07/20/19 16:31 07/23/19 05:32 Normal Saline Flush 0.9% IVP 10 ml PRN PRN Administration NEEDED PER PROVIDER ORDERS - Lab Result Fish Bone Diagrams: 07/24/19 04:55 07/24/19 04:55 - Additional Planning My Orders: My Active Orders 07/24/19 16:45 Dextrose 5%-Lactated Ringers [D5lr] 1,000 ml IV 100 mls/hr 07/24/19 19:00 Multivitamin [Infuvite] 10 ml Trace Elements V Conc [Multitrace-5 Conc Vial] 1 ml TPN (Clinimix E 5/15) [Clinimix E 5%-15% Solution] 2,000 ml IV Q24H Subjective - Subjective Nursing Reports: Sedated Objective Vital Signs: Vital Signs - 24 hr 07/23/19 07/23/19 07/23/19 17:00 18:00 19:00 Temperature Heart Rate Heart Rate [ 79 73 83 Monitoring electrodes] Respiratory 16 16 16 Rate Blood Pressure [Right Brachial artery] Blood Pressure 101/48 L 111/52 L 106/50 L [Right Radial artery] O2 Saturation 100 100 100 07/23/19 07/23/19 07/23/19 19:30 19:48 21:55 Temperature 36.7 C Heart Rate 79 76 Heart Rate [ 76 Monitoring electrodes] Respiratory 16 Rate Blood Pressure [Right Brachial artery] Blood Pressure 110/52 L [Right Radial artery] O2 Saturation 100 07/23/19 07/23/19 07/24/19 22:00 23:00 00:00 Temperature 36.6 C Heart Rate Heart Rate [ 81 74 74 Monitoring electrodes] Respiratory 16 16 16 Rate Blood Pressure [Right Brachial artery] Blood Pressure 120/58 L 119/58 L 114/57 L [Right Radial artery] O2 Saturation 99 100 100 07/24/19 07/24/19 07/24/19 00:30 01:00 01:45 Temperature Heart Rate 70 28 L Heart Rate [ 72 Monitoring electrodes] Respiratory 16 Rate Blood Pressure [Right Brachial artery] Blood Pressure 110/56 L [Right Radial artery] O2 Saturation 98 07/24/19 07/24/19 07/24/19 02:00 02:55 02:58 Temperature Heart Rate 71 Heart Rate [ 70 73 Monitoring electrodes] Respiratory 16 13 16 Rate Blood Pressure [Right Brachial artery] Blood Pressure 110/58 L 108/56 L [Right Radial artery] O2 Saturation 99 99 07/24/19 07/24/19 07/24/19 03:00 03:05 03:10 Temperature Heart Rate 74 70 69 Heart Rate [ Monitoring electrodes] Respiratory 16 16 16 Rate Blood Pressure [Right Brachial artery] Blood Pressure [Right Radial artery] O2 Saturation 07/24/19 07/24/19 07/24/19 03:15 03:20 03:25 Temperature Heart Rate 68 69 74 Heart Rate [ Monitoring electrodes] Respiratory 16 16 16 Rate Blood Pressure [Right Brachial artery] Blood Pressure [Right Radial artery] O2 Saturation 07/24/19 07/24/19 07/24/19 03:30 03:35 03:40 Temperature Heart Rate 68 74 68 Heart Rate [ Monitoring electrodes] Respiratory 16 16 16 Rate Blood Pressure [Right Brachial artery] Blood Pressure [Right Radial artery] O2 Saturation 07/24/19 07/24/19 07/24/19 03:45 03:50 03:55 Temperature Heart Rate 74 74 69 Heart Rate [ Monitoring electrodes] Respiratory 16 16 16 Rate Blood Pressure [Right Brachial artery] Blood Pressure [Right Radial artery] O2 Saturation 07/24/19 07/24/19 07/24/19 04:00 04:05 04:10 Temperature 36.7 C Heart Rate 68 68 72 Heart Rate [ Monitoring electrodes] Respiratory 16 16 16 Rate Blood Pressure [Right Brachial artery] Blood Pressure 106/66 [Right Radial artery] O2 Saturation 99 07/24/19 07/24/19 07/24/19 04:15 04:20 04:25 Temperature Heart Rate 67 68 70 Heart Rate [ Monitoring electrodes] Respiratory 13 16 16 Rate Blood Pressure [Right Brachial artery] Blood Pressure [Right Radial artery] O2 Saturation 07/24/19 07/24/19 07/24/19 04:30 04:35 04:40 Temperature Heart Rate 70 67 67 Heart Rate [ Monitoring electrodes] Respiratory 16 16 16 Rate Blood Pressure [Right Brachial artery] Blood Pressure [Right Radial artery] O2 Saturation 07/24/19 07/24/19 07/24/19 04:45 04:50 04:55 Temperature Heart Rate 67 71 79 Heart Rate [ Monitoring electrodes] Respiratory 16 16 16 Rate Blood Pressure [Right Brachial artery] Blood Pressure [Right Radial artery] O2 Saturation 07/24/19 07/24/19 07/24/19 05:00 05:05 05:10 Temperature Heart Rate 118 H 79 76 Heart Rate [ 75 Monitoring electrodes] Respiratory 22 16 16 Rate Blood Pressure [Right Brachial artery] Blood Pressure 91/60 [Right Radial artery] O2 Saturation 99 07/24/19 07/24/19 07/24/19 05:15 05:20 05:25 Temperature Heart Rate 76 78 76 Heart Rate [ Monitoring electrodes] Respiratory 16 16 16 Rate Blood Pressure [Right Brachial artery] Blood Pressure [Right Radial artery] O2 Saturation 07/24/19 07/24/19 07/24/19 05:30 05:35 05:40 Temperature Heart Rate 76 73 74 Heart Rate [ Monitoring electrodes] Respiratory 16 16 16 Rate Blood Pressure [Right Brachial artery] Blood Pressure [Right Radial artery] O2 Saturation 07/24/19 07/24/19 07/24/19 05:45 05:50 05:55 Temperature Heart Rate 74 75 74 Heart Rate [ Monitoring electrodes] Respiratory 16 16 16 Rate Blood Pressure [Right Brachial artery] Blood Pressure [Right Radial artery] O2 Saturation 07/24/19 07/24/19 07/24/19 06:00 06:05 06:10 Temperature Heart Rate 78 95 84 Heart Rate [ 75 Monitoring electrodes] Respiratory 16 16 16 Rate Blood Pressure [Right Brachial artery] Blood Pressure 97/69 [Right Radial artery] O2 Saturation 97 07/24/19 07/24/19 07/24/19 06:15 06:20 06:25 Temperature Heart Rate 82 78 79 Heart Rate [ Monitoring electrodes] Respiratory 16 16 16 Rate Blood Pressure [Right Brachial artery] Blood Pressure [Right Radial artery] O2 Saturation 07/24/19 07/24/19 07/24/19 06:30 06:35 06:40 Temperature Heart Rate 78 83 83 Heart Rate [ Monitoring electrodes] Respiratory 16 16 16 Rate Blood Pressure [Right Brachial artery] Blood Pressure [Right Radial artery] O2 Saturation 07/24/19 07/24/19 07/24/19 06:45 06:50 06:55 Temperature Heart Rate 83 77 77 Heart Rate [ Monitoring electrodes] Respiratory 16 16 16 Rate Blood Pressure [Right Brachial artery] Blood Pressure [Right Radial artery] O2 Saturation 07/24/19 07/24/19 07/24/19 07:00 07:55 08:00 Temperature 36.8 C Heart Rate 77 86 Heart Rate [ 78 80 Monitoring electrodes] Respiratory 16 16 16 Rate Blood Pressure 127/66 [Right Brachial artery] Blood Pressure 126/64 140/70 H [Right Radial artery] O2 Saturation 97 97 07/24/19 07/24/19 07/24/19 08:15 08:30 09:00 Temperature Heart Rate Heart Rate [ 84 86 85 Monitoring electrodes] Respiratory 16 16 16 Rate Blood Pressure [Right Brachial artery] Blood Pressure 126/60 145/67 H 130/60 [Right Radial artery] O2 Saturation 98 99 96 07/24/19 07/24/19 07/24/19 09:20 10:00 11:00 Temperature Heart Rate 94 Heart Rate [ 86 84 Monitoring electrodes] Respiratory 16 16 Rate Blood Pressure [Right Brachial artery] Blood Pressure 142/69 H 104/53 L [Right Radial artery] O2 Saturation 97 97 07/24/19 07/24/19 07/24/19 11:30 12:00 13:00 Temperature 36.8 C Heart Rate 79 Heart Rate [ 91 89 Monitoring electrodes] Respiratory 16 16 Rate Blood Pressure 141/78 H [Right Brachial artery] Blood Pressure 125/86 H [Right Radial artery] O2 Saturation 95 95 07/24/19 07/24/19 07/24/19 13:59 14:00 15:00 Temperature Heart Rate 85 Heart Rate [ 85 80 Monitoring electrodes] Respiratory 16 16 Rate Blood Pressure 123/70 [Right Brachial artery] Blood Pressure 152/64 H 155/66 H [Right Radial artery] O2 Saturation 96 97 07/24/19 07/24/19 16:00 16:05 Temperature Heart Rate 108 H Heart Rate [ 120 H Monitoring electrodes] Respiratory 6 L Rate Blood Pressure [Right Brachial artery] Blood Pressure 162/73 H [Right Radial artery] O2 Saturation 93 Oxygen O2 Source CPAP Oxygen Flow Rate 4 I&O (Last 24 Hrs): Intake and Output Totals x24h 07/22/19 07/23/19 07/24/19 23:59 23:59 23:59 Intake Total 3964.971 3052.115 3591.125 Output Total 1465 1290 1645 Balance 2499.971 5969.957 8076.125 General: Other (Sedated on the vent) HEENT: Mucous membr. moist/pink Neck: No JVD Neuro: Other (Sedated) Cardiovascular: Regular rate, No murmurs Respiratory: No respiratory distress, Breath sounds nml Abdomen: Soft Extremities: No edema - Results Results: Laboratory Results WBC 8.8 x10^3/uL (4.8-10.8) 07/24/19 04:55 RBC 3.00 10^6/uL (4.20-5.40) L 07/24/19 04:55 Hgb 9.8 g/dL (12.0-16.0) L 07/24/19 04:55 Hct 30.4 % (37.0-47.0) L 07/24/19 04:55 MCV 101.3 fL (81.0-99.0) H 07/24/19 04:55 MCH 32.7 pg (27.0-31.0) H 07/24/19 04:55 MCHC 32.2 g/dL (32.0-36.0) 07/24/19 04:55 RDW 15.5 % (12.0-15.0) H 07/24/19 04:55 Plt Count 202 10^3/uL (130-450) 07/24/19 04:55 MPV 10.1 fL (7.9-10.8) 07/24/19 04:55 Neut # (Auto) 7.4 10^3/uL (1.5-6.6) H 07/24/19 04:55 Lymph # (Auto) 0.4 10^3/uL (1.5-3.5) L 07/24/19 04:55 [place] # (Auto) 0.8 10^3/uL (0.0-1.0) 07/24/19 04:55 Eos # (Auto) 0.0 10^3/uL (0.0-0.7) 07/24/19 04:55 Baso # (Auto) 0.1 10^3/uL (0.0-0.1) 07/24/19 04:55 Absolute Nucleated RBC 0.12 x10^3/uL 07/24/19 04:55 Total Counted 100 07/23/19 04:40 Band Neuts % (Manual) Not Reportable 07/24/19 04:55 Abnorm Lymph % (Manual) Not Reportable 07/24/19 04:55 Metamyelocytes % 1 % (-0) H 07/22/19 05:00 Myelocytes % 1 % (-0) H 07/22/19 05:00 Nucleated RBC % 1.4 /100WBC 07/24/19 04:55 Neutrophils # (Manual) Not Reportable 07/24/19 04:55 Lymphocytes # (Manual) Not Reportable 07/24/19 04:55 Monocytes # (Manual) Not Reportable 01/28/20 04:55 Eosinophils # (Manual) Not Reportable 07/24/19 04:55 Basophils # (Manual) Not Reportable 07/24/19 04:55 Differential Comment MANUAL=AUTO DIFF 07/24/19 04:55 Manual Slide Review Indicated 07/20/19 19:10 WBC Morphology 1+ VACUOLATION (NORMAL) 1+ TOXIC GRANULATION (NORMAL) 07/20/19 12:20 WBC Morphology NORMAL APPEARANCE (NORMAL) 07/23/19 04:40 Platelet Estimate NORMAL (130-450,000) (NORMAL) 07/24/19 04:55 Platelet Morphology NORMAL APPEARANCE (NORMAL) 07/23/19 04:40 RBC Morph Micro Appear 1+ DONNA CELLS (NORMAL) 2+ MACROCYTOSIS (NORMAL) 07/23/19 04:40 RBC Morph Micro Appear NORMAL APPEARANCE (NORMAL) 07/24/19 04:55 PT 12.4 secs (9.9-12.6) 07/20/19 12:20 INR 1.1 (0.8-1.2) 07/20/19 12:20 Bld Gas Analysis Time 0638 07/24/19 06:25 Sample Site A-LINE 07/24/19 06:25 ABG pH 7.33 (7.35-7.45) L 07/24/19 06:25 ABG pCO2 45 mmHg (34-45) 07/24/19 06:25 ABG pO2 83 mmHg (80-100) 07/24/19 06:25 ABG HCO3 23.1 mmol/L (22.0-26.0) 07/24/19 06:25 ABG Total CO2 24.5 MMOL/L (21.0-29.0) 07/24/19 06:25 ABG O2 Saturation 96 % (94-98) 07/24/19 06:25 ABG Base Excess -2.8 mmol/L (-2.0-3.0) L 07/24/19 06:25 William Test NOT APPLICABLE 07/24/19 06:25 Respiration Rate 16 b/min 07/24/19 06:25 O2 Delivery Device VENTILATOR 07/24/19 06:25 Vent Mode SIMV 07/24/19 06:25 FiO2 0.28 07/24/19 06:25 Tidal Volume 400 mL 07/24/19 06:25 PEEP 5 cmH2O 07/24/19 06:25 Pressure Support Vent 14 cmH2O 07/24/19 06:25 Sodium 141 mmol/L (135-145) 07/24/19 04:55 Potassium 3.8 mmol/L (3.5-5.0) 07/24/19 04:55 Chloride 112 mmol/L (101-111) H 07/24/19 04:55 Carbon Dioxide 23 mmol/L (21-32) 07/24/19 04:55 Anion Gap 6.0 (6-13) 07/24/19 04:55 BUN 40 mg/dL (6-20) H 07/24/19 04:55 Creatinine 1.1 mg/dL (0.4-1.0) H 07/24/19 04:55 Estimated GFR (MDRD) 50 (>89) L 07/24/19 04:55 Glucose 121 mg/dL (70-100) H 07/24/19 04:55 POC Whole Bld Glucose 98 mg/dL (70 - 100) 07/24/19 13:30 Lactic Acid 1.5 mmol/L (0.5-2.2) 07/21/19 19:57 Calcium 8.3 mg/dL (8.5-10.3) L 07/24/19 04:55 Phosphorus 2.7 mg/dL (2.5-4.6) 07/24/19 04:55 Magnesium 2.1 mg/dL (1.7-2.8) 07/24/19 04:55 Total Bilirubin 0.6 mg/dL (0.2-1.0) 07/22/19 05:00 Direct Bilirubin 0.1 mg/dL (0.1-0.5) 07/22/19 05:00 AST 20 IU/L (10-42) 07/22/19 05:00 ALT 20 IU/L (10-60) 07/22/19 05:00 Alkaline Phosphatase 36 IU/L (42-121) L 07/22/19 05:00 Troponin I High Sens 232.6 ng/L (2.3-14.8) H* 07/21/19 10:50 Total Protein 4.6 g/dL (6.7-8.2) L 07/22/19 05:00 Albumin 1.6 g/dL (3.2-5.5) L 07/24/19 04:55 Globulin 2.7 g/dL (2.1-4.2) 07/22/19 05:00 Albumin/Globulin Ratio 1.3 (1.0-2.2) 07/20/19 12:20 Triglycerides 261 mg/dL (-149) H 07/24/19 04:55 Lipase 25 U/L (22-51) 07/20/19 12:20 Nasal Screen MRSA (PCR) NEGATIVE (NEGATIVE) 07/20/19 17:34 Sepsis Event Note (H) - Evaluation Current Stage of Sepsis: Septic shock Possible source of Sepsis: positive: GI tract/intra-abdominal - Sepsis Criteria Sepsis Criteria: Recorded Heart Rate greater than 90 bpm, Recorded Respiratory Rate greater than 20, WBC count greater than 10% bands, WBC count greater than 12,000 or less than 4000, SBP drop more than 40mHg, SBP less than 90 mmHg, Renal: urine output less than 0.5ml/kg/hr for 2 hours or creatinine gr, Metabolic: lactate > 2 mmol/L
[2019-07-24] MEDS: fentaNYL 2,500 MCG in SODIUM CHLORIDE 0.9% 200 ML IV SCH (17:51)
[2019-07-24] MEDS: TPN (CLINIMIX E 5/15) 2,000 ML with MULTIVITAMIN 10 ML, TRACE ELEMENTS V CONC 1 ML IV SCH ×3 (18:42)
[2019-07-25] MEDS: PROPOFOL 1000 MG/100 ML 100 ML IV SCH ×3 (00:53→14:11)
[2019-07-25 05:14] LABS: BASOPHILS % (AUTO) 0.2 %; EOSINOPHILS % (AUTO) 0.2 %; HGB - HEMOGLOBIN 9.1 g/dL (12.0-16.0); MEAN CORPUSCULAR HGB CONC 30.6 g/dL (32.0-36.0); MEAN PLATELET VOLUME 10.3 fL (7.9-10.8); MONOCYTES % (AUTO) 10.8 %; NEUTROPHILS % (AUTO) 75.1 %; PLT - PLATELET COUNT 194 10^3/uL (130-450); RED BLOOD COUNT 2.94 10^6/uL (4.20-5.40); RED CELL DISTRIBUTION WIDTH 15.9 % (12.0-15.0); WHITE BLOOD COUNT 8.5 x10^3/uL (4.8-10.8)
[2019-07-25 05:27] LABS: CALCIUM 8.3 mg/dL (8.5-10.3); CREATININE 0.9 mg/dL (0.4-1.0); PHOSPHORUS 1.9 mg/dL (2.5-4.6)
[2019-07-25 05:34] LABS: ABNORMAL LYMPHS % (MANUAL) 0 %
[2019-07-25 05:58] LABS: BAND NEUTROPHILS % (MANUAL) 12 %; DIFFERENTIAL COMMENT MANUAL DIFFERENTIAL; LYMPHOCYTES # (MANUAL) 1.2 10^3/uL (1.5-3.5); LYMPHOCYTES % (MANUAL) 14 %; MONOCYTES # (MANUAL) 0.3 10^3/uL (0.0-1.0); PLATELET ESTIMATE, MANUAL NORMAL (130-450,000) (NORMAL); RBC MORPHOLOGY (MULTIPLE) NORMAL APPEARANCE (NORMAL)
[2019-07-25] MEDS: metroNIDAZOLE 500 MG/100 ML 500 MG/100 ML BAG IV SCH ×3 (06:21→22:54)
[2019-07-25] MEDS: SODIUM CHLORIDE FLUSH 0.9% 10 ML SYRINGE IVP SCH ×3 (06:24→17:35)
[2019-07-25 06:38] LABS: ABG BASE EXCESS -3.2 mmol/L (-2.0-3.0); ABG FRACTION OF INSPIRED O2 0.28; ABG HCO3 23.2 mmol/L (22.0-26.0); ABG OXYGEN SATURATION 94 % (94-98); ABG PCO2 48 mmHg (34-45); ABG PO2 71 mmHg (80-100); ABG TCO2 24.6 MMOL/L (21.0-29.0)
[2019-07-25] MEDS: DEXTROSE 5%-LACTATED RINGERS 1,000 ML IV SCH (07:00)
[2019-07-25] MEDS: SODIUM CHLORIDE 0.9% 500 ML IV PRN (07:30)
[2019-07-25] MEDS: POTASSIUM CHLOR 20 MEQ/100 ML 20 MEQ/100 ML BAG IV SCH ×2 (07:30→08:40)
[2019-07-25] MEDS ORDERED: POTASSIUM PHOSPHATE 15 MMOL in SODIUM CHLORIDE 0.9% 250 ML IV ONE (08:00)
--- NOTE | 2019-07-25 08:12 | PROVIDER PROGRESS NOTE ---
Subjective - General Admit Date: 07/20/19 Procedure Date: 07/23/19 Post Op Days: 2 Procedure Performed: Excision and closure of perforated gastric ulcer, et. al. - Review of Systems Wound/Incisions: positive: Drainage (minimal sero sanguinous/receiving wet to dry dressings) Drain Type: Mati Drain Output Description: serosanguinous Approximate mls Output: 170 yest; 50 today so far General: positive: No symptoms (intubated and sedated; appears comfortable) Objective - Patient Data Reviewed Vital Signs: Yes Vital Signs: Vital Signs x48h Temp Pulse Pulse Resp BP Pulse Ox 07/25/19 07:00 92 16 137/62 H 98 07/25/19 06:00 85 16 147/69 H 97 07/25/19 05:00 90 16 161/75 H 97 07/25/19 04:30 87 07/25/19 04:00 36.7 C 82 16 154/74 H 98 07/25/19 03:00 77 16 119/58 L 98 07/25/19 02:20 85 07/25/19 02:00 84 16 148/67 H 97 07/25/19 01:00 91 16 179/72 H 94 07/25/19 00:30 88 Weight: Weight 07/23/19 07/24/19 07/25/19 23:59 23:59 23:59 Weight (kg) 56.5 kg 65 kg 66 kg Intake & Output: Intake and Output Totals x24h 07/23/19 07/24/19 07/25/19 23:59 23:59 23:59 Intake Total 3052.115 4159.545 1583.826 Output Total 1290 2100 715 Balance 2042.066 0590.545 261.175 9643 ml urine output yest; 700 NG output yest - Lab Results Lab Results: 07/25/19 04:40 07/25/19 04:40 Other Lab Results: Lab Results x24hrs 07/25/19 07/25/19 07/25/19 Range/Units 06:30 06:19 04:40 WBC (4.8-10.8) x10^3/uL RBC (4.20-5.40) 10^6/uL Hgb (12.0-16.0) g/dL Hct (37.0-47.0) % MCV (81.0-99.0) fL MCH (27.0-31.0) pg MCHC (32.0-36.0) g/dL RDW (12.0-15.0) % Plt Count (130-450) 10^3/uL MPV (7.9-10.8) fL Neut # (Auto) Lymph # (Auto) [place] # (Auto) Eos # (Auto) Baso # (Auto) Absolute Nucleated RBC Total Counted Band Neuts % (Manual) (0 - 10) % Abnorm Lymph % (Manual) % Nucleated RBC % Neutrophils # (Manual) (1.5-6.6) 10^3/uL Lymphocytes # (Manual) (1.5-3.5) 10^3/uL Monocytes # (Manual) (0.0-1.0) 10^3/uL Eosinophils # (Manual) (0-0.7) 10^3/uL Basophils # (Manual) (0-0.1) 10^3/uL Differential Comment Platelet Estimate (NORMAL) RBC Morph Micro Appear (NORMAL) Bld Gas Analysis Time 0638 Sample Site A-LINE ABG pH 7.30 L (7.35-7.45) ABG pCO2 48 H (34-45) mmHg ABG pO2 71 L (80-100) mmHg ABG HCO3 23.2 (22.0-26.0) mmol/L ABG Total CO2 24.6 (21.0-29.0) MMOL/L ABG O2 Saturation 94 (94-98) % ABG Base Excess -3.2 L (-2.0-3.0) mmol/L William Test NOT APPLICABLE Respiration Rate 16 b/min O2 Delivery Device VENTILATOR Vent Mode SIMV FiO2 0.28 Tidal Volume 400 mL PEEP 5 cmH2O Pressure Support Vent 14 cmH2O Sodium (135-145) mmol/L Potassium (3.5-5.0) mmol/L Chloride (101-111) mmol/L Carbon Dioxide (21-32) mmol/L Anion Gap (6-13) BUN (6-20) mg/dL Creatinine (0.4-1.0) mg/dL Estimated GFR (MDRD) (>89) Glucose (70-100) mg/dL POC Whole Bld Glucose 96 (70 - 100) mg/dL Calcium (8.5-10.3) mg/dL Phosphorus (2.5-4.6) mg/dL Magnesium (1.7-2.8) mg/dL Albumin 1.4 L (3.2-5.5) g/dL 07/25/19 07/25/19 07/25/19 Range/Units 04:40 04:40 00:16 WBC 8.5 (4.8-10.8) x10^3/uL RBC 2.94 L (4.20-5.40) 10^6/uL Hgb 9.1 L (12.0-16.0) g/dL Hct 29.7 L (37.0-47.0) % MCV 101.0 H (81.0-99.0) fL MCH 31.0 (27.0-31.0) pg MCHC 30.6 L (32.0-36.0) g/dL RDW 15.9 H (12.0-15.0) % Plt Count 194 (130-450) 10^3/uL MPV 10.3 (7.9-10.8) fL Neut # (Auto) Not Reportable Lymph # (Auto) Not Reportable [place] # (Auto) Not Reportable Eos # (Auto) Not Reportable Baso # (Auto) Not Reportable Absolute Nucleated RBC Not Reportable Total Counted 100 Band Neuts % (Manual) 12 H (0 - 10) % Abnorm Lymph % (Manual) 0 % Nucleated RBC % Not Reportable Neutrophils # (Manual) 7.0 H (1.5-6.6) 10^3/uL Lymphocytes # (Manual) 1.2 L (1.5-3.5) 10^3/uL Monocytes # (Manual) 0.3 (0.0-1.0) 10^3/uL Eosinophils # (Manual) 0.0 (0-0.7) 10^3/uL Basophils # (Manual) 0.0 (0-0.1) 10^3/uL Differential Comment MANUAL DIFFERENTIAL Platelet Estimate NORMAL (130-450,000) (NORMAL) RBC Morph Micro Appear NORMAL APPEARANCE (NORMAL) Bld Gas Analysis Time Sample Site ABG pH (7.35-7.45) ABG pCO2 (34-45) mmHg ABG pO2 (80-100) mmHg ABG HCO3 (22.0-26.0) mmol/L ABG Total CO2 (21.0-29.0) MMOL/L ABG O2 Saturation (94-98) % ABG Base Excess (-2.0-3.0) mmol/L William Test Respiration Rate b/min O2 Delivery Device Vent Mode FiO2 Tidal Volume mL PEEP cmH2O Pressure Support Vent cmH2O Sodium 144 (135-145) mmol/L Potassium 3.3 L (3.5-5.0) mmol/L Chloride 114 H (101-111) mmol/L Carbon Dioxide 24 (21-32) mmol/L Anion Gap 6.0 (6-13) BUN 33 H (6-20) mg/dL Creatinine 0.9 (0.4-1.0) mg/dL Estimated GFR (MDRD) 63 L (>89) Glucose 137 H (70-100) mg/dL POC Whole Bld Glucose 98 (70 - 100) mg/dL Calcium 8.3 L (8.5-10.3) mg/dL Phosphorus 1.9 L (2.5-4.6) mg/dL Magnesium 2.0 (1.7-2.8) mg/dL Albumin (3.2-5.5) g/dL 07/24/19 07/24/19 07/24/19 Range/Units 17:52 13:30 12:35 WBC (4.8-10.8) x10^3/uL RBC (4.20-5.40) 10^6/uL Hgb (12.0-16.0) g/dL Hct (37.0-47.0) % MCV (81.0-99.0) fL MCH (27.0-31.0) pg MCHC (32.0-36.0) g/dL RDW (12.0-15.0) % Plt Count (130-450) 10^3/uL MPV (7.9-10.8) fL Neut # (Auto) Lymph # (Auto) [place] # (Auto) Eos # (Auto) Baso # (Auto) Absolute Nucleated RBC Total Counted Band Neuts % (Manual) (0 - 10) % Abnorm Lymph % (Manual) % Nucleated RBC % Neutrophils # (Manual) (1.5-6.6) 10^3/uL Lymphocytes # (Manual) (1.5-3.5) 10^3/uL Monocytes # (Manual) (0.0-1.0) 10^3/uL Eosinophils # (Manual) (0-0.7) 10^3/uL Basophils # (Manual) (0-0.1) 10^3/uL Differential Comment Platelet Estimate (NORMAL) RBC Morph Micro Appear (NORMAL) Bld Gas Analysis Time Sample Site ABG pH (7.35-7.45) ABG pCO2 (34-45) mmHg ABG pO2 (80-100) mmHg ABG HCO3 (22.0-26.0) mmol/L ABG Total CO2 (21.0-29.0) MMOL/L ABG O2 Saturation (94-98) % ABG Base Excess (-2.0-3.0) mmol/L William Test Respiration Rate b/min O2 Delivery Device Vent Mode FiO2 Tidal Volume mL PEEP cmH2O Pressure Support Vent cmH2O Sodium (135-145) mmol/L Potassium (3.5-5.0) mmol/L Chloride (101-111) mmol/L Carbon Dioxide (21-32) mmol/L Anion Gap (6-13) BUN (6-20) mg/dL Creatinine (0.4-1.0) mg/dL Estimated GFR (MDRD) (>89) Glucose (70-100) mg/dL POC Whole Bld Glucose 82 98 67 L (70 - 100) mg/dL Calcium (8.5-10.3) mg/dL Phosphorus (2.5-4.6) mg/dL Magnesium (1.7-2.8) mg/dL Albumin (3.2-5.5) g/dL 07/24/19 07/24/19 07/23/19 Range/Units 07:07 00:25 17:59 WBC (4.8-10.8) x10^3/uL RBC (4.20-5.40) 10^6/uL Hgb (12.0-16.0) g/dL Hct (37.0-47.0) % MCV (81.0-99.0) fL MCH (27.0-31.0) pg MCHC (32.0-36.0) g/dL RDW (12.0-15.0) % Plt Count (130-450) 10^3/uL MPV (7.9-10.8) fL Neut # (Auto) Lymph # (Auto) [place] # (Auto) Eos # (Auto) Baso # (Auto) Absolute Nucleated RBC Total Counted Band Neuts % (Manual) (0 - 10) % Abnorm Lymph % (Manual) % Nucleated RBC % Neutrophils # (Manual) (1.5-6.6) 10^3/uL Lymphocytes # (Manual) (1.5-3.5) 10^3/uL Monocytes # (Manual) (0.0-1.0) 10^3/uL Eosinophils # (Manual) (0-0.7) 10^3/uL Basophils # (Manual) (0-0.1) 10^3/uL Differential Comment Platelet Estimate (NORMAL) RBC Morph Micro Appear (NORMAL) Bld Gas Analysis Time Sample Site ABG pH (7.35-7.45) ABG pCO2 (34-45) mmHg ABG pO2 (80-100) mmHg ABG HCO3 (22.0-26.0) mmol/L ABG Total CO2 (21.0-29.0) MMOL/L ABG O2 Saturation (94-98) % ABG Base Excess (-2.0-3.0) mmol/L William Test Respiration Rate b/min O2 Delivery Device Vent Mode FiO2 Tidal Volume mL PEEP cmH2O Pressure Support Vent cmH2O Sodium (135-145) mmol/L Potassium (3.5-5.0) mmol/L Chloride (101-111) mmol/L Carbon Dioxide (21-32) mmol/L Anion Gap (6-13) BUN (6-20) mg/dL Creatinine (0.4-1.0) mg/dL Estimated GFR (MDRD) (>89) Glucose (70-100) mg/dL POC Whole Bld Glucose 100 116 H 98 (70 - 100) mg/dL Calcium (8.5-10.3) mg/dL Phosphorus (2.5-4.6) mg/dL Magnesium (1.7-2.8) mg/dL Albumin (3.2-5.5) g/dL 07/23/19 07/22/19 07/22/19 Range/Units 12:05 23:12 17:13 WBC (4.8-10.8) x10^3/uL RBC (4.20-5.40) 10^6/uL Hgb (12.0-16.0) g/dL Hct (37.0-47.0) % MCV (81.0-99.0) fL MCH (27.0-31.0) pg MCHC (32.0-36.0) g/dL RDW (12.0-15.0) % Plt Count (130-450) 10^3/uL MPV (7.9-10.8) fL Neut # (Auto) Lymph # (Auto) [place] # (Auto) Eos # (Auto) Baso # (Auto) Absolute Nucleated RBC Total Counted Band Neuts % (Manual) (0 - 10) % Abnorm Lymph % (Manual) % Nucleated RBC % Neutrophils # (Manual) (1.5-6.6) 10^3/uL Lymphocytes # (Manual) (1.5-3.5) 10^3/uL Monocytes # (Manual) (0.0-1.0) 10^3/uL Eosinophils # (Manual) (0-0.7) 10^3/uL Basophils # (Manual) (0-0.1) 10^3/uL Differential Comment Platelet Estimate (NORMAL) RBC Morph Micro Appear (NORMAL) Bld Gas Analysis Time Sample Site ABG pH (7.35-7.45) ABG pCO2 (34-45) mmHg ABG pO2 (80-100) mmHg ABG HCO3 (22.0-26.0) mmol/L ABG Total CO2 (21.0-29.0) MMOL/L ABG O2 Saturation (94-98) % ABG Base Excess (-2.0-3.0) mmol/L William Test Respiration Rate b/min O2 Delivery Device Vent Mode FiO2 Tidal Volume mL PEEP cmH2O Pressure Support Vent cmH2O Sodium (135-145) mmol/L Potassium (3.5-5.0) mmol/L Chloride (101-111) mmol/L Carbon Dioxide (21-32) mmol/L Anion Gap (6-13) BUN (6-20) mg/dL Creatinine (0.4-1.0) mg/dL Estimated GFR (MDRD) (>89) Glucose (70-100) mg/dL POC Whole Bld Glucose 82 93 107 H (70 - 100) mg/dL Calcium (8.5-10.3) mg/dL Phosphorus (2.5-4.6) mg/dL Magnesium (1.7-2.8) mg/dL Albumin (3.2-5.5) g/dL 07/22/19 07/21/19 07/21/19 Range/Units 12:00 23:01 18:18 WBC (4.8-10.8) x10^3/uL RBC (4.20-5.40) 10^6/uL Hgb (12.0-16.0) g/dL Hct (37.0-47.0) % MCV (81.0-99.0) fL MCH (27.0-31.0) pg MCHC (32.0-36.0) g/dL RDW (12.0-15.0) % Plt Count (130-450) 10^3/uL MPV (7.9-10.8) fL Neut # (Auto) Lymph # (Auto) [place] # (Auto) Eos # (Auto) Baso # (Auto) Absolute Nucleated RBC Total Counted Band Neuts % (Manual) (0 - 10) % Abnorm Lymph % (Manual) % Nucleated RBC % Neutrophils # (Manual) (1.5-6.6) 10^3/uL Lymphocytes # (Manual) (1.5-3.5) 10^3/uL Monocytes # (Manual) (0.0-1.0) 10^3/uL Eosinophils # (Manual) (0-0.7) 10^3/uL Basophils # (Manual) (0-0.1) 10^3/uL Differential Comment Platelet Estimate (NORMAL) RBC Morph Micro Appear (NORMAL) Bld Gas Analysis Time Sample Site ABG pH (7.35-7.45) ABG pCO2 (34-45) mmHg ABG pO2 (80-100) mmHg ABG HCO3 (22.0-26.0) mmol/L ABG Total CO2 (21.0-29.0) MMOL/L ABG O2 Saturation (94-98) % ABG Base Excess (-2.0-3.0) mmol/L William Test Respiration Rate b/min O2 Delivery Device Vent Mode FiO2 Tidal Volume mL PEEP cmH2O Pressure Support Vent cmH2O Sodium (135-145) mmol/L Potassium (3.5-5.0) mmol/L Chloride (101-111) mmol/L Carbon Dioxide (21-32) mmol/L Anion Gap (6-13) BUN (6-20) mg/dL Creatinine (0.4-1.0) mg/dL Estimated GFR (MDRD) (>89) Glucose (70-100) mg/dL POC Whole Bld Glucose 110 H 96 123 H (70 - 100) mg/dL Calcium (8.5-10.3) mg/dL Phosphorus (2.5-4.6) mg/dL Magnesium (1.7-2.8) mg/dL Albumin (3.2-5.5) g/dL 07/21/19 07/21/19 07/20/19 Range/Units 12:08 00:06 20:32 WBC (4.8-10.8) x10^3/uL RBC (4.20-5.40) 10^6/uL Hgb (12.0-16.0) g/dL Hct (37.0-47.0) % MCV (81.0-99.0) fL MCH (27.0-31.0) pg MCHC (32.0-36.0) g/dL RDW (12.0-15.0) % Plt Count (130-450) 10^3/uL MPV (7.9-10.8) fL Neut # (Auto) Lymph # (Auto) [place] # (Auto) Eos # (Auto) Baso # (Auto) Absolute Nucleated RBC Total Counted Band Neuts % (Manual) (0 - 10) % Abnorm Lymph % (Manual) % Nucleated RBC % Neutrophils # (Manual) (1.5-6.6) 10^3/uL Lymphocytes # (Manual) (1.5-3.5) 10^3/uL Monocytes # (Manual) (0.0-1.0) 10^3/uL Eosinophils # (Manual) (0-0.7) 10^3/uL Basophils # (Manual) (0-0.1) 10^3/uL Differential Comment Platelet Estimate (NORMAL) RBC Morph Micro Appear (NORMAL) Bld Gas Analysis Time Sample Site ABG pH (7.35-7.45) ABG pCO2 (34-45) mmHg ABG pO2 (80-100) mmHg ABG HCO3 (22.0-26.0) mmol/L ABG Total CO2 (21.0-29.0) MMOL/L ABG O2 Saturation (94-98) % ABG Base Excess (-2.0-3.0) mmol/L William Test Respiration Rate b/min O2 Delivery Device Vent Mode FiO2 Tidal Volume mL PEEP cmH2O Pressure Support Vent cmH2O Sodium (135-145) mmol/L Potassium (3.5-5.0) mmol/L Chloride (101-111) mmol/L Carbon Dioxide (21-32) mmol/L Anion Gap (6-13) BUN (6-20) mg/dL Creatinine (0.4-1.0) mg/dL Estimated GFR (MDRD) (>89) Glucose (70-100) mg/dL POC Whole Bld Glucose 59 L* 121 H 91 (70 - 100) mg/dL Calcium (8.5-10.3) mg/dL Phosphorus (2.5-4.6) mg/dL Magnesium (1.7-2.8) mg/dL Albumin (3.2-5.5) g/dL 07/20/19 07/20/19 Range/Units 20:08 20:06 WBC (4.8-10.8) x10^3/uL RBC (4.20-5.40) 10^6/uL Hgb (12.0-16.0) g/dL Hct (37.0-47.0) % MCV (81.0-99.0) fL MCH (27.0-31.0) pg MCHC (32.0-36.0) g/dL RDW (12.0-15.0) % Plt Count (130-450) 10^3/uL MPV (7.9-10.8) fL Neut # (Auto) Lymph # (Auto) [place] # (Auto) Eos # (Auto) Baso # (Auto) Absolute Nucleated RBC Total Counted Band Neuts % (Manual) (0 - 10) % Abnorm Lymph % (Manual) % Nucleated RBC % Neutrophils # (Manual) (1.5-6.6) 10^3/uL Lymphocytes # (Manual) (1.5-3.5) 10^3/uL Monocytes # (Manual) (0.0-1.0) 10^3/uL Eosinophils # (Manual) (0-0.7) 10^3/uL Basophils # (Manual) (0-0.1) 10^3/uL Differential Comment Platelet Estimate (NORMAL) RBC Morph Micro Appear (NORMAL) Bld Gas Analysis Time Sample Site ABG pH (7.35-7.45) ABG pCO2 (34-45) mmHg ABG pO2 (80-100) mmHg ABG HCO3 (22.0-26.0) mmol/L ABG Total CO2 (21.0-29.0) MMOL/L ABG O2 Saturation (94-98) % ABG Base Excess (-2.0-3.0) mmol/L William Test Respiration Rate b/min O2 Delivery Device Vent Mode FiO2 Tidal Volume mL PEEP cmH2O Pressure Support Vent cmH2O Sodium (135-145) mmol/L Potassium (3.5-5.0) mmol/L Chloride (101-111) mmol/L Carbon Dioxide (21-32) mmol/L Anion Gap (6-13) BUN (6-20) mg/dL Creatinine (0.4-1.0) mg/dL Estimated GFR (MDRD) (>89) Glucose (70-100) mg/dL POC Whole Bld Glucose 13 L* 45 L* (70 - 100) mg/dL Calcium (8.5-10.3) mg/dL Phosphorus (2.5-4.6) mg/dL Magnesium (1.7-2.8) mg/dL Albumin (3.2-5.5) g/dL - Current Medications Current Medications: Current Medications Generic Name Dose Route Start Last Admin Trade Name Freq PRN Reason Stop Dose Admin Albuterol 2.5 mg 07/21/19 14:20 07/23/19 16:15 INH 2.5 mg RTQ4H PRN Administration Wheezing Chlorhexidine Gluconate 15 ml 07/21/19 09:00 07/24/19 21:07 Peridex PO 15 ml BID SONG Administration Heparin Sodium (Porcine) 5,000 unit 07/21/19 09:00 07/24/19 21:10 SUBQ 5,000 unit BID SONG Administration Metronidazole 500 mg in 100 mls @ 100 mls/hr 07/20/19 22:30 07/25/19 06:21 Flagyl 500 Mg/100 Ml IV 100 mls/hr Q8H SONG Administration Propofol 100 mls @ 3.33 mls/hr 07/20/19 19:00 07/25/19 07:00 Diprivan IV 50 mcg/kg/min .Q30H2M SONG 16.65 mls/hr Titration Protocol 10 MCG/KG/MIN Fentanyl 2,500 mcg/ Sodium 250 mls @ 5.55 mls/hr 07/20/19 19:00 07/25/19 07:00 Chloride IV 1 mcg/kg/hr .Q45H3M SONG 5.55 mls/hr Titration Protocol 1 MCG/KG/HR Norepinephrine Bitartrate 8 mg 250 mls @ 15 mls/hr 07/20/19 21:00 07/24/19 08:29 / Dextrose IV 0 mcg/min .[id number] SONG 0 mls/hr Titration Protocol 8 MCG/MIN Cefepime HCl 2 gm/ Sodium 100 mls @ 200 mls/hr 07/20/19 21:00 07/24/19 21:40 Chloride IV Infused BID SONG Infusion Thiamine HCl 100 mg/ Sodium 51 mls @ 100 mls/hr 07/21/19 09:00 07/24/19 09:30 Chloride IV Infused DAILY SONG Infusion Sodium Chloride 500 mls @ 20 mls/hr 07/21/19 18:13 07/23/19 07:00 Normal Saline 0.9% IV Infused Q24H PRN Infusion TKO RATE Multivitamins 10 ml/ Chromium/ 2,011 mls @ 50 mls/hr 07/24/19 19:00 07/25/19 07:00 Copper/Manganese/Seleni/Zn 1 IV 50 mls/hr ml/ Amino Ac/Electrol/Dextrose Q24H SONG Infusion /Calcium Protocol Pantoprazole Sodium 40 mg 07/20/19 21:00 07/24/19 21:07 Protonix IVP 40 mg BID SONG Administration Sodium Chloride 10 ml 07/20/19 17:00 07/25/19 06:24 Normal Saline Flush 0.9% IVP 10 ml 0100,0900,1700 SONG Administration Sodium Chloride 10 ml 07/20/19 16:31 07/23/19 05:32 Normal Saline Flush 0.9% IVP 10 ml PRN PRN Administration NEEDED PER PROVIDER ORDERS - Physical Exam Wound/Incisions: positive: Healing well (dressing changed and wound inspected; no evidence of infection or dehiscence) General Appearance: positive: No acute distress (sedated) Eyes Bilateral: positive: No scleral icterus ENT: positive: No signs of dehydration Neck: positive: No JVD Respiratory: positive: Chest non-tender, No respiratory distress, Breath sounds nml (anteriorly) Cardiovascular: positive: Regular rate & rhythm, No murmur, No gallop Abdomen: positive: Non-tender (sedated), Abnml bowel sounds (hypoactive), Other (mod distention but soft; wound healing well). negative: Hepatomegaly, Splenomegaly, Mass Skin: positive: Color nml, Warm Extremities: positive: Pedal edema (1+), Other (left hand appears somewhat mottled skin, cyanotic, and cooler than other side or feet) ABX Reporting Has patient been on IV antibiotics over the past 48 hours?: Yes Impression/Plan - Problem List Problem List: PO Day 2 s/p ex lap, excision and closure of perforated gastric ulcer and drainage of lesser sac abscess. Doing well overall now off pressors, with satisfactory cardiopulmonary and renal function. Started on TPN last night; ap pears well hydrated. Rec: Agree with continued attempts to wean from ventilator/ extubate as per Dr. Chen. OW continue present management.
--- NOTE | 2019-07-25 08:34 | XRAY Report ---
Reason: On ventil 5 days, rising WBC, eval for pneumonia Procedure Date: 07/25/2019 Accession Number: [id number] / [id number] Procedure: XR - Chest 1 View X-Ray CPT Code: 63269 Final Report FULL RESULT: EXAM: CHEST RADIOGRAPHY EXAM DATE: 07/25/2019 07:55 AM. CLINICAL HISTORY: On ventil 5 days, rising WBC, eval for pneumonia. COMPARISON: CHEST 1 VIEW 07/21/2019 8:37 AM. TECHNIQUE: 1 view. FINDINGS: Lungs/Pleura: There is increasing consolidation in the left lower lobe with a left-sided pleural effusion. There is right basal consolidation. The findings may indicate pneumonia or aspiration. Mediastinum: Within exam limitations, the cardiomediastinal contour is normal. Other: ETT and NGT in situ. Left-sided CVC terminates in the brachiocephalic vein. IMPRESSION: Bibasal consolidation worse on the left, with a left-sided pleural effusion, evolved since the prior study. The differential diagnosis includes pneumonia and aspiration. RADIA
--- NOTE | 2019-07-25 08:51 | PROVIDER PROGRESS NOTE ---
Assessment/Plan - Problem List (1) Ventilator associated pneumonia Assessment/Plan: CXR was ordered today, as one had not been done for 4 days. It shows an infiltrate. For an aspiration PNA she is already on Flagyl. Will add Vanco to empiric Cefepime, for a VAP. Will continue CPAP trials, twice a day, with lower sedation, but knowing that there is a pneumonia, she will likely not be extubatable for 2-3 days, until the pneumonia improves. (2) Perforated abdominal viscus Assessment/Plan: No further signs of sepsis on her the empiric antibiotics were started at a dmission. General surgery is following along. No evidence of postoperative complications of the abdomen (3) Hypoglycemia after GI (gastrointestinal) surgery Assessment/Plan: Will start D5 in the peripheral IV and also TPN to be started for glucose, calories and nutrition (4) Ventilator dependent Assessment/Plan: As above in #1. No CPAP trials if she continues to have ventilator needs (5) Acute kidney injury Assessment/Plan: Improved (6) Demand ischemia Assessment/Plan: Stable VS (7) Severe protein-calorie malnutrition Assessment/Plan: TPN to be started (8) History of COPD Assessment/Plan: Continue nebs and vent support (9) Rheumatoid arthritis Assessment/Plan: As per the history, she was on high doses of Aleve which added to the perforated gastric ulcer (10) History of alcoholism Assessment/Plan: The abuse was stopped about 3 mos ago, as per the information obtained at admission (11) Metabolic acidosis Assessment/Plan: Resolved (12) Septic shock Assessment/Plan: Shock has resolved She is still getting antibx - Current Meds Current Meds: Current Medications Generic Name Dose Route Start Last Admin Trade Name Freq PRN Reason Stop Dose Admin Albuterol 2.5 mg 07/21/19 14:20 07/23/19 16:15 INH 2.5 mg RTQ4H PRN Administration Wheezing Chlorhexidine Gluconate 15 ml 07/21/19 09:00 07/24/19 21:07 Peridex PO 15 ml BID SONG Administration Heparin Sodium (Porcine) 5,000 unit 07/21/19 09:00 07/24/19 21:10 SUBQ 5,000 unit BID SONG Administration Metronidazole 500 mg in 100 mls @ 100 mls/hr 07/20/19 22:30 07/25/19 07:20 Flagyl 500 Mg/100 Ml IV Infused Q8H SONG Infusion Propofol 100 mls @ 3.33 mls/hr 07/20/19 19:00 07/25/19 08:35 Diprivan IV 10 mcg/kg/min .Q30H2M SONG 3.33 mls/hr Titration Protocol 10 MCG/KG/MIN Fentanyl 2,500 mcg/ Sodium 250 mls @ 5.55 mls/hr 07/20/19 19:00 07/25/19 08:00 Chloride IV 1 mcg/kg/hr .Q45H3M SONG 5.55 mls/hr Titration Protocol 1 MCG/KG/HR Norepinephrine Bitartrate 8 mg 250 mls @ 15 mls/hr 07/20/19 21:00 07/24/19 08:29 / Dextrose IV 0 mcg/min .[id number] SONG 0 mls/hr Titration Protocol 8 MCG/MIN Cefepime HCl 2 gm/ Sodium 100 mls @ 200 mls/hr 07/20/19 21:00 07/24/19 21:40 Chloride IV Infused BID SONG Infusion Thiamine HCl 100 mg/ Sodium 51 mls @ 100 mls/hr 07/21/19 09:00 07/24/19 09:30 Chloride IV Infused DAILY SONG Infusion Sodium Chloride 500 mls @ 20 mls/hr 07/21/19 18:13 07/23/19 07:00 Normal Saline 0.9% IV Infused Q24H PRN Infusion TKO RATE Multivitamins 10 ml/ Chromium/ 2,011 mls @ 50 mls/hr 07/24/19 19:00 07/25/19 08:00 Copper/Manganese/Seleni/Zn 1 IV 50 mls/hr ml/ Amino Ac/Electrol/Dextrose Q24H SONG Infusion /Calcium Protocol Pantoprazole Sodium 40 mg 07/20/19 21:00 07/24/19 21:07 Protonix IVP 40 mg BID SONG Administration Sodium Chloride 10 ml 07/20/19 17:00 07/25/19 06:24 Normal Saline Flush 0.9% IVP 10 ml 0100,0900,1700 SONG Administration Sodium Chloride 10 ml 07/20/19 16:31 07/23/19 05:32 Normal Saline Flush 0.9% IVP 10 ml PRN PRN Administration NEEDED PER PROVIDER ORDERS - Lab Result Fish Bone Diagrams: 07/27/19 04:55 07/27/19 04:55 - Additional Planning My Orders: My Active Orders 07/24/19 19:00 Multivitamin [Infuvite] 10 ml Trace Elements V Conc [Multitrace-5 Conc Vial] 1 ml TPN (Clinimix E 5/15) [Clinimix E 5%-15% Solution] 2,000 ml IV Q24H 07/25/19 07:58 Miscellaenous Nursing Order [RC] DAILY 07/25/19 08:00 Potassium Phosphate 15 mmol Sodium Chloride 0.9% [Normal Saline 0.9%] 250 ml IV ONCE Subjective - Subjective Patient Reports: Other (sedated with some CPAP trials) Objective Vital Signs: Vital Signs - 24 hr 07/24/19 07/24/19 07/24/19 09:00 09:20 10:00 Temperature Heart Rate 94 Heart Rate [ 85 86 Monitoring electrodes] Respiratory 16 16 Rate Blood Pressure [Right Brachial artery] Blood Pressure 130/60 142/69 H [Right Radial artery] O2 Saturation 96 97 07/24/19 07/24/19 07/24/19 11:00 11:30 12:00 Temperature 36.8 C Heart Rate 79 Heart Rate [ 84 91 Monitoring electrodes] Respiratory 16 16 Rate Blood Pressure [Right Brachial artery] Blood Pressure 104/53 L 125/86 H [Right Radial artery] O2 Saturation 97 95 07/24/19 07/24/19 07/24/19 13:00 13:59 14:00 Temperature Heart Rate 85 Heart Rate [ 89 85 Monitoring electrodes] Respiratory 16 16 Rate Blood Pressure 141/78 H 123/70 [Right Brachial artery] Blood Pressure 152/64 H [Right Radial artery] O2 Saturation 95 96 07/24/19 07/24/19 07/24/19 15:00 16:00 16:05 Temperature Heart Rate 108 H Heart Rate [ 80 120 H Monitoring electrodes] Respiratory 16 6 L Rate Blood Pressure [Right Brachial artery] Blood Pressure 155/66 H 162/73 H [Right Radial artery] O2 Saturation 97 93 07/24/19 07/24/19 07/24/19 17:00 18:00 18:20 Temperature Heart Rate 86 Heart Rate [ 90 87 Monitoring electrodes] Respiratory 16 16 Rate Blood Pressure [Right Brachial artery] Blood Pressure 137/62 H 156/70 H [Right Radial artery] O2 Saturation 95 96 07/24/19 07/24/19 07/24/19 19:00 20:00 20:50 Temperature 36.8 C Heart Rate 78 Heart Rate [ 82 80 Monitoring electrodes] Respiratory 16 16 Rate Blood Pressure [Right Brachial artery] Blood Pressure 137/61 H 123/57 L [Right Radial artery] O2 Saturation 96 97 07/24/19 07/24/19 07/24/19 20:55 22:00 23:00 Temperature Heart Rate Heart Rate [ 79 82 80 Monitoring electrodes] Respiratory 16 16 16 Rate Blood Pressure [Right Brachial artery] Blood Pressure 132/60 H 132/58 H 131/57 H [Right Radial artery] O2 Saturation 97 97 98 07/25/19 07/25/19 07/25/19 00:00 00:30 01:00 Temperature 36.7 C Heart Rate 88 Heart Rate [ 86 91 Monitoring electrodes] Respiratory 16 16 Rate Blood Pressure [Right Brachial artery] Blood Pressure 178/73 H 179/72 H [Right Radial artery] O2 Saturation 96 94 07/25/19 07/25/19 07/25/19 02:00 02:20 03:00 Temperature Heart Rate 85 Heart Rate [ 84 77 Monitoring electrodes] Respiratory 16 16 Rate Blood Pressure [Right Brachial artery] Blood Pressure 148/67 H 119/58 L [Right Radial artery] O2 Saturation 97 98 07/25/19 07/25/19 07/25/19 04:00 04:30 05:00 Temperature 36.7 C Heart Rate 87 Heart Rate [ 82 90 Monitoring electrodes] Respiratory 16 16 Rate Blood Pressure [Right Brachial artery] Blood Pressure 154/74 H 161/75 H [Right Radial artery] O2 Saturation 98 97 07/25/19 07/25/19 07/25/19 06:00 07:00 08:00 Temperature Heart Rate Heart Rate [ 85 92 82 Monitoring electrodes] Respiratory 16 16 16 Rate Blood Pressure [Right Brachial artery] Blood Pressure 147/69 H 137/62 H 180/76 H [Right Radial artery] O2 Saturation 97 98 99 07/25/19 08:27 Temperature Heart Rate 101 H Heart Rate [ Monitoring electrodes] Respiratory Rate Blood Pressure [Right Brachial artery] Blood Pressure [Right Radial artery] O2 Saturation Oxygen O2 Source Mechanical ventilator Oxygen Flow Rate 4 I&O (Last 24 Hrs): Intake and Output Totals x24h 07/23/19 07/24/19 07/25/19 23:59 23:59 23:59 Intake Total 3052.115 4159.545 1812.409 Output Total 1290 2100 715 Balance 7287.432 7012.545 1097.409 General: Other (Sedated) HEENT: Mucous membr. moist/pink, Other (ET tube in place) Neck: No JVD Neuro: Other (Sedated) Cardiovascular: Regular rate, No murmurs Respiratory: No respiratory distress, Breath sounds nml Genitourinary: Other (Fiore in place) Extremities: No edema, Other (Hand deformities of RA noted) - Results Results: Laboratory Results WBC 8.5 x10^3/uL (4.8-10.8) 07/25/19 04:40 RBC 2.94 10^6/uL (4.20-5.40) L 07/25/19 04:40 Hgb 9.1 g/dL (12.0-16.0) L 07/25/19 04:40 Hct 29.7 % (37.0-47.0) L 07/25/19 04:40 MCV 101.0 fL (81.0-99.0) H 07/25/19 04:40 MCH 31.0 pg (27.0-31.0) 07/25/19 04:40 MCHC 30.6 g/dL (32.0-36.0) L 07/25/19 04:40 RDW 15.9 % (12.0-15.0) H 07/25/19 04:40 Plt Count 194 10^3/uL (130-450) 07/25/19 04:40 MPV 10.3 fL (7.9-10.8) 07/25/19 04:40 Neut # (Auto) Not Reportable 07/25/19 04:40 Lymph # (Auto) Not Reportable 07/25/19 04:40 [place] # (Auto) Not Reportable 07/25/19 04:40 Eos # (Auto) Not Reportable 07/25/19 04:40 Baso # (Auto) Not Reportable 07/25/19 04:40 Absolute Nucleated RBC Not Reportable 07/25/19 04:40 Total Counted 100 07/25/19 04:40 Band Neuts % (Manual) 12 % (0-10) H 07/25/19 04:40 Abnorm Lymph % (Manual) 0 % 07/25/19 04:40 Metamyelocytes % 1 % (-0) H 07/22/19 05:00 Myelocytes % 1 % (-0) H 07/22/19 05:00 Nucleated RBC % Not Reportable 07/25/19 04:40 Neutrophils # (Manual) 7.0 10^3/uL (1.5-6.6) H 07/25/19 04:40 Lymphocytes # (Manual) 1.2 10^3/uL (1.5-3.5) L 07/25/19 04:40 Monocytes # (Manual) 0.3 10^3/uL (0.0-1.0) 07/25/19 04:40 Eosinophils # (Manual) 0.0 10^3/uL (0-0.7) 07/25/19 04:40 Basophils # (Manual) 0.0 10^3/uL (0-0.1) 07/25/19 04:40 Differential Comment MANUAL DIFFERENTIAL 07/25/19 04:40 Manual Slide Review Indicated 07/20/19 19:10 WBC Morphology 1+ VACUOLATION (NORMAL) 1+ TOXIC GRANULATION (NORMAL) 07/20/19 12:20 WBC Morphology NORMAL APPEARANCE (NORMAL) 07/23/19 04:40 Platelet Estimate NORMAL (130-450,000) (NORMAL) 07/25/19 04:40 Platelet Morphology NORMAL APPEARANCE (NORMAL) 07/23/19 04:40 RBC Morph Micro Appear NORMAL APPEARANCE (NORMAL) 07/24/19 04:55 RBC Morph Micro Appear NORMAL APPEARANCE (NORMAL) 07/25/19 04:40 PT 12.4 secs (9.9-12.6) 07/20/19 12:20 INR 1.1 (0.8-1.2) 07/20/19 12:20 Bld Gas Analysis Time 0638 07/25/19 06:30 Sample Site A-LINE 07/25/19 06:30 ABG pH 7.30 (7.35-7.45) L 07/25/19 06:30 ABG pCO2 48 mmHg (34-45) H 07/25/19 06:30 ABG pO2 71 mmHg (80-100) L 07/25/19 06:30 ABG HCO3 23.2 mmol/L (22.0-26.0) 07/25/19 06:30 ABG Total CO2 24.6 MMOL/L (21.0-29.0) 07/25/19 06:30 ABG O2 Saturation 94 % (94-98) 07/25/19 06:30 ABG Base Excess -3.2 mmol/L (-2.0-3.0) L 07/25/19 06:30 William Test NOT APPLICABLE 07/25/19 06:30 Respiration Rate 16 b/min 07/25/19 06:30 O2 Delivery Device VENTILATOR 07/25/19 06:30 Vent Mode SIMV 07/25/19 06:30 FiO2 0.28 07/25/19 06:30 Tidal Volume 400 mL 07/25/19 06:30 PEEP 5 cmH2O 07/25/19 06:30 Pressure Support Vent 14 cmH2O 07/25/19 06:30 Sodium 144 mmol/L (135-145) 07/25/19 04:40 Potassium 3.3 mmol/L (3.5-5.0) L 07/25/19 04:40 Chloride 114 mmol/L (101-111) H 07/25/19 04:40 Carbon Dioxide 24 mmol/L (21-32) 07/25/19 04:40 Anion Gap 6.0 (6-13) 07/25/19 04:40 BUN 33 mg/dL (6-20) H 07/25/19 04:40 Creatinine 0.9 mg/dL (0.4-1.0) 07/25/19 04:40 Estimated GFR (MDRD) 63 (>89) L 07/25/19 04:40 Glucose 137 mg/dL (70-100) H 07/25/19 04:40 POC Whole Bld Glucose 96 mg/dL (70 - 100) 07/25/19 06:19 Lactic Acid 1.5 mmol/L (0.5-2.2) 07/21/19 19:57 Calcium 8.3 mg/dL (8.5-10.3) L 07/25/19 04:40 Phosphorus 1.9 mg/dL (2.5-4.6) L 07/25/19 04:40 Magnesium 2.0 mg/dL (1.7-2.8) 07/25/19 04:40 Total Bilirubin 0.6 mg/dL (0.2-1.0) 07/22/19 05:00 Direct Bilirubin 0.1 mg/dL (0.1-0.5) 07/22/19 05:00 AST 20 IU/L (10-42) 07/22/19 05:00 ALT 20 IU/L (10-60) 07/22/19 05:00 Alkaline Phosphatase 36 IU/L (42-121) L 07/22/19 05:00 Troponin I High Sens 232.6 ng/L (2.3-14.8) H* 07/21/19 10:50 Total Protein 4.6 g/dL (6.7-8.2) L 07/22/19 05:00 Albumin 1.4 g/dL (3.2-5.5) L 07/25/19 04:40 Globulin 2.7 g/dL (2.1-4.2) 07/22/19 05:00 Albumin/Globulin Ratio 1.3 (1.0-2.2) 07/20/19 12:20 Triglycerides 261 mg/dL (-149) H 07/24/19 04:55 Lipase 25 U/L (22-51) 07/20/19 12:20 Nasal Screen MRSA (PCR) NEGATIVE (NEGATIVE) 07/20/19 17:34 Sepsis Event Note (H) - Evaluation Current Stage of Sepsis: Septic shock Possible source of Sepsis: positive: GI tract/intra-abdominal - Sepsis Criteria Sepsis Criteria: Recorded Heart Rate greater than 90 bpm, Recorded Respiratory Rate greater than 20, WBC count greater than 10% bands, WBC count greater than 12,000 or less than 4000, SBP drop more than 40mHg, SBP less than 90 mmHg, Renal: urine output less than 0.5ml/kg/hr for 2 hours or creatinine gr, Metabolic: lactate > 2 mmol/L
[2019-07-25] MEDS ORDERED: VANCOMYCIN PER PHARMACY 100 GM in SODIUM CHLORIDE 0.9% 250 ML IV SCH (09:00)
[2019-07-25] MEDS: SODIUM CHLORIDE FLUSH 0.9% 10 ML SYRINGE IVP PRN ×2 (09:22→09:37)
[2019-07-25] MEDS: PANTOPRAZOLE 40 MG VIAL IVP SCH ×2 (09:37→22:16)
[2019-07-25] MEDS: CHLORHEXIDINE GLUCONATE 15 ML UDC PO SCH ×2 (09:39→22:16)
[2019-07-25] MEDS: HEPARIN 5,000 UNIT/ML VIAL SUBQ SCH ×2 (09:40→22:17)
[2019-07-25] MEDS ORDERED: VANCOMYCIN INJ 1.75 GM in SODIUM CHLORIDE 0.9% 500 ML IV SCH (10:00)
[2019-07-25] MEDS: CEFEPIME 2 GM in SODIUM CHLORIDE 0.9% MINIBAG 100 ML IV SCH ×2 (10:25→22:14)
[2019-07-25] MEDS: THIAMINE INJ 100 MG in SODIUM CHLORIDE 0.9% 50 ML IV SCH (11:10)
--- NOTE | 2019-07-25 14:01 | PHARMACY PROGRESS NOTE ---
- Therapy Status Vancomycin regimen day #: 1 (Loading dose: 1750 mg IV x 1 per protocol; Maintenance dose: 1g IV q18h per protocol (dosing cautiously given renal status) Therapy status: Awaiting steady state Basis for treatment: Empirical Treatment indication: VAP Trough goal: 15-20 Concurrent antibiotics: cefepime, metronidazole - GERMAINE Risk Acute Kidney Injury risk factors: Goal trough >15, Admission to ICU, Sepsis - Monitoring and Recommendation Clinical response to treatment: I&O Previous 24 hours 07/23/19 07/24/19 07/25/19 23:59 23:59 23:59 Intake Total 3052.115 4942.045 2743.169 Output Total 1290 2100 1230 Balance 0750.204 0762.045 1513.169 Lab Results 07/25/19 07/24/19 07/23/19 04:40 04:55 04:40 BUN 33 H 40 H 48 H Creatinine 0.9 1.1 H 1.6 H Estimated GFR (MDRD) 63 L 50 L 33 L 07/22/19 07/21/19 07/21/19 05:00 13:40 04:45 BUN 52 H 45 H 41 H Creatinine 2.1 H 1.8 H 1.4 H Estimated GFR (MDRD) 24 L 29 L 38 L 07/20/19 07/20/19 19:10 12:20 BUN 37 H 39 H Creatinine 1.0 1.0 Estimated GFR (MDRD) 56 L 56 L Cultures 07/23/19 08:21 Other - Peritoneal Wound Culture - Final Staphylococcus Haemolyticus 07/20/19 17:40 Blood - Left Hand Blood Culture - Preliminary NO GROWTH AFTER 2 DAYS 07/20/19 17:36 Blood - Left Arm Blood Culture - Preliminary NO GROWTH AFTER 2 DAYS Monitoring plan: Daily serum creatinine Next trough due prior to maintenance dose #: 3 Next trough due (date/time): 07/27 at 1730 Areas for additional monitoring: IV to PO when appropriate, Therapy de- escalation based on culture results, Acute Kidney Injury Pharmacy recommendation: Continue current regime
[2019-07-25] MEDS: TPN (CLINIMIX E 5/15) 2,000 ML with MULTIVITAMIN 10 ML, TRACE ELEMENTS V CONC 1 ML IV SCH ×3 (18:32)
[2019-07-26] MEDS: PROPOFOL 1000 MG/100 ML 100 ML IV SCH ×4 (02:05→19:15)
[2019-07-26] MEDS: SODIUM CHLORIDE FLUSH 0.9% 10 ML SYRINGE IVP SCH ×4 (02:06→20:38)
[2019-07-26] MEDS: fentaNYL 2,500 MCG in SODIUM CHLORIDE 0.9% 200 ML IV SCH (02:38)
[2019-07-26 05:29] LABS: ABG BASE EXCESS -4.6 mmol/L (-2.0-3.0); ABG HCO3 22.8 mmol/L (22.0-26.0); ABG OXYGEN SATURATION 90 % (94-98); ABG PCO2 53 mmHg (34-45); ABG PH 7.25 (7.35-7.45); ABG PO2 61 mmHg (80-100); ABG TCO2 24.4 MMOL/L (21.0-29.0)
[2019-07-26 05:43] LABS: BASOPHILS # (AUTO) 0.1 10^3/uL (0.0-0.1); BASOPHILS % (AUTO) 0.5 %; EOSINOPHILS # (AUTO) 0.1 10^3/uL (0.0-0.7); EOSINOPHILS % (AUTO) 0.5 %; HGB - HEMOGLOBIN 8.9 g/dL (12.0-16.0); LYMPHOCYTES # (AUTO) 0.8 10^3/uL (1.5-3.5); LYMPHOCYTES % (AUTO) 8.7 %; MEAN CORPUSCULAR HEMOGLOBIN 31.6 pg (27.0-31.0); MEAN CORPUSCULAR VOLUME 101.8 fL (81.0-99.0); MEAN PLATELET VOLUME 10.4 fL (7.9-10.8); MONOCYTES # (AUTO) 0.9 10^3/uL (0.0-1.0); MONOCYTES % (AUTO) 9.9 %; NEUTROPHILS # (AUTO) 7.2 10^3/uL (1.5-6.6); NEUTROPHILS % (AUTO) 76.8 %; PLT - PLATELET COUNT 179 10^3/uL (130-450); RED BLOOD COUNT 2.82 10^6/uL (4.20-5.40); RED CELL DISTRIBUTION WIDTH 16.2 % (12.0-15.0); WHITE BLOOD COUNT 9.4 x10^3/uL (4.8-10.8)
[2019-07-26 05:53] LABS: CALCIUM 8.3 mg/dL (8.5-10.3); CREATININE 0.7 mg/dL (0.4-1.0); MAGNESIUM 1.8 mg/dL (1.7-2.8); PHOSPHORUS 2.4 mg/dL (2.5-4.6)
[2019-07-26] MEDS: VANCOMYCIN INJ 1 GM in SODIUM CHLORIDE 0.9% 250 ML IV SCH ×2 (06:30→23:58)
[2019-07-26] MEDS: metroNIDAZOLE 500 MG/100 ML 500 MG/100 ML BAG IV SCH ×3 (06:44→22:45)
[2019-07-26] MEDS ORDERED: POTASSIUM PHOSPHATE 15 MMOL in SODIUM CHLORIDE 0.9% 250 ML IV ONE (06:45)
[2019-07-26 07:18] LABS: ABG BASE EXCESS -6.3 mmol/L (-2.0-3.0); ABG HCO3 21.2 mmol/L (22.0-26.0); ABG OXYGEN SATURATION 97 % (94-98); ABG PCO2 51 mmHg (34-45); ABG PH 7.23 (7.35-7.45); ABG PO2 100 mmHg (80-100); ABG TCO2 22.8 MMOL/L (21.0-29.0)
[2019-07-26] MEDS: ALBUTEROL NEB 2.5 MG/3 ML INH PRN ×2 (07:32→15:15)
--- NOTE | 2019-07-26 08:12 | XRAY Report ---
Reason: hypoxia Procedure Date: 07/26/2019 Accession Number: [id number] / [id number] Procedure: XR - Chest 1 View X-Ray CPT Code: 74486 Final Report FULL RESULT: EXAM: CHEST RADIOGRAPHY EXAM DATE: 07/26/2019 07:59 AM. CLINICAL HISTORY: Shortness of breath. COMPARISON: CHEST 1 VIEW 07/25/2019 7:55 AM. TECHNIQUE: 1 view. FINDINGS: Lungs/Pleura: As before, mild bibasilar opacities are seen, in part due to pleural effusions particularly on the left side. Overall, lung aeration pattern has minimally changed. There is no pneumothorax or pulmonary vascular congestion. Mediastinum: Heart and mediastinal contours are notable for aortic calcification. Other: Endotracheal tube terminates 5.6 cm above desi. Enteric tube extends into the stomach. Left sided central line terminates at the left brachiocephalic vein region. IMPRESSION: No interval change. Lines and tubes as detailed above. RADIA
[2019-07-26] MEDS: CEFEPIME 2 GM in SODIUM CHLORIDE 0.9% MINIBAG 100 ML IV SCH ×2 (08:30→20:33)
[2019-07-26] MEDS: HEPARIN 5,000 UNIT/ML VIAL SUBQ SCH ×2 (08:33→21:37)
[2019-07-26] MEDS: CHLORHEXIDINE GLUCONATE 15 ML UDC PO SCH ×2 (08:46→20:38)
[2019-07-26] MEDS: SODIUM CHLORIDE FLUSH 0.9% 10 ML SYRINGE IVP PRN ×4 (08:46→23:59)
[2019-07-26] MEDS: PANTOPRAZOLE 40 MG VIAL IVP SCH ×2 (08:46→20:38)
[2019-07-26 09:08] LABS: ABG HCO3 23.9 mmol/L (22.0-26.0); ABG PCO2 54 mmHg (34-45); ABG PH 7.26 (7.35-7.45); ABG PO2 82 mmHg (80-100)
[2019-07-26 09:09] LABS: ABG BASE EXCESS -3.4 mmol/L (-2.0-3.0); ABG OXYGEN SATURATION 95 % (94-98); ABG TCO2 25.6 MMOL/L (21.0-29.0)
[2019-07-26] MEDS: THIAMINE INJ 100 MG in SODIUM CHLORIDE 0.9% 50 ML IV SCH (09:10)
[2019-07-26 11:32] LABS: ABG BASE EXCESS -2.1 mmol/L (-2.0-3.0); ABG HCO3 22.9 mmol/L (22.0-26.0); ABG OXYGEN SATURATION 98 % (94-98); ABG PCO2 40 mmHg (34-45); ABG PH 7.37 (7.35-7.45); ABG PO2 111 mmHg (80-100); ABG TCO2 24.2 MMOL/L (21.0-29.0)
[2019-07-26] MEDS: MINERAL OIL/PETROLAT OPHTH OINT EACHEYE PRN (14:00)
--- NOTE | 2019-07-26 15:30 | ADVANCE CARE PLANNING NOTE ---
Advance Care Planning - Planning Encounter Date: 07/26/19 Time: 14:45 Purpose: To determine next level of care, since transfer is advised for a tracheostomy Parties in Attendance: The son Mark from [facility] and daughter Cinda, who is visiting from [place] met with me and SHIVA Herr, in a meeting room. Later in the day, I met with the 3rd child, Abe who is visiting from [place] along with his girlfriend, in the patient's room, and repeated this discussion. Decisional Capacity of the Patient: She is fully sedated on a ventilator and cannot make decisions currently. When she was admitted, Dr Serrano had a discussion with her about code status and aggressiveness of care and she told him that she wanted everything done. - Diagnosis for Encounter (1) Ventilator associated pneumonia Summary: The pt is vent dependant, requiring higher settings today. (2) Perforated abdominal viscus Summary: She survived the perforation and the surgery, after going into shock before surgery. (3) Rheumatoid arthritis Summary: The daughter reported during this meeting, that the pt was to be on MTX but was not taking it because it could not be ingested with alcohol, instead she was abusing alcohol, using high doses of Aleve for pain, was nearly immobile requiring a walker in the house and needed a caregiver to help her toilet. (4) History of alcoholism Summary: She was noted to have stopped alcohol abuse 1 month ago, not 3 months ago, r eported by her caregiver to the daughter Cinda, who told me this today. - Encounter Subjective/Patient's Story: The patient is , a step-father helped raise 3 children. She has RA but was not taking MTX, instead was an alcoholic with poor nutrition, living alone, getting some caregiving help. Her RA pain was severe, and she ambulated with a walker in her home. Objective/Medical Story: The patient was admitted for severe abdominal pain, and workup showed a perforated viscus and attempts at having her transferred for surgery at a higher level of care facility were unsuccessful and she was taken to the OR here. During induction of anesthesia she became hypotensive, unknown what her rhythm was, CPR was done for 2 min and she revived, but surgery was cancelled. She was on a vent in the ICU and had the abd surgery the next day. She needed Levophed and crystalloids for septic shock, empiric antibiotics and ventilator management. GERMAINE has resolved. CPAP trials were started but she developed a ventil-assoc pneumonia, and vent settings needed to be increased. She has been intubated for 6 days and a plan for transfer for trach and further management was done today with the family members. Goals of Care: Cinda indicated that she wanted to not put her mother through another surgery (the trach) or a transfer to another location and voiced her opinion that her mother already had a poor quality of life and "would not want to be hooked up to machines" and that there would be a long recovery and possibly painful rehab process ahead of her. The 2 sons wanted everything done. I reminded the family that Dr Serrano's note stated that he had spoken tothe patient before she was sedated and that she wanted everything done. Cinda wanted to know what risks and benefits there would be with a trach surgery and transfer, which I reviewed giving examples of potential outcomes. Then she agreed that arranging for transfer for a trach should be initiated. Plan: This Hospitalist and provider team will reach out to have the patient accepted in transfer. Continue with aggressive management of pneumonia, post-op abdomen, ventilator support and nutrition needs. Continue Full Code status. Code Status: Attempt Resuscitation Time spent on advance care plannin min
--- NOTE | 2019-07-26 16:51 | PROVIDER PROGRESS NOTE ---
Assessment/Plan - Problem List (1) Ventilator associated pneumonia Assessment/Plan: Overnight her oxygen and ventilatory demands increased. TV was increased and Resp rate increased to 22 and several ABGs were done. No CPAP trials will now be done, due to increasing not decreasing vent settings WBC is improving Blood cx are neg to date. Continue antibx Follow CBC daily (2) Perforated abdominal viscus Assessment/Plan: Abdominal status is stable POD today Gen surgery is following along without any new recomendations (3) Ventilator dependent Assessment/Plan: Recommendations for a trach were undertaken with all 3 children today. After disagreement, the decision was made at about 6 pm, to work on having her transferred to [facility] for higher level of care (4) Severe protein-calorie malnutrition Assessment/Plan: She is cachectic. tpn was started several days ago. (5) History of COPD Assessment/Plan: On nebs, on vent (6) Rheumatoid arthritis Assessment/Plan: She was not taking the prescribed MTX but instead was abusing alcohol and using Aleve, needed a walker in house and needed a caregiver for toileting, due to the arthritic pain, per daughter's description to me today. (7) History of alcoholism Assessment/Plan: The alcohol abuse stopped 1 mo ago, not 3 mos ago, per the daughter's description to me today, which was told to her by the caregiver. She has been on daily Thiamine iv since admission. (8) Septic shock Assessment/Plan: Resolved (9) Acute kidney injury Assessment/Plan: Resolved - Current Meds Current Meds: Current Medications Generic Name Dose Route Start Last Admin Trade Name Freq PRN Reason Stop Dose Admin Albuterol 2.5 mg 07/21/19 14:20 07/26/19 15:15 INH 2.5 mg RTQ4H PRN Administration Wheezing Chlorhexidine Gluconate 15 ml 07/21/19 09:00 07/26/19 08:46 Peridex PO 15 ml BID SONG Administration Heparin Sodium (Porcine) 5,000 unit 07/21/19 09:00 07/26/19 08:33 SUBQ 5,000 unit BID SONG Administration Metronidazole 500 mg in 100 mls @ 100 mls/hr 07/20/19 22:30 07/26/19 15:30 Flagyl 500 Mg/100 Ml IV Infused Q8H SONG Infusion Propofol 100 mls @ 3.33 mls/hr 07/20/19 19:00 07/26/19 16:00 Diprivan IV 40 mcg/kg/min .Q30H2M SONG 13.32 mls/hr Titration Protocol 10 MCG/KG/MIN Fentanyl 2,500 mcg/ Sodium 250 mls @ 5.55 mls/hr 07/20/19 19:00 07/26/19 16:00 Chloride IV 2 mcg/kg/hr .Q45H3M SONG 11.1 mls/hr Titration Protocol 1 MCG/KG/HR Norepinephrine Bitartrate 8 mg 250 mls @ 15 mls/hr 07/20/19 21:00 07/26/19 13:28 / Dextrose IV Not Given .[id number] SONG Protocol 8 MCG/MIN Cefepime HCl 2 gm/ Sodium 100 mls @ 200 mls/hr 07/20/19 21:00 07/26/19 09:00 Chloride IV Infused BID SONG Infusion Thiamine HCl 100 mg/ Sodium 51 mls @ 100 mls/hr 07/21/19 09:00 07/26/19 09:45 Chloride IV Infused DAILY SONG Infusion Sodium Chloride 500 mls @ 20 mls/hr 07/21/19 18:13 07/26/19 16:00 Normal Saline 0.9% IV 20 mls/hr Q24H PRN Infusion TKO RATE Multivitamins 10 ml/ Chromium/ 2,011 mls @ 50 mls/hr 07/24/19 19:00 07/26/19 16:00 Copper/Manganese/Seleni/Zn 1 IV 50 mls/hr ml/ Amino Ac/Electrol/Dextrose Q24H SONG Infusion /Calcium Protocol Vancomycin HCl 1 gm/ Sodium 250 mls @ 167 mls/hr 07/26/19 06:00 07/26/19 08:00 Chloride IV Infused Q18H SONG Infusion Multi-Ingred Cream/Lotion/Oil/Oint 1 applic 07/26/19 13:27 07/26/19 14:00 Lubrifresh Pm Ophth Oint EACHEYE 1 applic QPM PRN Administration Dry Eye Pantoprazole Sodium 40 mg 07/20/19 21:00 07/26/19 08:46 Protonix IVP 40 mg BID SONG Administration Sodium Chloride 10 ml 07/20/19 17:00 07/26/19 08:46 Normal Saline Flush 0.9% IVP 10 ml 0100,0900,1700 SONG Administration Sodium Chloride 10 ml 07/20/19 16:31 07/26/19 08:46 Normal Saline Flush 0.9% IVP 10 ml PRN PRN Administration NEEDED PER PROVIDER ORDERS - Lab Result Fish Bone Diagrams: 07/27/19 04:55 07/27/19 04:55 - Additional Planning My Orders: My Active Orders 07/26/19 Social Work Consult [CONS] Routine 07/26/19 06:00 Vancomycin Inj [Vancomycin] 1 gm Sodium Chloride 0.9% [Normal Saline 0.9%] 250 ml IV Q18H 07/26/19 13:27 Mineral Oil/Petrola Ophth Oint [Lubrifresh Pm Ophth Oint] 1 applic EACHEYE QPM PRN 07/27/19 17:30 VANCOMYCIN TROUGH [CHEM] Timed Subjective - Subjective Patient Reports: Other (Sedates, able to move neck, move hands bilaterally and open eyes when sedation decreased) Objective Vital Signs: Vital Signs - 24 hr 07/25/19 07/25/19 07/25/19 16:59 17:00 17:56 Temperature 37.2 C Heart Rate 100 Heart Rate [ 93 94 Monitoring electrodes] Respiratory 16 16 Rate Blood Pressure 137/72 H [Left Brachial artery] Blood Pressure 103/62 [Right Brachial artery] Blood Pressure 112/52 L 166/70 H [Right Radial artery] O2 Saturation 99 100 07/25/19 07/25/19 07/25/19 19:00 20:00 21:00 Temperature 37.4 C 36.9 C Heart Rate 100 Heart Rate [ 96 91 92 Monitoring electrodes] Respiratory 16 32 H 16 Rate Blood Pressure [Left Brachial artery] Blood Pressure 106/58 L [Right Brachial artery] Blood Pressure 111/53 L 136/58 H 136/65 H [Right Radial artery] O2 Saturation 99 100 100 07/25/19 07/25/19 07/26/19 22:00 23:00 00:00 Temperature 36.8 C Heart Rate 100 Heart Rate [ 90 88 88 Monitoring electrodes] Respiratory 16 16 17 Rate Blood Pressure [Left Brachial artery] Blood Pressure [Right Brachial artery] Blood Pressure 131/63 H 122/59 L 132/61 H [Right Radial artery] O2 Saturation 100 100 98 07/26/19 07/26/19 07/26/19 01:00 01:07 02:00 Temperature Heart Rate 90 Heart Rate [ 93 92 Monitoring electrodes] Respiratory 16 16 Rate Blood Pressure [Left Brachial artery] Blood Pressure [Right Brachial artery] Blood Pressure 155/68 H 103/55 L [Right Radial artery] O2 Saturation 100 100 07/26/19 07/26/19 07/26/19 02:59 03:00 04:00 Temperature Heart Rate 98 Heart Rate [ 84 92 Monitoring electrodes] Respiratory 16 16 Rate Blood Pressure [Left Brachial artery] Blood Pressure [Right Brachial artery] Blood Pressure 136/62 H 131/62 H [Right Radial artery] O2 Saturation 100 100 07/26/19 07/26/19 07/26/19 05:00 06:00 06:56 Temperature Heart Rate Heart Rate [ 93 97 99 Monitoring electrodes] Respiratory 16 16 16 Rate Blood Pressure [Left Brachial artery] Blood Pressure [Right Brachial artery] Blood Pressure 122/57 L 152/66 H 133/62 H [Right Radial artery] O2 Saturation 100 98 98 07/26/19 07/26/19 07/26/19 07:20 07:32 08:00 Temperature 36.9 C Heart Rate 106 H 104 H Heart Rate [ 95 Monitoring electrodes] Respiratory 18 18 Rate Blood Pressure [Left Brachial artery] Blood Pressure [Right Brachial artery] Blood Pressure 133/61 H [Right Radial artery] O2 Saturation 100 07/26/19 07/26/19 07/26/19 09:00 09:18 10:00 Temperature 37.3 C Heart Rate 106 H Heart Rate [ 103 H 110 H Monitoring electrodes] Respiratory 18 22 Rate Blood Pressure [Left Brachial artery] Blood Pressure 126/76 [Right Brachial artery] Blood Pressure 160/66 H 131/60 H [Right Radial artery] O2 Saturation 100 99 07/26/19 07/26/19 07/26/19 11:00 11:20 12:00 Temperature 36.8 C 37.2 C Heart Rate 110 H Heart Rate [ 104 H 110 H Monitoring electrodes] Respiratory 22 22 Rate Blood Pressure [Left Brachial artery] Blood Pressure 84/59 L [Right Brachial artery] Blood Pressure 95/50 L 159/68 H [Right Radial artery] O2 Saturation 100 100 07/26/19 07/26/19 07/26/19 12:58 13:00 14:00 Temperature 37.2 C Heart Rate 106 H Heart Rate [ 105 H 104 H Monitoring electrodes] Respiratory 22 22 Rate Blood Pressure [Left Brachial artery] Blood Pressure 113/71 [Right Brachial artery] Blood Pressure 118/59 L 119/65 [Right Radial artery] O2 Saturation 99 100 07/26/19 07/26/19 07/26/19 15:00 15:11 15:16 Temperature Heart Rate 106 H 104 H Heart Rate [ 107 H Monitoring electrodes] Respiratory 22 22 Rate Blood Pressure [Left Brachial artery] Blood Pressure [Right Brachial artery] Blood Pressure 110/59 L [Right Radial artery] O2 Saturation 98 07/26/19 07/26/19 15:18 16:00 Temperature 37.2 C 37.5 C Heart Rate 104 H Heart Rate [ 104 H Monitoring electrodes] Respiratory 22 22 Rate Blood Pressure [Left Brachial artery] Blood Pressure 113/62 [Right Brachial artery] Blood Pressure 104/58 L [Right Radial artery] O2 Saturation 97 98 Oxygen O2 Source Mechanical ventilator Oxygen Flow Rate 4 I&O (Last 24 Hrs): Intake and Output Totals x24h 07/24/19 07/25/19 07/26/19 23:59 23:59 23:59 Intake Total 4942.045 4101.146 2598.505 Output Total 2099 2069 1910 Balance 2842.045 2031.146 688.505 General: Other (SEdated) HEENT: Mucous membr. moist/pink, Other (ET tube in place) Neck: No JVD Neuro: Other (Sedated) Cardiovascular: Regular rate, No murmurs Respiratory: No respiratory distress, Breath sounds nml Abdomen: Soft Extremities: Other (Hand edema 1+) - Results Results: Laboratory Results WBC 9.4 x10^3/uL (4.8-10.8) 07/26/19 04:50 RBC 2.82 10^6/uL (4.20-5.40) L 07/26/19 04:50 Hgb 8.9 g/dL (12.0-16.0) L 07/26/19 04:50 Hct 28.7 % (37.0-47.0) L 07/26/19 04:50 MCV 101.8 fL (81.0-99.0) H 07/26/19 04:50 MCH 31.6 pg (27.0-31.0) H 07/26/19 04:50 MCHC 31.0 g/dL (32.0-36.0) L 07/26/19 04:50 RDW 16.2 % (12.0-15.0) H 07/26/19 04:50 Plt Count 179 10^3/uL (130-450) 07/26/19 04:50 MPV 10.4 fL (7.9-10.8) 07/26/19 04:50 Neut # (Auto) 7.2 10^3/uL (1.5-6.6) H 07/26/19 04:50 Lymph # (Auto) 0.8 10^3/uL (1.5-3.5) L 07/26/19 04:50 [place] # (Auto) 0.9 10^3/uL (0.0-1.0) 07/26/19 04:50 Eos # (Auto) 0.1 10^3/uL (0.0-0.7) 07/26/19 04:50 Baso # (Auto) 0.1 10^3/uL (0.0-0.1) 07/26/19 04:50 Absolute Nucleated RBC 0.03 x10^3/uL 07/26/19 04:50 Total Counted 100 07/25/19 04:40 Band Neuts % (Manual) 12 % (0-10) H 07/25/19 04:40 Abnorm Lymph % (Manual) 0 % 07/25/19 04:40 Metamyelocytes % 1 % (-0) H 07/22/19 05:00 Myelocytes % 1 % (-0) H 07/22/19 05:00 Nucleated RBC % 0.3 /100WBC 07/26/19 04:50 Neutrophils # (Manual) 7.0 10^3/uL (1.5-6.6) H 07/25/19 04:40 Lymphocytes # (Manual) 1.2 10^3/uL (1.5-3.5) L 07/25/19 04:40 Monocytes # (Manual) 0.3 10^3/uL (0.0-1.0) 07/25/19 04:40 Eosinophils # (Manual) 0.0 10^3/uL (0-0.7) 07/25/19 04:40 Basophils # (Manual) 0.0 10^3/uL (0-0.1) 07/25/19 04:40 Differential Comment MANUAL DIFFERENTIAL 07/25/19 04:40 Manual Slide Review Indicated 07/20/19 19:10 WBC Morphology 1+ VACUOLATION (NORMAL) 1+ TOXIC GRANULATION (NORMAL) 12:20 WBC Morphology NORMAL APPEARANCE (NORMAL) 07/23/19 04:40 Platelet Estimate NORMAL (130-450,000) (NORMAL) 07/25/19 04:40 Platelet Morphology NORMAL APPEARANCE (NORMAL) 07/23/19 04:40 RBC Morph Micro Appear NORMAL APPEARANCE (NORMAL) 07/24/19 04:55 RBC Morph Micro Appear NORMAL APPEARANCE (NORMAL) 07/25/19 04:40 PT 12.4 secs (9.9-12.6) 07/20/19 12:20 INR 1.1 (0.8-1.2) 07/20/19 12:20 Bld Gas Analysis Time 1132 07/26/19 11:32 Sample Site A-LINE 07/26/19 11:32 ABG pH 7.37 (7.35-7.45) 07/26/19 11:32 ABG pCO2 40 mmHg (34-45) 07/26/19 11:32 ABG pO2 111 mmHg (80-100) H 07/26/19 11:32 ABG HCO3 22.9 mmol/L (22.0-26.0) 07/26/19 11:32 ABG Total CO2 24.2 MMOL/L (21.0-29.0) 07/26/19 11:32 ABG O2 Saturation 98 % (94-98) 07/26/19 11:32 ABG Base Excess -2.1 mmol/L (-2.0-3.0) L 07/26/19 11:32 William Test NOT APPLICABLE 07/26/19 11:32 Respiration Rate 22 b/min 07/26/19 11:32 O2 Delivery Device VENTILATOR 07/26/19 09:00 Vent Mode SIMV 07/26/19 11:32 FiO2 50.00 07/26/19 11:32 Tidal Volume 450 mL 07/26/19 11:32 PEEP 5 cmH2O 07/26/19 11:32 Pressure Support Vent 14 cmH2O 07/26/19 11:32 Sodium 145 mmol/L (135-145) 07/26/19 04:50 Potassium 3.6 mmol/L (3.5-5.0) 07/26/19 04:50 Chloride 116 mmol/L (101-111) H 07/26/19 04:50 Carbon Dioxide 24 mmol/L (21-32) 07/26/19 04:50 Anion Gap 5.0 (6-13) L 07/26/19 04:50 BUN 33 mg/dL (6-20) H 07/26/19 04:50 Creatinine 0.7 mg/dL (0.4-1.0) 07/26/19 04:50 Estimated GFR (MDRD) 85 (>89) L 07/26/19 04:50 Glucose 130 mg/dL (70-100) H 07/26/19 04:50 POC Whole Bld Glucose 129 mg/dL (70 - 100) H 07/26/19 11:44 Lactic Acid 1.5 mmol/L (0.5-2.2) 07/21/19 19:57 Calcium 8.3 mg/dL (8.5-10.3) L 07/26/19 04:50 Phosphorus 2.4 mg/dL (2.5-4.6) L 07/26/19 04:50 Magnesium 1.8 mg/dL (1.7-2.8) 07/26/19 04:50 Total Bilirubin 0.6 mg/dL (0.2-1.0) 07/22/19 05:00 Direct Bilirubin 0.1 mg/dL (0.1-0.5) 07/22/19 05:00 AST 20 IU/L (10-42) 07/22/19 05:00 ALT 20 IU/L (10-60) 07/22/19 05:00 Alkaline Phosphatase 36 IU/L (42-121) L 07/22/19 05:00 Troponin I High Sens 232.6 ng/L (2.3-14.8) H* 07/21/19 10:50 Total Protein 4.6 g/dL (6.7-8.2) L 07/22/19 05:00 Albumin 1.5 g/dL (3.2-5.5) L 07/26/19 05:00 Globulin 2.7 g/dL (2.1-4.2) 07/22/19 05:00 Albumin/Globulin Ratio 1.3 (1.0-2.2) 07/20/19 12:20 Triglycerides 122 mg/dL (-149) 07/26/19 04:50 Lipase 25 U/L (22-51) 07/20/19 12:20 Nasal Screen MRSA (PCR) NEGATIVE (NEGATIVE) 07/20/19 17:34 Sepsis Event Note (H) - Evaluation Current Stage of Sepsis: Septic shock Possible source of Sepsis: positive: GI tract/intra-abdominal - Sepsis Criteria Sepsis Criteria: Recorded Heart Rate greater than 90 bpm, Recorded Respiratory Rate greater than 20, WBC count greater than 10% bands, WBC count greater than 12,000 or less than 4000, SBP drop more than 40mHg, SBP less than 90 mmHg, Renal: urine output less than 0.5ml/kg/hr for 2 hours or creatinine gr, Metabolic: lactate > 2 mmol/L
--- NOTE | 2019-07-26 17:32 | PROVIDER PROGRESS NOTE ---
Subjective - General Admit Date: 07/20/19 Procedure Date: 07/23/19 Post Op Days: 3 Procedure Performed: Excision and closure of perforated gastric ulcer, et. al. - Review of Systems Wound/Incisions: positive: Healing well (dressing changed and wound inspected; no evidence of infection or dehiscence; upper 2/3 of incision has closed spontaneously; lower third still open; fascia intact.) Drain Type: Mati Drain Output Description: serosanguinous Approximate mls Output: 170 yest General: positive: No symptoms (intubated and sedated; appears comfortable) Objective - Patient Data Reviewed Vital Signs: Yes Vital Signs: Vital Signs x48h Temp Pulse Pulse Resp BP BP Pulse Ox 07/26/19 17:00 37.4 C 104 H 22 111/64 93/54 L 99 07/26/19 16:56 109 H 07/26/19 16:00 37.5 C 104 H 22 113/62 104/58 L 98 07/26/19 15:18 37.2 C 104 H 22 97 07/26/19 15:16 104 H 22 07/26/19 15:11 106 H 07/26/19 15:00 107 H 22 110/59 L 98 07/26/19 14:00 104 H 22 119/65 100 07/26/19 13:00 37.2 C 105 H 22 113/71 118/59 L 99 07/26/19 12:58 106 H 07/26/19 12:00 37.2 C 110 H 22 159/68 H 100 07/26/19 11:20 110 H 07/26/19 11:00 36.8 C 104 H 22 84/59 L 95/50 L 100 07/26/19 10:00 110 H 22 131/60 H 99 Weight: Weight 07/24/19 07/25/19 07/26/19 23:59 23:59 23:59 Weight (kg) 65 kg 66 kg 56.5 kg Intake & Output: Intake and Output Totals x24h 07/24/19 07/25/19 07/26/19 23:59 23:59 23:59 Intake Total 4942.045 4101.146 2696.255 Output Total 20998 Balance 2842.045 2031.146 738.255 NG out 375, u.o. 1300 yesterday; drain 170 yest - Lab Results Lab Results: 07/26/19 04:50 07/26/19 04:50 Other Lab Results: Lab Results x24hrs 07/26/19 07/26/19 07/26/19 Range/Units 11:44 11:32 09:00 WBC (4.8-10.8) x10^3/uL RBC (4.20-5.40) 10^6/uL Hgb (12.0-16.0) g/dL Hct (37.0-47.0) % MCV (81.0-99.0) fL MCH (27.0-31.0) pg MCHC (32.0-36.0) g/dL RDW (12.0-15.0) % Plt Count (130-450) 10^3/uL MPV (7.9-10.8) fL Neut # (Auto) (1.5-6.6) 10^3/uL Lymph # (Auto) (1.5-3.5) 10^3/uL [place] # (Auto) (0.0-1.0) 10^3/uL Eos # (Auto) (0.0-0.7) 10^3/uL Baso # (Auto) (0.0-0.1) 10^3/uL Absolute Nucleated RBC x10^3/uL Nucleated RBC % /100WBC Bld Gas Analysis Time 1132 0907 Sample Site A-LINE A-LINE ABG pH 7.37 7.26 L (7.35-7.45) ABG pCO2 40 54 H (34-45) mmHg ABG pO2 111 H 82 (80-100) mmHg ABG HCO3 22.9 23.9 (22.0-26.0) mmol/L ABG Total CO2 24.2 25.6 (21.0-29.0) MMOL/L ABG O2 Saturation 98 95 (94-98) % ABG Base Excess -2.1 L -3.4 L (-2.0-3.0) mmol/L William Test NOT APPLICABLE NOT APPLICABLE Respiration Rate 22 18 b/min O2 Delivery Device VENTILATOR Vent Mode SIMV SIMV FiO2 50.00 50.00 Tidal Volume 450 450 mL PEEP 5 5 cmH2O Pressure Support Vent 14 14 cmH2O Sodium (135-145) mmol/L Potassium (3.5-5.0) mmol/L Chloride (101-111) mmol/L Carbon Dioxide (21-32) mmol/L Anion Gap (6-13) BUN (6-20) mg/dL Creatinine (0.4-1.0) mg/dL Estimated GFR (MDRD) (>89) Glucose (70-100) mg/dL POC Whole Bld Glucose 129 H (70 - 100) mg/dL Calcium (8.5-10.3) mg/dL Phosphorus (2.5-4.6) mg/dL Magnesium (1.7-2.8) mg/dL Albumin (3.2-5.5) g/dL Triglycerides ( - 149) mg/dL 07/26/19 07/26/19 07/26/19 Range/Units 07:05 06:34 05:20 WBC (4.8-10.8) x10^3/uL RBC (4.20-5.40) 10^6/uL Hgb (12.0-16.0) g/dL Hct (37.0-47.0) % MCV (81.0-99.0) fL MCH (27.0-31.0) pg MCHC (32.0-36.0) g/dL RDW (12.0-15.0) % Plt Count (130-450) 10^3/uL MPV (7.9-10.8) fL Neut # (Auto) (1.5-6.6) 10^3/uL Lymph # (Auto) (1.5-3.5) 10^3/uL [place] # (Auto) (0.0-1.0) 10^3/uL Eos # (Auto) (0.0-0.7) 10^3/uL Baso # (Auto) (0.0-0.1) 10^3/uL Absolute Nucleated RBC x10^3/uL Nucleated RBC % /100WBC Bld Gas Analysis Time 07 0530 Sample Site A-LINE A-LINE ABG pH 7.23 L 7.25 L (7.35-7.45) ABG pCO2 51 H 53 H (34-45) mmHg ABG pO2 100 61 L (80-100) mmHg ABG HCO3 21.2 L 22.8 (22.0-26.0) mmol/L ABG Total CO2 22.8 24.4 (21.0-29.0) MMOL/L ABG O2 Saturation 97 90 L (94-98) % ABG Base Excess -6.3 L -4.6 L (-2.0-3.0) mmol/L William Test NOT APPLICABLE NOT APPLICABLE Respiration Rate 16 16 b/min O2 Delivery Device VENTILATOR Vent Mode SIMV SIMV FiO2 50.00 30.00 Tidal Volume 400 400 mL PEEP 5 5 cmH2O Pressure Support Vent 14 14 cmH2O Sodium (135-145) mmol/L Potassium (3.5-5.0) mmol/L Chloride (101-111) mmol/L Carbon Dioxide (21-32) mmol/L Anion Gap (6-13) BUN (6-20) mg/dL Creatinine (0.4-1.0) mg/dL Estimated GFR (MDRD) (>89) Glucose (70-100) mg/dL POC Whole Bld Glucose 112 H (70 - 100) mg/dL Calcium (8.5-10.3) mg/dL Phosphorus (2.5-4.6) mg/dL Magnesium (1.7-2.8) mg/dL Albumin (3.2-5.5) g/dL Triglycerides ( - 149) mg/dL 07/26/19 07/26/19 07/26/19 Range/Units 05:00 04:50 04:50 WBC (4.8-10.8) x10^3/uL RBC (4.20-5.40) 10^6/uL Hgb (12.0-16.0) g/dL Hct (37.0-47.0) % MCV (81.0-99.0) fL MCH (27.0-31.0) pg MCHC (32.0-36.0) g/dL RDW (12.0-15.0) % Plt Count (130-450) 10^3/uL MPV (7.9-10.8) fL Neut # (Auto) (1.5-6.6) 10^3/uL Lymph # (Auto) (1.5-3.5) 10^3/uL [place] # (Auto) (0.0-1.0) 10^3/uL Eos # (Auto) (0.0-0.7) 10^3/uL Baso # (Auto) (0.0-0.1) 10^3/uL Absolute Nucleated RBC x10^3/uL Nucleated RBC % /100WBC Bld Gas Analysis Time Sample Site ABG pH (7.35-7.45) ABG pCO2 (34-45) mmHg ABG pO2 (80-100) mmHg ABG HCO3 (22.0-26.0) mmol/L ABG Total CO2 (21.0-29.0) MMOL/L ABG O2 Saturation (94-98) % ABG Base Excess (-2.0-3.0) mmol/L William Test Respiration Rate b/min O2 Delivery Device Vent Mode FiO2 Tidal Volume mL PEEP cmH2O Pressure Support Vent cmH2O Sodium 145 (135-145) mmol/L Potassium 3.6 (3.5-5.0) mmol/L Chloride 116 H (101-111) mmol/L Carbon Dioxide 24 (21-32) mmol/L Anion Gap 5.0 L (6-13) BUN 33 H (6-20) mg/dL Creatinine 0.7 (0.4-1.0) mg/dL Estimated GFR (MDRD) 85 L (>89) Glucose 130 H (70-100) mg/dL POC Whole Bld Glucose (70 - 100) mg/dL Calcium 8.3 L (8.5-10.3) mg/dL Phosphorus 2.4 L (2.5-4.6) mg/dL Magnesium 1.8 (1.7-2.8) mg/dL Albumin 1.5 L (3.2-5.5) g/dL Triglycerides 122 ( - 149) mg/dL 07/26/19 07/25/19 07/25/19 Range/Units 04:50 23:54 18:18 WBC 9.4 (4.8-10.8) x10^3/uL RBC 2.82 L (4.20-5.40) 10^6/uL Hgb 8.9 L (12.0-16.0) g/dL Hct 28.7 L (37.0-47.0) % MCV 101.8 H (81.0-99.0) fL MCH 31.6 H (27.0-31.0) pg MCHC 31.0 L (32.0-36.0) g/dL RDW 16.2 H (12.0-15.0) % Plt Count 179 (130-450) 10^3/uL MPV 10.4 (7.9-10.8) fL Neut # (Auto) 7.2 H (1.5-6.6) 10^3/uL Lymph # (Auto) 0.8 L (1.5-3.5) 10^3/uL [place] # (Auto) 0.9 (0.0-1.0) 10^3/uL Eos # (Auto) 0.1 (0.0-0.7) 10^3/uL Baso # (Auto) 0.1 (0.0-0.1) 10^3/uL Absolute Nucleated RBC 0.03 x10^3/uL Nucleated RBC % 0.3 /100WBC Bld Gas Analysis Time Sample Site ABG pH (7.35-7.45) ABG pCO2 (34-45) mmHg ABG pO2 (80-100) mmHg ABG HCO3 (22.0-26.0) mmol/L ABG Total CO2 (21.0-29.0) MMOL/L ABG O2 Saturation (94-98) % ABG Base Excess (-2.0-3.0) mmol/L William Test Respiration Rate b/min O2 Delivery Device Vent Mode FiO2 Tidal Volume mL PEEP cmH2O Pressure Support Vent cmH2O Sodium (135-145) mmol/L Potassium (3.5-5.0) mmol/L Chloride (101-111) mmol/L Carbon Dioxide (21-32) mmol/L Anion Gap (6-13) BUN (6-20) mg/dL Creatinine (0.4-1.0) mg/dL Estimated GFR (MDRD) (>89) Glucose (70-100) mg/dL POC Whole Bld Glucose 96 71 (70 - 100) mg/dL Calcium (8.5-10.3) mg/dL Phosphorus (2.5-4.6) mg/dL Magnesium (1.7-2.8) mg/dL Albumin (3.2-5.5) g/dL Triglycerides ( - 149) mg/dL - Imaging Results Radiology Imaging: positive: Final report received Imaging Results Comments: CXR shows LLL infiltrate/effusion concerning for pneumonitis - Current Medications Current Medications: Current Medications Generic Name Dose Route Start Last Admin Trade Name Freq PRN Reason Stop Dose Admin Albuterol 2.5 mg 07/21/19 14:20 07/26/19 15:15 INH 2.5 mg RTQ4H PRN Administration Wheezing Chlorhexidine Gluconate 15 ml 07/21/19 09:00 07/26/19 08:46 Peridex PO 15 ml BID SONG Administration Heparin Sodium (Porcine) 5,000 unit 07/21/19 09:00 07/26/19 08:33 SUBQ 5,000 unit BID SONG Administration Metronidazole 500 mg in 100 mls @ 100 mls/hr 07/20/19 22:30 07/26/19 15:30 Flagyl 500 Mg/100 Ml IV Infused Q8H SONG Infusion Propofol 100 mls @ 3.33 mls/hr 07/20/19 19:00 07/26/19 17:15 Diprivan IV 35 mcg/kg/min .Q30H2M SONG 11.655 mls/hr Titration Protocol 10 MCG/KG/MIN Fentanyl 2,500 mcg/ Sodium 250 mls @ 5.55 mls/hr 07/20/19 19:00 07/26/19 17:00 Chloride IV 2 mcg/kg/hr .Q45H3M SONG 11.1 mls/hr Titration Protocol 1 MCG/KG/HR Norepinephrine Bitartrate 8 mg 250 mls @ 15 mls/hr 07/20/19 21:00 07/26/19 13:28 / Dextrose IV Not Given .[id number] OSNG Protocol 8 MCG/MIN Cefepime HCl 2 gm/ Sodium 100 mls @ 200 mls/hr 07/20/19 21:00 07/26/19 09:00 Chloride IV Infused BID SONG Infusion Thiamine HCl 100 mg/ Sodium 51 mls @ 100 mls/hr 07/21/19 09:00 07/26/19 09:45 Chloride IV Infused DAILY SONG Infusion Sodium Chloride 500 mls @ 20 mls/hr 07/21/19 18:13 07/26/19 17:00 Normal Saline 0.9% IV 20 mls/hr Q24H PRN Infusion TKO RATE Multivitamins 10 ml/ Chromium/ 2,011 mls @ 50 mls/hr 07/24/19 19:00 07/26/19 17:00 Copper/Manganese/Seleni/Zn 1 IV 50 mls/hr ml/ Amino Ac/Electrol/Dextrose Q24H SONG Infusion /Calcium Protocol Vancomycin HCl 1 gm/ Sodium 250 mls @ 167 mls/hr 07/26/19 06:00 07/26/19 08:00 Chloride IV Infused Q18H SONG Infusion Multi-Ingred Cream/Lotion/Oil/Oint 1 applic 07/26/19 13:27 07/26/19 14:00 Lubrifresh Pm Ophth Oint EACHEYE 1 applic QPM PRN Administration Dry Eye Pantoprazole Sodium 40 mg 07/20/19 21:00 07/26/19 08:46 Protonix IVP 40 mg BID SONG Administration Sodium Chloride 10 ml 07/20/19 17:00 07/26/19 16:56 Normal Saline Flush 0.9% IVP 10 ml 0100,0900,1700 SONG Administration Sodium Chloride 10 ml 07/20/19 16:31 07/26/19 08:46 Normal Saline Flush 0.9% IVP 10 ml PRN PRN Administration NEEDED PER PROVIDER ORDERS - Physical Exam Wound/Incisions: positive: Healing well, Drainage (mild serosanguinous (open wound)) General Appearance: positive: No acute distress (sedated) Eyes Bilateral: positive: No scleral icterus ENT: positive: No signs of dehydration Neck: positive: No JVD Respiratory: positive: Chest non-tender, No respiratory distress, Breath sounds nml (anteriorly) Cardiovascular: positive: Regular rate & rhythm, No murmur, No gallop Abdomen: positive: Non-tender (sedated), No distention (minimal distention), Abnml bowel sounds (hypoactive). negative: Hepatomegaly, Splenomegaly, Mass Skin: positive: Warm (all except left hand which is less cyanotic than yesterday and has palpable radial pulse) Extremities: positive: Pedal edema (1+ bilat) Neurologic/Psychiatric: positive: Other (sedated) ABX Reporting Has patient been on IV antibiotics over the past 48 hours?: Yes Impression/Plan - Problem List Problem List: PO Day 3; pt appears to be developing pneumonia which will likely prolong need for ventilatory support; expect a prolonged hospital stay; Rec: agree with present management, consider transfer to higher level of care given above. Discussed with Dr. Painter, who agrees.
[2019-07-26] MEDS: TPN (CLINIMIX E 5/15) 2,000 ML with MULTIVITAMIN 10 ML, TRACE ELEMENTS V CONC 1 ML IV SCH ×3 (18:25)
[2019-07-26] MEDS: MIN OIL/DIMETHICON/COCONUT OIL 92 GM TUBE TOP PRN (20:37)
[2019-07-26] MEDS: SODIUM CHLORIDE 0.9% 500 ML IV PRN (22:44)
[2019-07-27] MEDS: SODIUM CHLORIDE FLUSH 0.9% 10 ML SYRINGE IVP PRN ×10 (01:38→21:13)
[2019-07-27] MEDS: PROPOFOL 1000 MG/100 ML 100 ML IV SCH ×5 (01:40→20:28)
[2019-07-27] MEDS: fentaNYL 2,500 MCG in SODIUM CHLORIDE 0.9% 200 ML IV SCH (05:05)
[2019-07-27 05:07] LABS: ABG BASE EXCESS -4.3 mmol/L (-2.0-3.0); ABG HCO3 21.8 mmol/L (22.0-26.0); ABG OXYGEN SATURATION 93 % (94-98); ABG PCO2 44 mmHg (34-45); ABG PH 7.31 (7.35-7.45); ABG PO2 74 mmHg (80-100); ABG TCO2 23.2 MMOL/L (21.0-29.0)
[2019-07-27 05:40] LABS: BASOPHILS % (AUTO) 0.5 %; EOSINOPHILS % (AUTO) 0.4 %; LYMPHOCYTES % (AUTO) 8.5 %; MEAN CORPUSCULAR HEMOGLOBIN 32.5 pg (27.0-31.0); MEAN CORPUSCULAR HGB CONC 31.8 g/dL (32.0-36.0); MEAN CORPUSCULAR VOLUME 102.2 fL (81.0-99.0); MEAN PLATELET VOLUME 10.7 fL (7.9-10.8); MONOCYTES % (AUTO) 7.6 %; NEUTROPHILS % (AUTO) 77.1 %; PLT - PLATELET COUNT 191 10^3/uL (130-450); RED BLOOD COUNT 2.77 10^6/uL (4.20-5.40); WHITE BLOOD COUNT 16.4 x10^3/uL (4.8-10.8)
[2019-07-27 05:44] LABS: ABNORMAL LYMPHS % (MANUAL) 0 %
[2019-07-27 05:45] LABS: CALCIUM 8.1 mg/dL (8.5-10.3); CREATININE 0.6 mg/dL (0.4-1.0); MAGNESIUM 1.8 mg/dL (1.7-2.8); PHOSPHORUS 2.6 mg/dL (2.5-4.6)
[2019-07-27 06:16] LABS: BAND NEUTROPHILS % (MANUAL) 8 %; DIFFERENTIAL COMMENT MANUAL DIFFERENTIAL; LYMPHOCYTES # (MANUAL) 0.7 10^3/uL (1.5-3.5); LYMPHOCYTES % (MANUAL) 4 %; MONOCYTES # (MANUAL) 1.1 10^3/uL (0.0-1.0); PLATELET ESTIMATE, MANUAL NORMAL (130-450,000) (NORMAL); RBC MORPHOLOGY (MULTIPLE) NORMAL APPEARANCE (NORMAL)
[2019-07-27] MEDS: metroNIDAZOLE 500 MG/100 ML 500 MG/100 ML BAG IV SCH ×3 (06:34→22:16)
[2019-07-27] MEDS: CHLORHEXIDINE GLUCONATE 15 ML UDC PO SCH ×2 (08:45→20:49)
[2019-07-27] MEDS: CEFEPIME 2 GM in SODIUM CHLORIDE 0.9% MINIBAG 100 ML IV SCH ×2 (08:45→20:52)
[2019-07-27] MEDS: PANTOPRAZOLE 40 MG VIAL IVP SCH ×2 (08:51→20:49)
[2019-07-27] MEDS: HEPARIN 5,000 UNIT/ML VIAL SUBQ SCH ×2 (08:59→21:11)
[2019-07-27] MEDS: THIAMINE INJ 100 MG in SODIUM CHLORIDE 0.9% 50 ML IV SCH (09:33)
[2019-07-27] MEDS: SODIUM CHLORIDE FLUSH 0.9% 10 ML SYRINGE IVP SCH ×3 (11:12→20:28)
[2019-07-27] MEDS: MIN OIL/DIMETHICON/COCONUT OIL 92 GM TUBE TOP PRN ×2 (12:33→20:20)
--- NOTE | 2019-07-27 14:21 | PROVIDER PROGRESS NOTE ---
Subjective - General Admit Date: 07/20/19 Procedure Date: 07/23/19 Post Op Days: 4 Procedure Performed: Excision and closure of perforated gastric ulcer, et. al. - Review of Systems Wound/Incisions: positive: Healing well, Drainage (mild serosanguinous (open wound)) Drain Type: Mati Drain Output Description: serosanguinous Approximate mls Output: 295 yest General: positive: No symptoms (intubated and sedated; appears comfortable) Skin: positive: Other (diffusely edematous) All Other Systems: positive: Other (sedated on ventilator) Objective - Patient Data Reviewed Vital Signs: Yes Vital Signs: Vital Signs x48h Temp Pulse Pulse Resp BP BP Pulse Ox 07/27/19 14:00 89 22 98/59 L 96/44 L 100 07/27/19 13:02 97 07/27/19 13:00 95 22 109/63 103/43 L 100 07/27/19 12:00 37.8 C H 99 22 111/64 130/49 L 99 07/27/19 11:30 92 07/27/19 11:00 93 22 125/67 136/52 H 100 07/27/19 10:00 90 22 103/57 L 97/41 L 100 07/27/19 09:30 88 07/27/19 09:00 91 22 128/66 137/51 H 100 07/27/19 08:00 37 C 93 22 92/48 L 92/54 L 100 07/27/19 07:44 97 07/27/19 07:00 102 H 22 97/57 L 95/49 L 100 Weight: Weight 07/25/19 07/26/19 07/27/19 23:59 23:59 23:59 Weight (kg) 66 kg 56.5 kg 59 kg Intake & Output: Intake and Output Totals x24h 07/25/19 07/26/19 07/27/19 23:59 23:59 23:59 Intake Total 4101.146 3228.482 1916.994 Output Total 2070 2868 1485 Balance 2031.146 360.482 431.994 u.o. 1600, NG out 900, drain out 295 yest/24 hours) - Lab Results Lab Results: 07/27/19 04:55 07/27/19 04:55 Other Lab Results: Lab Results x24hrs 07/27/19 07/27/19 07/27/19 Range/Units 12:26 05:55 04:55 WBC (4.8-10.8) x10^3/uL RBC (4.20-5.40) 10^6/uL Hgb (12.0-16.0) g/dL Hct (37.0-47.0) % MCV (81.0-99.0) fL MCH (27.0-31.0) pg MCHC (32.0-36.0) g/dL RDW (12.0-15.0) % Plt Count (130-450) 10^3/uL MPV (7.9-10.8) fL Neut # (Auto) Lymph # (Auto) Tift # (Auto) Eos # (Auto) Baso # (Auto) Absolute Nucleated RBC Total Counted Band Neuts % (Manual) (0 - 10) % Abnorm Lymph % (Manual) % Nucleated RBC % Neutrophils # (Manual) (1.5-6.6) 10^3/uL Lymphocytes # (Manual) (1.5-3.5) 10^3/uL Monocytes # (Manual) (0.0-1.0) 10^3/uL Eosinophils # (Manual) (0-0.7) 10^3/uL Basophils # (Manual) (0-0.1) 10^3/uL Nucleated RBCs % Differential Comment Platelet Estimate (NORMAL) RBC Morph Micro Appear (NORMAL) Bld Gas Analysis Time Sample Site ABG pH (7.35-7.45) ABG pCO2 (34-45) mmHg ABG pO2 (80-100) mmHg ABG HCO3 (22.0-26.0) mmol/L ABG Total CO2 (21.0-29.0) MMOL/L ABG O2 Saturation (94-98) % ABG Base Excess (-2.0-3.0) mmol/L William Test Respiration Rate b/min O2 Delivery Device Vent Mode FiO2 Tidal Volume mL PEEP cmH2O Pressure Support Vent cmH2O Sodium (135-145) mmol/L Potassium (3.5-5.0) mmol/L Chloride (101-111) mmol/L Carbon Dioxide (21-32) mmol/L Anion Gap (6-13) BUN (6-20) mg/dL Creatinine (0.4-1.0) mg/dL Estimated GFR (MDRD) (>89) Glucose (70-100) mg/dL POC Whole Bld Glucose 107 H 113 H (70 - 100) mg/dL Calcium (8.5-10.3) mg/dL Phosphorus (2.5-4.6) mg/dL Magnesium (1.7-2.8) mg/dL Albumin 1.5 L (3.2-5.5) g/dL 07/27/19 07/27/19 07/27/19 Range/Units 04:55 04:55 04:50 WBC 16.4 H (4.8-10.8) x10^3/uL RBC 2.77 L (4.20-5.40) 10^6/uL Hgb 9.0 L (12.0-16.0) g/dL Hct 28.3 L (37.0-47.0) % MCV 102.2 H (81.0-99.0) fL MCH 32.5 H (27.0-31.0) pg MCHC 31.8 L (32.0-36.0) g/dL RDW 16.0 H (12.0-15.0) % Plt Count 191 (130-450) 10^3/uL MPV 10.7 (7.9-10.8) fL Neut # (Auto) Not Reportable Lymph # (Auto) Not Reportable Tift # (Auto) Not Reportable Eos # (Auto) Not Reportable Baso # (Auto) Not Reportable Absolute Nucleated RBC Not Reportable Total Counted 100 Band Neuts % (Manual) 8 (0 - 10) % Abnorm Lymph % (Manual) 0 % Nucleated RBC % Not Reportable Neutrophils # (Manual) 14.6 H (1.5-6.6) 10^3/uL Lymphocytes # (Manual) 0.7 L (1.5-3.5) 10^3/uL Monocytes # (Manual) 1.1 H (0.0-1.0) 10^3/uL Eosinophils # (Manual) 0.0 (0-0.7) 10^3/uL Basophils # (Manual) 0.0 (0-0.1) 10^3/uL Nucleated RBCs 1 % Differential Comment MANUAL DIFFERENTIAL Platelet Estimate NORMAL (130-450,000) (NORMAL) RBC Morph Micro Appear NORMAL APPEARANCE (NORMAL) Bld Gas Analysis Time 0508 Sample Site A-LINE ABG pH 7.31 L (7.35-7.45) ABG pCO2 44 (34-45) mmHg ABG pO2 74 L (80-100) mmHg ABG HCO3 21.8 L (22.0-26.0) mmol/L ABG Total CO2 23.2 (21.0-29.0) MMOL/L ABG O2 Saturation 93 L (94-98) % ABG Base Excess -4.3 L (-2.0-3.0) mmol/L William Test NOT APPLICABLE Respiration Rate 22 b/min O2 Delivery Device VENTILATOR Vent Mode SIMV FiO2 40.00 Tidal Volume 450 mL PEEP 5 cmH2O Pressure Support Vent 14 cmH2O Sodium 145 (135-145) mmol/L Potassium 3.6 (3.5-5.0) mmol/L Chloride 113 H (101-111) mmol/L Carbon Dioxide 23 (21-32) mmol/L Anion Gap 9.0 (6-13) BUN 32 H (6-20) mg/dL Creatinine 0.6 (0.4-1.0) mg/dL Estimated GFR (MDRD) 101 (>89) Glucose 126 H (70-100) mg/dL POC Whole Bld Glucose (70 - 100) mg/dL Calcium 8.1 L (8.5-10.3) mg/dL Phosphorus 2.6 (2.5-4.6) mg/dL Magnesium 1.8 (1.7-2.8) mg/dL Albumin (3.2-5.5) g/dL 07/27/19 07/26/19 07/26/19 Range/Units 00:29 21:41 18:05 WBC (4.8-10.8) x10^3/uL RBC (4.20-5.40) 10^6/uL Hgb (12.0-16.0) g/dL Hct (37.0-47.0) % MCV (81.0-99.0) fL MCH (27.0-31.0) pg MCHC (32.0-36.0) g/dL RDW (12.0-15.0) % Plt Count (130-450) 10^3/uL MPV (7.9-10.8) fL Neut # (Auto) Lymph # (Auto) [place] # (Auto) Eos # (Auto) Baso # (Auto) Absolute Nucleated RBC Total Counted Band Neuts % (Manual) (0 - 10) % Abnorm Lymph % (Manual) % Nucleated RBC % Neutrophils # (Manual) (1.5-6.6) 10^3/uL Lymphocytes # (Manual) (1.5-3.5) 10^3/uL Monocytes # (Manual) (0.0-1.0) 10^3/uL Eosinophils # (Manual) (0-0.7) 10^3/uL Basophils # (Manual) (0-0.1) 10^3/uL Nucleated RBCs % Differential Comment Platelet Estimate (NORMAL) RBC Morph Micro Appear (NORMAL) Bld Gas Analysis Time Sample Site ABG pH (7.35-7.45) ABG pCO2 (34-45) mmHg ABG pO2 (80-100) mmHg ABG HCO3 (22.0-26.0) mmol/L ABG Total CO2 (21.0-29.0) MMOL/L ABG O2 Saturation (94-98) % ABG Base Excess (-2.0-3.0) mmol/L William Test Respiration Rate b/min O2 Delivery Device Vent Mode FiO2 Tidal Volume mL PEEP cmH2O Pressure Support Vent cmH2O Sodium (135-145) mmol/L Potassium (3.5-5.0) mmol/L Chloride (101-111) mmol/L Carbon Dioxide (21-32) mmol/L Anion Gap (6-13) BUN (6-20) mg/dL Creatinine (0.4-1.0) mg/dL Estimated GFR (MDRD) (>89) Glucose (70-100) mg/dL POC Whole Bld Glucose 104 H 104 H 109 H (70 - 100) mg/dL Calcium (8.5-10.3) mg/dL Phosphorus (2.5-4.6) mg/dL Magnesium (1.7-2.8) mg/dL Albumin (3.2-5.5) g/dL - Current Medications Current Medications: Current Medications Generic Name Dose Route Start Last Admin Trade Name Freq PRN Reason Stop Dose Admin Albuterol 2.5 mg 07/21/19 14:20 07/26/19 15:15 INH 2.5 mg RTQ4H PRN Administration Wheezing Chlorhexidine Gluconate 15 ml 07/21/19 09:00 07/27/19 08:45 Peridex PO 15 ml BID SONG Administration Heparin Sodium (Porcine) 5,000 unit 07/21/19 09:00 07/27/19 08:59 SUBQ 5,000 unit BID SONG Administration Metronidazole 500 mg in 100 mls @ 100 mls/hr 07/20/19 22:30 07/27/19 07:36 Flagyl 500 Mg/100 Ml IV Infused Q8H SONG Infusion Propofol 100 mls @ 3.33 mls/hr 07/20/19 19:00 07/27/19 10:59 Diprivan IV 60 mcg/kg/min .Q30H2M SONG 19.98 mls/hr Administration Protocol 10 MCG/KG/MIN Fentanyl 2,500 mcg/ Sodium 250 mls @ 5.55 mls/hr 07/20/19 19:00 07/27/19 11:13 Chloride IV 2 mcg/kg/hr .Q45H3M SONG 11.1 mls/hr Titration Protocol 1 MCG/KG/HR Norepinephrine Bitartrate 8 mg 250 mls @ 15 mls/hr 07/20/19 21:00 07/27/19 04:01 / Dextrose IV Not Given .[id number] SONG Protocol 8 MCG/MIN Cefepime HCl 2 gm/ Sodium 100 mls @ 200 mls/hr 07/20/19 21:00 07/27/19 09:15 Chloride IV Infused BID SONG Infusion Thiamine HCl 100 mg/ Sodium 51 mls @ 100 mls/hr 07/21/19 09:00 07/27/19 10:05 Chloride IV Infused DAILY SONG Infusion Sodium Chloride 500 mls @ 20 mls/hr 07/21/19 18:13 07/27/19 11:13 Normal Saline 0.9% IV 20 mls/hr Q24H PRN Infusion TKO RATE Multivitamins 10 ml/ Chromium/ 2,011 mls @ 50 mls/hr 07/24/19 19:00 07/27/19 11:13 Copper/Manganese/Seleni/Zn 1 IV 50 mls/hr ml/ Amino Ac/Electrol/Dextrose Q24H SONG Infusion /Calcium Protocol Vancomycin HCl 1 gm/ Sodium 250 mls @ 167 mls/hr 07/26/19 06:00 07/27/19 01:40 Chloride IV Infused Q18H SONG Infusion Mineral Oil 1 applic 07/26/19 20:09 07/27/19 12:33 Cavilon TOP 1 applic PRN PRN Administration Skin Care Multi-Ingred Cream/Lotion/Oil/Oint 1 applic 07/26/19 13:27 07/26/19 14:00 Lubrifresh Pm Ophth Oint EACHEYE 1 applic QPM PRN Administration Dry Eye Pantoprazole Sodium 40 mg 07/20/19 21:00 07/27/19 08:51 Protonix IVP 40 mg BID SONG Administration Sodium Chloride 10 ml 07/20/19 17:00 07/27/19 11:12 Normal Saline Flush 0.9% IVP Not Given 0100,0900,1700 SONG Sodium Chloride 10 ml 07/20/19 16:31 07/27/19 08:52 Normal Saline Flush 0.9% IVP 10 ml PRN PRN Administration NEEDED PER PROVIDER ORDERS - Physical Exam Wound/Incisions: positive: Healing well (lower 1/3 receiving wet to dry dressing;upper portion appears to be healing slowly) General Appearance: positive: No acute distress (sedated on ventilator) Eyes Bilateral: positive: No scleral icterus Neck: positive: No JVD Respiratory: positive: Breath sounds nml (anteriorly) Cardiovascular: positive: Regular rate & rhythm Abdomen: positive: Non-tender (sedated), Abnml bowel sounds (hypoactive), Other (drainage serous, 295 yest). negative: Hepatomegaly, Splenomegaly, Mass Skin: positive: Color nml, No rash, Warm (except left hand, slightly cooler and mottled but improving compared to yest) Neurologic/Psychiatric: positive: Other (sedated on ventilator) ABX Reporting Has patient been on IV antibiotics over the past 48 hours?: Yes Impression/Plan - Problem List Problem List: PO Day 4; appears to be developing pneumonia and will need prolonged ventilatory support. Has persistent ileus and likely will need TPN for some time. Rec: agree with present management and plans to transfer to higher level of care. Long discussion with daughter Cinda regarding above.
--- NOTE | 2019-07-27 16:05 | PROVIDER PROGRESS NOTE ---
Assessment/Plan - Problem List (1) Ventilator associated pneumonia Assessment/Plan: Continue antibx Continue pulm toilet (2) Perforated abdominal viscus Assessment/Plan: Has a post-op ileus, per Gen surgery, who is following along (3) Ventilator dependent Assessment/Plan: Continue vent support, that needed to be increased yesterday. No transfer for trach, is the new plan (see notes regarding care plan yesterday and today). Resume trials of CPAP weaning tomorrow again. (4) Severe protein-calorie malnutrition Assessment/Plan: Getting tpn iv (5) History of COPD Assessment/Plan: On nebs per ET tube (6) Rheumatoid arthritis Assessment/Plan: Finger deformities seen (7) History of alcoholism Assessment/Plan: Stopped 1 mo before this admission. She gets daily iv Thiamnine (8) Septic shock Assessment/Plan: Resolved (9) Acute kidney injury Assessment/Plan: Resolved - Current Meds Current Meds: Current Medications Generic Name Dose Route Start Last Admin Trade Name Freq PRN Reason Stop Dose Admin Albuterol 2.5 mg 07/21/19 14:20 07/26/19 15:15 INH 2.5 mg RTQ4H PRN Administration Wheezing Chlorhexidine Gluconate 15 ml 07/21/19 09:00 07/27/19 08:45 Peridex PO 15 ml BID SONG Administration Heparin Sodium (Porcine) 5,000 unit 07/21/19 09:00 07/27/19 08:59 SUBQ 5,000 unit BID SONG Administration Metronidazole 500 mg in 100 mls @ 100 mls/hr 07/20/19 22:30 07/27/19 14:32 Flagyl 500 Mg/100 Ml IV 100 mls/hr Q8H SONG Administration Propofol 100 mls @ 3.33 mls/hr 07/20/19 19:00 07/27/19 15:06 Diprivan IV 60 mcg/kg/min .Q30H2M SONG 19.98 mls/hr Administration Protocol 10 MCG/KG/MIN Fentanyl 2,500 mcg/ Sodium 250 mls @ 5.55 mls/hr 07/20/19 19:00 07/27/19 14:33 Chloride IV 2 mcg/kg/hr .Q45H3M SONG 11.1 mls/hr Titration Protocol 1 MCG/KG/HR Norepinephrine Bitartrate 8 mg 250 mls @ 15 mls/hr 07/20/19 21:00 07/27/19 04:01 / Dextrose IV Not Given .[id number] SONG Protocol 8 MCG/MIN Cefepime HCl 2 gm/ Sodium 100 mls @ 200 mls/hr 07/20/19 21:00 07/27/19 09:15 Chloride IV Infused BID SONG Infusion Thiamine HCl 100 mg/ Sodium 51 mls @ 100 mls/hr 07/21/19 09:00 07/27/19 10:05 Chloride IV Infused DAILY SONG Infusion Sodium Chloride 500 mls @ 20 mls/hr 07/21/19 18:13 07/27/19 14:32 Normal Saline 0.9% IV 0 mls/hr Q24H PRN Infusion TKO RATE Multivitamins 10 ml/ Chromium/ 2,011 mls @ 50 mls/hr 07/24/19 19:00 07/27/19 14:32 Copper/Manganese/Seleni/Zn 1 IV 50 mls/hr ml/ Amino Ac/Electrol/Dextrose Q24H SONG Infusion /Calcium Protocol Vancomycin HCl 1 gm/ Sodium 250 mls @ 167 mls/hr 07/26/19 06:00 07/27/19 01:40 Chloride IV Infused Q18H SONG Infusion Mineral Oil 1 applic 07/26/19 20:09 07/27/19 12:33 Cavilon TOP 1 applic PRN PRN Administration Skin Care Multi-Ingred Cream/Lotion/Oil/Oint 1 applic 07/26/19 13:27 07/26/19 14:00 Lubrifresh Pm Ophth Oint EACHEYE 1 applic QPM PRN Administration Dry Eye Pantoprazole Sodium 40 mg 07/20/19 21:00 07/27/19 08:51 Protonix IVP 40 mg BID SONG Administration Sodium Chloride 10 ml 07/20/19 17:00 07/27/19 11:12 Normal Saline Flush 0.9% IVP Not Given 0100,0900,1700 SONG Sodium Chloride 10 ml 07/20/19 16:31 07/27/19 08:52 Normal Saline Flush 0.9% IVP 10 ml PRN PRN Administration NEEDED PER PROVIDER ORDERS - Lab Result Fish Bone Diagrams: 07/27/19 04:55 07/27/19 04:55 - Additional Planning My Orders: My Active Orders 07/26/19 20:09 Min Oil/Dimeth/Coconut Oil Crm [Cavilon] 1 applic TOP PRN PRN 07/27/19 17:30 VANCOMYCIN TROUGH [CHEM] Timed Objective Vital Signs: Vital Signs - 24 hr 07/26/19 07/26/19 07/26/19 16:00 16:56 17:00 Temperature 37.5 C 37.4 C Heart Rate 109 H Heart Rate [ 104 H 104 H Monitoring electrodes] Respiratory 22 22 Rate Blood Pressure [Left Brachial artery] Blood Pressure 113/62 111/64 [Right Brachial artery] Blood Pressure 104/58 L 93/54 L [Right Radial artery] O2 Saturation 98 99 07/26/19 07/26/19 07/26/19 18:00 19:00 19:11 Temperature 37.1 C 37.2 C Heart Rate 106 H Heart Rate [ 109 H 107 H Monitoring electrodes] Respiratory 22 22 Rate Blood Pressure [Left Brachial artery] Blood Pressure 109/65 [Right Brachial artery] Blood Pressure 91/70 118/57 L [Right Radial artery] O2 Saturation 100 97 07/26/19 07/26/19 07/26/19 20:00 21:00 21:20 Temperature 37.2 C 37.2 C 37.2 C Heart Rate Heart Rate [ 107 H 108 H 110 H Monitoring electrodes] Respiratory 22 22 22 Rate Blood Pressure 154/137 H 116/63 [Left Brachial artery] Blood Pressure 94/60 [Right Brachial artery] Blood Pressure 105/55 L 173/76 H 132/57 H [Right Radial artery] O2 Saturation 100 100 98 07/26/19 07/26/19 07/26/19 22:00 22:19 23:00 Temperature 37.1 C 37.2 C Heart Rate 106 H Heart Rate [ 110 H 97 Monitoring electrodes] Respiratory 22 22 Rate Blood Pressure 101/54 L 94/57 L [Left Brachial artery] Blood Pressure [Right Brachial artery] Blood Pressure 111/54 L 83/45 L [Right Radial artery] O2 Saturation 92 100 07/27/19 07/27/19 07/27/19 00:00 00:31 01:00 Temperature 37.0 C 37 C Heart Rate 99 Heart Rate [ 99 98 Monitoring electrodes] Respiratory 30 H 24 Rate Blood Pressure 122/92 H [Left Brachial artery] Blood Pressure 102/56 L [Right Brachial artery] Blood Pressure 166/68 H 100/48 L [Right Radial artery] O2 Saturation 100 100 07/27/19 07/27/19 07/27/19 02:00 02:44 03:00 Temperature 36.7 C Heart Rate 88 Heart Rate [ 84 90 Monitoring electrodes] Respiratory 22 22 Rate Blood Pressure 91/55 L 101/59 L [Left Brachial artery] Blood Pressure [Right Brachial artery] Blood Pressure 85/41 L 104/47 L [Right Radial artery] O2 Saturation 100 100 07/27/19 07/27/19 07/27/19 04:00 04:38 05:00 Temperature 37 C 37.1 C Heart Rate 97 Heart Rate [ 86 105 H Monitoring electrodes] Respiratory 22 24 Rate Blood Pressure 94/53 L 137/67 H [Left Brachial artery] Blood Pressure [Right Brachial artery] Blood Pressure 93/44 L 159/64 H [Right Radial artery] O2 Saturation 100 97 07/27/19 07/27/19 07/27/19 06:00 07:00 07:44 Temperature 37.1 C Heart Rate 97 Heart Rate [ 105 H 102 H Monitoring electrodes] Respiratory 26 H 22 Rate Blood Pressure 93/53 L 97/57 L [Left Brachial artery] Blood Pressure [Right Brachial artery] Blood Pressure 103/51 L 95/49 L [Right Radial artery] O2 Saturation 97 100 07/27/19 07/27/19 07/27/19 08:00 09:00 09:30 Temperature 37 C Heart Rate 88 Heart Rate [ 93 91 Monitoring electrodes] Respiratory 22 22 Rate Blood Pressure 92/48 L 128/66 [Left Brachial artery] Blood Pressure [Right Brachial artery] Blood Pressure 92/54 L 137/51 H [Right Radial artery] O2 Saturation 100 100 07/27/19 07/27/19 07/27/19 10:00 11:00 11:30 Temperature Heart Rate 92 Heart Rate [ 90 93 Monitoring electrodes] Respiratory 22 22 Rate Blood Pressure 103/57 L 125/67 [Left Brachial artery] Blood Pressure [Right Brachial artery] Blood Pressure 97/41 L 136/52 H [Right Radial artery] O2 Saturation 100 100 07/27/19 07/27/19 07/27/19 12:00 13:00 13:02 Temperature 37.8 C H Heart Rate 97 Heart Rate [ 99 95 Monitoring electrodes] Respiratory 22 22 Rate Blood Pressure 111/64 109/63 [Left Brachial artery] Blood Pressure [Right Brachial artery] Blood Pressure 130/49 L 103/43 L [Right Radial artery] O2 Saturation 99 100 07/27/19 07/27/19 14:00 15:00 Temperature 37.6 C H Heart Rate Heart Rate [ 89 92 Monitoring electrodes] Respiratory 22 22 Rate Blood Pressure 98/59 L 94/60 [Left Brachial artery] Blood Pressure [Right Brachial artery] Blood Pressure 96/44 L 137/55 H [Right Radial artery] O2 Saturation 100 100 Oxygen O2 Source Mechanical ventilator Oxygen Flow Rate 4 I&O (Last 24 Hrs): Intake and Output Totals x24h 07/25/19 07/26/19 07/27/19 23:59 23:59 23:59 Intake Total 4101.146 3228.482 2268.411 Output Total 2070 2868 1550 Balance 2031.146 360.482 718.411 General: Other (Sedated) HEENT: Mucous membr. moist/pink, Other (ET tube in place) Neck: No JVD Neuro: Other (Sedated) Cardiovascular: Regular rate, No murmurs Respiratory: No respiratory distress, Breath sounds nml Abdomen: Soft Extremities: Other (1+ finger edema) - Results Results: Laboratory Results WBC 16.4 x10^3/uL (4.8-10.8) H 07/27/19 04:55 RBC 2.77 10^6/uL (4.20-5.40) L 07/27/19 04:55 Hgb 9.0 g/dL (12.0-16.0) L 07/27/19 04:55 Hct 28.3 % (37.0-47.0) L 07/27/19 04:55 MCV 102.2 fL (81.0-99.0) H 07/27/19 04:55 MCH 32.5 pg (27.0-31.0) H 07/27/19 04:55 MCHC 31.8 g/dL (32.0-36.0) L 07/27/19 04:55 RDW 16.0 % (12.0-15.0) H 07/27/19 04:55 Plt Count 191 10^3/uL (130-450) 07/27/19 04:55 MPV 10.7 fL (7.9-10.8) 07/27/19 04:55 Neut # (Auto) Not Reportable 07/27/19 04:55 Lymph # (Auto) Not Reportable 07/27/19 04:55 [place] # (Auto) Not Reportable 07/27/19 04:55 Eos # (Auto) Not Reportable 07/27/19 04:55 Baso # (Auto) Not Reportable 07/27/19 04:55 Absolute Nucleated RBC Not Reportable 07/27/19 04:55 Total Counted 100 07/27/19 04:55 Band Neuts % (Manual) 8 % (0-10) 07/27/19 04:55 Abnorm Lymph % (Manual) 0 % 07/27/19 04:55 Metamyelocytes % 1 % (-0) H 07/22/19 05:00 Myelocytes % 1 % (-0) H 07/22/19 05:00 Nucleated RBC % Not Reportable 07/27/19 04:55 Neutrophils # (Manual) 14.6 10^3/uL (1.5-6.6) H 07/27/19 04:55 Lymphocytes # (Manual) 0.7 10^3/uL (1.5-3.5) L 07/27/19 04:55 Monocytes # (Manual) 1.1 10^3/uL (0.0-1.0) H 07/27/19 04:55 Eosinophils # (Manual) 0.0 10^3/uL (0-0.7) 07/27/19 04:55 Basophils # (Manual) 0.0 10^3/uL (0-0.1) 07/27/19 04:55 Nucleated RBCs 1 % 07/27/19 04:55 Differential Comment MANUAL DIFFERENTIAL 07/27/19 04:55 Manual Slide Review Indicated 07/20/19 19:10 WBC Morphology 1+ VACUOLATION (NORMAL) 1+ TOXIC GRANULATION (NORMAL) 07/20/19 12:20 WBC Morphology NORMAL APPEARANCE (NORMAL) 07/23/19 04:40 Platelet Estimate NORMAL (130-450,000) (NORMAL) 07/27/19 04:55 Platelet Morphology NORMAL APPEARANCE (NORMAL) 07/23/19 04:40 RBC Morph Micro Appear NORMAL APPEARANCE (NORMAL) 07/25/19 04:40 RBC Morph Micro Appear NORMAL APPEARANCE (NORMAL) 07/27/19 04:55 PT 12.4 secs (9.9-12.6) 07/20/19 12:20 INR 1.1 (0.8-1.2) 07/20/19 12:20 Bld Gas Analysis Time 0508 07/27/19 04:50 Sample Site A-LINE 07/27/19 04:50 ABG pH 7.31 (7.35-7.45) L 07/27/19 04:50 ABG pCO2 44 mmHg (34-45) 07/27/19 04:50 ABG pO2 74 mmHg (80-100) L 07/27/19 04:50 ABG HCO3 21.8 mmol/L (22.0-26.0) L 07/27/19 04:50 ABG Total CO2 23.2 MMOL/L (21.0-29.0) 07/27/19 04:50 ABG O2 Saturation 93 % (94-98) L 07/27/19 04:50 ABG Base Excess -4.3 mmol/L (-2.0-3.0) L 07/27/19 04:50 William Test NOT APPLICABLE 07/27/19 04:50 Respiration Rate 22 b/min 07/27/19 04:50 O2 Delivery Device VENTILATOR 07/27/19 04:50 Vent Mode SIMV 07/27/19 04:50 FiO2 40.00 07/27/19 04:50 Tidal Volume 450 mL 07/27/19 04:50 PEEP 5 cmH2O 07/27/19 04:50 Pressure Support Vent 14 cmH2O 07/27/19 04:50 Sodium 145 mmol/L (135-145) 07/27/19 04:55 Potassium 3.6 mmol/L (3.5-5.0) 07/27/19 04:55 Chloride 113 mmol/L (101-111) H 07/27/19 04:55 Carbon Dioxide 23 mmol/L (21-32) 07/27/19 04:55 Anion Gap 9.0 (6-13) 07/27/19 04:55 BUN 32 mg/dL (6-20) H 07/27/19 04:55 Creatinine 0.6 mg/dL (0.4-1.0) 07/27/19 04:55 Estimated GFR (MDRD) 101 (>89) 07/27/19 04:55 Glucose 126 mg/dL (70-100) H 07/27/19 04:55 POC Whole Bld Glucose 107 mg/dL (70 - 100) H 07/27/19 12:26 Lactic Acid 1.5 mmol/L (0.5-2.2) 07/21/19 19:57 Calcium 8.1 mg/dL (8.5-10.3) L 07/27/19 04:55 Phosphorus 2.6 mg/dL (2.5-4.6) 07/27/19 04:55 Magnesium 1.8 mg/dL (1.7-2.8) 07/27/19 04:55 Total Bilirubin 0.6 mg/dL (0.2-1.0) 07/22/19 05:00 Direct Bilirubin 0.1 mg/dL (0.1-0.5) 07/22/19 05:00 AST 20 IU/L (10-42) 07/22/19 05:00 ALT 20 IU/L (10-60) 07/22/19 05:00 Alkaline Phosphatase 36 IU/L (42-121) L 07/22/19 05:00 Troponin I High Sens 232.6 ng/L (2.3-14.8) H* 07/21/19 10:50 Total Protein 4.6 g/dL (6.7-8.2) L 07/22/19 05:00 Albumin 1.5 g/dL (3.2-5.5) L 07/27/19 04:55 Globulin 2.7 g/dL (2.1-4.2) 07/22/19 05:00 Albumin/Globulin Ratio 1.3 (1.0-2.2) 07/20/19 12:20 Triglycerides 122 mg/dL (-149) 07/26/19 04:50 Lipase 25 U/L (22-51) 07/20/19 12:20 Nasal Screen MRSA (PCR) NEGATIVE (NEGATIVE) 07/20/19 17:34 Sepsis Event Note (H) - Evaluation Current Stage of Sepsis: Septic shock Possible source of Sepsis: positive: GI tract/intra-abdominal - Sepsis Criteria Sepsis Criteria: Recorded Heart Rate greater than 90 bpm, Recorded Respiratory Rate greater than 20, WBC count greater than 10% bands, WBC count greater than 12,000 or less than 4000, SBP drop more than 40mHg, SBP less than 90 mmHg, Renal: urine output less than 0.5ml/kg/hr for 2 hours or creatinine gr, Metabolic: lactate > 2 mmol/L
--- NOTE | 2019-07-27 16:22 | ADVANCE CARE PLANNING NOTE ---
Advance Care Planning - Planning Encounter Date: 07/27/19 Time: 14:15 Purpose: Cinda requested a meeting regarding her mother's further care Parties in Attendance: I spoke to the daughter Cinda at the patient's bedside and the RN, Marii Dominique, was in the room. Decisional Capacity of the Patient: The patient is sedated on a vent, cannot communicate or make decisions currently. - Diagnosis for Encounter (1) Ventilator dependent Summary: Recommendations yesterday were for a transfer for a trach at higher level of care facility, to which the 3 children eventually agreed, and Packaging Designer Carmenza was also in on one of the meetings. Today the daughter Cinda again feels that no transfer should be done, and wanted to contact a senior c software engineer on how she (Cinda) should proceed. I informed today's SW, who will speak to her. I re-iterated to Cinda that a trach is a standard procedure and is advised when a long intubation is forseen. Cinda stated that she still thinks her mother would not want to be hooked up to machines, and who stated "who knows how long the trach healing could take" and that "going to rehab with such bad RA pain would be difficult for the patient" and that the patient already has such a poor quality of life and that no one visits her already. I stated that each person's medical course is different and tried to answer her questions related to the medical condition. I advised SW to speak to Cinda for resources such as Hospice, that may answer some of these questions. Cinda left for the airport this afternoon, for a flight back to [place]. - Encounter Plan: Therefore, there is no consensus with all 3 children , and thus will not keep making arrangements for transfer for a tracheostomy and higher level of care. Code Status: Attempt Resuscitation Time spent on advance care plannin min
[2019-07-27 17:56] LABS: VANCOMYCIN,TROUGH 11.3 ug/mL (10.0-20.0)
[2019-07-27] MEDS: VANCOMYCIN INJ 1 GM in SODIUM CHLORIDE 0.9% 250 ML IV SCH (18:23)
--- NOTE | 2019-07-27 18:23 | PHARMACY PROGRESS NOTE ---
- Therapy Status Vancomycin regimen day #: 3 Therapy status: Awaiting steady state Basis for treatment: Empirical Trough goal: 15-20 Concurrent antibiotics: CEFEPIME AND METRONIDAZOLE - GERMAINE Risk Risk level for Acute Kidney Injury: Moderate Acute Kidney Injury risk factors: Goal trough >15, Admission to ICU, Sepsis - Monitoring and Recommendation Clinical response to treatment: I&O Previous 24 hours 07/25/19 07/26/19 07/27/19 23:59 23:59 23:59 Intake Total 4101.146 3228.482 2549.689 Output Total 2070 2868 1865 Balance 2031.146 360.482 684.689 Lab Results 07/27/19 07/26/19 07/25/19 04:55 04:50 04:40 BUN 32 H 33 H 33 H Creatinine 0.6 0.7 0.9 Estimated GFR (MDRD) 101 85 L 63 L 07/24/19 07/23/19 07/22/19 04:55 04:40 05:00 BUN 40 H 48 H 52 H Creatinine 1.1 H 1.6 H 2.1 H Estimated GFR (MDRD) 50 L 33 L 24 L 07/21/19 07/21/19 07/20/19 13:40 04:45 19:10 BUN 45 H 41 H 37 H Creatinine 1.8 H 1.4 H 1.0 Estimated GFR (MDRD) 29 L 38 L 56 L 07/20/19 12:20 BUN 39 H Creatinine 1.0 Estimated GFR (MDRD) 56 L Vancomycin Monitoring 07/27/19 17:42 Vancomycin Trough 11.3 Cultures 07/20/19 17:40 Blood - Left Hand Blood Culture - Final NO GROWTH AFTER 5 DAYS 07/20/19 17:36 Blood - Left Arm Blood Culture - Final NO GROWTH AFTER 5 DAYS 07/23/19 08:21 Other - Peritoneal Wound Culture - Final Staphylococcus Haemolyticus Monitoring plan: Daily serum creatinine Areas for additional monitoring: IV to PO when appropriate, Therapy de- escalation based on culture results, Acute Kidney Injury Pharmacy recommendation: Continue current regime
[2019-07-27] MEDS: TPN (CLINIMIX E 5/15) 2,000 ML with MULTIVITAMIN 10 ML, TRACE ELEMENTS V CONC 1 ML IV SCH ×3 (18:33)
[2019-07-28] MEDS: MIN OIL/DIMETHICON/COCONUT OIL 92 GM TUBE TOP PRN (00:32)
[2019-07-28] MEDS: PROPOFOL 1000 MG/100 ML 100 ML IV SCH ×5 (02:10→23:38)
[2019-07-28] MEDS: fentaNYL 2,500 MCG in SODIUM CHLORIDE 0.9% 200 ML IV SCH (03:53)
[2019-07-28] MEDS: SODIUM CHLORIDE FLUSH 0.9% 10 ML SYRINGE IVP PRN ×11 (03:55→23:46)
[2019-07-28 05:06] LABS: BASOPHILS % (AUTO) 0.2 %; EOSINOPHILS % (AUTO) 0.8 %; LYMPHOCYTES % (AUTO) 6.1 %; MEAN CORPUSCULAR HEMOGLOBIN 31.3 pg (27.0-31.0); MEAN CORPUSCULAR HGB CONC 30.9 g/dL (32.0-36.0); MEAN CORPUSCULAR VOLUME 101.2 fL (81.0-99.0); MEAN PLATELET VOLUME 10.8 fL (7.9-10.8); MONOCYTES % (AUTO) 5.8 %; NEUTROPHILS % (AUTO) 82.6 %; PLT - PLATELET COUNT 247 10^3/uL (130-450); RED BLOOD COUNT 2.56 10^6/uL (4.20-5.40); RED CELL DISTRIBUTION WIDTH 15.9 % (12.0-15.0); WHITE BLOOD COUNT 18.7 x10^3/uL (4.8-10.8)
[2019-07-28 05:09] LABS: ABNORMAL LYMPHS % (MANUAL) 0 %
[2019-07-28 05:21] LABS: CALCIUM 8.2 mg/dL (8.5-10.3); CREATININE 0.5 mg/dL (0.4-1.0); MAGNESIUM 1.8 mg/dL (1.7-2.8); PHOSPHORUS 2.2 mg/dL (2.5-4.6)
[2019-07-28 05:36] LABS: BAND NEUTROPHILS % (MANUAL) 3 %; EOSINOPHILS # (MANUAL) 0.4 10^3/uL (0-0.7); LYMPHOCYTES # (MANUAL) 1.1 10^3/uL (1.5-3.5); LYMPHOCYTES % (MANUAL) 6 %; MONOCYTES # (MANUAL) 0.4 10^3/uL (0.0-1.0); MYELOCYTES % (MANUAL) 1 %
[2019-07-28 05:39] LABS: DIFFERENTIAL COMMENT MANUAL DIFFERENTIAL; PLATELET ESTIMATE, MANUAL NORMAL (130-450,000) (NORMAL); PLATELET MORPHOLOGY NORMAL APPEARANCE (NORMAL); RBC MORPHOLOGY (MULTIPLE) 2+ HYPOCHROMASIA (NORMAL)
[2019-07-28] MEDS: POTASSIUM CHLOR 20 MEQ/100 ML 20 MEQ/100 ML BAG IV SCH ×2 (06:13→07:25)
[2019-07-28] MEDS: metroNIDAZOLE 500 MG/100 ML 500 MG/100 ML BAG IV SCH ×3 (06:21→23:14)
[2019-07-28] MEDS: SODIUM CHLORIDE 0.9% 500 ML IV PRN (06:29)
--- NOTE | 2019-07-28 07:25 | PROVIDER PROGRESS NOTE ---
Subjective - General Admit Date: 07/20/19 Procedure Date: 07/23/19 Post Op Days: 5 Procedure Performed: Excision and closure of perforated gastric ulcer, et. al. - Review of Systems Wound/Incisions: positive: Healing well (lower 1/3 receiving wet to dry dressing;upper portion appears to be healing slowly) Drain Type: Mati Drain Output Description: serosanguinous Approximate mls Output: 100 yest General: positive: No symptoms (intubated and sedated; appears comfortable now but required increasing dose of propofol last night) Skin: positive: Other (diffusely edematous) All Other Systems: positive: Other (sedated on ventilator) Objective - Patient Data Reviewed Vital Signs: Yes Vital Signs: Vital Signs x48h Temp Pulse Pulse Resp BP BP Pulse Ox 07/28/19 07:00 37.3 C 97 22 119/68 131/55 H 100 07/28/19 06:00 96 22 118/66 134/56 H 100 07/28/19 05:05 99 07/28/19 05:00 37.4 C 97 22 131/72 H 152/65 H 100 07/28/19 04:00 37.4 C 93 23 112/64 140/56 H 100 07/28/19 03:05 80 07/28/19 03:00 37 C 92 22 122/80 157/62 H 100 07/28/19 02:00 81 22 95/56 L 102/45 L 100 07/28/19 01:20 80 07/28/19 01:00 84 22 90/53 L 95/42 L 100 07/28/19 00:11 37 C 93 22 123/69 144/60 H 100 Weight: Weight 07/26/19 07/27/19 07/28/19 23:59 23:59 23:59 Weight (kg) 56.5 kg 59 kg 60 kg Intake & Output: Intake and Output Totals x24h 07/26/19 07/27/19 07/28/19 23:59 23:59 23:59 Intake Total 3228.482 3328.347 1258.165 Output Total 2868 2495 945 Balance 360.482 833.347 313.165 700 NG, 100 drain, 1600 urine/24 hours - Lab Results Lab Results: 07/28/19 04:20 07/28/19 04:20 Other Lab Results: Lab Results x24hrs 07/28/19 07/28/19 07/28/19 Range/Units 06:03 04:20 04:20 WBC 18.7 H (4.8-10.8) x10^3/uL RBC 2.56 L (4.20-5.40) 10^6/uL Hgb 8.0 L (12.0-16.0) g/dL Hct 25.9 L (37.0-47.0) % MCV 101.2 H (81.0-99.0) fL MCH 31.3 H (27.0-31.0) pg MCHC 30.9 L (32.0-36.0) g/dL RDW 15.9 H (12.0-15.0) % Plt Count 247 (130-450) 10^3/uL MPV 10.8 (7.9-10.8) fL Neut # (Auto) Not Reportable Lymph # (Auto) Not Reportable [place] # (Auto) Not Reportable Eos # (Auto) Not Reportable Baso # (Auto) Not Reportable Absolute Nucleated RBC Not Reportable Total Counted 100 Band Neuts % (Manual) 3 (0 - 10) % Abnorm Lymph % (Manual) 0 % Myelocytes % 1 H ( - 0) % Nucleated RBC % Not Reportable Neutrophils # (Manual) 16.6 H (1.5-6.6) 10^3/uL Lymphocytes # (Manual) 1.1 L (1.5-3.5) 10^3/uL Monocytes # (Manual) 0.4 (0.0-1.0) 10^3/uL Eosinophils # (Manual) 0.4 (0-0.7) 10^3/uL Basophils # (Manual) 0.0 (0-0.1) 10^3/uL Differential Comment MANUAL DIFFERENTIAL WBC Morphology NORMAL APPEARANCE (NORMAL) Platelet Estimate NORMAL (130-450,000) (NORMAL) Platelet Morphology NORMAL APPEARANCE (NORMAL) RBC Morph Micro Appear 2+ HYPOCHROMASIA (NORMAL) Sodium 146 H (135-145) mmol/L Potassium 3.4 L (3.5-5.0) mmol/L Chloride 117 H (101-111) mmol/L Carbon Dioxide 23 (21-32) mmol/L Anion Gap 6.0 (6-13) BUN 30 H (6-20) mg/dL Creatinine 0.5 (0.4-1.0) mg/dL Estimated GFR (MDRD) 125 (>89) Glucose 117 H (70-100) mg/dL POC Whole Bld Glucose 108 H (70 - 100) mg/dL Calcium 8.2 L (8.5-10.3) mg/dL Phosphorus 2.2 L (2.5-4.6) mg/dL Magnesium 1.8 (1.7-2.8) mg/dL Albumin (3.2-5.5) g/dL Last Dose Date Last Dose Time Vancomycin Trough (10.0-20.0) ug/mL 07/27/19 07/27/19 07/27/19 Range/Units 23:56 17:42 17:35 WBC (4.8-10.8) x10^3/uL RBC (4.20-5.40) 10^6/uL Hgb (12.0-16.0) g/dL Hct (37.0-47.0) % MCV (81.0-99.0) fL MCH (27.0-31.0) pg MCHC (32.0-36.0) g/dL RDW (12.0-15.0) % Plt Count (130-450) 10^3/uL MPV (7.9-10.8) fL Neut # (Auto) Lymph # (Auto) [place] # (Auto) Eos # (Auto) Baso # (Auto) Absolute Nucleated RBC Total Counted Band Neuts % (Manual) (0 - 10) % Abnorm Lymph % (Manual) % Myelocytes % ( - 0) % Nucleated RBC % Neutrophils # (Manual) (1.5-6.6) 10^3/uL Lymphocytes # (Manual) (1.5-3.5) 10^3/uL Monocytes # (Manual) (0.0-1.0) 10^3/uL Eosinophils # (Manual) (0-0.7) 10^3/uL Basophils # (Manual) (0-0.1) 10^3/uL Differential Comment WBC Morphology (NORMAL) Platelet Estimate (NORMAL) Platelet Morphology (NORMAL) RBC Morph Micro Appear (NORMAL) Sodium (135-145) mmol/L Potassium (3.5-5.0) mmol/L Chloride (101-111) mmol/L Carbon Dioxide (21-32) mmol/L Anion Gap (6-13) BUN (6-20) mg/dL Creatinine (0.4-1.0) mg/dL Estimated GFR (MDRD) (>89) Glucose (70-100) mg/dL POC Whole Bld Glucose 115 H 97 (70 - 100) mg/dL Calcium (8.5-10.3) mg/dL Phosphorus (2.5-4.6) mg/dL Magnesium (1.7-2.8) mg/dL Albumin (3.2-5.5) g/dL Last Dose Date 07/27/19 Last Dose Time 1623 Vancomycin Trough 11.3 (10.0-20.0) ug/mL 07/27/19 07/27/19 Range/Units 12:26 04:55 WBC (4.8-10.8) x10^3/uL RBC (4.20-5.40) 10^6/uL Hgb (12.0-16.0) g/dL Hct (37.0-47.0) % MCV (81.0-99.0) fL MCH (27.0-31.0) pg MCHC (32.0-36.0) g/dL RDW (12.0-15.0) % Plt Count (130-450) 10^3/uL MPV (7.9-10.8) fL Neut # (Auto) Lymph # (Auto) [place] # (Auto) Eos # (Auto) Baso # (Auto) Absolute Nucleated RBC Total Counted Band Neuts % (Manual) (0 - 10) % Abnorm Lymph % (Manual) % Myelocytes % ( - 0) % Nucleated RBC % Neutrophils # (Manual) (1.5-6.6) 10^3/uL Lymphocytes # (Manual) (1.5-3.5) 10^3/uL Monocytes # (Manual) (0.0-1.0) 10^3/uL Eosinophils # (Manual) (0-0.7) 10^3/uL Basophils # (Manual) (0-0.1) 10^3/uL Differential Comment WBC Morphology (NORMAL) Platelet Estimate (NORMAL) Platelet Morphology (NORMAL) RBC Morph Micro Appear (NORMAL) Sodium (135-145) mmol/L Potassium (3.5-5.0) mmol/L Chloride (101-111) mmol/L Carbon Dioxide (21-32) mmol/L Anion Gap (6-13) BUN (6-20) mg/dL Creatinine (0.4-1.0) mg/dL Estimated GFR (MDRD) (>89) Glucose (70-100) mg/dL POC Whole Bld Glucose 107 H (70 - 100) mg/dL Calcium (8.5-10.3) mg/dL Phosphorus (2.5-4.6) mg/dL Magnesium (1.7-2.8) mg/dL Albumin 1.5 L (3.2-5.5) g/dL Last Dose Date Last Dose Time Vancomycin Trough (10.0-20.0) ug/mL - Imaging Results Radiology Imaging: positive: Final report received, EMP read indepedently Imaging Results Comments: LLL effusion, with poss infliltrate; ow NAD; lines, tubes in good position. - Current Medications Current Medications: Current Medications Generic Name Dose Route Start Last Admin Trade Name Freq PRN Reason Stop Dose Admin Albuterol 2.5 mg 07/21/19 14:20 07/26/19 15:15 INH 2.5 mg RTQ4H PRN Administration Wheezing Chlorhexidine Gluconate 15 ml 07/21/19 09:00 07/27/19 20:49 Peridex PO 15 ml BID SONG Administration Heparin Sodium (Porcine) 5,000 unit 07/21/19 09:00 07/27/19 21:11 SUBQ 5,000 unit BID SONG Administration Metronidazole 500 mg in 100 mls @ 100 mls/hr 07/20/19 22:30 07/28/19 06:21 Flagyl 500 Mg/100 Ml IV 100 mls/hr Q8H SONG Administration Propofol 100 mls @ 3.33 mls/hr 07/20/19 19:00 07/28/19 07:05 Diprivan IV 55 mcg/kg/min .Q30H2M SONG 18.315 mls/hr Administration Protocol 10 MCG/KG/MIN Fentanyl 2,500 mcg/ Sodium 250 mls @ 5.55 mls/hr 07/20/19 19:00 07/28/19 07:05 Chloride IV 2 mcg/kg/hr .Q45H3M SONG 11.1 mls/hr Titration Protocol 1 MCG/KG/HR Norepinephrine Bitartrate 8 mg 250 mls @ 15 mls/hr 07/20/19 21:00 07/27/19 20:29 / Dextrose IV Not Given .[id number] SONG Protocol 8 MCG/MIN Cefepime HCl 2 gm/ Sodium 100 mls @ 200 mls/hr 07/20/19 21:00 07/27/19 21:35 Chloride IV Infused BID SONG Infusion Thiamine HCl 100 mg/ Sodium 51 mls @ 100 mls/hr 07/21/19 09:00 07/27/19 10:05 Chloride IV Infused DAILY SONG Infusion Sodium Chloride 500 mls @ 20 mls/hr 07/21/19 18:13 07/28/19 06:29 Normal Saline 0.9% IV 20 mls/hr Q24H PRN Administration TKO RATE Multivitamins 10 ml/ Chromium/ 2,011 mls @ 50 mls/hr 07/24/19 19:00 07/28/19 07:00 Copper/Manganese/Seleni/Zn 1 IV 50 mls/hr ml/ Amino Ac/Electrol/Dextrose Q24H SONG Infusion /Calcium Protocol Vancomycin HCl 1 gm/ Sodium 250 mls @ 167 mls/hr 07/26/19 06:00 07/27/19 20:40 Chloride IV Infused Q18H SONG Infusion Potassium Chloride 20 meq in 100 mls @ 50 mls/hr 07/28/19 06:00 07/28/19 06:13 Potassium Chloride IV 07/28/19 09:59 50 mls/hr Q2H SONG Administration Mineral Oil 1 applic 07/26/19 20:09 07/28/19 00:32 Cavilon TOP 1 applic PRN PRN Administration Skin Care Multi-Ingred Cream/Lotion/Oil/Oint 1 applic 07/26/19 13:27 07/26/19 14:00 Lubrifresh Pm Ophth Oint EACHEYE 1 applic QPM PRN Administration Dry Eye Pantoprazole Sodium 40 mg 07/20/19 21:00 07/27/19 20:49 Protonix IVP 40 mg BID SONG Administration Sodium Chloride 10 ml 07/20/19 17:00 07/27/19 20:28 Normal Saline Flush 0.9% IVP 10 ml 0100,0900,1700 SONG Administration Sodium Chloride 10 ml 07/20/19 16:31 07/28/19 05:32 Normal Saline Flush 0.9% IVP 10 ml PRN PRN Administration NEEDED PER PROVIDER ORDERS - Physical Exam Wound/Incisions: positive: Healing well (upper 2/3 closed; lower 1/3 open receiving wet to dry; no evidence of infection) General Appearance: positive: No acute distress (sedated appears comfortable) Eyes Bilateral: positive: No scleral icterus Neck: positive: No JVD Respiratory: positive: No respiratory distress, Breath sounds nml (anteriorly) Cardiovascular: positive: Regular rate & rhythm, No murmur, No gallop Abdomen: positive: Abnml bowel sounds (absent bowel tones), Other (unable to assess tenderness due to sedation). negative: Guarding, Rebound, Hepatomegaly, Splenomegaly, Mass Skin: positive: Color nml, No rash, Warm, Dry, Cyanosis (mottling of left hand improved;warm), Other (diffuse edema/anasarca developing) Extremities: positive: Pedal edema ABX Reporting Has patient been on IV antibiotics over the past 48 hours?: Yes Impression/Plan - Problem List Problem List: PO Day 5. Pulmonary function stable, pneumonitis if present, appears to be resolving. Rec: agree with weaning trial again. Pt unable to have tracheostomy or any other interventions at present due to lack of advanced directives and inability to reach consensus among family regarding any further interventions. Rec: have Abbey Barnett, hospice and palliative care RN see pt and consult with family. WBC is increasing, concerning for recurrent infection; pulmonary function appears improved; consider GI source/intraabdominal abscess, or UTI. Rec: check UA. Consider abd/pelvic CT, but with family unable to agree to any intervention, not sure the information will be helpful. OW agree with present management including antibiotics for presumed pneumonia and also covering Staph hemolyticus which grew out on peritoneal fluid cultures. Agree with TPN for nutritional support.
[2019-07-28 07:56] LABS: BILIRUBIN,URINE NEGATIVE (NEGATIVE); GLUCOSE, URINE (UA) NEGATIVE (NEGATIVE); KETONES,URINE (UA) NEGATIVE (NEGATIVE); LEUKOCYTE ESTERASE, URINE NEGATIVE (NEGATIVE); NITRITE,URINE NEGATIVE (NEGATIVE); OCCULT BLOOD,URINE TRACE-INTA (NEGATIVE); PROTEIN,URINE 30 mg/dL (NEGATIVE); UROBILINOGEN,URINE 0.2 (NORMAL) E.U./dL (NORMAL)
[2019-07-28 07:57] LABS: CLARITY,URINE CLEAR (CLEAR)
[2019-07-28 08:06] LABS: BACTERIA,URINE Rare /HPF (None Seen); CASTS, URINE 3-5 Fine Granular /LPF; SQUAMOUS EPITHELIAL CELL,UR NONE SEEN (<= Few)
[2019-07-28] MEDS: MINERAL OIL/PETROLAT OPHTH OINT EACHEYE PRN (08:20)
[2019-07-28] MEDS: CEFEPIME 2 GM in SODIUM CHLORIDE 0.9% MINIBAG 100 ML IV SCH ×2 (08:20→20:31)
--- NOTE | 2019-07-28 08:31 | XRAY Report ---
Reason: F/U pneumonia, still on vent Procedure Date: 07/28/2019 Accession Number: [id number] / [id number] Procedure: XR - Chest 1 View X-Ray CPT Code: 18066 Final Report FULL RESULT: EXAM: CHEST RADIOGRAPHY EXAM DATE: 07/28/2019 08:17 AM. CLINICAL HISTORY: F/U pneumonia, still on vent. COMPARISON: Chest radiograph 07/26/2019 CHEST W/ 07/20/2019 1:48 PM CHEST 1 VIEW 07/26/2019 7:43 AM. TECHNIQUE: 1 view. FINDINGS: Lungs/Pleura: Increased lung markings. Heterogeneous left lung base opacity. Blunting left costophrenic angle. Mediastinum: Stable Other: Endotracheal tube with the tip in the mid trachea. NG tube seen. Possible drain over the left upper quadrant. Left subclavian catheter tip is over the left brachiocephalic vein. IMPRESSION: 1. Stable chest. 2. Airways disease. 3. Heterogeneous left lung base opacity. 4. Small left pleural effusion RADIA
[2019-07-28] MEDS: PANTOPRAZOLE 40 MG VIAL IVP SCH ×2 (08:34→20:44)
[2019-07-28] MEDS: SODIUM CHLORIDE FLUSH 0.9% 10 ML SYRINGE IVP SCH ×3 (08:34→20:32)
[2019-07-28] MEDS: CHLORHEXIDINE GLUCONATE 15 ML UDC PO SCH ×2 (08:37→20:31)
[2019-07-28] MEDS: HEPARIN 5,000 UNIT/ML VIAL SUBQ SCH ×2 (08:52→21:20)
--- NOTE | 2019-07-28 09:00 | PROCEDURE REPORT ---
Hospitalist Procedure Note - Procedure Note Procedure Note: EGD: 1. large irregular deep gastric ulcer, nonbleeding, concerning for neoplasm; biopsied, and MATTHEW test ordered. 2. medium sized angiodysplasia of stomach, nonbleeding, cauterized. 3. small angiodysplasia of second part of duodenum, nonbleeding, cauterized. Rec: avoid NSAIDs; high dose PPI therapy, f/u EGD in 2 months to document healing if biospies benign.
[2019-07-28 09:08] LABS: ABG BASE EXCESS -5.1 mmol/L (-2.0-3.0); ABG HCO3 18.6 mmol/L (22.0-26.0); ABG OXYGEN SATURATION 94 % (94-98); ABG PCO2 30 mmHg (34-45); ABG PH 7.41 (7.35-7.45); ABG PO2 75 mmHg (80-100); ABG TCO2 19.6 MMOL/L (21.0-29.0)
[2019-07-28] MEDS: THIAMINE INJ 100 MG in SODIUM CHLORIDE 0.9% 50 ML IV SCH (09:40)
[2019-07-28] MEDS ORDERED: POTASSIUM PHOSPHATE 15 MMOL in SODIUM CHLORIDE 0.9% 250 ML IV ONE (10:00)
[2019-07-28] MEDS: VANCOMYCIN INJ 1 GM in SODIUM CHLORIDE 0.9% 250 ML IV SCH (11:50)
--- NOTE | 2019-07-28 14:11 | PROVIDER PROGRESS NOTE ---
Assessment/Plan - Problem List (1) Hypernatremia Assessment/Plan: Related to NS in almost all peripheral iv meds. Try free water D5 ivs if possible by Pharmacy. Follow BMP daily. (2) Ventilator associated pneumonia Assessment/Plan: Blood cultures remain negative to date. Sputum cultures are negative today. She remains on empiric broad-spectrum antibiotics and ventilator bundle orders (3) Ventilator dependent Assessment/Plan: Recommendations 2 days ago were for a transfer for a trach at higher level of care facility, to which the 3 children eventually agreed, and [employer] Fin[employer] Supervisor Carmenza was also in on one of the meetings. Yesterday the daughter Cinda felt that no transfer should be done, and wanted to contact a pressurised container filler on how she (Cinda) should proceed. SW gave her resources. I re-iterated to Cinda that a trach is a standard procedure and is advised when a long intubation is forseen. Cinda stated that she still thinks her mother would not want to be hooked up to machines, and stated "who knows how long the trach healing could take". I stated that each person's medical course is different and tried to answer her questions related to the medical condition. Cinda left for the airport yesterday, for a flight back to [place]. Since there is no consensus with all 3 children, she remains here; there is no transfer planned for tracheostomy and management at another facility (4) Perforated abdominal viscus Assessment/Plan: She is postop day #5. General surgery following along (5) Staph infection Assessment/Plan: The wound culture, from the OR, has grown staph hemolyticus. It is sensitive to vancomycin. (6) Severe protein-calorie malnutrition Assessment/Plan: tpn was started several days ago, Triglycerides followed (7) History of COPD Assessment/Plan: He is getting PRN nebs per ET tube (8) Rheumatoid arthritis Assessment/Plan: Deformity of the fingers is noted. (9) History of alcoholism Assessment/Plan: Alcohol abuse apparently stopped approximately 1 month ago. Has been getting IV thiamine supplements since admission - Current Meds Current Meds: Current Medications Generic Name Dose Route Start Last Admin Trade Name Freq PRN Reason Stop Dose Admin Albuterol 2.5 mg 07/21/19 14:20 07/26/19 15:15 INH 2.5 mg RTQ4H PRN Administration Wheezing Chlorhexidine Gluconate 15 ml 07/21/19 09:00 07/28/19 08:37 Peridex PO 15 ml BID SONG Administration Heparin Sodium (Porcine) 5,000 unit 07/21/19 09:00 07/28/19 08:52 SUBQ 5,000 unit BID SONG Administration Metronidazole 500 mg in 100 mls @ 100 mls/hr 07/20/19 22:30 07/28/19 07:20 Flagyl 500 Mg/100 Ml IV Infused Q8H SONG Infusion Propofol 100 mls @ 3.33 mls/hr 07/20/19 19:00 07/28/19 13:00 Diprivan IV 50 mcg/kg/min .Q30H2M SONG 16.65 mls/hr Titration Protocol 10 MCG/KG/MIN Fentanyl 2,500 mcg/ Sodium 250 mls @ 5.55 mls/hr 07/20/19 19:00 07/28/19 13:00 Chloride IV 2 mcg/kg/hr .Q45H3M SONG 11.1 mls/hr Titration Protocol 1 MCG/KG/HR Cefepime HCl 2 gm/ Sodium 100 mls @ 200 mls/hr 07/20/19 21:00 07/28/19 08:50 Chloride IV Infused BID SONG Infusion Thiamine HCl 100 mg/ Sodium 51 mls @ 100 mls/hr 07/21/19 09:00 07/28/19 10:10 Chloride IV Infused DAILY SONG Infusion Sodium Chloride 500 mls @ 20 mls/hr 07/21/19 18:13 07/28/19 11:50 Normal Saline 0.9% IV 0 mls/hr Q24H PRN Infusion TKO RATE Multivitamins 10 ml/ Chromium/ 2,011 mls @ 50 mls/hr 07/24/19 19:00 07/28/19 13:00 Copper/Manganese/Seleni/Zn 1 IV 50 mls/hr ml/ Amino Ac/Electrol/Dextrose Q24H SONG Infusion /Calcium Protocol Vancomycin HCl 1 gm/ Sodium 250 mls @ 167 mls/hr 07/26/19 06:00 07/28/19 13:20 Chloride IV Infused Q18H SONG Infusion Mineral Oil 1 applic 07/26/19 20:09 07/28/19 00:32 Cavilon TOP 1 applic PRN PRN Administration Skin Care Multi-Ingred Cream/Lotion/Oil/Oint 1 applic 07/26/19 13:27 07/28/19 08:20 Lubrifresh Pm Ophth Oint EACHEYE 1 applic QPM PRN Administration Dry Eye Pantoprazole Sodium 40 mg 07/20/19 21:00 07/28/19 08:34 Protonix IVP 40 mg BID SONG Administration Sodium Chloride 10 ml 07/20/19 17:00 07/28/19 08:34 Normal Saline Flush 0.9% IVP 10 ml 0100,0900,1700 SONG Administration Sodium Chloride 10 ml 07/20/19 16:31 07/28/19 08:34 Normal Saline Flush 0.9% IVP 10 ml PRN PRN Administration NEEDED PER PROVIDER ORDERS - Lab Result Fish Bone Diagrams: 07/28/19 04:20 07/28/19 04:20 - Additional Planning My Orders: My Active Orders 07/28/19 08:13 Arterial Blood Gases - RT [RC] .ONCE 07/28/19 11:18 Arterial Line Discontinuation [RC] .Once 07/30/19 17:30 VANCOMYCIN TROUGH [CHEM] Timed Subjective - Subjective Patient Reports: Other (Sedated, When the IV sedative dose was decreased, to have a CPAP trial, she became tachycardic and hypertensive suggesting pain or uneasiness. The CPAP trial was canceled.) Objective Vital Signs: Vital Signs - 24 hr 07/27/19 07/27/19 07/27/19 15:00 15:30 16:00 Temperature 37.6 C H Heart Rate 88 Heart Rate [ 92 85 Monitoring electrodes] Respiratory 22 22 Rate Blood Pressure 94/60 90/53 L [Left Brachial artery] Blood Pressure 137/55 H 80/36 L [Right Radial artery] O2 Saturation 100 100 07/27/19 07/27/19 07/27/19 16:28 17:00 17:12 Temperature Heart Rate 88 Heart Rate [ 92 Monitoring electrodes] Respiratory 22 Rate Blood Pressure 132/67 H 112/64 [Left Brachial artery] Blood Pressure 146/55 H 139/52 H [Right Radial artery] O2 Saturation 100 07/27/19 07/27/19 07/27/19 17:53 18:00 19:00 Temperature 37.8 C H Heart Rate 84 Heart Rate [ 96 92 Monitoring electrodes] Respiratory 22 22 Rate Blood Pressure 110/61 116/62 [Left Brachial artery] Blood Pressure 131/50 H 125/49 L [Right Radial artery] O2 Saturation 100 100 07/27/19 07/27/19 07/27/19 19:33 20:00 21:00 Temperature 37.1 C Heart Rate 95 Heart Rate [ 93 113 H Monitoring electrodes] Respiratory 22 20 Rate Blood Pressure 120/65 143/74 H [Left Brachial artery] Blood Pressure 132/55 H 183/77 H [Right Radial artery] O2 Saturation 99 100 07/27/19 07/27/19 07/27/19 21:10 22:00 23:00 Temperature 37.1 C Heart Rate 97 Heart Rate [ 93 89 Monitoring electrodes] Respiratory 22 22 Rate Blood Pressure 113/60 116/63 [Left Brachial artery] Blood Pressure 131/53 H 133/53 H [Right Radial artery] O2 Saturation 100 100 07/27/19 07/28/19 07/28/19 23:10 00:11 01:00 Temperature 37 C Heart Rate 88 Heart Rate [ 93 84 Monitoring electrodes] Respiratory 22 22 Rate Blood Pressure 123/69 90/53 L [Left Brachial artery] Blood Pressure 144/60 H 95/42 L [Right Radial artery] O2 Saturation 100 100 07/28/19 07/28/19 07/28/19 01:20 02:00 03:00 Temperature 37 C Heart Rate 80 Heart Rate [ 81 92 Monitoring electrodes] Respiratory 22 22 Rate Blood Pressure 95/56 L 122/80 [Left Brachial artery] Blood Pressure 102/45 L 157/62 H [Right Radial artery] O2 Saturation 100 100 07/28/19 07/28/19 07/28/19 03:05 04:00 05:00 Temperature 37.4 C 37.4 C Heart Rate 80 Heart Rate [ 93 97 Monitoring electrodes] Respiratory 23 22 Rate Blood Pressure 112/64 131/72 H [Left Brachial artery] Blood Pressure 140/56 H 152/65 H [Right Radial artery] O2 Saturation 100 100 07/28/19 07/28/19 07/28/19 05:05 06:00 07:00 Temperature 37.3 C Heart Rate 99 Heart Rate [ 96 97 Monitoring electrodes] Respiratory 22 22 Rate Blood Pressure 118/66 119/68 [Left Brachial artery] Blood Pressure 134/56 H 131/55 H [Right Radial artery] O2 Saturation 100 100 07/28/19 07/28/19 07/28/19 07:30 08:00 09:00 Temperature 38 C H 37.3 C Heart Rate 96 Heart Rate [ 68 100 Monitoring electrodes] Respiratory 17 22 Rate Blood Pressure 107/63 [Left Brachial artery] Blood Pressure 131/79 H 114/74 [Right Radial artery] O2 Saturation 96 07/28/19 07/28/19 07/28/19 09:28 10:00 11:00 Temperature 37.3 C 37.2 C Heart Rate 114 H Heart Rate [ 105 H 103 H Monitoring electrodes] Respiratory 22 22 Rate Blood Pressure 102/57 L 121/71 [Left Brachial artery] Blood Pressure 113/55 L 109/62 [Right Radial artery] O2 Saturation 100 100 07/28/19 07/28/19 07/28/19 11:47 12:00 13:00 Temperature 37.2 C 37.1 C Heart Rate 97 Heart Rate [ 93 95 Monitoring electrodes] Respiratory 22 22 Rate Blood Pressure 98/59 L 108/65 [Left Brachial artery] Blood Pressure [Right Radial artery] O2 Saturation 100 100 Oxygen O2 Source Mechanical ventilator Oxygen Flow Rate 4 I&O (Last 24 Hrs): Intake and Output Totals x24h 07/26/19 07/27/19 07/28/19 23:59 23:59 23:59 Intake Total 3228.482 3328.347 2536.003 Output Total 2868 2495 1450 Balance 360.482 738.908 6581.003 General: Other (Sedated) HEENT: Mucous membr. moist/pink, Other (ET tube in place) Neck: Supple Neuro: Other (Sedated) Cardiovascular: Regular rate Respiratory: No respiratory distress, Other (On vent) Abdomen: Soft Extremities: Other (Hand edema) - Results Results: Laboratory Results WBC 18.7 x10^3/uL (4.8-10.8) H 07/28/19 04:20 RBC 2.56 10^6/uL (4.20-5.40) L 07/28/19 04:20 Hgb 8.0 g/dL (12.0-16.0) L 07/28/19 04:20 Hct 25.9 % (37.0-47.0) L 07/28/19 04:20 MCV 101.2 fL (81.0-99.0) H 07/28/19 04:20 MCH 31.3 pg (27.0-31.0) H 07/28/19 04:20 MCHC 30.9 g/dL (32.0-36.0) L 07/28/19 04:20 RDW 15.9 % (12.0-15.0) H 07/28/19 04:20 Plt Count 247 10^3/uL (130-450) 07/28/19 04:20 MPV 10.8 fL (7.9-10.8) 07/28/19 04:20 Neut # (Auto) Not Reportable 07/28/19 04:20 Lymph # (Auto) Not Reportable 07/28/19 04:20 [place] # (Auto) Not Reportable 07/28/19 04:20 Eos # (Auto) Not Reportable 07/28/19 04:20 Baso # (Auto) Not Reportable 07/28/19 04:20 Absolute Nucleated RBC Not Reportable 07/28/19 04:20 Total Counted 100 07/28/19 04:20 Band Neuts % (Manual) 3 % (0-10) 07/28/19 04:20 Abnorm Lymph % (Manual) 0 % 07/28/19 04:20 Metamyelocytes % 1 % (-0) H 07/22/19 05:00 Myelocytes % 1 % (-0) H 07/28/19 04:20 Nucleated RBC % Not Reportable 07/28/19 04:20 Neutrophils # (Manual) 16.6 10^3/uL (1.5-6.6) H 07/28/19 04:20 Lymphocytes # (Manual) 1.1 10^3/uL (1.5-3.5) L 07/28/19 04:20 Monocytes # (Manual) 0.4 10^3/uL (0.0-1.0) 07/28/19 04:20 Eosinophils # (Manual) 0.4 10^3/uL (0-0.7) 07/28/19 04:20 Basophils # (Manual) 0.0 10^3/uL (0-0.1) 07/28/19 04:20 Nucleated RBCs 1 % 07/27/19 04:55 Differential Comment MANUAL DIFFERENTIAL 07/28/19 04:20 Manual Slide Review Indicated 07/20/19 19:10 WBC Morphology NORMAL APPEARANCE (NORMAL) 07/23/19 04:40 WBC Morphology NORMAL APPEARANCE (NORMAL) 07/28/19 04:20 Platelet Estimate NORMAL (130-450,000) (NORMAL) 07/28/19 04:20 Platelet Morphology NORMAL APPEARANCE (NORMAL) 07/28/19 04:20 RBC Morph Micro Appear NORMAL APPEARANCE (NORMAL) 07/27/19 04:55 RBC Morph Micro Appear 2+ HYPOCHROMASIA (NORMAL) 07/28/19 04:20 PT 12.4 secs (9.9-12.6) 07/20/19 12:20 INR 1.1 (0.8-1.2) 07/20/19 12:20 Bld Gas Analysis Time 0907/28/19 08:57 Sample Site A-LINE 07/28/19 08:57 ABG pH 7.41 (7.35-7.45) 07/28/19 08:57 ABG pCO2 30 mmHg (34-45) L 07/28/19 08:57 ABG pO2 75 mmHg (80-100) L 07/28/19 08:57 ABG HCO3 18.6 mmol/L (22.0-26.0) L 07/28/19 08:57 ABG Total CO2 19.6 MMOL/L (21.0-29.0) L 07/28/19 08:57 ABG O2 Saturation 94 % (94-98) 07/28/19 08:57 ABG Base Excess -5.1 mmol/L (-2.0-3.0) L 07/28/19 08:57 William Test NOT APPLICABLE 07/28/19 08:57 Respiration Rate 22 b/min 07/28/19 08:57 O2 Delivery Device VENTILATOR 07/28/19 08:57 Vent Mode SIMV 07/28/19 08:57 FiO2 40.00 07/28/19 08:57 Tidal Volume 450 mL 07/28/19 08:57 PEEP 5 cmH2O 07/28/19 08:57 Pressure Support Vent 14 cmH2O 07/28/19 08:57 Sodium 146 mmol/L (135-145) H 07/28/19 04:20 Potassium 3.4 mmol/L (3.5-5.0) L 07/28/19 04:20 Chloride 117 mmol/L (101-111) H 07/28/19 04:20 Carbon Dioxide 23 mmol/L (21-32) 07/28/19 04:20 Anion Gap 6.0 (6-13) 07/28/19 04:20 BUN 30 mg/dL (6-20) H 07/28/19 04:20 Creatinine 0.5 mg/dL (0.4-1.0) 07/28/19 04:20 Estimated GFR (MDRD) 125 (>89) 07/28/19 04:20 Glucose 117 mg/dL (70-100) H 07/28/19 04:20 POC Whole Bld Glucose 119 mg/dL (70 - 100) H 07/28/19 11:36 Lactic Acid 1.5 mmol/L (0.5-2.2) 07/21/19 19:57 Calcium 8.2 mg/dL (8.5-10.3) L 07/28/19 04:20 Phosphorus 2.2 mg/dL (2.5-4.6) L 07/28/19 04:20 Magnesium 1.8 mg/dL (1.7-2.8) 07/28/19 04:20 Total Bilirubin 0.6 mg/dL (0.2-1.0) 07/22/19 05:00 Direct Bilirubin 0.1 mg/dL (0.1-0.5) 07/22/19 05:00 AST 20 IU/L (10-42) 07/22/19 05:00 ALT 20 IU/L (10-60) 07/22/19 05:00 Alkaline Phosphatase 36 IU/L (42-121) L 07/22/19 05:00 Troponin I High Sens 232.6 ng/L (2.3-14.8) H* 07/21/19 10:50 Total Protein 4.6 g/dL (6.7-8.2) L 07/22/19 05:00 Albumin 1.5 g/dL (3.2-5.5) L 07/27/19 04:55 Globulin 2.7 g/dL (2.1-4.2) 07/22/19 05:00 Albumin/Globulin Ratio 1.3 (1.0-2.2) 07/20/19 12:20 Triglycerides 122 mg/dL (-149) 07/26/19 04:50 Lipase 25 U/L (22-51) 07/20/19 12:20 Urine Color YELLOW 07/28/19 07:41 Urine Clarity CLEAR (CLEAR) 07/28/19 07:41 Urine pH 6.0 PH (5.0-7.5) 07/28/19 07:41 Ur Specific [place] 1.020 (1.002-1.030) 07/28/19 07:41 Urine Protein 30 mg/dL (NEGATIVE) H 07/28/19 07:41 Urine Glucose (UA) NEGATIVE mg/dL (NEGATIVE) 07/28/19 07:41 Urine Ketones NEGATIVE mg/dL (NEGATIVE) 07/28/19 07:41 Urine Occult Blood TRACE-INTA (NEGATIVE) 07/28/19 07:41 Urine Nitrite NEGATIVE (NEGATIVE) 07/28/19 07:41 Urine Bilirubin NEGATIVE (NEGATIVE) 07/28/19 07:41 Urine Urobilinogen 0.2 (NORMAL) E.U./dL (NORMAL) 07/28/19 07:41 Ur Leukocyte Esterase NEGATIVE (NEGATIVE) 07/28/19 07:41 Urine RBC 6-10 /HPF (0-5) H 07/28/19 07:41 Urine WBC 0-3 /HPF (0-5) 07/28/19 07:41 Ur Squamous Epith Cells NONE SEEN (<= Few) 07/28/19 07:41 Urine Bacteria Rare /HPF (None Seen) 07/28/19 07:41 Urine Casts 3-5 Fine Granular /LPF 07/28/19 07:41 Ur Microscopic Review INDICATED 07/28/19 07:41 Urine Culture Comments NOT INDICATED 07/28/19 07:41 Nasal Screen MRSA (PCR) NEGATIVE (NEGATIVE) 07/20/19 17:34 Last Dose Date 07/27/19 07/27/19 17:42 Last Dose Time 1623 07/27/19 17:42 Vancomycin Trough 11.3 ug/mL (10.0-20.0) 07/27/19 17:42 Sepsis Event Note (H) - Evaluation Current Stage of Sepsis: Septic shock Possible source of Sepsis: positive: GI tract/intra-abdominal - Sepsis Criteria Sepsis Criteria: Recorded Heart Rate greater than 90 bpm, Recorded Respiratory Rate greater than 20, WBC count greater than 10% bands, WBC count greater than 12,000 or less than 4000, SBP drop more than 40mHg, SBP less than 90 mmHg, Renal: urine output less than 0.5ml/kg/hr for 2 hours or creatinine gr, Metabolic: lactate > 2 mmol/L
[2019-07-28] MEDS ORDERED: ALBUMIN 25% 12.5 GM/50 ML VIAL IV STA (17:48)
[2019-07-28] MEDS: TPN (CLINIMIX E 5/15) 2,000 ML with MULTIVITAMIN 10 ML, TRACE ELEMENTS V CONC 1 ML IV SCH ×3 (18:02)
[2019-07-29] MEDS: fentaNYL 2,500 MCG in SODIUM CHLORIDE 0.9% 200 ML IV SCH ×2 (00:01→16:00)
[2019-07-29] MEDS: SODIUM CHLORIDE FLUSH 0.9% 10 ML SYRINGE IVP PRN ×6 (04:13→09:02)
[2019-07-29] MEDS: MIN OIL/DIMETHICON/COCONUT OIL 92 GM TUBE TOP PRN (04:41)
[2019-07-29 04:57] LABS: BASOPHILS % (AUTO) 0.4 %; EOSINOPHILS % (AUTO) 0.9 %; HGB - HEMOGLOBIN 8.4 g/dL (12.0-16.0); LYMPHOCYTES % (AUTO) 6.4 %; MEAN CORPUSCULAR HEMOGLOBIN 32.2 pg (27.0-31.0); MEAN CORPUSCULAR HGB CONC 32.1 g/dL (32.0-36.0); MEAN CORPUSCULAR VOLUME 100.4 fL (81.0-99.0); MEAN PLATELET VOLUME 10.4 fL (7.9-10.8); MONOCYTES % (AUTO) 6.2 %; NEUTROPHILS % (AUTO) 81.8 %; PLT - PLATELET COUNT 273 10^3/uL (130-450); RED BLOOD COUNT 2.61 10^6/uL (4.20-5.40); WHITE BLOOD COUNT 20.3 x10^3/uL (4.8-10.8)
[2019-07-29 04:59] LABS: ABNORMAL LYMPHS % (MANUAL) 0 %
[2019-07-29] MEDS: PROPOFOL 1000 MG/100 ML 100 ML IV SCH ×4 (05:09→20:50)
[2019-07-29 05:11] LABS: CALCIUM 8.3 mg/dL (8.5-10.3); CREATININE 0.5 mg/dL (0.4-1.0); MAGNESIUM 1.7 mg/dL (1.7-2.8)
[2019-07-29 05:23] LABS: BAND NEUTROPHILS % (MANUAL) 3 %; EOSINOPHILS # (MANUAL) 0.2 10^3/uL (0-0.7); LYMPHOCYTES % (MANUAL) 5 %; METAMYELOCYTES % (MANUAL) 1 %; MONOCYTES # (MANUAL) 0.6 10^3/uL (0.0-1.0); MYELOCYTES % (MANUAL) 3 %
[2019-07-29 05:25] LABS: PLATELET ESTIMATE, MANUAL NORMAL (130-450,000) (NORMAL); PLATELET MORPHOLOGY NORMAL APPEARANCE (NORMAL); RBC MORPHOLOGY (MULTIPLE) 1+ HYPOCHROMASIA (NORMAL)
[2019-07-29 05:26] LABS: DIFFERENTIAL COMMENT MANUAL DIFFERENTIAL
[2019-07-29] MEDS: ALBUTEROL NEB 2.5 MG/3 ML INH PRN (05:30)
[2019-07-29] MEDS ORDERED: VANCOMYCIN 1 GM VIAL ONE (06:01)
[2019-07-29] MEDS: VANCOMYCIN INJ 1 GM in SODIUM CHLORIDE 0.9% 250 ML IV SCH (06:03)
[2019-07-29] MEDS: metroNIDAZOLE 500 MG/100 ML 500 MG/100 ML BAG IV SCH ×3 (06:09→22:14)
[2019-07-29] MEDS ORDERED: IOVERSOL 320 100 ML VIAL IVP ONE ×2 (08:12→10:58)
[2019-07-29] MEDS ORDERED: IOVERSOL 320 50 ML VIAL ONE (08:12)
--- NOTE | 2019-07-29 08:15 | PROVIDER PROGRESS NOTE ---
Subjective - General Admit Date: 07/20/19 Procedure Date: 07/23/19 Post Op Days: 6 Procedure Performed: Excision and closure of perforated gastric ulcer, et. al. - Review of Systems Wound/Incisions: positive: Healing well (upper 2/3 closed; lower 1/3 open receiving wet to dry; no evidence of infection) Drain Type: Mati Drain Output Description: serosanguinous Approximate mls Output: 165 yest General: positive: No symptoms (intubated and sedated; appears comfortable now but required increasing dose of propofol last night) Skin: positive: Other (diffusely edematous) All Other Systems: positive: Other (sedated on ventilator) Objective - Patient Data Reviewed Vital Signs: Yes Vital Signs: Vital Signs x48h Temp Pulse Pulse Resp BP Pulse Ox 07/29/19 07:47 95 07/29/19 07:00 37.1 C 92 22 106/59 L 100 07/29/19 06:19 37.1 C 92 22 94/56 L 100 07/29/19 05:29 111 H 22 07/29/19 05:23 109 H 07/29/19 05:00 37 C 108 H 22 106/62 106 H 07/29/19 04:00 37 C 85 22 102/57 L 100 07/29/19 03:15 86 07/29/19 03:00 36.9 C 86 22 106/64 100 07/29/19 02:00 37 C 87 22 107/61 100 07/29/19 01:35 89 07/29/19 01:00 36.8 C 83 22 121/69 100 Weight: Weight 07/27/19 07/28/19 07/29/19 23:59 23:59 23:59 Weight (kg) 59 kg 60 kg 60 kg Intake & Output: Intake and Output Totals x24h 07/27/19 07/28/19 07/29/19 23:59 23:59 23:59 Intake Total 3328.347 3741.478 1140.171 Output Total 2495 2985 545 Balance 833.347 756.478 595.171 650 NG, 165 drain, 2170 urine/24hrs yest - Lab Results Lab Results: 07/29/19 04:55 07/29/19 04:55 Other Lab Results: Lab Results x24hrs 0207/29/19 07/29/19 Range/Units 06:07 04:55 04:55 WBC 20.3 H (4.8-10.8) x10^3/uL RBC 2.61 L (4.20-5.40) 10^6/uL Hgb 8.4 L (12.0-16.0) g/dL Hct 26.2 L (37.0-47.0) % MCV 100.4 H (81.0-99.0) fL MCH 32.2 H (27.0-31.0) pg MCHC 32.1 (32.0-36.0) g/dL RDW 16.0 H (12.0-15.0) % Plt Count 273 (130-450) 10^3/uL MPV 10.4 (7.9-10.8) fL Neut # (Auto) Not Reportable Lymph # (Auto) Not Reportable Hodgeman # (Auto) Not Reportable Eos # (Auto) Not Reportable Baso # (Auto) Not Reportable Absolute Nucleated RBC Not Reportable Total Counted 100 Band Neuts % (Manual) 3 (0 - 10) % Abnorm Lymph % (Manual) 0 % Metamyelocytes % 1 H ( - 0) % Myelocytes % 3 H ( - 0) % Nucleated RBC % Not Reportable Neutrophils # (Manual) 17.7 H (1.5-6.6) 10^3/uL Lymphocytes # (Manual) 1.0 L (1.5-3.5) 10^3/uL Monocytes # (Manual) 0.6 (0.0-1.0) 10^3/uL Eosinophils # (Manual) 0.2 (0-0.7) 10^3/uL Basophils # (Manual) 0.0 (0-0.1) 10^3/uL Differential Comment MANUAL DIFFERENTIAL WBC Morphology NORMAL APPEARANCE (NORMAL) Platelet Estimate NORMAL (130-450,000) (NORMAL) Platelet Morphology NORMAL APPEARANCE (NORMAL) RBC Morph Micro Appear 1+ HYPOCHROMASIA (NORMAL) Bld Gas Analysis Time Sample Site ABG pH (7.35-7.45) ABG pCO2 (34-45) mmHg ABG pO2 (80-100) mmHg ABG HCO3 (22.0-26.0) mmol/L ABG Total CO2 (21.0-29.0) MMOL/L ABG O2 Saturation (94-98) % ABG Base Excess (-2.0-3.0) mmol/L William Test Respiration Rate b/min O2 Delivery Device Vent Mode FiO2 Tidal Volume mL PEEP cmH2O Pressure Support Vent cmH2O Sodium 146 H (135-145) mmol/L Potassium 3.9 (3.5-5.0) mmol/L Chloride 116 H (101-111) mmol/L Carbon Dioxide 23 (21-32) mmol/L Anion Gap 7.0 (6-13) BUN 29 H (6-20) mg/dL Creatinine 0.5 (0.4-1.0) mg/dL Estimated GFR (MDRD) 125 (>89) Glucose 116 H (70-100) mg/dL POC Whole Bld Glucose 111 H (70 - 100) mg/dL Calcium 8.3 L (8.5-10.3) mg/dL Phosphorus 3.0 (2.5-4.6) mg/dL Magnesium 1.7 (1.7-2.8) mg/dL 07/28/19 07/28/19 07/28/19 Range/Units 23:33 17:56 11:36 WBC (4.8-10.8) x10^3/uL RBC (4.20-5.40) 10^6/uL Hgb (12.0-16.0) g/dL Hct (37.0-47.0) % MCV (81.0-99.0) fL MCH (27.0-31.0) pg MCHC (32.0-36.0) g/dL RDW (12.0-15.0) % Plt Count (130-450) 10^3/uL MPV (7.9-10.8) fL Neut # (Auto) Lymph # (Auto) Hodgeman # (Auto) Eos # (Auto) Baso # (Auto) Absolute Nucleated RBC Total Counted Band Neuts % (Manual) (0 - 10) % Abnorm Lymph % (Manual) % Metamyelocytes % ( - 0) % Myelocytes % ( - 0) % Nucleated RBC % Neutrophils # (Manual) (1.5-6.6) 10^3/uL Lymphocytes # (Manual) (1.5-3.5) 10^3/uL Monocytes # (Manual) (0.0-1.0) 10^3/uL Eosinophils # (Manual) (0-0.7) 10^3/uL Basophils # (Manual) (0-0.1) 10^3/uL Differential Comment WBC Morphology (NORMAL) Platelet Estimate (NORMAL) Platelet Morphology (NORMAL) RBC Morph Micro Appear (NORMAL) Bld Gas Analysis Time Sample Site ABG pH (7.35-7.45) ABG pCO2 (34-45) mmHg ABG pO2 (80-100) mmHg ABG HCO3 (22.0-26.0) mmol/L ABG Total CO2 (21.0-29.0) MMOL/L ABG O2 Saturation (94-98) % ABG Base Excess (-2.0-3.0) mmol/L William Test Respiration Rate b/min O2 Delivery Device Vent Mode FiO2 Tidal Volume mL PEEP cmH2O Pressure Support Vent cmH2O Sodium (135-145) mmol/L Potassium (3.5-5.0) mmol/L Chloride (101-111) mmol/L Carbon Dioxide (21-32) mmol/L Anion Gap (6-13) BUN (6-20) mg/dL Creatinine (0.4-1.0) mg/dL Estimated GFR (MDRD) (>89) Glucose (70-100) mg/dL POC Whole Bld Glucose 102 H 108 H 119 H (70 - 100) mg/dL Calcium (8.5-10.3) mg/dL Phosphorus (2.5-4.6) mg/dL Magnesium (1.7-2.8) mg/dL 07/28/19 Range/Units 08:57 WBC (4.8-10.8) x10^3/uL RBC (4.20-5.40) 10^6/uL Hgb (12.0-16.0) g/dL Hct (37.0-47.0) % MCV (81.0-99.0) fL MCH (27.0-31.0) pg MCHC (32.0-36.0) g/dL RDW (12.0-15.0) % Plt Count (130-450) 10^3/uL MPV (7.9-10.8) fL Neut # (Auto) Lymph # (Auto) Hodgeman # (Auto) Eos # (Auto) Baso # (Auto) Absolute Nucleated RBC Total Counted Band Neuts % (Manual) (0 - 10) % Abnorm Lymph % (Manual) % Metamyelocytes % ( - 0) % Myelocytes % ( - 0) % Nucleated RBC % Neutrophils # (Manual) (1.5-6.6) 10^3/uL Lymphocytes # (Manual) (1.5-3.5) 10^3/uL Monocytes # (Manual) (0.0-1.0) 10^3/uL Eosinophils # (Manual) (0-0.7) 10^3/uL Basophils # (Manual) (0-0.1) 10^3/uL Differential Comment WBC Morphology (NORMAL) Platelet Estimate (NORMAL) Platelet Morphology (NORMAL) RBC Morph Micro Appear (NORMAL) Bld Gas Analysis Time 0905 Sample Site A-LINE ABG pH 7.41 (7.35-7.45) ABG pCO2 30 L (34-45) mmHg ABG pO2 75 L (80-100) mmHg ABG HCO3 18.6 L (22.0-26.0) mmol/L ABG Total CO2 19.6 L (21.0-29.0) MMOL/L ABG O2 Saturation 94 (94-98) % ABG Base Excess -5.1 L (-2.0-3.0) mmol/L William Test NOT APPLICABLE Respiration Rate 22 b/min O2 Delivery Device VENTILATOR Vent Mode SIMV FiO2 40.00 Tidal Volume 450 mL PEEP 5 cmH2O Pressure Support Vent 14 cmH2O Sodium (135-145) mmol/L Potassium (3.5-5.0) mmol/L Chloride (101-111) mmol/L Carbon Dioxide (21-32) mmol/L Anion Gap (6-13) BUN (6-20) mg/dL Creatinine (0.4-1.0) mg/dL Estimated GFR (MDRD) (>89) Glucose (70-100) mg/dL POC Whole Bld Glucose (70 - 100) mg/dL Calcium (8.5-10.3) mg/dL Phosphorus (2.5-4.6) mg/dL Magnesium (1.7-2.8) mg/dL - Imaging Results Radiology Imaging: positive: Final report received, EMP read indepedently Imaging Results Comments: CXR yest: no sig change: LLL infiltrate/small effusion - Current Medications Current Medications: Current Medications Generic Name Dose Route Start Last Admin Trade Name Freq PRN Reason Stop Dose Admin Albuterol 2.5 mg 07/21/19 14:20 07/29/19 05:30 INH 2.5 mg RTQ4H PRN Administration Wheezing Chlorhexidine Gluconate 15 ml 07/21/19 09:00 07/28/19 20:31 Peridex PO 15 ml BID SONG Administration Heparin Sodium (Porcine) 5,000 unit 07/21/19 09:00 07/28/19 21:20 SUBQ 5,000 unit BID SONG Administration Metronidazole 500 mg in 100 mls @ 100 mls/hr 07/20/19 22:30 07/29/19 07:10 Flagyl 500 Mg/100 Ml IV Infused Q8H SONG Infusion Propofol 100 mls @ 3.33 mls/hr 07/20/19 19:00 07/29/19 07:00 Diprivan IV 50 mcg/kg/min .Q30H2M SONG 16.65 mls/hr Titration Protocol 10 MCG/KG/MIN Fentanyl 2,500 mcg/ Sodium 250 mls @ 5.55 mls/hr 07/20/19 19:00 07/29/19 07:00 Chloride IV 2 mcg/kg/hr .Q45H3M SONG 11.1 mls/hr Titration Protocol 1 MCG/KG/HR Cefepime HCl 2 gm/ Sodium 100 mls @ 200 mls/hr 07/20/19 21:00 07/28/19 21:10 Chloride IV Infused BID SONG Infusion Thiamine HCl 100 mg/ Sodium 51 mls @ 100 mls/hr 07/21/19 09:00 07/28/19 10:10 Chloride IV Infused DAILY SONG Infusion Sodium Chloride 500 mls @ 20 mls/hr 07/21/19 18:13 07/28/19 18:30 Normal Saline 0.9% IV 0 mls/hr Q24H PRN Infusion TKO RATE Multivitamins 10 ml/ Chromium/ 2,011 mls @ 50 mls/hr 07/24/19 19:00 07/29/19 07:00 Copper/Manganese/Seleni/Zn 1 IV 50 mls/hr ml/ Amino Ac/Electrol/Dextrose Q24H SONG Infusion /Calcium Protocol Vancomycin HCl 1 gm/ Sodium 250 mls @ 167 mls/hr 07/26/19 06:00 07/29/19 06:03 Chloride IV 167 mls/hr Q18H SONG Administration Mineral Oil 1 applic 07/26/19 20:09 07/29/19 04:41 Cavilon TOP 1 applic PRN PRN Administration Skin Care Multi-Ingred Cream/Lotion/Oil/Oint 1 applic 07/26/19 13:27 07/28/19 08:20 Lubrifresh Pm Ophth Oint EACHEYE 1 applic QPM PRN Administration Dry Eye Pantoprazole Sodium 40 mg 07/20/19 21:00 07/28/19 20:44 Protonix IVP 40 mg BID SONG Administration Sodium Chloride 10 ml 07/20/19 17:00 07/28/19 20:32 Normal Saline Flush 0.9% IVP 10 ml 0100,0900,1700 SONG Administration Sodium Chloride 10 ml 07/20/19 16:31 07/29/19 06:09 Normal Saline Flush 0.9% IVP 10 ml PRN PRN Administration NEEDED PER PROVIDER ORDERS - Physical Exam Wound/Incisions: positive: Healing well (upper 2/3 closed without sign of infection; lower 1/3 open, clean, serous d/c; delayed primary closure performed at bedside with steri strips and topical benzoin.) General Appearance: positive: No acute distress (sedated on ventilator) Eyes Bilateral: positive: No scleral icterus Neck: positive: No JVD Respiratory: positive: Chest non-tender, No respiratory distress (failed weaning trial yesterday), Breath sounds nml (anteriorly) Cardiovascular: positive: Regular rate & rhythm, No murmur, No gallop Abdomen: positive: Non-tender (sedated), Abnml bowel sounds (occasional bowel tones, but still hypoactive). negative: No distention (mild/mod distention; NG out 650 yest; no bms since surgery) Skin: positive: Warm, Dry, Other (anasarca). negative: Cyanosis Extremities: positive: Pedal edema ABX Reporting Has patient been on IV antibiotics over the past 48 hours?: Yes Impression/Plan - Problem List Problem List: PO Day 6. Issues: 1. Pulmonary-probable lll pneumonia, being treated with antibiotics, appears stable, but unable to wean yesterday. Plan will try again, but prob will need sheet metal roofer vent support and would benefit from a tracheostomy and transfer to a higher level of care. 2. Leukocytosis- ddx includes pneumonitis, line sepsis, intraabdominal sepsis, sinusitis; plan: Head, chest, abd, pelvis CT. If intraabdominal abscess identified, will need family consent for any intervention.Consider inserting PICC and removing central line. 3. FEN- persistent ileus; on TPN. 4. Social: no advanced directives and discord among family regarding next steps in pt management. Rec: re engage SW and consult [facility], palliative care/hospice. Discussed with Dr. Stovall, who agrees.
[2019-07-29] MEDS: CEFEPIME 2 GM in SODIUM CHLORIDE 0.9% MINIBAG 100 ML IV SCH ×2 (08:50→20:44)
[2019-07-29] MEDS: HEPARIN 5,000 UNIT/ML VIAL SUBQ SCH ×2 (08:51→20:48)
[2019-07-29] MEDS: SODIUM CHLORIDE FLUSH 0.9% 10 ML SYRINGE IVP SCH ×2 (08:53→17:09)
[2019-07-29] MEDS: CHLORHEXIDINE GLUCONATE 15 ML UDC PO SCH ×2 (08:55→20:47)
[2019-07-29] MEDS ORDERED: DEXTROSE 5% 1,000 ML IV SCH (09:00)
[2019-07-29] MEDS: PANTOPRAZOLE 40 MG VIAL IVP SCH ×2 (09:02→20:47)
[2019-07-29] MEDS: THIAMINE INJ 100 MG in SODIUM CHLORIDE 0.9% 50 ML IV SCH (10:35)
[2019-07-29] MEDS ORDERED: IOVERSOL 320 50 ML VIAL PO ONE (10:58)
[2019-07-29] MEDS: AZITHROMYCIN INJ 500 MG in SODIUM CHLORIDE 0.9% 250 ML IV SCH (11:10)
--- NOTE | 2019-07-29 11:15 | PROVIDER PROGRESS NOTE ---
Assessment/Plan - Problem List (1) Leukocytosis Assessment/Plan: WBCs have increased over the past 3 days from 15-18 and today 20. A source of infection was evaluated for: She underwent head CT, chest CT, ab domen CT, urinalysis. Empirically antibiotics were broadened to add Zithromax for atypical bacteria, on top of her present iv Vanco, Cefepime and Flagyl. CBC daily. Remain in the ICU. (2) Family discord Assessment/Plan: This issue has now become an obstacle to giving the patient better medical management, by having her transferred to a higher level of care, because the 3 children are not in agreement regarding medical care and management for their mother. Social workers have met with the daughter. I have met with the daughter and a son at a long meeting, then with the third child with the daughter, but the 3 were never in a room together. The daughter has now left back to her home in [place]. It is unknown if 1 son has gone back to his home in [place] yet. In addition, one of the son's came in last night, spoke to the Truck Driver Rubbish Collector and was surprised that the mother did not get transferred for trach placement, as had been agreed upon 3 days ago, since apparently his sister did not tell him that she change her mind and refused the transfer. I have requested a formal Social Work consult today, to aggressively assist with these family dynamics, including reaching them to make consensus decisions about this patient's medical care. (3) Hypernatremia Assessment/Plan: Sodium has been 146 for 2 days, this is related to saline mixed with her various medications. We will add a low rate of free water using D5W at 40 cc an hour. Follow BMP daily. (4) Ventilator dependent Assessment/Plan: Recommendations several days ago were for a transfer for a trach at higher level of care facility, to which the 3 children eventually agreed, and Manager Money Carmenza was also in on one of the meetings. The daughter Cinda later changed her mind, felt that no transfer should be done. Cinda went home to [place]. Another child (son) is here from [place], unknown when he will leave. The 3rd child (son) lives in [place], [place]. Since there is no consensus with all 3 children, she remains here and there is no transfer planned for tracheostomy and management at another facility (5) Perforated abdominal viscus Assessment/Plan: She has slight bowel sounds now. General surgery following along (6) Staph infection Assessment/Plan: The wound culture, from the OR, has grown staph hemolyticus. It is sensitive to vancomycin. (7) Severe protein-calorie malnutrition Assessment/Plan: tpn was started several days ago, Triglycerides followed (8) History of COPD Assessment/Plan: She is getting RT treatments per ET tube (9) Rheumatoid arthritis Assessment/Plan: Deformity of the fingers is noted. (10) History of alcoholism Assessment/Plan: Alcohol abuse apparently stopped approximately 1 month ago. She has been getting IV thiamine supplements since admission (11) Ventilator associated pneumonia Assessment/Plan: Resolved. The CT of the chest did not show any further infiltrate, as per the radiologist of radio speaking to me. There was only atelectasis and small pleural effusions. - Current Meds Current Meds: Current Medications Generic Name Dose Route Start Last Admin Trade Name Freq PRN Reason Stop Dose Admin Albuterol 2.5 mg 07/21/19 14:20 07/29/19 05:30 INH 2.5 mg RTQ4H PRN Administration Wheezing Chlorhexidine Gluconate 15 ml 07/21/19 09:00 07/29/19 08:55 Peridex PO 15 ml BID SONG Administration Heparin Sodium (Porcine) 5,000 unit 07/21/19 09:00 07/29/19 08:51 SUBQ 5,000 unit BID SONG Administration Metronidazole 500 mg in 100 mls @ 100 mls/hr 07/20/19 22:30 07/29/19 07:10 Flagyl 500 Mg/100 Ml IV Infused Q8H SONG Infusion Propofol 100 mls @ 3.33 mls/hr 07/20/19 19:00 07/29/19 11:00 Diprivan IV 50 mcg/kg/min .Q30H2M SONG 16.65 mls/hr Titration Protocol 10 MCG/KG/MIN Fentanyl 2,500 mcg/ Sodium 250 mls @ 5.55 mls/hr 07/20/19 19:00 07/29/19 11:00 Chloride IV 2 mcg/kg/hr .Q45H3M SONG 11.1 mls/hr Titration Protocol 1 MCG/KG/HR Cefepime HCl 2 gm/ Sodium 100 mls @ 200 mls/hr 07/20/19 21:00 07/29/19 09:20 Chloride IV Infused BID SONG Infusion Thiamine HCl 100 mg/ Sodium 51 mls @ 100 mls/hr 07/21/19 09:00 07/29/19 11:05 Chloride IV Infused DAILY SONG Infusion Sodium Chloride 500 mls @ 20 mls/hr 07/21/19 18:13 07/28/19 18:30 Normal Saline 0.9% IV 0 mls/hr Q24H PRN Infusion TKO RATE Multivitamins 10 ml/ Chromium/ 2,011 mls @ 50 mls/hr 07/24/19 19:00 07/29/19 11:00 Copper/Manganese/Seleni/Zn 1 IV 50 mls/hr ml/ Amino Ac/Electrol/Dextrose Q24H SONG Infusion /Calcium Protocol Vancomycin HCl 1 gm/ Sodium 250 mls @ 167 mls/hr 07/26/19 06:00 07/29/19 07:30 Chloride IV Infused Q18H SONG Infusion Azithromycin 500 mg/ Sodium 250 mls @ 250 mls/hr 07/29/19 10:00 07/29/19 11:10 Chloride IV 07/31/19 10:59 250 mls/hr DAILY@1000 SONG Administration Mineral Oil 1 applic 07/26/19 20:09 07/29/19 04:41 Cavilon TOP 1 applic PRN PRN Administration Skin Care Multi-Ingred Cream/Lotion/Oil/Oint 1 applic 07/26/19 13:27 07/28/19 08:20 Lubrifresh Pm Ophth Oint EACHEYE 1 applic QPM PRN Administration Dry Eye Pantoprazole Sodium 40 mg 07/20/19 21:00 07/29/19 09:02 Protonix IVP 40 mg BID SONG Administration Sodium Chloride 10 ml 07/20/19 17:00 07/29/19 08:53 Normal Saline Flush 0.9% IVP 10 ml 0100,0900,1700 SONG Administration Sodium Chloride 10 ml 07/20/19 16:31 07/29/19 09:02 Normal Saline Flush 0.9% IVP 10 ml PRN PRN Administration NEEDED PER PROVIDER ORDERS - Lab Result Fish Bone Diagrams: 07/29/19 04:55 07/29/19 04:55 - Additional Planning My Orders: My Active Orders 07/29/19 Social Work Consult [CONS] Routine 07/29/19 09:00 Dextrose 5% [D5w] 1,000 ml IV 60 mls/hr 07/30/19 05:00 CMP [COMPREHENSIVE METABOLIC PANEL] [CHEM] DAILYLAB 07/30/19 17:30 VANCOMYCIN TROUGH [CHEM] Timed 07/31/19 05:00 CMP [COMPREHENSIVE METABOLIC PANEL] [CHEM] DAILYLAB 08/01/19 05:00 CMP [COMPREHENSIVE METABOLIC PANEL] [CHEM] DAILYLAB Subjective - Subjective Patient Reports: Other (Sedated) Objective Vital Signs: Vital Signs - 24 hr 07/28/19 07/28/19 07/28/19 11:47 12:00 13:00 Temperature 37.2 C 37.1 C Heart Rate 97 Heart Rate [ 93 95 Monitoring electrodes] Respiratory 22 22 Rate Blood Pressure 98/59 L 108/65 [Left Brachial artery] O2 Saturation 100 100 07/28/19 07/28/19 07/28/19 14:00 14:09 15:00 Temperature 37.2 C 37.1 C Heart Rate 94 Heart Rate [ 103 H 91 Monitoring electrodes] Respiratory 22 22 Rate Blood Pressure 109/62 96/56 L [Left Brachial artery] O2 Saturation 100 100 07/28/19 07/28/19 07/28/19 16:00 16:13 17:00 Temperature 37.1 C 37.6 C H Heart Rate 93 Heart Rate [ 88 100 Monitoring electrodes] Respiratory 22 22 Rate Blood Pressure 116/71 102/58 L [Left Brachial artery] O2 Saturation 100 96 07/28/19 07/28/19 07/28/19 18:00 18:17 19:00 Temperature Heart Rate 96 Heart Rate [ 96 92 Monitoring electrodes] Respiratory 22 22 Rate Blood Pressure 110/67 97/55 L [Left Brachial artery] O2 Saturation 97 99 07/28/19 07/28/19 07/28/19 19:40 20:00 21:00 Temperature 36.8 C 36.9 C Heart Rate 91 Heart Rate [ 93 92 Monitoring electrodes] Respiratory 22 22 Rate Blood Pressure 110/64 127/68 [Left Brachial artery] O2 Saturation 100 100 07/28/19 07/28/19 07/28/19 21:40 22:00 23:00 Temperature 37 C 37 C Heart Rate 86 Heart Rate [ 81 101 H Monitoring electrodes] Respiratory 22 22 Rate Blood Pressure 94/53 L 109/66 [Left Brachial artery] O2 Saturation 100 100 07/28/19 07/29/1920 23:28 00:00 01:00 Temperature 36.8 C 36.8 C Heart Rate 88 Heart Rate [ 85 83 Monitoring electrodes] Respiratory 22 22 Rate Blood Pressure 84/51 L 121/69 [Left Brachial artery] O2 Saturation 100 100 07/29/19 07/29/19 07/29/19 01:35 02:00 03:00 Temperature 37 C 36.9 C Heart Rate 89 Heart Rate [ 87 86 Monitoring electrodes] Respiratory 22 22 Rate Blood Pressure 107/61 106/64 [Left Brachial artery] O2 Saturation 100 100 07/29/19 07/29/19 07/29/19 03:15 04:00 05:00 Temperature 37 C 37 C Heart Rate 86 Heart Rate [ 85 108 H Monitoring electrodes] Respiratory 22 22 Rate Blood Pressure 102/57 L 106/62 [Left Brachial artery] O2 Saturation 100 106 H 07/29/19 07/29/19 07/29/19 05:23 05:29 06:19 Temperature 37.1 C Heart Rate 109 H 111 H Heart Rate [ 92 Monitoring electrodes] Respiratory 22 22 Rate Blood Pressure 94/56 L [Left Brachial artery] O2 Saturation 100 07/29/19 07/29/19 07/29/19 07:00 07:47 08:00 Temperature 37.1 C 37.2 C Heart Rate 95 Heart Rate [ 92 99 Monitoring electrodes] Respiratory 22 22 Rate Blood Pressure 106/59 L 124/64 [Left Brachial artery] O2 Saturation 100 100 07/29/19 07/29/19 07/29/19 09:00 10:00 10:09 Temperature Heart Rate 90 Heart Rate [ 96 90 Monitoring electrodes] Respiratory 18 22 Rate Blood Pressure 97/60 93/59 L [Left Brachial artery] O2 Saturation 100 100 07/29/19 11:00 Temperature 36.9 C Heart Rate Heart Rate [ 91 Monitoring electrodes] Respiratory 22 Rate Blood Pressure 107/57 L [Left Brachial artery] O2 Saturation 99 Oxygen O2 Source Mechanical ventilator Oxygen Flow Rate 4 I&O (Last 24 Hrs): Intake and Output Totals x24h 07/27/19 07/28/19 07/29/19 23:59 23:59 23:59 Intake Total 3328.347 3741.478 2767.344 Output Total 2495 2985 875 Balance 833.347 868.555 8646.344 General: Other (Sedated, on vent) HEENT: Mucous membr. moist/pink, Other (ET tube in place) Neck: No JVD Neuro: Other (Sedated) Cardiovascular: Regular rate Respiratory: Breath sounds nml Abdomen: Soft, Other (Minimal bowel sounds) Extremities: Other (1-2+ edema of hands) - Results Results: Laboratory Results WBC 20.3 x10^3/uL (4.8-10.8) H 07/29/19 04:55 RBC 2.61 10^6/uL (4.20-5.40) L 07/29/19 04:55 Hgb 8.4 g/dL (12.0-16.0) L 07/29/19 04:55 Hct 26.2 % (37.0-47.0) L 07/29/19 04:55 MCV 100.4 fL (81.0-99.0) H 07/29/19 04:55 MCH 32.2 pg (27.0-31.0) H 07/29/19 04:55 MCHC 32.1 g/dL (32.0-36.0) 07/29/19 04:55 RDW 16.0 % (12.0-15.0) H 07/29/19 04:55 Plt Count 273 10^3/uL (130-450) 07/29/19 04:55 MPV 10.4 fL (7.9-10.8) 07/29/19 04:55 Neut # (Auto) Not Reportable 07/29/19 04:55 Lymph # (Auto) Not Reportable 07/29/19 04:55 [place] # (Auto) Not Reportable 07/29/19 04:55 Eos # (Auto) Not Reportable 07/29/19 04:55 Baso # (Auto) Not Reportable 07/29/19 04:55 Absolute Nucleated RBC Not Reportable 07/29/19 04:55 Total Counted 100 07/29/19 04:55 Band Neuts % (Manual) 3 % (0-10) 07/29/19 04:55 Abnorm Lymph % (Manual) 0 % 07/29/19 04:55 Metamyelocytes % 1 % (-0) H 07/29/19 04:55 Myelocytes % 3 % (-0) H 07/29/19 04:55 Nucleated RBC % Not Reportable 07/29/19 04:55 Neutrophils # (Manual) 17.7 10^3/uL (1.5-6.6) H 07/29/19 04:55 Lymphocytes # (Manual) 1.0 10^3/uL (1.5-3.5) L 07/29/19 04:55 Monocytes # (Manual) 0.6 10^3/uL (0.0-1.0) 07/29/19 04:55 Eosinophils # (Manual) 0.2 10^3/uL (0-0.7) 07/29/19 04:55 Basophils # (Manual) 0.0 10^3/uL (0-0.1) 07/29/19 04:55 Nucleated RBCs 1 % 07/27/19 04:55 Differential Comment MANUAL DIFFERENTIAL 07/29/19 04:55 Manual Slide Review Indicated 07/20/19 19:10 WBC Morphology NORMAL APPEARANCE (NORMAL) 07/28/19 04:20 WBC Morphology NORMAL APPEARANCE (NORMAL) 07/29/19 04:55 Platelet Estimate NORMAL (130-450,000) (NORMAL) 07/29/19 04:55 Platelet Morphology NORMAL APPEARANCE (NORMAL) 07/29/19 04:55 RBC Morph Micro Appear 2+ HYPOCHROMASIA (NORMAL) 07/28/19 04:20 RBC Morph Micro Appear 1+ HYPOCHROMASIA (NORMAL) 07/29/19 04:55 PT 12.4 secs (9.9-12.6) 07/20/19 12:20 INR 1.1 (0.8-1.2) 07/20/19 12:20 Bld Gas Analysis Time 0907/28/19 08:57 Sample Site A-LINE 07/28/19 08:57 ABG pH 7.41 (7.35-7.45) 07/28/19 08:57 ABG pCO2 30 mmHg (34-45) L 07/28/19 08:57 ABG pO2 75 mmHg (80-100) L 07/28/19 08:57 ABG HCO3 18.6 mmol/L (22.0-26.0) L 07/28/19 08:57 ABG Total CO2 19.6 MMOL/L (21.0-29.0) L 07/28/19 08:57 ABG O2 Saturation 94 % (94-98) 07/28/19 08:57 ABG Base Excess -5.1 mmol/L (-2.0-3.0) L 07/28/19 08:57 William Test NOT APPLICABLE 07/28/19 08:57 Respiration Rate 22 b/min 07/28/19 08:57 O2 Delivery Device VENTILATOR 07/28/19 08:57 Vent Mode SIMV 07/28/19 08:57 FiO2 40.00 07/28/19 08:57 Tidal Volume 450 mL 07/28/19 08:57 PEEP 5 cmH2O 07/28/19 08:57 Pressure Support Vent 14 cmH2O 07/28/19 08:57 Sodium 146 mmol/L (135-145) H 07/29/19 04:55 Potassium 3.9 mmol/L (3.5-5.0) 07/29/19 04:55 Chloride 116 mmol/L (101-111) H 07/29/19 04:55 Carbon Dioxide 23 mmol/L (21-32) 07/29/19 04:55 Anion Gap 7.0 (6-13) 07/29/19 04:55 BUN 29 mg/dL (6-20) H 07/29/19 04:55 Creatinine 0.5 mg/dL (0.4-1.0) 07/29/19 04:55 Estimated GFR (MDRD) 125 (>89) 07/29/19 04:55 Glucose 116 mg/dL (70-100) H 07/29/19 04:55 POC Whole Bld Glucose 111 mg/dL (70 - 100) H 07/29/19 06:07 Lactic Acid 1.5 mmol/L (0.5-2.2) 07/21/19 19:57 Calcium 8.3 mg/dL (8.5-10.3) L 07/29/19 04:55 Phosphorus 3.0 mg/dL (2.5-4.6) 07/29/19 04:55 Magnesium 1.7 mg/dL (1.7-2.8) 07/29/19 04:55 Total Bilirubin 0.6 mg/dL (0.2-1.0) 07/22/19 05:00 Direct Bilirubin 0.1 mg/dL (0.1-0.5) 07/22/19 05:00 AST 20 IU/L (10-42) 07/22/19 05:00 ALT 20 IU/L (10-60) 07/22/19 05:00 Alkaline Phosphatase 36 IU/L (42-121) L 07/22/19 05:00 Troponin I High Sens 232.6 ng/L (2.3-14.8) H* 07/21/19 10:50 Total Protein 4.6 g/dL (6.7-8.2) L 07/22/19 05:00 Albumin 1.5 g/dL (3.2-5.5) L 07/27/19 04:55 Globulin 2.7 g/dL (2.1-4.2) 07/22/19 05:00 Albumin/Globulin Ratio 1.3 (1.0-2.2) 07/20/19 12:20 Triglycerides 122 mg/dL (-149) 07/26/19 04:50 Lipase 25 U/L (22-51) 07/20/19 12:20 Urine Color YELLOW 07/28/19 07:41 Urine Clarity CLEAR (CLEAR) 07/28/19 07:41 Urine pH 6.0 PH (5.0-7.5) 07/28/19 07:41 Ur Specific Kress 1.020 (1.002-1.030) 07/28/19 07:41 Urine Protein 30 mg/dL (NEGATIVE) H 07/28/19 07:41 Urine Glucose (UA) NEGATIVE mg/dL (NEGATIVE) 07/28/19 07:41 Urine Ketones NEGATIVE mg/dL (NEGATIVE) 07/28/19 07:41 Urine Occult Blood TRACE-INTA (NEGATIVE) 07/28/19 07:41 Urine Nitrite NEGATIVE (NEGATIVE) 07/28/19 07:41 Urine Bilirubin NEGATIVE (NEGATIVE) 07/28/19 07:41 Urine Urobilinogen 0.2 (NORMAL) E.U./dL (NORMAL) 07/28/19 07:41 Ur Leukocyte Esterase NEGATIVE (NEGATIVE) 07/28/19 07:41 Urine RBC 6-10 /HPF (0-5) H 07/28/19 07:41 Urine WBC 0-3 /HPF (0-5) 07/28/19 07:41 Ur Squamous Epith Cells NONE SEEN (<= Few) 07/28/19 07:41 Urine Bacteria Rare /HPF (None Seen) 07/28/19 07:41 Urine Casts 3-5 Fine Granular /LPF 07/28/19 07:41 Ur Microscopic Review INDICATED 07/28/19 07:41 Urine Culture Comments NOT INDICATED 07/28/19 07:41 Nasal Screen MRSA (PCR) NEGATIVE (NEGATIVE) 07/20/19 17:34 Last Dose Date 07/27/19 07/27/19 17:42 Last Dose Time 1623 07/27/19 17:42 Vancomycin Trough 11.3 ug/mL (10.0-20.0) 07/27/19 17:42 Sepsis Event Note (H) - Evaluation Current Stage of Sepsis: Septic shock Possible source of Sepsis: positive: GI tract/intra-abdominal - Sepsis Criteria Sepsis Criteria: Recorded Heart Rate greater than 90 bpm, Recorded Respiratory Rate greater than 20, WBC count greater than 10% bands, WBC count greater than 12,000 or less than 4000, SBP drop more than 40mHg, SBP less than 90 mmHg, Renal: urine output less than 0.5ml/kg/hr for 2 hours or creatinine gr, Metabolic: lactate > 2 mmol/L
--- NOTE | 2019-07-29 11:36 | CT Report ---
Reason: AMS Procedure Date: 07/29/2019 Accession Number: [id number] / [id number] Procedure: CT - HEAD W/WO CPT Code: Final Report FULL RESULT: EXAM: CT HEAD EXAM DATE: 07/29/2019 09:15 AM. CLINICAL HISTORY: Increased altered mental status today. COMPARISON: HEAD W/O 03/13/2019 12:35 AM. TECHNIQUE: Multiaxial CT images were obtained from the foramen magnum to the vertex. Reformats: Sagittal and coronal. IV contrast: None. In accordance with CT protocol optimization, one or more of the following dose reduction techniques were utilized for this exam: automated exposure control, adjustment of mA and/or KV based on patient size, or use of iterative reconstructive technique. FINDINGS: Stable CT appearance of the brain. No CT evidence for new or acute intracranial abnormality. No evidence for intracranial acute hemorrhage, mass or infarct. NG tube in place, nonspecific soft tissue fullness in the nasopharynx is present. No acute paranasal sinus or mastoid fluid opacity. IMPRESSION: 1. No acute intracranial abnormality. 2. NG tube in place. 3. Incompletely visualized nasopharynx where there appears to be new findings of abnormal increased soft tissue density, this could be adenoid hypertrophy, other mass, tissue edema, retained secretions or a combination of this. RADIA
--- NOTE | 2019-07-29 13:16 | CT Report ---
Reason: s/p abdominal surgery with elevated WBC Procedure Date: 07/29/2019 Accession Number: [id number] / [id number] Procedure: CT - Abdomen/Pelvis W CPT Code: Final Report FULL RESULT: EXAM: CT ABDOMEN AND PELVIS EXAM DATE: 07/29/2019 10:10 AM. CLINICAL HISTORY: S/p abdominal surgery with elevated WBC. COMPARISONS: ABDOMEN/PELVIS W/ 07/20/2019 1:48 PM. TECHNIQUE: Routine helical CT imaging was performed through the abdomen and pelvis. IV contrast: OPTI 320 100ML. Enteric contrast: Yes. Reconstructions: Coronal and sagittal. In accordance with CT protocol optimization, one or more of the following dose reduction techniques were utilized for this exam: automated exposure control, adjustment of mA and/or KV based on patient size, or use of iterative reconstructive technique. FINDINGS: Lung Bases: Small bleb in the right lower lobe. Bilateral pleural effusions, small on the right, moderate on the left. Liver: Normal. No masses. Gallbladder/Bile Ducts: Hyperdensity seen within the gallbladder, likely from prior IV contrast. Sludge is less likely. Spleen: Normal. Pancreas: Normal. Adrenal Glands: Normal. Kidneys: Slightly irregular contours of the kidneys as before, probably scarring. No hydronephrosis. No stones. Peritoneal Cavity/Bowel: Orogastric tube tip is within the stomach. There is a left-sided abdominal drain. There is free fluid throughout the abdomen and pelvis, greatest in the right upper quadrant. Some of the fluid may be loculated. Contrast is seen within the small bowel. No bowel wall thickening. A few bowel loops may be top normal in size, but none are markedly distended. No collapsed loops of bowel to suggest obstruction. Normal amount of stool is seen within the colon. No free air. Pelvic Organs: Fiore catheter within a collapsed bladder. Calcified fibroid is seen within the uterus. Vasculature: Calcific atherosclerotic disease is noted of the aorta and its branches. Bones: Multilevel degenerative disk disease. Mild anterior compression deformity of the L1 vertebral body, chronic. Osteoarthritis of both hips. Levoscoliosis of the lumbar spine. Other: Diffuse anasarca. IMPRESSION: 1. Moderate amount of fluid within the abdomen and pelvis. Most of the fluid is seen in the right upper quadrant. There are areas which are likely to be loculated. The abdominal drain is located in the left upper quadrant and may not be communicating with some of the fluid elsewhere in the abdomen and pelvis. 2. Bilateral pleural effusions, greater on the left. 3. Additional chronic findings as above. RADIA The call report notification system was initiated by Dr. Citlalli Villatoro at 01:06 PM on 07/29/2019. The above call report findings were discussed with Dr. Farrah OVIEDO) by Dr. Citlalli Villatoro at 01:14 PM on 07/29/2019.
--- NOTE | 2019-07-29 13:21 | CT Report ---
Reason: elevated WBC Procedure Date: 07/29/2019 Accession Number: [id number] / [id number] Procedure: CT - CHEST W CPT Code: Final Report FULL RESULT: EXAM: CT CHEST EXAM DATE: 07/29/2019 10:10 AM. CLINICAL HISTORY: Elevated white blood cell count. Status post surgery for perforated gastric ulcer. COMPARISONS: ABDOMEN/PELVIS W/ 07/29/2019 9:15 AM CHEST W/ 07/20/2019 1:48 PM CHEST 1 VIEW 07/28/2019 8:02 AM. TECHNIQUE: Routine helical CT imaging was performed through the chest. IV contrast: 100 cc Optiray 320. Enteric contrast was also administered. Reconstructions: Coronal and sagittal. In accordance with CT protocol optimization, one or more of the following dose reduction techniques were utilized for this exam: automated exposure control, adjustment of mA and/or KV based on patient size, or use of iterative reconstructive technique. FINDINGS: Lungs/Pleura: There is a moderate left pleural effusion and small right pleural effusion, new compared to 07/20/2019. No pneumothorax. There is compressive atelectasis at the bilateral lung bases, left greater than right. There is similar appearance of mild apical centrilobular emphysema. There is similar appearance of an indeterminate 5 mm pulmonary nodule in the right upper lobe (series 3 image 127), adjacent to a small focus of scarring. There is also a 2 mm calcified granuloma nearby in the right upper lobe (series 3 image 131). There are new filling defects within the segmental and subsegmental bronchi of the right lower lobe, which may be due to aspiration or mucous plugging. Mediastinum: The heart size is within normal limits. The great vessels are normal in caliber. There is moderate atherosclerotic calcified and of the aortic arch and mild atherosclerotic calcified and of the descending thoracic aorta no mediastinal or hilar adenopathy. There is an endotracheal tube with tip approximately 2.5 cm above the desi. There is an enteric tube which extends below the diaphragm into the stomach and off the inferior margin of the images. There is enteric contrast in the stomach. No enteric contrast, fluid, or significant gas within the thoracic esophagus. Bones: No acute fracture or bone lesion. There are multilevel mild degenerative changes of the thoracic spine. Mild scoliotic curvature of the thoracic spine is unchanged. Visualized Abdomen: There is a small amount of free fluid in the upper abdomen. No pneumoperitoneum apparent on these images. Other: None. IMPRESSION: 1. Moderate left pleural effusion and small right pleural effusion, new compared to prior chest CT on 07/20/2019. There is compressive atelectasis at the bilateral lung bases, left greater than right. 2. There are new filling defects within the segmental and subsegmental bronchi of the right lower lobe, which may be due to aspiration or mucous plugging. 3. Similar appearance of an indeterminate 5 mm pulmonary nodule in the right upper lobe. 4. Small amount of free fluid in the upper abdomen. No pneumoperitoneum apparent on these images. Please see separately reported CT of the abdomen and pelvis for additional evaluation. RADIA
[2019-07-29] MEDS: TPN (CLINIMIX E 5/15) 2,000 ML with MULTIVITAMIN 10 ML, TRACE ELEMENTS V CONC 1 ML IV SCH ×3 (18:00)
[2019-07-29] MEDS: MINERAL OIL/PETROLAT OPHTH OINT EACHEYE PRN (22:14)
[2019-07-30] MEDS: VANCOMYCIN INJ 1 GM in SODIUM CHLORIDE 0.9% 250 ML IV SCH (00:01)
[2019-07-30] MEDS ORDERED: ACETAMINOPHEN 1,000 MG/100 ML 100 ML IV ONE (00:27)
[2019-07-30] MEDS: SODIUM CHLORIDE FLUSH 0.9% 10 ML SYRINGE IVP SCH ×2 (00:42→08:49)
[2019-07-30] MEDS: DEXTROSE 5%-0.9% NACL 1,000 ML IV SCH ×2 (01:57→06:07)
[2019-07-30] MEDS: SODIUM CHLORIDE FLUSH 0.9% 10 ML SYRINGE IVP PRN (03:57)
[2019-07-30 04:03] LABS: BASOPHILS # (AUTO) 0.1 10^3/uL (0.0-0.1); BASOPHILS % (AUTO) 0.3 %; EOSINOPHILS # (AUTO) 0.2 10^3/uL (0.0-0.7); EOSINOPHILS % (AUTO) 0.8 %; HGB - HEMOGLOBIN 7.6 g/dL (12.0-16.0); LYMPHOCYTES # (AUTO) 1.4 10^3/uL (1.5-3.5); LYMPHOCYTES % (AUTO) 7.2 %; MEAN CORPUSCULAR HEMOGLOBIN 31.9 pg (27.0-31.0); MEAN CORPUSCULAR HGB CONC 31.4 g/dL (32.0-36.0); MEAN CORPUSCULAR VOLUME 101.7 fL (81.0-99.0); MEAN PLATELET VOLUME 10.9 fL (7.9-10.8); MONOCYTES % (AUTO) 5.1 %; NEUTROPHILS # (AUTO) 15.6 10^3/uL (1.5-6.6); NEUTROPHILS % (AUTO) 82.5 %; PLT - PLATELET COUNT 277 10^3/uL (130-450); RED BLOOD COUNT 2.38 10^6/uL (4.20-5.40); WHITE BLOOD COUNT 18.9 x10^3/uL (4.8-10.8)
[2019-07-30 04:17] LABS: ALBUMIN 1.3 g/dL (3.2-5.5); ALBUMIN/GLOBULIN RATIO 0.4 (1.0-2.2); ALKALINE PHOSPHATASE 39 IU/L (42-121); ALT ALANINE AMINOTRANSFERASE < 10 IU/L (10-60); AST ASPARTATE AMINOTRANSFERASE 12 IU/L (10-42); BILIRUBIN,TOTAL 0.5 mg/dL (0.2-1.0); BUN - BLOOD UREA NITROGEN 27 mg/dL (6-20); CALCIUM 7.7 mg/dL (8.5-10.3); CARBON DIOXIDE - CO2 21 mmol/L (21-32); CHLORIDE 112 mmol/L (101-111); CREATININE 0.5 mg/dL (0.4-1.0); GFR - MDRD 125 (>89); GLUCOSE 210 mg/dL (70-100); MAGNESIUM 1.7 mg/dL (1.7-2.8); PHOSPHORUS 2.8 mg/dL (2.5-4.6); SODIUM 138 mmol/L (135-145); TOTAL PROTEIN 4.3 g/dL (6.7-8.2)
[2019-07-30 04:22] LABS: CHOLESTEROL 108 mg/dL; HDL CHOLESTEROL 12 mg/dL; LDL CHOLESTEROL,CALCULATED 76 mg/dL; LDL/HDL RATIO 6.3 (<4.4); VLDL CHOLESTEROL 20 mg/dL
[2019-07-30] MEDS: PROPOFOL 1000 MG/100 ML 100 ML IV SCH ×2 (04:33→09:31)
[2019-07-30] MEDS ORDERED: MAGNESIUM SULFATE 2 GRAM 2 GM/50 ML BAG IV ONE (05:00)
[2019-07-30 05:32] LABS: ABG HCO3 20.6 mmol/L (22.0-26.0); ABG PCO2 47 mmHg (34-45); ABG PH 7.26 (7.35-7.45); ABG PO2 87 mmHg (80-100)
[2019-07-30 05:33] LABS: ABG BASE EXCESS -6.4 mmol/L (-2.0-3.0); ABG OXYGEN SATURATION 95 % (94-98); ALLEN TEST POSITIVE
[2019-07-30] MEDS: metroNIDAZOLE 500 MG/100 ML 500 MG/100 ML BAG IV SCH (06:13)
--- NOTE | 2019-07-30 07:04 | PROVIDER PROGRESS NOTE ---
Subjective - General Admit Date: 07/20/19 Procedure Date: 07/23/19 Post Op Days: 7 Procedure Performed: Excision and closure of perforated gastric ulcer, et. al. - Review of Systems Drain Type: Mati Drain Output Description: serosanguinous Approximate mls Output: 165 yest General: positive: No symptoms (intubated and sedated;) All Other Systems: positive: Other (sedated on ventilator) Objective - Patient Data Reviewed Vital Signs: Yes Vital Signs: Vital Signs x48h Temp Pulse Pulse Resp BP Pulse Ox 07/30/19 06:00 104 H 22 86/51 L 98 07/30/19 05:05 118 H 07/30/19 05:00 126 H 24 153/66 H 97 07/30/19 04:00 37.3 C 85 22 139/83 H 100 07/30/19 03:40 65 07/30/19 03:00 73 22 78/49 L 100 07/30/19 02:00 37.1 C 79 22 92/57 L 100 07/30/19 01:40 79 07/30/19 01:09 84 22 83/49 L 99 07/30/19 00:00 38.5 C H 87 22 92/53 L 100 07/29/19 23:25 89 Weight: Weight 07/28/19 07/29/19 07/30/19 23:59 23:59 23:59 Weight (kg) 60 kg 60 kg 62.5 kg Intake & Output: Intake and Output Totals x24h 07/28/19 07/29/19 07/30/19 23:59 23:59 23:59 Intake Total 3741.478 4397.983 1622.556 Output Total 2985 2318 1024 Balance 260.809 4853.983 598.556 500 NG, 15 drain, 1800 urine - Lab Results Lab Results: 07/30/19 03:55 07/30/19 03:55 Other Lab Results: Lab Results x24hrs 07/30/19 07/30/19 07/30/19 Range/Units 06:13 05:24 03:55 WBC (4.8-10.8) x10^3/uL RBC (4.20-5.40) 10^6/uL Hgb (12.0-16.0) g/dL Hct (37.0-47.0) % MCV (81.0-99.0) fL MCH (27.0-31.0) pg MCHC (32.0-36.0) g/dL RDW (12.0-15.0) % Plt Count (130-450) 10^3/uL MPV (7.9-10.8) fL Neut # (Auto) (1.5-6.6) 10^3/uL Lymph # (Auto) (1.5-3.5) 10^3/uL Hemphill # (Auto) (0.0-1.0) 10^3/uL Eos # (Auto) (0.0-0.7) 10^3/uL Baso # (Auto) (0.0-0.1) 10^3/uL Absolute Nucleated RBC x10^3/uL Nucleated RBC % /100WBC Bld Gas Analysis Time 0524 Sample Site LEFT RADIAL ABG pH 7.26 L (7.35-7.45) ABG pCO2 47 H (34-45) mmHg ABG pO2 87 (80-100) mmHg ABG HCO3 20.6 L (22.0-26.0) mmol/L ABG Total CO2 22.0 (21.0-29.0) MMOL/L ABG O2 Saturation 95 (94-98) % ABG Base Excess -6.4 L (-2.0-3.0) mmol/L William Test POSITIVE Respiration Rate 22 b/min O2 Delivery Device VENTILATOR Vent Mode SIMV FiO2 40.00 Tidal Volume 450 mL PEEP 5 cmH2O Pressure Support Vent 14 cmH2O Sodium (135-145) mmol/L Potassium (3.5-5.0) mmol/L Chloride (101-111) mmol/L Carbon Dioxide (21-32) mmol/L Anion Gap (6-13) BUN (6-20) mg/dL Creatinine (0.4-1.0) mg/dL Estimated GFR (MDRD) (>89) Glucose (70-100) mg/dL POC Whole Bld Glucose 148 H (70 - 100) mg/dL Lactic Acid 0.7 (0.5-2.2) mmol/L Calcium (8.5-10.3) mg/dL Phosphorus (2.5-4.6) mg/dL Magnesium (1.7-2.8) mg/dL Total Bilirubin (0.2-1.0) mg/dL AST (10-42) IU/L ALT (10-60) IU/L Alkaline Phosphatase (42-121) IU/L Total Protein (6.7-8.2) g/dL Albumin (3.2-5.5) g/dL Globulin (2.1-4.2) g/dL Albumin/Globulin Ratio (1.0-2.2) Triglycerides ( - 149) mg/dL Cholesterol ( - 199) mg/dL LDL Cholesterol, Calc ( - 129) mg/dL VLDL Cholesterol mg/dL HDL Cholesterol (60 - ) mg/dL LDL/HDL Ratio (<4.4) Cholesterol/HDL Ratio (<4.4) 07/30/19 07/30/19 07/30/19 Range/Units 03:55 03:55 03:55 WBC 18.9 H (4.8-10.8) x10^3/uL RBC 2.38 L (4.20-5.40) 10^6/uL Hgb 7.6 L (12.0-16.0) g/dL Hct 24.2 L (37.0-47.0) % MCV 101.7 H (81.0-99.0) fL MCH 31.9 H (27.0-31.0) pg MCHC 31.4 L (32.0-36.0) g/dL RDW 16.0 H (12.0-15.0) % Plt Count 277 (130-450) 10^3/uL MPV 10.9 H (7.9-10.8) fL Neut # (Auto) 15.6 H (1.5-6.6) 10^3/uL Lymph # (Auto) 1.4 L (1.5-3.5) 10^3/uL Hemphill # (Auto) 1.0 (0.0-1.0) 10^3/uL Eos # (Auto) 0.2 (0.0-0.7) 10^3/uL Baso # (Auto) 0.1 (0.0-0.1) 10^3/uL Absolute Nucleated RBC 0.00 x10^3/uL Nucleated RBC % 0.0 /100WBC Bld Gas Analysis Time Sample Site ABG pH (7.35-7.45) ABG pCO2 (34-45) mmHg ABG pO2 (80-100) mmHg ABG HCO3 (22.0-26.0) mmol/L ABG Total CO2 (21.0-29.0) MMOL/L ABG O2 Saturation (94-98) % ABG Base Excess (-2.0-3.0) mmol/L William Test Respiration Rate b/min O2 Delivery Device Vent Mode FiO2 Tidal Volume mL PEEP cmH2O Pressure Support Vent cmH2O Sodium 138 (135-145) mmol/L Potassium 3.6 (3.5-5.0) mmol/L Chloride 112 H (101-111) mmol/L Carbon Dioxide 21 (21-32) mmol/L Anion Gap 5.0 L (6-13) BUN 27 H (6-20) mg/dL Creatinine 0.5 (0.4-1.0) mg/dL Estimated GFR (MDRD) 125 (>89) Glucose 210 H (70-100) mg/dL POC Whole Bld Glucose (70 - 100) mg/dL Lactic Acid (0.5-2.2) mmol/L Calcium 7.7 L (8.5-10.3) mg/dL Phosphorus 2.8 (2.5-4.6) mg/dL Magnesium 1.7 (1.7-2.8) mg/dL Total Bilirubin 0.5 (0.2-1.0) mg/dL AST 12 (10-42) IU/L ALT < 10 L (10-60) IU/L Alkaline Phosphatase 39 L (42-121) IU/L Total Protein 4.3 L (6.7-8.2) g/dL Albumin 1.3 L (3.2-5.5) g/dL Globulin 3.0 (2.1-4.2) g/dL Albumin/Globulin Ratio 0.4 L (1.0-2.2) Triglycerides 100 ( - 149) mg/dL Cholesterol 108 ( - 199) mg/dL LDL Cholesterol, Calc 76 ( - 129) mg/dL VLDL Cholesterol 20 mg/dL HDL Cholesterol 12 L (60 - ) mg/dL LDL/HDL Ratio 6.3 (<4.4) Cholesterol/HDL Ratio 9.0 (<4.4) 07/30/19 07/29/19 07/29/19 Range/Units 00:11 17:44 13:47 WBC (4.8-10.8) x10^3/uL RBC (4.20-5.40) 10^6/uL Hgb (12.0-16.0) g/dL Hct (37.0-47.0) % MCV (81.0-99.0) fL MCH (27.0-31.0) pg MCHC (32.0-36.0) g/dL RDW (12.0-15.0) % Plt Count (130-450) 10^3/uL MPV (7.9-10.8) fL Neut # (Auto) (1.5-6.6) 10^3/uL Lymph # (Auto) (1.5-3.5) 10^3/uL Hemphill # (Auto) (0.0-1.0) 10^3/uL Eos # (Auto) (0.0-0.7) 10^3/uL Baso # (Auto) (0.0-0.1) 10^3/uL Absolute Nucleated RBC x10^3/uL Nucleated RBC % /100WBC Bld Gas Analysis Time Sample Site ABG pH (7.35-7.45) ABG pCO2 (34-45) mmHg ABG pO2 (80-100) mmHg ABG HCO3 (22.0-26.0) mmol/L ABG Total CO2 (21.0-29.0) MMOL/L ABG O2 Saturation (94-98) % ABG Base Excess (-2.0-3.0) mmol/L William Test Respiration Rate b/min O2 Delivery Device Vent Mode FiO2 Tidal Volume mL PEEP cmH2O Pressure Support Vent cmH2O Sodium (135-145) mmol/L Potassium (3.5-5.0) mmol/L Chloride (101-111) mmol/L Carbon Dioxide (21-32) mmol/L Anion Gap (6-13) BUN (6-20) mg/dL Creatinine (0.4-1.0) mg/dL Estimated GFR (MDRD) (>89) Glucose (70-100) mg/dL POC Whole Bld Glucose 123 H 122 H 121 H (70 - 100) mg/dL Lactic Acid (0.5-2.2) mmol/L Calcium (8.5-10.3) mg/dL Phosphorus (2.5-4.6) mg/dL Magnesium (1.7-2.8) mg/dL Total Bilirubin (0.2-1.0) mg/dL AST (10-42) IU/L ALT (10-60) IU/L Alkaline Phosphatase (42-121) IU/L Total Protein (6.7-8.2) g/dL Albumin (3.2-5.5) g/dL Globulin (2.1-4.2) g/dL Albumin/Globulin Ratio (1.0-2.2) Triglycerides ( - 149) mg/dL Cholesterol ( - 199) mg/dL LDL Cholesterol, Calc ( - 129) mg/dL VLDL Cholesterol mg/dL HDL Cholesterol (60 - ) mg/dL LDL/HDL Ratio (<4.4) Cholesterol/HDL Ratio (<4.4) 07/29/19 Range/Units 11:43 WBC (4.8-10.8) x10^3/uL RBC (4.20-5.40) 10^6/uL Hgb (12.0-16.0) g/dL Hct (37.0-47.0) % MCV (81.0-99.0) fL MCH (27.0-31.0) pg MCHC (32.0-36.0) g/dL RDW (12.0-15.0) % Plt Count (130-450) 10^3/uL MPV (7.9-10.8) fL Neut # (Auto) (1.5-6.6) 10^3/uL Lymph # (Auto) (1.5-3.5) 10^3/uL Hemphill # (Auto) (0.0-1.0) 10^3/uL Eos # (Auto) (0.0-0.7) 10^3/uL Baso # (Auto) (0.0-0.1) 10^3/uL Absolute Nucleated RBC x10^3/uL Nucleated RBC % /100WBC Bld Gas Analysis Time Sample Site ABG pH (7.35-7.45) ABG pCO2 (34-45) mmHg ABG pO2 (80-100) mmHg ABG HCO3 (22.0-26.0) mmol/L ABG Total CO2 (21.0-29.0) MMOL/L ABG O2 Saturation (94-98) % ABG Base Excess (-2.0-3.0) mmol/L William Test Respiration Rate b/min O2 Delivery Device Vent Mode FiO2 Tidal Volume mL PEEP cmH2O Pressure Support Vent cmH2O Sodium (135-145) mmol/L Potassium (3.5-5.0) mmol/L Chloride (101-111) mmol/L Carbon Dioxide (21-32) mmol/L Anion Gap (6-13) BUN (6-20) mg/dL Creatinine (0.4-1.0) mg/dL Estimated GFR (MDRD) (>89) Glucose (70-100) mg/dL POC Whole Bld Glucose 66 L (70 - 100) mg/dL Lactic Acid (0.5-2.2) mmol/L Calcium (8.5-10.3) mg/dL Phosphorus (2.5-4.6) mg/dL Magnesium (1.7-2.8) mg/dL Total Bilirubin (0.2-1.0) mg/dL AST (10-42) IU/L ALT (10-60) IU/L Alkaline Phosphatase (42-121) IU/L Total Protein (6.7-8.2) g/dL Albumin (3.2-5.5) g/dL Globulin (2.1-4.2) g/dL Albumin/Globulin Ratio (1.0-2.2) Triglycerides ( - 149) mg/dL Cholesterol ( - 199) mg/dL LDL Cholesterol, Calc ( - 129) mg/dL VLDL Cholesterol mg/dL HDL Cholesterol (60 - ) mg/dL LDL/HDL Ratio (<4.4) Cholesterol/HDL Ratio (<4.4) - Imaging Results Radiology Imaging: positive: Final report received, EMP read indepedently Imaging Results Comments: CT Head NAD; CT chest: bibasilar infiltrates, effusions, left greater than right CT abd/pelvis: free fluid in abd, ow NEG. - Current Medications Current Medications: Current Medications Generic Name Dose Route Start Last Admin Trade Name Freq PRN Reason Stop Dose Admin Albuterol 2.5 mg 07/21/19 14:20 07/29/19 05:30 INH 2.5 mg RTQ4H PRN Administration Wheezing Chlorhexidine Gluconate 15 ml 07/21/19 09:00 07/29/19 20:47 Peridex PO 15 ml BID SONG Administration Heparin Sodium (Porcine) 5,000 unit 07/21/19 09:00 07/29/19 20:48 SUBQ 5,000 unit BID SONG Administration Metronidazole 500 mg in 100 mls @ 100 mls/hr 07/20/19 22:30 07/30/19 06:13 Flagyl 500 Mg/100 Ml IV 100 mls/hr Q8H SONG Administration Propofol 100 mls @ 3.33 mls/hr 07/20/19 19:00 07/30/19 04:57 Diprivan IV 50 mcg/kg/min .Q30H2M SONG 16.65 mls/hr Titration Protocol 10 MCG/KG/MIN Fentanyl 2,500 mcg/ Sodium 250 mls @ 5.55 mls/hr 07/20/19 19:00 07/30/19 04:22 Chloride IV 2 mcg/kg/hr .Q45H3M SONG 11.1 mls/hr Titration Protocol 1 MCG/KG/HR Cefepime HCl 2 gm/ Sodium 100 mls @ 200 mls/hr 07/20/19 21:00 07/29/19 21:15 Chloride IV Infused BID SONG Infusion Thiamine HCl 100 mg/ Sodium 51 mls @ 100 mls/hr 07/21/19 09:00 07/29/19 11:05 Chloride IV Infused DAILY SONG Infusion Sodium Chloride 500 mls @ 20 mls/hr 07/21/19 18:13 07/29/19 11:00 Normal Saline 0.9% IV Infused Q24H PRN Infusion TKO RATE Multivitamins 10 ml/ Chromium/ 2,011 mls @ 50 mls/hr 07/24/19 19:00 07/29/19 19:00 Copper/Manganese/Seleni/Zn 1 IV 50 mls/hr ml/ Amino Ac/Electrol/Dextrose Q24H SONG Infusion /Calcium Protocol Vancomycin HCl 1 gm/ Sodium 250 mls @ 167 mls/hr 07/26/19 06:00 07/30/19 01:43 Chloride IV Infused Q18H SONG Infusion Azithromycin 500 mg/ Sodium 250 mls @ 250 mls/hr 07/29/19 10:00 07/29/19 12:10 Chloride IV 07/31/19 10:59 Infused DAILY@1000 SONG Infusion Dextrose/Sodium Chloride 1,000 mls @ 250 mls/hr 07/30/19 02:00 07/30/19 06:07 D5ns IV Not Given .Q4H SONG Norepinephrine Bitartrate 8 mg 250 mls @ 15 mls/hr 07/30/19 04:00 07/30/19 06:34 / Dextrose IV 4 mcg/min .[id number] SONG 7.5 mls/hr Titration Protocol 8 MCG/MIN Mineral Oil 1 applic 07/26/19 20:09 07/29/19 04:41 Cavilon TOP 1 applic PRN PRN Administration Skin Care Multi-Ingred Cream/Lotion/Oil/Oint 1 applic 07/26/19 13:27 07/29/19 22:14 Lubrifresh Pm Ophth Oint EACHEYE 1 applic QPM PRN Administration Dry Eye Pantoprazole Sodium 40 mg 07/20/19 21:00 07/29/19 20:47 Protonix IVP 40 mg BID SONG Administration Sodium Chloride 10 ml 07/20/19 17:00 07/30/19 00:42 Normal Saline Flush 0.9% IVP Not Given 0100,0900,1700 SONG Sodium Chloride 10 ml 07/20/19 16:31 07/30/19 03:57 Normal Saline Flush 0.9% IVP 40 ml PRN PRN Administration NEEDED PER PROVIDER ORDERS - Physical Exam Wound/Incisions: positive: Healing well, Drainage (minimal from lower part of incision, s/p DPC yest; serous) General Appearance: positive: Other (sedated, no acute distress evident) Eyes Bilateral: positive: No scleral icterus ENT: positive: No signs of dehydration Neck: positive: No JVD, Trachea midline Respiratory: positive: Chest non-tender, No respiratory distress, Breath sounds nml (anteriorly) Cardiovascular: positive: Regular rate & rhythm, No murmur, No gallop, Tachycardia Abdomen: positive: Nml bowel sounds, Other (mild to mod distention persists, no apparant tenderness but sedated; incision appears to be healing slowly; s/p delayed primary closure over lower 1/3; no sign of infection). negative: No distention, Hepatomegaly, Splenomegaly, Mass Skin: positive: Color nml, No rash, Warm, Dry, Other (diffuse anasarca) Extremities: positive: Pedal edema (anasarca) Comments/Other: now back on NE for hypotension ABX Reporting Has patient been on IV antibiotics over the past 48 hours?: Yes Impression/Plan - Problem List Problem List: PO Day 7. Continued rising WBC, hypotension despite adequate hydration suggests recurrent sepsis. Lungs most likely source given neg sanchez CT, but can not r/o line sepsis. Rec: insert PICC and d/c central line; consider repeat blood C&S. Consider changing art line. Continue to speak to family regarding plan of care.
[2019-07-30] MEDS ORDERED: SODIUM CHLORIDE 0.9% 1,000 ML IV SCH (08:00)
[2019-07-30] MEDS ORDERED: ALBUMIN 25% 12.5 GM/50 ML VIAL IV STA (08:02)
[2019-07-30] MEDS: THIAMINE INJ 100 MG in SODIUM CHLORIDE 0.9% 50 ML IV SCH (08:19)
[2019-07-30] MEDS: CEFEPIME 2 GM in SODIUM CHLORIDE 0.9% MINIBAG 100 ML IV SCH (08:48)
[2019-07-30] MEDS: PANTOPRAZOLE 40 MG VIAL IVP SCH (08:48)
[2019-07-30] MEDS: CHLORHEXIDINE GLUCONATE 15 ML UDC PO SCH (08:48)
[2019-07-30] MEDS ORDERED: ALBUMIN 25% 12.5 GM/50 ML VIAL IV ONE (09:00)
[2019-07-30] MEDS: HEPARIN 5,000 UNIT/ML VIAL SUBQ SCH (09:17)
[2019-07-30] MEDS: AZITHROMYCIN INJ 500 MG in SODIUM CHLORIDE 0.9% 250 ML IV SCH (09:41)
--- NOTE | 2019-07-30 11:22 | ANESTHESIA PROCEDURE NOTE ---
Anesth Central Line Template - Central Line Central Line Preparation: Consent Obtained Central line location: Right IJ Central line type: Triple lumen Central line catheter tip site resides: [facility], right Central line aftercare: Chlorhexidine disc placed, Secured, Placement confirmed, No pneumothorax, No complications, Bundle checklist complete, Pt tolerated well, Other (waiting for rediographic confirmation)
--- NOTE | 2019-07-30 11:29 | PROCEDURE REPORT ---
Hospitalist Procedure Note - Procedure Note Procedure Note: central line orders in place. patient is intubated and sedated. time out/checklist completed. Right IJ central line placed in. US guidance used. Vital signs were being monitored by SECRETARY TO THE VICE PRESIDENT. 7 beninese tripple lumen catheter used. 15 cm in and 5 cm out at the skin. The catheter sutured and secured in place. Biopatch disc placed at the insertion site. Tegaderm used to cover the site and to secure the catheter in place. no ectopy noticed as the catheter was advanced. We will wait for the radiographic confirmation of the catheter tip placement. Patient tolerated the procedure well.
--- NOTE | 2019-07-30 11:45 | XRAY Report ---
Reason: verify placement of new Right IJ Procedure Date: 07/30/2019 Accession Number: [id number] / [id number] Procedure: XR - Chest for Line Placement CPT Code: Final Report FULL RESULT: EXAM: CHEST RADIOGRAPHY EXAM DATE: 07/30/2019 11:29 AM. CLINICAL HISTORY: Verify placement of new Right IJ. COMPARISON: CHEST 1 VIEW 07/28/2019 8:02 AM. TECHNIQUE: Semiupright AP view. FINDINGS: Lungs/Pleura: Endotracheal tube 4 cm above the desi, similar to before. Mild left basilar lung consolidation, decreased. Otherwise clear. No gross pneumothorax. Decreased small left pleural effusion. Mediastinum: Within exam limitations, the cardiomediastinal contour is normal. Mild aortic calcification. Left subclavian catheter in the left innominate vein, as before. New right IJ catheter in the upper SVC. Other: Orogastric tube coursing into the gastric fundus, as before. IMPRESSION: 1. New right IJ catheter in the upper SVC. 2. Other tube positions are unchanged. 3. Decreased small left pleural effusion. Decreased mild left basilar lung consolidation. 4. No pneumothorax is identified on this semiupright radiograph. RADIA
[2019-07-30] MEDS ORDERED: DEXTROSE 5% 500 ML IV ONE (12:42)
[2019-07-30] MEDS ORDERED: DEXTROSE 10% 250 ML IV ONE (12:43)
--- NOTE | 2019-07-30 12:52 | Discharge Plan ---
Discharge Plan Problem Reviewed?: Yes Disposition: 02 Transfer Acute Care Hosp Condition: Poor No Smoking: If you smoke, Please STOP! Call for help. Follow-up with: CHRIS OTTO MD [Primary Care Provider] -
--- NOTE | 2019-07-30 12:53 | DISCHARGE SUMMARY ---
Discharge Summary Admit Date: 07/20/19 Discharge Date: 07/30/19 Discharging Provider: Dr Kat Stovall Primary Care Provider: Dr Cami Chandra Code Status: Attempt Resuscitation Condition at Discharge: Poor Discharge Disposition: 02 Transfer Acute Care Hosp Discharge Facility Name: [facility] - DIAGNOSES Admission Diagnoses: (1) Perforated abdominal viscus (2) Severe sepsis (3) Acute kidney injury (4) COPD (chronic obstructive pulmonary disease) (5) Severe protein-calorie malnutrition (6) Tobacco abuse (7) Rheumatoid arthritis (8) History of alcoholism Discharge Diagnoses with Status of Each Condition: See below - HPI History of Present Illness: From the admission H&P of Dr Will Serrano: This is a 63-year-old female with a past medical history significant for COPD, alcohol abuse, rheumatoid arthritis, prior Nehal procedure for perforated diverticulitis who presents today complaining of worsening abdominal pain along with nausea and vomiting. Most of the history is obtained from the patient's friends as patient is lethargic and in discomfort. Her friend stated they saw her this past Tuesday and she was complaining of some vague abdominal pain and abdominal distention. She was able to eat but her appetite was poor. They did not see the patient yesterday but today she was clearly complaining of worsening abdominal pain along with nausea and vomiting. Patient denies chest pain but does complain of shortness of breath. She states her breathing is most impaired when she has abdominal pain. She still smokes about 10 cigarettes a day and has been smoking for more than 30 years. She does not wear oxygen at home. Her friend state that she has not been drinking alcohol since January but she had prior history of heavy alcohol use. They report no weight loss, but she is very thin and that she kassandra actually gained a few pounds. She has been taking Aleve on a daily basis for her rheumatoid arthritis. She is also on methotrexate for that vut does not know if she takes it. She does not take aspirin. In the emergency department, she was afebrile, tachycardic with a heart rate of 114. Hypertensive systolic blood pressure of 175. She was tachypneic in the low 20s. She was hypoxic on room air saturating 81%. She was placed on 2 L of oxygen and is now saturating 98%. Labs revealed a white count of 3.5 with 28% bands. Her hemoglobin is also elevated at 16.8. Her BUN and creatinine were also elevated 39/1.0, compared to her baseline. Her lactic acid is also evaded at 2.5. Her LFTs were normal. A CT of the abdomen and pelvis was concerning for a perforated viscus with free air. General Surgery has been consulted and initially recommended transfer to higher level of care as she is at risk for septic shock and multiorgan failure as well as prolonged ventilatory support given her COPD. Unfortunately there are no facilities in the nearby area with available beds and therefore she will be taken to the OR here, and admitted to the ICU postoperatively. I did discuss goals of care with the patient and she would like to be a full code. - CONSULTS | PROCEDURES Consultations: Dr Spencer Diggs, General Surgery Procedures: Exploratory laparotomy, excision and closure of perforated gastric ulcer, lysis of adhesions, irrigation and debridement of abdominal cavity, drainage of intraabdominal lesser sac abscess, done on 07/23/2019. - HOSPITAL COURSE Hospital Course: 1) Septic shock Patient had received approx 2 liters of crystalloid, cefazolin and metronidazole preop. She developed severe hypotension and hypoxemia shortly after induction of general anesthesia in the OR. Evaluation confirmed appropriate ET tube, NG tube and CVP line positions. Pt was resuscitated with IVF, phenylephrine drip and a brief period of CPR, less than 2 minutes, until ROSC was achieved. It was unclear what caused the event although aspiration, acute DE and anesthetic induced myocardial depression were considered. It was decided to cancel the surgery, transfer the patient to the ICU and continue her resuscitation and treat her underlying condition medically, with plans to reevaluate her the next day regarding suitability for surgery and/or transfer to a higher level of care. Plan was discussed in detail by the Surgeon with the patient's family (son and friend), who were in agreement with this plan. She was on iv Levophed, iv fluids, iv antibiotics using Flagyl, Cefepime, Aztreonam and Vancomycin. Her Lactic acid level remained elevated on 07/20/19 (2.5, 4.5, 3.7) and 07/21/19 (1.9, 3.3, 3.5) then improved to 1.5 on 07/21/19. She remained inubated with ventilator support and iv sedation. Her hs-troponins were "flat" (231, 245, 232) ruling out an acute DE and an Echo was done on 07/21/19 and showed low-normal LVEF of 50-55% with PA pressure 28 mmHg. Her Levophed was able to be weaned to off 2 days after the successful abdominal surgery (see below). 2) Metabolic acidosis pH was abnormal for 2 days as aggressive management was undertaken. ABG pH on 07/20/19 7.24. then 7.29 and 7.33 on 07/21/19, then 7.42 on . 3) Perforated abdominal viscus After labs and Echo, antibiotics and pressor support, and on the vent and stabilization in the ICU for 2 days, there were updates and discussions with the family that she was unlikely to survive without surgical intervention, she was taken to the OR on 07/23/19 and had an exploratory laparotomy, excision and closure of perforated gastric ulcer, lysis of adhesions, irrigation and debridement of abdominal cavity, drainage of intraabdominal lesser sac abscess. She had a post-op ileus and needed ng drainage while here. 4) Staph infection The fluid from the wound, obtained in the OR, grew Staph hemolyticus on 07/28/19, which was Vanco sensitive. 5) GERMAINE Her elevated BUN/creat of 39/1.0 at admission, worsened over the first 2-3 days to 52/2.1, then improved steadily on the above management. At the time of transfer (see below) the BUN/creat were 27/0.5, and she was making good urine. 6) Ventilator-associated pneumonia After the Levophed was weaned to off, weaning from the vent was started but was hampered by development of O2 desaturation with tachypnea and her ventilator settings needed to be increased on 07/26/19. Her CXR showed new pulmonary infiltrates, consistent with VAP. WBC perez from 9.4 to 16.4. Her IV antibiotics were adjusted by adding Vanco then. 7) Leukocytosis The WBC continued to rise daily (16.4>> 18.7>> 20.3), and iv Zithromax was added to cover atypical bacteria. Urinalysis remained unremarkable. Her CVP line was changed on 07/30/19, and the tip was sent for culture, which was pending at the time of transfer. 8) Ventilator dependant Before the VAP and after several days of antibiotics were added for the pneumonia treatment, she had trials on CPAP for extubation, but tolerated these poorly. By the 6th day on the ventilator, the family was approached to have her transferred for a tracheostomy placement and further management at a facility with higher level of care. 9) Family discord The 3 children were all present and informed of the recommendation for transfer. The daughter (here from [place]) initially did not want transfer, but the 2 sons agreed. Since they were the legal next-of-kin, all had to be in agreement with the patient's management to proceed. After a discussion about the risks and b enefits of transfer and trach procedure and potential further hospital course, the daughter agreed, only to change her mind the next day, when she then returned to [place]. On 07/30/19, the daughter called from [place], requesting that their mother be transferred for a trach and for higher level of care. The patient was accepted in transfer and was moved to [facility] ICU by [facility]. 10) Severe protein-calorie malnutrition The daughter had given background information; that the patient was very disabled from pain of RA, and was abusing alcohol and not eating well.Her BMI is 23. The patient was started on tpn iv nutrition at mid-hospital course. 11) Hypernatremia At the end of her stay, she developed Na of 146, from the many days saline in iv's and med doses. This was treated with D5W for giving free water. 12) Hx COPD The difficult vent wean was suspected to be from this. 13) Rheumatoid arthritis The daughter reported that the patient was prescribed MTX but was told not to use it with alcohol intake, therefore the patient was not taking her MTX, since she admitted she was drinking heavily. The patient had been taking Aleve at high doses for managing the pain of her RA. She needed a walker in the house and help with toileting, due to her pain. 14) Hx alcoholism As above and at admission, the friend had reported no alcohol abuse since Jan 2019, but the daughter, who had frequent phone contact with her mother, stated the patient stopped alcohol intake about 1 month previously. The patient received 10 days of daily IV Thiamine. 15) Tobacco use Cigarette smoking was known at admission. - ALLERGIES Allergies/Adverse Reactions: Allergies Allergy/AdvReac Type Severity Reaction Status Date / Time piperacillin Allergy Rash Verified 03/12/19 14:25 - MEDICATIONS Home Medications: Ambulatory Orders Medication Instructions Recorded Confirmed Cyclobenzaprine [Flexeril] 10 mg PO TID PRN 11/19/16 07/21/19 Albuterol Sulf [Ventolin Hfa 1 - 2 puffs INH Q4HR PRN 03/13/19 07/21/19 Inhaler] Meclizine HCl [Motion Sickness 25 mg PO TID PRN 03/13/19 07/21/19 Relief] Pramipexole [Mirapex] 0.25 mg PO QPM 03/13/19 07/21/19 Sertraline [Zoloft] 50 mg PO DAILY 03/13/19 07/21/19 traZODone [Desyrel] 25 mg PO HS 03/13/19 07/21/19 Folic Acid 1 mg PO DAILY 07/21/19 07/21/19 Losartan Potassium 25 mg PO DAILY 07/21/19 07/21/19 Methotrexate 7.5 mg PO Q7D 07/21/19 07/21/19 - PHYSICAL EXAM AT DISCHARGE General Appearance: positive: Other (Sedated, on the vent.) Eyes Bilateral: positive: No lid inflammation ENT: positive: No signs of dehydration, Other (ng tube in place, ET tube in place) Neck: positive: No JVD, Other (Supple when she moved spontaneously. CVP line in place.) Respiratory: positive: Other (ET tube in place, clear breath sounds anteriorly.) Cardiovascular: positive: Regular rate & rhythm, No murmur Abdomen: positive: No distention, Other (Minimal bowel sounds, bandage across abdomen clean and dry.) Skin: positive: Color nml, Warm, Dry Extremities: positive: Other (Finger deformities of RA, 1+ hand edema bilaterally, no pedal edema.) Neurologic/Psychiatric: positive: Other (Sedated) - LABS Result Diagrams: 07/30/19 03:55 07/30/19 03:55 - DIAGNOSTIC IMAGING Diagnostic Imaging Results: Final report reviewed - SEPSIS Current Stage of Sepsis: Septic shock Possible source of Sepsis: GI tract/intra-abdominal Sepsis Criteria: Recorded Heart Rate greater than 90 bpm, Recorded Respiratory Rate greater than 20, WBC count greater than 10% bands, WBC count greater than 12,000 or less than 4000, SBP drop more than 40mHg, SBP less than 90 mmHg, Renal: urine output less than 0.5ml/kg/hr for 2 hours or creatinine gr, Metabolic: lactate > 2 mmol/L - FOLLOW UP Follow Up: This will be determined after her hospitalization at [facility]. - TIME SPENT Time Spent in Discharge (Minutes): 60
[2019-07-30] MEDS: fentaNYL 2,500 MCG in SODIUM CHLORIDE 0.9% 200 ML IV SCH (13:51)
[2019-07-30] MEDS ORDERED: DEXTROSE 5% 1,000 ML IV SCH (14:00)
[2019-07-30 15:07] VITALS: BP 89/60
== END 2019-07-30 14:50 | disposition short-term general hospital (02) | DRG 326 ==
LOC: EDUNIT# → ED 11:11 → ICU 16:31
PROVIDERS: ADMIT Internal Medicine; ATTEND Internal Medicine
PROC: 4A143B0 Monitoring of Venous Pressure, Central, Percutaneous Approach (ICD-10-PCS; 2019-07-20)
PROC: 5A12012 Performance of Cardiac Output, Single, Manual (ICD-10-PCS; 2019-07-20)
PROC: 5A1955Z Respiratory Ventilation, Greater than 96 Consecutive Hours (ICD-10-PCS; 2019-07-20)
PROC: 0BH17EZ Insertion of Endotracheal Airway into Trachea, Via Natural or Artificial Opening (ICD-10-PCS; 2019-07-20)
PROC: 0DN80ZZ Release Small Intestine, Open Approach (ICD-10-PCS; 2019-07-23)
PROC: 0DNW0ZZ Release Peritoneum, Open Approach (ICD-10-PCS; 2019-07-23)
PROC: 0FN20ZZ Release Left Lobe Liver, Open Approach (ICD-10-PCS; 2019-07-23)
PROC: 0DQ80ZZ Repair Small Intestine, Open Approach (ICD-10-PCS; 2019-07-23)
PROC: 0DU607Z Supplement Stomach with Autologous Tissue Substitute, Open Approach (ICD-10-PCS; principal; 2019-07-23 07:30)
PROC: 3E0336Z Introduction of Nutritional Substance into Peripheral Vein, Percutaneous Approach (ICD-10-PCS; 2019-07-24)
PROC: 02HV33Z Insertion of Infusion Device into Superior Vena Cava, Percutaneous Approach (ICD-10-PCS; 2019-07-30)
DX: K25.2 Acute gastric ulcer with both hemorrhage and perforation (principal); K65.1 Peritoneal abscess; A41.9 Sepsis, unspecified organism; R65.21 Severe sepsis with septic shock; E43 Unspecified severe protein-calorie malnutrition; N17.0 Acute kidney failure with tubular necrosis; E87.2 Acidosis; J95.851 Ventilator associated pneumonia; Z99.11 Dependence on respirator [ventilator] status; E87.0 Hyperosmolality and hypernatremia; R64 Cachexia; K56.7 Ileus, unspecified; K57.32 Diverticulitis of large intestine without perforation or abscess without bleeding; Z63.79 Other stressful life events affecting family and household; B95.7 Other staphylococcus as the cause of diseases classified elsewhere; Y92.230 Patient room in hospital as the place of occurrence of the external cause; Y84.8 Other medical procedures as the cause of abnormal reaction of the patient, or of later complication, without mention of misadventure at the time of the procedure; T39.315A Adverse effect of propionic acid derivatives, initial encounter; D72.829 Elevated white blood cell count, unspecified; K31.819 Angiodysplasia of stomach and duodenum without bleeding; Y92.009 Unspecified place in unspecified non-institutional (private) residence as the place of occurrence of the external cause; K66.0 Peritoneal adhesions (postprocedural) (postinfection); Z68.23 Body mass index [BMI] 23.0-23.9, adult; J44.9 Chronic obstructive pulmonary disease, unspecified; F17.210 Nicotine dependence, cigarettes, uncomplicated; M06.9 Rheumatoid arthritis, unspecified; M79.7 Fibromyalgia; M19.90 Unspecified osteoarthritis, unspecified site; F10.21 Alcohol dependence, in remission; E86.0 Dehydration; R79.89 Other specified abnormal findings of blood chemistry; T45.1X6A Underdosing of antineoplastic and immunosuppressive drugs, initial encounter; Z78.1 Physical restraint status; Z79.1 Long term (current) use of non-steroidal anti-inflammatories (NSAID); Z79.51 Long term (current) use of inhaled steroids; Z79.899 Other long term (current) drug therapy; Z90.49 Acquired absence of other specified parts of digestive tract
CPT/HCPCS: 36415; 36600; 70470; 71045; 71260; 73080; 74177; 80048; 80053; 80061; 80076; 80202; 81001; 82040; 82803; 83605; 83690; 83735; 84100; 84478; 84484; 85025; 85610; 87040; 87070; 87071; 87077; 87150; 87181; 87205; 93005; 93306; 94002; 94003; 94640; 96361; 96365; 96366; 96367; 96375; 99284; 99285; A6250; A9270; J0131; J1200; J3010; J3370; J3411; J3490; J7040; J7120; P9047; Q9967; 81003; 83721; 87086; 94770